=== PATIENT | male | born 1975 | race Caucasian/White ===

== ENCOUNTER 2018-08-21 11:15 | Outpatient (RCR) | payer OTHER, MEDICAID, SELFPAY ==
[2018-08-14 10:49] VITALS: BP 127/87; PULSE 88; RESP 16; TEMP 36.2; BMI 38.4
--- NOTE | 2018-08-14 12:39 | PCM.WC.HP ---
(1) Diabetic foot ulcer associated with type 2 diabetes mellitus Status: Chronic Current Visit: Yes Qualifiers: Laterality: right Non-pressure ulcer stage: with fat layer exposed Code(s): E11.621 - Type 2 diabetes mellitus with foot ulcer; L97.509 - Non-pressure chronic ulcer of other part of unspecified foot with unspecified severity Comment: Right lateral plantar. (2) Type 2 diabetes mellitus Status: Acute Current Visit: Yes Code(s): E11.9 - Type 2 diabetes mellitus without complications (3) Diabetic neuropathy Status: Acute Current Visit: Yes Code(s): E11.40 - Type 2 diabetes mellitus with diabetic neuropathy, unspecified History of Present Illness Chief Complaint: None healing right foot ulcer. History of Wound: Mr. 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 Initially noted in April due to problems with insurance has not sought definitive help. Has been seen in the emergency room treated with antibiotics and told to apply Silvadene. He states that he has done this daily. He however has not offloaded. He has noted some warmth and swelling around the area but denies chills, fever or otherwise feeling of unwell. He is unclear about his diabetes control. He denies tobacco abuse. Past Medical History Past Medical History: Chronic Problems Diabetic foot ulcer associated with type 2 diabetes mellitus (Chronic) Right lateral plantar. Allergies/Adverse Reactions: Allergies No Known Allergies Allergy (Verified 08/14/18 11:13) Home Medications: Ambulatory Orders Medication Instructions Recorded Aspirin E.C. [Ecotrin] 81 mg PO DAILY@0800 08/14/18 Atorvastatin Calcium [Lipitor] 40 mg PO QHS 08/14/18 Insulin Aspart [Novolog Flexpen 4 units SC TID 08/14/18 ([facility])] Lantus Solostar 24 unit SQ DAILY 08/14/18 Smoking Status: Never smoker Review of Systems Constitutional: Denies: Anorexia, Chills, Fever Eyes: Denies: Pain, Redness HEENT: Denies: Difficulty Swallowing Cardiovascular: Denies: Chest Pain, Chest Tightness Respiratory: Denies: Hemoptysis Gastrointestinal: Denies: Abdominal Pain, Hematemesis, Vomiting Skin: Denies: Jaundice - Physical Exam Vital Signs Temp Pulse Resp BP 97.1 F L 88 16 127/87 H 08/14/18 10:49 08/14/18 10:49 08/14/18 10:49 08/14/18 10:49 General: Alert, Oriented x3, Cooperative, No apparent distress HEENT: Atraumatic, Normocephalic Oral: Moist Mucosa Neck: Supple Lungs: Normal air movement Cardiovascular: Regular rate, Regular Rhythm, Normal S1, Normal S2 Abdomen: Soft, Non Tender, Obese Extremities: No cyanosis Skin: Ulcer/ Wound Wound Measurements and Assessment WC - Nurse 1 - General Ulcer Measurement Start: 08/14/18 10:49 Freq: Status: Active Protocol: Activity Type Activity Date Activity User E-Sign Co-Sign Detail Recorded Client Recorded Date Recorded By Document 08/14/18 10:49 OTONIEL [id number] 08/14/18 11:10 OTONIEL 08/14/18 10:49 Wound Center Nurse 1 [Ulcer Assessment] 1-right lateral plantar foot -Combined with other wound No -Current Size (cm) - Length 2.0 -Current Size (cm) - Width 1.0 -Current Size (cm) - Depth 0.7 -Total Square Cm 2.00 -Photo Taken Yes -Epithelialization Medium 34-66% -Tunneling No -Undermining/Tunneling No -Circular Undermining No -Classification - Quinn Grading ( Grade 2 Diabetic Ulcer) -Exudate Amt Medium -Exudate Type Serosanguineous -Wound Margin Flat & Intact -Granulation Amt Medium (34-66%) -Granulation Quality Red -Slough/Fibrin Yes -Necrosis Amt Medium (34-66%) -Necrotic Tissue Type Adherent Slough -Texture (Rosaura-wound Skin Appearance) Assessed Callus -Moisture (Rosaura-wound Skin Appearance Assessed ) Dry/Scaly -Color (Rosaura-wound Skin Appearance) Assessed -Temperature (Rosaura-wound Skin No Abnormality Appearance) (Pt Warm) -Tenderness on Palpation (Rosaura-wound No Skin Appearance) -Ulcer Cleansing Rinsed/ Irrigated with Saline -Foul Odor after Cleansing No -Anesthetic Used 4% Lidocaine Solution [Edema Assessment] -Lower Limb Edema Present No -Right Calf (cm) 41.7 -Right Ankle (cm) 25.7 -Left Calf (cm) 41.5 -Left Ankle (cm) 24.7 WC - Nurse 2 - General Ulcer CM Notes Start: 08/14/18 10:49 Freq: Status: Active Protocol: Activity Type Activity Date Activity User E-Sign Co-Sign Detail Recorded Client Recorded Date Recorded By Document 08/14/18 11:34 MW [id number] 08/14/18 11:48 MW 08/14/18 11:34 Wound Center Nurse 2 [Procedure/Treatment] 1-right lateral plantar foot -Time 11:35 -Correct Patient Yes -Correct Side, Site, Position Yes -Correct Procedure Yes -Procedure Performed Yes -Type of Procedure Debridement -Clinical Debridement Subcutaneous -Post Debridement Size (cm) - Length 2.2 -Post Debridement Size (cm) - Width 1.2 -Post Debridement Size (cm) - Depth 0.9 -Total Square Cm 2.64 -Wound/Ulcer Outcome Not Healed -Ulcer Cleansing Rinsed/ Irrigated with Saline -Foul Odor after Cleansing No -Bioengineered Tissue No -Bleeding Controlled with Pressure -Offloading No -Treatment Response Procedure Tolerated Well [See Physician Procedure note for Specifics] Pain Scale: 0-10 Numeric [Pain] -Is Patient Pain Free? Yes Musculoskeletal: No Muscle Wasting Neurological: Cranial nerves II-XII grossly intact Psych/Mental Status: Normal Affect Debridement Note Post-Debridement Measurements/Treatment WC - Nurse 2 - General Ulcer CM Notes Start: 08/14/18 10:49 Freq: Status: Active Protocol: Activity Type Activity Date Activity User E-Sign Co-Sign Detail Recorded Client Recorded Date Recorded By Document 08/14/18 11:34 MW [id number] 08/14/18 11:48 MW 08/14/18 11:34 Wound Center Nurse 2 1-right lateral plantar foot -Time 11:35 -Correct Patient Yes -Correct Side, Site, Position Yes -Correct Procedure Yes -Procedure Performed Yes -Type of Procedure Debridement -Clinical Debridement Subcutaneous -Post Debridement Size (cm) - Length 2.2 -Post Debridement Size (cm) - Width 1.2 -Post Debridement Size (cm) - Depth 0.9 -Total Square Cm 2.64 -Wound/Ulcer Outcome Not Healed -Ulcer Cleansing Rinsed/ Irrigated with Saline -Foul Odor after Cleansing No -Bioengineered Tissue No -Bleeding Controlled with Pressure -Offloading No -Treatment Response Procedure Tolerated Well Pain Scale: 0-10 Numeric Is Patient Pain Free? Yes Wound debrided: Right foot (plantar, fifth/4th metatarsal head ) Wound Grade/Stage: Grade 2 Type of Debridement: Excisional debridement Anesthesia Used: 4% Lidocaine Solution Depth: Down to and including healthy tissue, in the subcutaneous layer Percentage of wound debrided: 100 Instrument Used: 5mm curette Tissue Removed: Slough and devitalized tissue Severity: Fat Layer Exposed Amount of bleeding with debridement: Mild Bleeding Controlled with: Pressure Patient tolerated procedure well Assessment/Plan Active Problems Diabetic foot ulcer associated with type 2 diabetes mellitus (Chronic) Right lateral plantar. Type 2 diabetes mellitus (Acute) Diabetic neuropathy (Acute) Assessment: Nonhealing diabetic foot ulcer of right foot. Diabetic neuropathy. Plan: Debridement done as documented above, procedure was well-tolerated. Ulcer appears well granulated however differential warmth and tenderness of the foot appreciated. Significant depth however no bone probed. Patient reports significant amount of drainage. Cultures taken. X-ray, vascular studies, CBC, CMP, CRP and ESR were also ordered. For now Aquacel extra twice daily with gauze over top. Double layer Tubigrip for edema management. Due to depth, significant drainage and chronicity of wound, I believe he will benefit from a wound VAC. We will apply. Strongly advised to elevate his lower extremity when seated in bed. Optimal blood sugar control and increased intake of protein in his diet/supplements also recommended. Given postop shoes to help with offloading. Does not currently follow-up with podiatry, he was advised to. His questions were answered and he was advised to call with any further questions or concerns. Follow-up in 1 week. This note was generated with [employer] dictation software. It may contain incorrect words, spelling, and punctuation that were not noted in checking the note before signing.
--- NOTE | 2018-08-14 12:43 | HP.PCM_ITS ---
(1) Diabetic foot ulcer associated with type 2 diabetes mellitus Status: Chronic Current Visit: Yes Qualifiers: Laterality: right Non-pressure ulcer stage: with fat layer exposed Code(s): E11.621 - Type 2 diabetes mellitus with foot ulcer; L97.509 - Non- pressure chronic ulcer of other part of unspecified foot with unspecified severity Comment: Right lateral plantar. (2) Type 2 diabetes mellitus Status: Acute Current Visit: Yes Code(s): E11.9 - Type 2 diabetes mellitus without complications (3) Diabetic neuropathy Status: Acute Current Visit: Yes Code(s): E11.40 - Type 2 diabetes mellitus with diabetic neuropathy, unspecified History of Present Illness Chief Complaint: None healing right foot ulcer. History of Wound: Mr. 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 Initially noted in April due to problems with insurance has not sought definitive help. Has been seen in the emergency room treated with antibiotics and told to apply Silvadene. He states that he has done this daily. He however has not offloaded. He has noted some warmth and swelling around the area but denies chills, fever or otherwise feeling of unwell. He is unclear about his diabetes control. He denies tobacco abuse. Past Medical History Past Medical History: Chronic Problems Diabetic foot ulcer associated with type 2 diabetes mellitus (Chronic) Right lateral plantar. Allergies/Adverse Reactions: Allergies No Known Allergies Allergy (Verified 08/14/18 11:13) Home Medications: Ambulatory Orders Medication Instructions Recorded Aspirin E.C. [Ecotrin] 81 mg PO DAILY@0800 08/14/18 Atorvastatin Calcium [Lipitor] 40 mg PO QHS 08/14/18 Insulin Aspart [Novolog Flexpen 4 units SC TID 08/14/18 ([facility])] Lantus Solostar 24 unit SQ DAILY 08/14/18 Smoking Status: Never smoker Review of Systems Constitutional: Denies: Anorexia, Chills, Fever Eyes: Denies: Pain, Redness HEENT: Denies: Difficulty Swallowing Cardiovascular: Denies: Chest Pain, Chest Tightness Respiratory: Denies: Hemoptysis Gastrointestinal: Denies: Abdominal Pain, Hematemesis, Vomiting Skin: Denies: Jaundice - Physical Exam Vital Signs Temp Pulse Resp BP 97.1 F L 88 16 127/87 H 08/14/18 10:49 08/14/18 10:49 08/14/18 10:49 08/14/18 10:49 General: Alert, Oriented x3, Cooperative, No apparent distress HEENT: Atraumatic, Normocephalic Oral: Moist Mucosa Neck: Supple Lungs: Normal air movement Cardiovascular: Regular rate, Regular Rhythm, Normal S1, Normal S2 Abdomen: Soft, Non Tender, Obese Extremities: No cyanosis Skin: Ulcer/ Wound Wound Measurements and Assessment WC - Nurse 1 - General Ulcer Measurement Start: 08/14/18 10:49 Freq: Status: Active Protocol: Activity Type Activity Date Activity User E-Sign Co-Sign Detail Recorded Client Recorded Date Recorded By Document 08/14/18 10:49 OTONIEL [id number] 08/14/18 11:10 OTONIEL 08/14/18 10:49 Wound Center Nurse 1 [Ulcer Assessment] 1-right lateral plantar foot -Combined with other wound No -Current Size (cm) - Length 2.0 -Current Size (cm) - Width 1.0 -Current Size (cm) - Depth 0.7 -Total Square Cm 2.00 -Photo Taken Yes -Epithelialization Medium 34-66% -Tunneling No -Undermining/Tunneling No -Circular Undermining No -Classification - Quinn Grading ( Grade 2 Diabetic Ulcer) -Exudate Amt Medium -Exudate Type Serosanguineous -Wound Margin Flat & Intact -Granulation Amt Medium (34-66%) -Granulation Quality Red -Slough/Fibrin Yes -Necrosis Amt Medium (34-66%) -Necrotic Tissue Type Adherent Slough -Texture (Rosaura-wound Skin Appearance) Assessed Callus -Moisture (Rosaura-wound Skin Appearance Assessed ) Dry/Scaly -Color (Rosaura-wound Skin Appearance) Assessed -Temperature (Rosaura-wound Skin No Abnormality Appearance) (Pt Warm) -Tenderness on Palpation (Rosaura-wound No Skin Appearance) -Ulcer Cleansing Rinsed/ Irrigated with Saline -Foul Odor after Cleansing No -Anesthetic Used 4% Lidocaine Solution [Edema Assessment] -Lower Limb Edema Present No -Right Calf (cm) 41.7 -Right Ankle (cm) 25.7 -Left Calf (cm) 41.5 -Left Ankle (cm) 24.7 WC - Nurse 2 - General Ulcer CM Notes Start: 08/14/18 10:49 Freq: Status: Active Protocol: Activity Type Activity Date Activity User E-Sign Co-Sign Detail Recorded Client Recorded Date Recorded By Document 08/14/18 11:34 MW [id number] 08/14/18 11:48 MW 08/14/18 11:34 Wound Center Nurse 2 [Procedure/Treatment] 1-right lateral plantar foot -Time 11:35 -Correct Patient Yes -Correct Side, Site, Position Yes -Correct Procedure Yes -Procedure Performed Yes -Type of Procedure Debridement -Clinical Debridement Subcutaneous -Post Debridement Size (cm) - Length 2.2 -Post Debridement Size (cm) - Width 1.2 -Post Debridement Size (cm) - Depth 0.9 -Total Square Cm 2.64 -Wound/Ulcer Outcome Not Healed -Ulcer Cleansing Rinsed/ Irrigated with Saline -Foul Odor after Cleansing No -Bioengineered Tissue No -Bleeding Controlled with Pressure -Offloading No -Treatment Response Procedure Tolerated Well [See Physician Procedure note for Specifics] Pain Scale: 0-10 Numeric [Pain] -Is Patient Pain Free? Yes Musculoskeletal: No Muscle Wasting Neurological: Cranial nerves II-XII grossly intact Psych/Mental Status: Normal Affect Debridement Note Post-Debridement Measurements/Treatment WC - Nurse 2 - General Ulcer CM Notes Start: 08/14/18 10:49 Freq: Status: Active Protocol: Activity Type Activity Date Activity User E-Sign Co-Sign Detail Recorded Client Recorded Date Recorded By Document 08/14/18 11:34 MW [id number] 08/14/18 11:48 MW 08/14/18 11:34 Wound Center Nurse 2 1-right lateral plantar foot -Time 11:35 -Correct Patient Yes -Correct Side, Site, Position Yes -Correct Procedure Yes -Procedure Performed Yes -Type of Procedure Debridement -Clinical Debridement Subcutaneous -Post Debridement Size (cm) - Length 2.2 -Post Debridement Size (cm) - Width 1.2 -Post Debridement Size (cm) - Depth 0.9 -Total Square Cm 2.64 -Wound/Ulcer Outcome Not Healed -Ulcer Cleansing Rinsed/ Irrigated with Saline -Foul Odor after Cleansing No -Bioengineered Tissue No -Bleeding Controlled with Pressure -Offloading No -Treatment Response Procedure Tolerated Well Pain Scale: 0-10 Numeric Is Patient Pain Free? Yes Wound debrided: Right foot (plantar, fifth/4th metatarsal head ) Wound Grade/Stage: Grade 2 Type of Debridement: Excisional debridement Anesthesia Used: 4% Lidocaine Solution Depth: Down to and including healthy tissue, in the subcutaneous layer Percentage of wound debrided: 100 Instrument Used: 5mm curette Tissue Removed: Slough and devitalized tissue Severity: Fat Layer Exposed Amount of bleeding with debridement: Mild Bleeding Controlled with: Pressure Patient tolerated procedure well Assessment/Plan Active Problems Diabetic foot ulcer associated with type 2 diabetes mellitus (Chronic) Right lateral plantar. Type 2 diabetes mellitus (Acute) Diabetic neuropathy (Acute) Assessment: Nonhealing diabetic foot ulcer of right foot. Diabetic neuropathy. Plan: Debridement done as documented above, procedure was well-tolerated. Ulcer appears well granulated however differential warmth and tenderness of the foot appreciated. Significant depth however no bone probed. Patient reports significant amount of drainage. Cultures taken. X-ray, vascular studies, CBC, CMP, CRP and ESR were also ordered. For now Aquacel extra twice daily with gauze over top. Double layer Tubigrip for edema management. Due to depth, significant drainage and chronicity of wound, I believe he will benefit from a wound VAC. We will apply. Strongly advised to elevate his lower extremity when seated in bed. Optimal blood sugar control and increased intake of protein in his diet/supplements also recommended. Given postop shoes to help with offloading. Does not currently follow-up with podiatry, he was advised to. His questions were answered and he was advised to call with any further questions or concerns. Follow-up in 1 week. This note was generated with [employer] dictation software. It may contain incorrect words, spelling, and punctuation that were not noted in checking the note before signing.
--- NOTE | 2018-08-14 12:55 | RAD_ITS ---
STUDY: X-RAY - RIGHT FOOT CLINICAL: Male, 42 years old. Right foot ulcer TECHNIQUE: 3 view(s) of the foot. COMPARISON: None. FINDINGS: There is a healing or healed fracture involving the distal shaft of the fifth metatarsal. The rest of the bones in the fifth ray are normal. The fourth, third and second rays are normal. There is amputation of the big toe. First metatarsal bone is normal. There is cellulitis of the entire foot with no areas osteomyelitis, fractures or dislocations. RAD/Foot min 3 Views IMPRESSION: Amputation on the right big toe. Cellulitis of the foot. No osteomyelitis. No fractures Electronically Signed: Dario Boudreaux MD at 6:28 EDT Tel , Service support ,
[2018-08-14 13:51] LABS: Erythrocyte Sedimentation Rate 40 mm/hr (0-15)
[2018-08-14 13:54] LABS: Absolute Lymphocyte Count 1.63 X10^3/ul (0.83-4.51); Absolute Neutrophil Count 4.8 X10^3/uL (2.0-7.7); Basophil# 0.03 X10^3/uL; Basophil% 0.4 % (0-1); Eosinophil# 0.23 X10^3/uL; Eosinophils% 3.2 % (0-5); Hematocrit 30.9 % (40-54); Hemoglobin 10.2 g/dl (13.0-16.5); Lymphocyte # 1.63 X10^3/ul (4.0); Lymphocyte % 22.5 % (19-41); Mean Corpuscular Hgb 28.2 pg (27.0-32.0); Mean Corpuscular Volume 85.4 fL (80-94); Mean Platelet Vol. 9.6 fl (6.2-12.0); Monocyte# 0.55 X10^3/uL; Monocyte% 7.6 % (0-10); Neutrophil % 66.2 % (47-70); Platelet Count 274 K/mm3 (150-450); RBC Distribution Width CV 12.2 % (11.6-14.6); Red Blood Count 3.62 M/mm3 (4.6-6.2); White Blood Count 7.3 K/mm3 (4.4-11.0)
[2018-08-14 13:55] LABS: POSITIVE COUNT NO; POSITIVE DIFFERENTIAL NO; POSITIVE MORPHOLOGY NO
[2018-08-14 14:15] LABS: Hemoglobin A1c 7.6 % (4.2-6.3)
[2018-08-14 14:19] LABS: ALB/GLOB Ratio 0.7 RATIO (0.9-2.4); AST(SGOT) 12 U/L (15-37); Alanine Aminotransfer ALT/SGPT 27 U/L (16-61); Albumin, Serum 3.2 g/dL (3.2-5.0); Alkaline Phosphatase 88 U/L (45-117); Anion Gap 4 (5-15); BUN 42 mg/dL (7-18); BUN/Creat Ratio 17.1 RATIO (10-20); CRP < 2.90 mg/L (0.0-3.0); Calcium,Total 9.2 mg/dL (8.5-10.1); Chloride 106 mmol/L (98-107); Creatinine, Serum 2.45 mg/dL (0.70-1.30); EST Glomerular Filtration Rate 31 mL/min (>60); Est Glom Filt Rate - Afr Amer 37 mL/min (>60); Estimated Creatinine Clearance 38.48 ml/min; Globulin 4.9 g/dL (2.2-4.2); Glucose 169 mg/dL (74-106); Potassium 4.6 mmol/L (3.5-5.1); Prealbumin 24.8 mg/dL (20.0-40.0); Protein, Total 8.1 g/dL (6.4-8.2); Sodium Level 140 mmol/L (136-145)
--- NOTE | 2018-08-14 15:17 | WC ---
Called and spoke with patient [place] [employer] sales representative trainee regarding pre authorization for disposable snap wound vac. CPT code 05300 provided. No pre auth is needed for the snap wound vac and treatment may be initiated per order. Reference #[id number].
[2018-08-21 11:01] VITALS: BP 135/87; PULSE 95; RESP 18; TEMP 36.8; BMI 38.4
--- NOTE | 2018-08-21 12:05 | PCM.WC.PN ---
(1) Diabetic foot ulcer associated with type 2 diabetes mellitus Status: Chronic Current Visit: Yes Qualifiers: Laterality: right Non-pressure ulcer stage: with fat layer exposed Code(s): E11.621 - Type 2 diabetes mellitus with foot ulcer; L97.509 - Non-pressure chronic ulcer of other part of unspecified foot with unspecified severity Comment: Right lateral plantar. (2) Type 2 diabetes mellitus Status: Acute Current Visit: Yes Code(s): E11.9 - Type 2 diabetes mellitus without complications (3) Diabetic neuropathy Status: Acute Current Visit: Yes Code(s): E11.40 - Type 2 diabetes mellitus with diabetic neuropathy, unspecified Type of Wound Chief Complaint: None healing right foot ulcer. History of Wound: Mr. 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 Initially noted in April due to problems with insurance has not sought definitive help. Has been seen in the emergency room treated with antibiotics and told to apply Silvadene. He states that he has done this daily. He however has not offloaded. He has noted some warmth and swelling around the area but denies chills, fever or otherwise feeling of unwell. He is unclear about his diabetes control. He denies tobacco abuse. Progress of Wound: Stable. No new concerns at this time. Now approved for SNAP. Xray done not suggestive of Osteomyelitis. - Physical Exam Vital Signs Temp Pulse Resp BP 98.2 F 95 18 135/87 H 08/21/18 11:01 08/21/18 11:01 08/21/18 11:01 08/21/18 11:01 General: Alert, Oriented x3, Cooperative, No apparent distress HEENT: Atraumatic, Normocephalic Oral: Moist Mucosa Neck: Supple Lungs: Normal air movement Abdomen: Non Tender Extremities: No cyanosis Skin: Ulcer/ Wound Wound Measurements and Assessment WC - Nurse 1 - General Ulcer Measurement Start: 08/14/18 10:49 Freq: Status: Active Protocol: Activity Type Activity Date Activity User E-Sign Co-Sign Detail Recorded Client Recorded Date Recorded By Document 08/21/18 11:01 RB [id number] 08/21/18 11:12 RB 08/21/18 11:01 Wound Center Nurse 1 [Ulcer Assessment] 1-right lateral plantar foot -Combined with other wound No -Current Size (cm) - Length 2.1 -Current Size (cm) - Width 1 -Current Size (cm) - Depth 0.9 -Total Square Cm 2.1 -Tunneling No -Undermining/Tunneling No -Circular Undermining No -Exudate Amt Small -Exudate Type Serosanguineous -Wound Margin Thickened -Granulation Amt Medium (34-66%) -Granulation Quality [place] -Slough/Fibrin Yes -Necrosis Amt Small (1-33%) -Necrotic Tissue Type Adherent Slough -Structure Exposed N/A -Texture (Rosaura-wound Skin Appearance) Assessed Callus -Moisture (Rosaura-wound Skin Appearance Assessed ) -Color (Rosaura-wound Skin Appearance) Assessed -Temperature (Rosaura-wound Skin No Abnormality Appearance) (Pt Warm) -Tenderness on Palpation (Rosaura-wound No Skin Appearance) -Ulcer Cleansing Rinsed/ Irrigated with Saline -Foul Odor after Cleansing No -Anesthetic Used 5% Lidocaine Gel WC - Nurse 2 - General Ulcer CM Notes Start: 08/14/18 10:49 Freq: Status: Active Protocol: Activity Type Activity Date Activity User E-Sign Co-Sign Detail Recorded Client Recorded Date Recorded By Document 08/21/18 11:48 MW [id number] 08/21/18 11:54 MW 08/21/18 11:48 Wound Center Nurse 2 [Procedure/Treatment] -Time 11:49 -Correct Patient Yes -Correct Side, Site, Position Yes -Correct Procedure Yes -Procedure Performed Yes -Type of Procedure Debridement -Clinical Debridement Subcutaneous -Post Debridement Size (cm) - Length 2.3 -Post Debridement Size (cm) - Width 1.1 -Post Debridement Size (cm) - Depth 0.9 -Total Square Cm 2.53 -Wound/Ulcer Outcome Not Healed -Ulcer Cleansing Rinsed/ Irrigated with Saline -Foul Odor after Cleansing No -Bioengineered Tissue No -Bleeding Controlled with Pressure -Offloading No -Treatment Response Procedure Tolerated Well [See Physician Procedure note for Specifics] Pain Scale: 0-10 Numeric [Pain] -Is Patient Pain Free? Yes Musculoskeletal: No Muscle Wasting Neurological: Cranial nerves II-XII grossly intact Psych/Mental Status: Normal Affect Debridement Note Post-Debridement Measurements/Treatment WC - Nurse 2 - General Ulcer CM Notes Start: 08/14/18 10:49 Freq: Status: Active Protocol: Activity Type Activity Date Activity User E-Sign Co-Sign Detail Recorded Client Recorded Date Recorded By Document 08/14/18 11:34 MW [id number] 08/14/18 11:48 MW Document 08/21/18 11:48 MW [id number] 08/21/18 11:54 MW 08/14/18 08/21/18 11:34 11:48 Wound Center Nurse 2 1-right lateral plantar foot -Time 11:35 11:49 -Correct Patient Yes Yes -Correct Side, Site, Position Yes Yes -Correct Procedure Yes Yes -Procedure Performed Yes Yes -Type of Procedure Debridement Debridement -Clinical Debridement Subcutaneous Subcutaneous -Post Debridement Size (cm) - Length 2.2 2.3 -Post Debridement Size (cm) - Width 1.2 1.1 -Post Debridement Size (cm) - Depth 0.9 0.9 -Total Square Cm 2.64 2.53 -Wound/Ulcer Outcome Not Healed Not Healed -Ulcer Cleansing Rinsed/ Rinsed/ Irrigated with Irrigated with Saline Saline -Foul Odor after Cleansing No No -Bioengineered Tissue No No -Bleeding Controlled with Pressure Pressure -Offloading No No -Treatment Response Procedure Procedure Tolerated Well Tolerated Well Pain Scale: 0-10 Numeric Is Patient Pain Free? Yes Yes Wound debrided: Right Foot Plantar Wound Grade/Stage: Grade II Type of Debridement: Excisional debridement Anesthesia Used: 4% Lidocaine Solution Depth: Down to and including healthy tissue, in the subcutaneous layer Percentage of wound debrided: 100 Instrument Used: 5mm curette Tissue Removed: SLough and devitalized tissue Severity: Fat Layer Exposed Amount of bleeding with debridement: Mild Bleeding Controlled with: Pressure Patient tolerated procedure well Assessment/Plan Clinical Impression(s) from Imaging Studies Foot X-Ray 08/14/18 12:55 IMPRESSION: Amputation on the right big toe. Cellulitis of the foot. No osteomyelitis. No fractures Electronically Signed: Dario Boudreaux MD at 6:28 EDT Tel , Service support , Active Problems Diabetic foot ulcer associated with type 2 diabetes mellitus (Chronic) Right lateral plantar. Type 2 diabetes mellitus (Acute) Diabetic neuropathy (Acute) Assessment: Nonhealing diabetic foot ulcer of right foot. Diabetic neuropathy. Plan: Debridement done as documented above, procedure was well-tolerated. Now approved for SNAP. Started on antibiotocs per culture and sentitivity. Labs and Xray also reviewed. SNAP applied today. Double layer Tubigrip for edema management. Follow up on Saturday for nurse visit/VAC change. Strongly advised to elevate his lower extremity when seated in bed. Optimal blood sugar control and increased intake of protein in his diet/supplements also recommended. Given postop shoes to help with offloading. Does not currently follow-up with podiatry, he was advised to. His questions were answered and he was advised to call with any further questions or concerns. Follow-up in 1 week. This note was generated with [employer] dictation software. It may contain incorrect words, spelling, and punctuation that were not noted in checking the note before signing.
--- NOTE | 2018-08-21 12:11 | PN.PCM_ITS ---
(1) Diabetic foot ulcer associated with type 2 diabetes mellitus Status: Chronic Current Visit: Yes Qualifiers: Laterality: right Non-pressure ulcer stage: with fat layer exposed Code(s): E11.621 - Type 2 diabetes mellitus with foot ulcer; L97.509 - Non- pressure chronic ulcer of other part of unspecified foot with unspecified severity Comment: Right lateral plantar. (2) Type 2 diabetes mellitus Status: Acute Current Visit: Yes Code(s): E11.9 - Type 2 diabetes mellitus without complications (3) Diabetic neuropathy Status: Acute Current Visit: Yes Code(s): E11.40 - Type 2 diabetes mellitus with diabetic neuropathy, unspecified Type of Wound Chief Complaint: None healing right foot ulcer. History of Wound: Mr. 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 Initially noted in April due to problems with insurance has not sought definitive help. Has been seen in the emergency room treated with antibiotics and told to apply Silvadene. He states that he has done this daily. He however has not offloaded. He has noted some warmth and swelling around the area but denies chills, fever or otherwise feeling of unwell. He is unclear about his diabetes control. He denies tobacco abuse. Progress of Wound: Stable. No new concerns at this time. Now approved for SNAP. Xray done not suggestive of Osteomyelitis. - Physical Exam Vital Signs Temp Pulse Resp BP 98.2 F 95 18 135/87 H 08/21/18 11:01 08/21/18 11:01 08/21/18 11:01 08/21/18 11:01 General: Alert, Oriented x3, Cooperative, No apparent distress HEENT: Atraumatic, Normocephalic Oral: Moist Mucosa Neck: Supple Lungs: Normal air movement Abdomen: Non Tender Extremities: No cyanosis Skin: Ulcer/ Wound Wound Measurements and Assessment WC - Nurse 1 - General Ulcer Measurement Start: 08/14/18 10:49 Freq: Status: Active Protocol: Activity Type Activity Date Activity User E-Sign Co-Sign Detail Recorded Client Recorded Date Recorded By Document 08/21/18 11:01 RB [id number] 08/21/18 11:12 RB 08/21/18 11:01 Wound Center Nurse 1 [Ulcer Assessment] 1-right lateral plantar foot -Combined with other wound No -Current Size (cm) - Length 2.1 -Current Size (cm) - Width 1 -Current Size (cm) - Depth 0.9 -Total Square Cm 2.1 -Tunneling No -Undermining/Tunneling No -Circular Undermining No -Exudate Amt Small -Exudate Type Serosanguineous -Wound Margin Thickened -Granulation Amt Medium (34-66%) -Granulation Quality [place] -Slough/Fibrin Yes -Necrosis Amt Small (1-33%) -Necrotic Tissue Type Adherent Slough -Structure Exposed N/A -Texture (Rosaura-wound Skin Appearance) Assessed Callus -Moisture (Rosaura-wound Skin Appearance Assessed ) -Color (Rosaura-wound Skin Appearance) Assessed -Temperature (Rosaura-wound Skin No Abnormality Appearance) (Pt Warm) -Tenderness on Palpation (Rosaura-wound No Skin Appearance) -Ulcer Cleansing Rinsed/ Irrigated with Saline -Foul Odor after Cleansing No -Anesthetic Used 5% Lidocaine Gel WC - Nurse 2 - General Ulcer CM Notes Start: 08/14/18 10:49 Freq: Status: Active Protocol: Activity Type Activity Date Activity User E-Sign Co-Sign Detail Recorded Client Recorded Date Recorded By Document 08/21/18 11:48 MW [id number] 08/21/18 11:54 MW 08/21/18 11:48 Wound Center Nurse 2 [Procedure/Treatment] -Time 11:49 -Correct Patient Yes -Correct Side, Site, Position Yes -Correct Procedure Yes -Procedure Performed Yes -Type of Procedure Debridement -Clinical Debridement Subcutaneous -Post Debridement Size (cm) - Length 2.3 -Post Debridement Size (cm) - Width 1.1 -Post Debridement Size (cm) - Depth 0.9 -Total Square Cm 2.53 -Wound/Ulcer Outcome Not Healed -Ulcer Cleansing Rinsed/ Irrigated with Saline -Foul Odor after Cleansing No -Bioengineered Tissue No -Bleeding Controlled with Pressure -Offloading No -Treatment Response Procedure Tolerated Well [See Physician Procedure note for Specifics] Pain Scale: 0-10 Numeric [Pain] -Is Patient Pain Free? Yes Musculoskeletal: No Muscle Wasting Neurological: Cranial nerves II-XII grossly intact Psych/Mental Status: Normal Affect Debridement Note Post-Debridement Measurements/Treatment WC - Nurse 2 - General Ulcer CM Notes Start: 08/14/18 10:49 Freq: Status: Active Protocol: Activity Type Activity Date Activity User E-Sign Co-Sign Detail Recorded Client Recorded Date Recorded By Document 08/14/18 11:34 MW [id number] 08/14/18 11:48 MW Document 08/21/18 11:48 MW [id number] 08/21/18 11:54 MW 08/14/18 08/21/18 11:34 11:48 Wound Center Nurse 2 1-right lateral plantar foot -Time 11:35 11:49 -Correct Patient Yes Yes -Correct Side, Site, Position Yes Yes -Correct Procedure Yes Yes -Procedure Performed Yes Yes -Type of Procedure Debridement Debridement -Clinical Debridement Subcutaneous Subcutaneous -Post Debridement Size (cm) - Length 2.2 2.3 -Post Debridement Size (cm) - Width 1.2 1.1 -Post Debridement Size (cm) - Depth 0.9 0.9 -Total Square Cm 2.64 2.53 -Wound/Ulcer Outcome Not Healed Not Healed -Ulcer Cleansing Rinsed/ Rinsed/ Irrigated with Irrigated with Saline Saline -Foul Odor after Cleansing No No -Bioengineered Tissue No No -Bleeding Controlled with Pressure Pressure -Offloading No No -Treatment Response Procedure Procedure Tolerated Well Tolerated Well Pain Scale: 0-10 Numeric Is Patient Pain Free? Yes Yes Wound debrided: Right Foot Plantar Wound Grade/Stage: Grade II Type of Debridement: Excisional debridement Anesthesia Used: 4% Lidocaine Solution Depth: Down to and including healthy tissue, in the subcutaneous layer Percentage of wound debrided: 100 Instrument Used: 5mm curette Tissue Removed: SLough and devitalized tissue Severity: Fat Layer Exposed Amount of bleeding with debridement: Mild Bleeding Controlled with: Pressure Patient tolerated procedure well Assessment/Plan Clinical Impression(s) from Imaging Studies Foot X-Ray 08/14/18 12:55 IMPRESSION: Amputation on the right big toe. Cellulitis of the foot. No osteomyelitis. No fractures Electronically Signed: Dario Boudreaux MD at 6:28 EDT Tel , Service support , Active Problems Diabetic foot ulcer associated with type 2 diabetes mellitus (Chronic) Right lateral plantar. Type 2 diabetes mellitus (Acute) Diabetic neuropathy (Acute) Assessment: Nonhealing diabetic foot ulcer of right foot. Diabetic neuropathy. Plan: Debridement done as documented above, procedure was well-tolerated. Now approved for SNAP. Started on antibiotocs per culture and sentitivity. Labs and Xray also reviewed. SNAP applied today. Double layer Tubigrip for edema management. Follow up on Saturday for nurse visit/VAC change. Strongly advised to elevate his lower extremity when seated in bed. Optimal blood sugar control and increased intake of protein in his diet/supplements also recommended. Given postop shoes to help with offloading. Does not currently follow-up with podiatry, he was advised to. His questions were answered and he was advised to call with any further questions or concerns. Follow-up in 1 week. This note was generated with [employer] dictation software. It may contain incorrect words, spelling, and punctuation that were not noted in checking the note before signing.
== END 2018-08-22 23:59 ==
LOC: WC 11:15
PROVIDERS: Referring Provider Internal Medicine; Visit Provider Internal Medicine
DX: E11.621 Type 2 diabetes mellitus with foot ulcer (principal); L97.512 Non-pressure chronic ulcer of other part of right foot with fat layer exposed; E11.40 Type 2 diabetes mellitus with diabetic neuropathy, unspecified
CPT/HCPCS: 11042; 36415; 73630; 80053; 83036; 84134; 85025; 85652; 86140; 87070; 87075; 87077; 87186; 87205; 97607; 99203; G0463

== ENCOUNTER 2018-09-17 10:00 | Outpatient (RCR) | payer OTHER, MEDICAID, SELFPAY ==
[2018-08-23 01:26] VITALS: BP 135/87; PULSE 95; RESP 18; TEMP 36.8
[2018-08-25 13:13] VITALS: BP 152/92; PULSE 81; RESP 18; TEMP 36.8; BMI 38.4
[2018-08-27 11:22] VITALS: BP 157/89; PULSE 92; RESP 18; TEMP 36.7; BMI 38.4
--- NOTE | 2018-08-27 12:05 | PCM.WC.PN ---
(1) Diabetic foot ulcer associated with type 2 diabetes mellitus Status: Chronic Current Visit: Yes Code(s): E11.621 - Type 2 diabetes mellitus with foot ulcer; L97.509 - Non-pressure chronic ulcer of other part of unspecified foot with unspecified severity Comment: Right lateral plantar. (2) Diabetic neuropathy Status: Acute Current Visit: Yes Code(s): E11.40 - Type 2 diabetes mellitus with diabetic neuropathy, unspecified Type of Wound Chief Complaint: None healing right foot ulcer. History of Wound: Mr. 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 Initially noted in April due to problems with insurance has not sought definitive help. Has been seen in the emergency room treated with antibiotics and told to apply Silvadene. He states that he has done this daily. He however has not offloaded. He has noted some warmth and swelling around the area but denies chills, fever or otherwise feeling of unwell. He is unclear about his diabetes control. He denies tobacco abuse. Progress of Wound: No new concerns at this time. Tolerating Snap well. - Physical Exam Vital Signs Temp Pulse Resp BP 98.0 F 92 18 157/89 H 08/27/18 11:22 08/27/18 11:22 08/27/18 11:22 08/27/18 11:22 General: Alert, Oriented x3, Cooperative, No apparent distress HEENT: Atraumatic, Normocephalic Oral: Moist Mucosa Neck: Supple Lungs: Normal air movement Extremities: No cyanosis Wound Measurements and Assessment WC - Nurse 1 - General Ulcer Measurement Start: 08/25/18 11:34 Freq: Status: Active Protocol: Activity Type Activity Date Activity User E-Sign Co-Sign Detail Recorded Client Recorded Date Recorded By Document 08/25/18 13:13 DL [id number] 08/25/18 13:50 DL Document 08/27/18 11:22 DV [id number] 08/27/18 11:30 DV 08/25/18 08/27/18 13:13 11:22 Wound Center Nurse 1 [Ulcer Assessment] 1-right lateral plantar foot -Combined with other wound No -Current Size (cm) - Length 2.0 -Current Size (cm) - Width 1.2 -Current Size (cm) - Depth 1.0 -Total Square Cm 2.40 -Photo Taken No -Epithelialization None Present -Exudate Amt Small Medium -Exudate Type Serosanguineous Serosanguineous -Wound Margin Thickened Fibrotic Scar, Thickened Scar -Granulation Amt Large (67-100%) Small (1-33%) -Granulation Quality [place] -Slough/Fibrin Yes -Necrosis Amt Small (1-33%) Large (67-100%) -Necrotic Tissue Type Adherent Slough Adherent Slough -Structure Exposed N/A None/Limited to Skin Breakdown -Texture (Rosaura-wound Skin Appearance) Callus Assessed Scarring -Moisture (Rosaura-wound Skin Appearance No Abnormality Assessed ) Weeping -Color (Rosaura-wound Skin Appearance) No Abnormality Assessed -Temperature (Rosaura-wound Skin No Abnormality No Abnormality Appearance) (Pt Warm) (Pt Warm) -Tenderness on Palpation (Rosaura-wound No No Skin Appearance) -Ulcer Cleansing Wound Cleanser Rinsed/ Irrigated with Saline -Foul Odor after Cleansing No No -Anesthetic Used 4% Lidocaine Solution WC - Nurse 2 - General Ulcer CM Notes Start: 08/25/18 11:34 Freq: Status: Active Protocol: Activity Type Activity Date Activity User E-Sign Co-Sign Detail Recorded Client Recorded Date Recorded By Document 08/27/18 11:40 DV [id number] 08/27/18 11:48 DV 08/27/18 11:40 Wound Center Nurse 2 [Procedure/Treatment] -Time 11:43 -Correct Patient Yes -Correct Side, Site, Position Yes -Correct Procedure Yes -Procedure Performed Yes -Type of Procedure Debridement -Clinical Debridement Subcutaneous -Post Debridement Size (cm) - Length 2.0 -Post Debridement Size (cm) - Width 1.0 -Post Debridement Size (cm) - Depth 0.7 -Total Square Cm 2.00 -Wound/Ulcer Outcome Not Healed -Ulcer Cleansing Rinsed/ Irrigated with Saline -Foul Odor after Cleansing No -Bioengineered Tissue No -Bleeding Controlled with Pressure -Offloading No -Treatment Response Procedure Tolerated Well [See Physician Procedure note for Specifics] Pain Scale: 0-10 Numeric [Pain] -Is Patient Pain Free? Yes Neurological: Cranial nerves II-XII grossly intact Psych/Mental Status: Normal Affect Debridement Note Post-Debridement Measurements/Treatment WC - Nurse 2 - General Ulcer CM Notes Start: 08/25/18 11:34 Freq: Status: Active Protocol: Activity Type Activity Date Activity User E-Sign Co-Sign Detail Recorded Client Recorded Date Recorded By Document 08/27/18 11:40 DV [id number] 08/27/18 11:48 DV 08/27/18 11:40 Wound Center Nurse 2 1-right lateral plantar foot -Time 11:43 -Correct Patient Yes -Correct Side, Site, Position Yes -Correct Procedure Yes -Procedure Performed Yes -Type of Procedure Debridement -Clinical Debridement Subcutaneous -Post Debridement Size (cm) - Length 2.0 -Post Debridement Size (cm) - Width 1.0 -Post Debridement Size (cm) - Depth 0.7 -Total Square Cm 2.00 -Wound/Ulcer Outcome Not Healed -Ulcer Cleansing Rinsed/ Irrigated with Saline -Foul Odor after Cleansing No -Bioengineered Tissue No -Bleeding Controlled with Pressure -Offloading No -Treatment Response Procedure Tolerated Well Pain Scale: 0-10 Numeric Is Patient Pain Free? Yes Wound debrided: Right foot plantar Wound Grade/Stage: Grade 2 Type of Debridement: Excisional debridement Anesthesia Used: 4% Lidocaine Solution Depth: Down to and including healthy tissue, in the subcutaneous layer Percentage of wound debrided: 100 Instrument Used: 7mm curette Tissue Removed: Slough and devitalized tissue Severity: Fat Layer Exposed Amount of bleeding with debridement: Mild Bleeding Controlled with: Pressure Patient tolerated procedure well Assessment/Plan Active Problems Diabetic foot ulcer associated with type 2 diabetes mellitus (Chronic) Right lateral plantar. Diabetic neuropathy (Acute) Assessment: Nonhealing diabetic foot ulcer of right foot. Diabetic neuropathy. Plan: No new concerns at this time. Tolerating snap well for the most part. Modest improvement noted. Debridement done as documented above, procedure was well-tolerated. Continue snapback. Change in Saturday. Follow-up on Saturday with Dr. Streeter. Double layer Tubigrip for edema management. Strongly advised to elevate his lower extremity when seated in bed. Optimal blood sugar control and increased intake of protein in his diet/supplements also recommended. Given postop shoes to help with offloading. Does not currently follow-up with podiatry, he was advised to. His questions were answered and he was advised to call with any further questions or concerns. Follow-up next week for courtesy visit. This note was generated with [employer] software. It may contain incorrect words, spelling, and punctuation that were not noted in checking the note before signing.
[2018-09-03 13:14] VITALS: BP 142/87; PULSE 86; RESP 18; TEMP 36.4; BMI 38.4
[2018-09-12 13:15] VITALS: BP 149/93; PULSE 85; RESP 18; TEMP 36.6; BMI 38.4
--- NOTE | 2018-09-12 13:19 | WC ---
pt states snap fell off on saturday09/05/18 . dressing started to roll on botom of foot then just lost seal .pt hen removed.
--- NOTE | 2018-09-12 14:42 | HP.PCM_ITS ---
(1) Diabetic neuropathy Status: Chronic Current Visit: Yes Qualifiers: Diabetes mellitus type: type 2 Diabetes mellitus complication detail: diabetic polyneuropathy Qualified Code(s): E11.42 - Type 2 diabetes mellitus with diabetic polyneuropathy Code(s): E11.40 - Type 2 diabetes mellitus with diabetic neuropathy, unspecified (2) Diabetic foot ulcer associated with type 2 diabetes mellitus Status: Chronic Current Visit: Yes Qualifiers: Diabetic foot ulcer location: midfoot Laterality: right Non-pressure ulcer stage: with fat layer exposed Qualified Code(s): E11.621 - Type 2 diabetes mellitus with foot ulcer; L97.412 - Non-pressure chronic ulcer of right heel and midfoot with fat layer exposed Code(s): E11.621 - Type 2 diabetes mellitus with foot ulcer; L97.509 - Non- pressure chronic ulcer of other part of unspecified foot with unspecified severity Comment: Right lateral plantar. (3) Type 2 diabetes mellitus Status: Chronic Current Visit: Yes Qualifiers: Diabetes mellitus care home insulin use: unspecified care home insulin use status Diabetes mellitus complication status: with skin complications Diabetes mellitus complication detail: with other skin complication Qualified Code(s): E11.628 - Type 2 diabetes mellitus with other skin complications Code(s): E11.9 - Type 2 diabetes mellitus without complications History of Present Illness Date of Service: 09/19/18 Chief Complaint: None healing right foot ulcer. History of Wound: Mr. 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 Initially noted in April due to problems with insurance has not sought definitive help. Has been seen in the emergency room treated with antibiotics and told to apply Silvadene. He states that he has done this daily. He however has not offloaded. He has noted some warmth and swelling around the area but denies chills, fever or otherwise feeli ng of unwell. He is unclear about his diabetes control. He denies tobacco abuse. He is seen today as a courtesy visit. Past Medical History Past Medical History: Chronic Problems Diabetic foot ulcer associated with type 2 diabetes mellitus (Chronic) Right lateral plantar. Type 2 diabetes mellitus (Chronic) Diabetic neuropathy (Chronic) Allergies/Adverse Reactions: Allergies No Known Allergies Allergy (Verified 08/14/18 11:13) Home Medications: Ambulatory Orders Medication Instructions Recorded Aspirin E.C. [Ecotrin] 81 mg PO DAILY@0800 08/14/18 Atorvastatin Calcium [Lipitor] 40 mg PO QHS 08/14/18 Insulin Aspart [Novolog Flexpen 4 units SC TID 08/14/18 ([facility])] Lantus Solostar 24 unit SQ DAILY 08/14/18 Smoking Status: Never smoker Tobacco Use: Non-smoker Alcohol: None Drugs: None Review of Systems Constitutional: Denies: Chills, Fever, Weight Change Eyes: Denies: Pain, Vision Change HEENT: Denies: Difficulty Hearing, Difficulty Swallowing, Sinus Congestion Cardiovascular: Denies: Chest Pain, Palpitations Respiratory: Denies: Cough, Shortness of Breath Gastrointestinal: Denies: Diarrhea, Nausea, Vomiting Genitourinary: Denies: Dysuria, Hematuria Musculoskeletal: Reports: Leg Pain Skin: Reports: Wounds Neurological: Reports: Numbness Hematologic/ Lymphatic: Denies: Easy Bruising, Easy Bleeding - Physical Exam Vital Signs Temp Pulse Resp BP 97.8 F 85 18 149/93 H 09/12/18 13:15 09/12/18 13:15 09/12/18 13:15 09/12/18 13:15 General: Alert, Oriented x3, Cooperative, No apparent distress HEENT: Atraumatic, Normocephalic Oral: Moist Mucosa Neck: Supple Lungs: Clear to auscultation Cardiovascular: Regular rate, Regular Rhythm Abdomen: Soft, Non Tender Extremities: Edema Skin: Ulcer/ Wound Wound Measurements and Assessment WC - Nurse 1 - General Ulcer Measurement Start: 08/25/18 11:34 Freq: Status: Active Protocol: Activity Type Activity Date Activity User E-Sign Co-Sign Detail Recorded Client Recorded Date Recorded By Document 09/12/18 13:15 RB [id number] 09/12/18 13:17 RB 09/12/18 13:15 Wound Center Nurse 1 [Ulcer Assessment] 1-right lateral plantar foot -Combined with other wound No -Current Size (cm) - Length 2 -Current Size (cm) - Width 1 -Current Size (cm) - Depth 0.9 -Total Square Cm 2 -Tunneling No -Undermining/Tunneling No -Circular Undermining No -Classification - Thickness Full Thickness without Exposed Support Structure -Exudate Amt Medium -Exudate Type Serosanguineous -Wound Margin Thickened -Granulation Amt Large (67-100%) -Granulation Quality [place] -Slough/Fibrin Yes -Necrosis Amt Small (1-33%) -Necrotic Tissue Type Adherent Slough -Structure Exposed N/A -Texture (Rosaura-wound Skin Appearance) Callus -Moisture (Rosaura-wound Skin Appearance Assessed ) -Color (Rosaura-wound Skin Appearance) Assessed -Temperature (Rosaura-wound Skin No Abnormality Appearance) (Pt Warm) -Tenderness on Palpation (Rosaura-wound No Skin Appearance) -Ulcer Cleansing Wound Cleanser -Foul Odor after Cleansing No -Anesthetic Used 5% Lidocaine Gel WC - Nurse 2 - General Ulcer CM Notes Start: 08/25/18 11:34 Freq: Status: Active Protocol: Activity Type Activity Date Activity User E-Sign Co-Sign Detail Recorded Client Recorded Date Recorded By Document 09/12/18 14:09 AN [id number] 09/12/18 14:15 AN 09/12/18 14:09 Wound Center Nurse 2 [Procedure/Treatment] -Time 14:14 -Correct Patient Yes -Correct Side, Site, Position Yes -Correct Procedure Yes -Procedure Performed Yes -Type of Procedure Debridement -Clinical Debridement Subcutaneous -Post Debridement Size (cm) - Length 1.5 -Post Debridement Size (cm) - Width 1.4 -Post Debridement Size (cm) - Depth 0.7 -Total Square Cm 2.10 -Wound/Ulcer Outcome Not Healed -Ulcer Cleansing Rinsed/ Irrigated with Saline -Foul Odor after Cleansing No -Bioengineered Tissue No -Bleeding Controlled with Pressure -Offloading Yes -Type of Offloading Surgical Shoe -Treatment Response Procedure Tolerated Well [See Physician Procedure note for Specifics] Pain Scale: 0-10 Numeric [Pain] -Is Patient Pain Free? Yes Psych/Mental Status: Normal Affect, Appropriate Debridement Note Post-Debridement Measurements/Treatment WC - Nurse 2 - General Ulcer CM Notes Start: 08/25/18 11:34 Freq: Status: Active Protocol: Activity Type Activity Date Activity User E-Sign Co-Sign Detail Recorded Client Recorded Date Recorded By Document 08/27/18 11:40 DV [id number] 08/27/18 11:48 DV Document 09/12/18 14:09 AN [id number] 09/12/18 14:15 AN 08/27/18 09/12/18 11:40 14:09 Wound Center Nurse 2 1-right lateral plantar foot -Time 11:43 14:14 -Correct Patient Yes Yes -Correct Side, Site, Position Yes Yes -Correct Procedure Yes Yes -Procedure Performed Yes Yes -Type of Procedure Debridement Debridement -Clinical Debridement Subcutaneous Subcutaneous -Post Debridement Size (cm) - Length 2.0 1.5 -Post Debridement Size (cm) - Width 1.0 1.4 -Post Debridement Size (cm) - Depth 0.7 0.7 -Total Square Cm 2.00 2.10 -Wound/Ulcer Outcome Not Healed Not Healed -Ulcer Cleansing Rinsed/ Rinsed/ Irrigated with Irrigated with Saline Saline -Foul Odor after Cleansing No No -Bioengineered Tissue No No -Bleeding Controlled with Pressure Pressure -Offloading No Yes -Type of Offloading Surgical Shoe -Treatment Response Procedure Procedure Tolerated Well Tolerated Well Pain Scale: 0-10 Numeric Is Patient Pain Free? Yes Yes Wound debrided: right lateral plantar foot Laterality: Right Wound Grade/Stage: Quinn grade 3 Type of Debridement: Excisional debridement Anesthesia Used: 4% Lidocaine Solution Depth: Down to and including healthy tissue, in the subcutaneous layer Percentage of wound debrided: 100 Instrument Used: 5mm curette Tissue Removed: yellow slough, devitalized tissue Severity: Fat Layer Exposed Amount of bleeding with debridement: Mild Bleeding Controlled with: Compression and gauze Patient tolerated procedure well Assessment/Plan Active Problems Diabetic foot ulcer associated with type 2 diabetes mellitus (Chronic) Right lateral plantar. Type 2 diabetes mellitus (Chronic) Diabetic neuropathy (Chronic) Assessment: Nonhealing diabetic foot ulcer of right foot. Diabetic neuropathy. Plan: No new concerns at this time. Tolerating snap well for the most part, does note that it didn't seem to be pulling away drainage well. Tried different positioning of hose for snapvac. Modest improvement noted. Debridement done as documented above, procedure was well-tolerated. Continue snapvac. Double layer Tubigrip for edema management. Strongly advised to elevate his lower extremity when seated in bed. Optimal blood sugar control and increased intake of protein in his diet/supplements also recommended. Given postop shoes to help with offloading. Does not currently follow-up with podiatry, he was advised to. His questions were answered and he was advised to call with any further questions or concerns. Follow-up 1 week. This note was generated with [employer] software. It may contain incorrect words, spelling, and punctuation that were not noted in checking the note before signing.
--- NOTE | 2018-09-17 08:48 | VDLE_ITS ---
Reason For Study: Ulcer RIGHT LEFT CFV is compressible, spontaneous, phasic, CFV is compressible, spontaneous, phasic, competent and demonstrates normal competent, and demonstrates normal augmentation. augmentation. FV is compressible, spontaneous, phasic, FV is compressible, spontaneous, phasic, competent and demonstrates normal competent and demonstrates normal augmentation. augmentation. POP V is compressible, spontaneous, phasic, POP V is compressible, spontaneous, phasic, competent and demonstrates normal competent and demonstrates normal augmentation. augmentation. T/P Trunk is compressible. T/P Trunk is compressible. PTV is compressible. PTV is compressible. RT PerV is compressible. LT PerV is compressible. Rt SFJ is Competent Lt SFJ is Competent Rt GSV is Incompetent with reflux greater Lt GSV is Incompetent with reflux greater than 0.5 sec and a diameter of 0.71cm x 0.82 than 0.5 sec and a diameter of 0.90 cm x 0.90 cm in the thigh and 0.58 cm x 0.63 cm in the cm in the thigh and 0.43 cm x 0.46 cm in the calf calf Rt SSV is Competent. Lt SSV is Competent. Procedure Exam performed in department. A preliminary report was called and/or faxed to [facility]. Interpretation Summary Deep veins of the lower extremities are bilaterally patent and compressible segmentally. There is no evidence of deep vein thrombosis on either side. Valvular competence appears intact within the proximal deep venous systems bilaterally. The greater saphenous veins appear bilaterally patent and compressible segmentally. Sapheno-femoral junctions are bilaterally competent . Segmental valvular incompetence is noted within the greater saphenous veins bilaterally. Small saphenous veins are patent and competent bilaterally. Ordering Physician: Jalen Hill Referring Physician: Jalen Hill Performed By: Cammy Torrez, QAMAR, RVT
--- NOTE | 2018-09-17 08:49 | ART_ITS ---
Reason For Study: PAD Procedure A bilateral lower extremity continuous wave Doppler with analog waveform analysis,segmental pressures,and ankle brachial indexes without exercise. Left Segmental Pressures Left brachial= 134mmHg. Left posterior tibial artery = 181mmHg. Left dorsalis pedis artery = 184mmHg. Left digit = 128 mmHg. Right Segmental Pressures Right brachial= 136mmHg. Right posterior tibial artery = 183mmHg. Right dorsalis pedis artery = 143mmHg. Indices The right ankle brachial index by the posterior tibial artery is 1.35. The right ankle brachial index by the dorsalis pedis is 1.05. The left ankle brachial index by the posterior tibial artery is 1.33. The left ankle brachial index by the dorsalis pedis is 1.35. Interpretation Summary Triphasic Doppler waveforms are noted at ankle level bilaterally. Pulse-volume recording waveform amplitudes are satisfactory at all levels bilaterally. Resting ankle-brachial indices are normal bilaterally. The right digital-brachial index was not determined due to prior right great toe amputation. The left digital-brachial index is normal. There is no evidence of significant arterial occlusive disease in the lower extremities bilaterally. Ordering Physician: Jalen Hill Referring Physician: Jalen Hill Performed By: Cammy Torrez RDCS/RVT
== END 2018-09-21 23:59 ==
LOC: CVS 10:00
PROVIDERS: Referring Provider Internal Medicine; Visit Provider Internal Medicine
DX: E11.621 Type 2 diabetes mellitus with foot ulcer (principal); E11.40 Type 2 diabetes mellitus with diabetic neuropathy, unspecified; L97.512 Non-pressure chronic ulcer of other part of right foot with fat layer exposed
CPT/HCPCS: 11042; 93923; 93970; 97605; 97607; 99212; G0463

== ENCOUNTER 2018-11-19 14:34 | Outpatient (RCR) | payer MEDICAID, SELFPAY ==
[2018-09-12 13:15] VITALS: BMI 38.4
[2018-11-19 14:44] VITALS: BP 135/89; PULSE 91; RESP 18; TEMP 37.1; BMI 38.4
--- NOTE | 2018-11-19 16:42 | PN.PCM_ITS ---
(1) Ulcer of right foot with fat layer exposed Status: Chronic Current Visit: Yes Code(s): L97.512 - Non-pressure chronic ulcer of other part of right foot with fat layer exposed (2) Delayed wound healing Status: Chronic Current Visit: Yes Code(s): T14.8XXD - Other injury of unspecified body region, subsequent encounter (3) Malnutrition Status: Chronic Current Visit: Yes Code(s): E46 - Unspecified protein- calorie malnutrition (4) Hammer toe of right foot Status: Chronic Current Visit: Yes Code(s): M20.41 - Other hammer toe(s) (acquired), right foot (5) Venous insufficiency Status: Chronic Current Visit: Yes Code(s): I87.2 - Venous insufficiency (chronic) (peripheral) (6) Localized edema Status: Chronic Current Visit: Yes Code(s): R60.0 - Localized edema Type of Wound Date of Service: 11/19/18 Chief Complaint: None healing right foot ulcer. History of Wound: Mr. 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 He is under one previous comprehensive wound healing plan at the wound healing center and I most recently saw him at the foot and ankle center. I recommended referral back to the wound care center to consider advanced wound healing product and total contact cast. He denies fever, chill, nausea, vomiting, redness or odor to the foot. He has had trouble offloading in the past and recently was fitted for a Cam walker boot for the right lower extremity with dual density offloading Plastizote liners. He had venous and arterial studies and lab work completed recently. He had previous x-rays done as well to the right foot. Progress of Wound: Stable - Physical Exam Vital Signs Temp Pulse Resp BP 98.7 F 91 18 135/89 H 11/19/18 14:44 11/19/18 14:44 11/19/18 14:44 11/19/18 14:44 General: Alert, Oriented x3, Cooperative, No apparent distress HEENT: Atraumatic Extremities: No cyanosis, Capillary Refill Less than 3 Seconds, No Calf Tenderness - Negative Gato and Narvaez sign right. Compartments are soft to palpate, Diminished Peripheral Pulses, - - Dorsal contraction lesser digits with prominent metatarsal head right lower extremity Skin: Ulcer/ Wound - No purulence, erythema, streaking, odor, necrosis, maceration, deep tissue exposure. The depth of the wound is pretty unremarkable at 0.7 cm. The peripheral skin is hairless and atrophic. There is no exposed bone noted today Wound Measurements and Assessment WC - Nurse 1 - General Ulcer Measurement Start: 11/19/18 14:44 Freq: Status: Active Protocol: Activity Type Activity Date Activity User E-Sign Co-Sign Detail Recorded Client Recorded Date Recorded By Document 11/19/18 14:44 [id number] [id number] 11/19/18 14:51 BM 11/19/18 14:44 Wound Center Nurse 1 [Ulcer Assessment] #2- R LAT PLANTAR FOOT -Combined with other wound No -Current Size (cm) - Length 2.1 -Current Size (cm) - Width 1.8 -Current Size (cm) - Depth 0.7 -Total Square Cm 3.78 -Date of Last Picture (Recall this 11/19/18 field) -Photo Taken Yes -Epithelialization None Present -Tunneling No -Undermining/Tunneling No -Circular Undermining No -Exudate Amt Small -Exudate Type Serosanguineous -Wound Margin Distinct, Outline Attached -Granulation Amt Large (67-100%) -Granulation Quality [place] -Slough/Fibrin Yes -Necrosis Amt Small (1-33%) -Necrotic Tissue Type Adherent Slough -Texture (Rosaura-wound Skin Appearance) Assessed,Callus ,Scarring -Moisture (Rosaura-wound Skin Appearance Assessed,Dry/ ) Scaly -Color (Rosaura-wound Skin Appearance) Assessed -Temperature (Rosaura-wound Skin No Abnormality Appearance) (Pt Warm) -Tenderness on Palpation (Rosaura-wound No Skin Appearance) -Ulcer Cleansing SOAP AND WATER -Foul Odor after Cleansing No -Anesthetic Used 5% Lidocaine Gel [Edema Assessment] -Lower Limb Edema Present Yes -Right Calf (cm) 41 -Right Ankle (cm) 24.5 -Left Calf (cm) 41.5 -Left Ankle (cm) 24.2 WC - Nurse 2 - General Ulcer CM Notes Start: 11/19/18 14:44 Freq: Status: Active Protocol: Activity Type Activity Date Activity User E-Sign Co-Sign Detail Recorded Client Recorded Date Recorded By Document 11/19/18 15:16 AN [id number] 11/19/18 15:17 AN 11/19/18 15:16 Wound Center Nurse 2 [Procedure/Treatment] #2- R LAT PLANTAR FOOT -Time 15:16 -Correct Patient Yes -Correct Side, Site, Position Yes -Correct Procedure Yes -Procedure Performed Yes -Type of Procedure Debridement -Clinical Debridement Subcutaneous -Post Debridement Size (cm) - Length 2.2 -Post Debridement Size (cm) - Width 1.9 -Post Debridement Size (cm) - Depth 0.7 -Total Square Cm 4.18 -Wound/Ulcer Outcome Not Healed -Ulcer Cleansing Rinsed/ Irrigated with Saline -Foul Odor after Cleansing No -Bioengineered Tissue No -Bleeding Controlled with Pressure -Offloading Yes -Type of Offloading Camwalker -Treatment Response Procedure Tolerated Well [See Physician Procedure note for Specifics] Musculoskeletal: No Tenderness to Palpation of Joints or Extremities, Muscle Wasting, - - No bogginess or fluctuance on palpation Neurological: - - Lack of epicritic sensation light touch consistent with neuropathy right lower extremity Psych/Mental Status: Normal Affect, Appropriate Debridement Note Post-Debridement Measurements/Treatment WC - Nurse 2 - General Ulcer CM Notes Start: 11/19/18 14:44 Freq: Status: Active Protocol: Activity Type Activity Date Activity User E-Sign Co-Sign Detail Recorded Client Recorded Date Recorded By Document 11/19/18 15:16 AN [id number] 11/19/18 15:17 AN 11/19/18 15:16 Wound Center Nurse 2 #2- R LAT PLANTAR FOOT -Time 15:16 -Correct Patient Yes -Correct Side, Site, Position Yes -Correct Procedure Yes -Procedure Performed Yes -Type of Procedure Debridement -Clinical Debridement Subcutaneous -Post Debridement Size (cm) - Length 2.2 -Post Debridement Size (cm) - Width 1.9 -Post Debridement Size (cm) - Depth 0.7 -Total Square Cm 4.18 -Wound/Ulcer Outcome Not Healed -Ulcer Cleansing Rinsed/ Irrigated with Saline -Foul Odor after Cleansing No -Bioengineered Tissue No -Bleeding Controlled with Pressure -Offloading Yes -Type of Offloading Camwalker -Treatment Response Procedure Tolerated Well Wound debrided: plantar lateral forefoot Laterality: Right Wound Grade/Stage: grade 1 Type of Debridement: Excisional debridement Anesthesia Used: 5% Lidocaine Gel Depth: in the subcutaneous layer Percentage of wound debrided: 100 Instrument Used: #15 blade Tissue Removed: fibrous, devitalized subcutaneous, biofilm, slough, peripheral callous Severity: Fat Layer Exposed Amount of bleeding with debridement: Mild Bleeding Controlled with: Pressure Patient tolerated procedure well Assessment/Plan Active Problems Ulcer of right foot with fat layer exposed (Chronic) Delayed wound healing (Chronic) Malnutrition (Chronic) Hammer toe of right foot (Chronic) Venous insufficiency (Chronic) Localized edema (Chronic) Assessment: Nonhealing diabetic foot ulcer of right foot. Diabetic neuropathy. malNutrition suspected. delayed healing. Venous insufficiency and leg edema. Hammertoe with prominent metatarsal heads. Difficulty with offloading. Recent cardiac disease progression noted in other comorbidities Plan: I reviewed and discussed his case today. I reviewed his previous diagnostic data. Excisional subcutaneous debridement was performed as noted in the nursing clinical panel. He tolerated this well. To change dressing daily with Aquacel Ag. Proper application was demonstrated. To continue strict offloading with cam walker with dual density offloading liners. I recommended total contact cast and he will arrange for driving assistance next week when he returns to clinic. I also recommend advanced wound healing product, epi fix and epi cord. Prior authorization will be initiated. This also has been open for several months and is demonstrating significant delays in healing. This is medically necessary for limb salvage. He appears to have adequate arterial perfusion for healing as noted with his noninvasive vascular studies performed this past year. It is noted he has failed other comprehensive standard wound healing treatments. His venous reflux exam demonstrated incompetent veins. I recommend edema management with periodic elevation, avoiding idle standing or sitting, and with Tubigrip compression dressing. His labs were reviewed from 07/2018 which are stable without gross abnormalities. His last hemoglobin A1c was noted at 7.6%. To continue proper glycemic control nutritional supplementation to optimize healing. If lack of healing of the additional work- up with culture and potential advanced imaging will be reviewed to see if there is any underlying bone infection due to the chronicity of this wound. However at this time this is consistent with lack of offloading and diabetic sequela. I answered his questions. Was advised to return to the wound healing center in 1 week or call sooner if he has any questions or concerns.
== END 2018-11-22 23:59 ==
LOC: WC 14:34
PROVIDERS: Visit Provider Podiatrist
DX: E11.621 Type 2 diabetes mellitus with foot ulcer (principal); I87.2 Venous insufficiency (chronic) (peripheral); L97.512 Non-pressure chronic ulcer of other part of right foot with fat layer exposed; R60.0 Localized edema; M20.41 Other hammer toe(s) (acquired), right foot; E11.21 Type 2 diabetes mellitus with diabetic nephropathy; E11.40 Type 2 diabetes mellitus with diabetic neuropathy, unspecified
CPT/HCPCS: 11042; 99212; G0463

== ENCOUNTER 2018-12-03 14:15 | Outpatient (RCR) | payer MEDICAID, SELFPAY ==
[2018-11-23 01:17] VITALS: BP 135/89; PULSE 91; RESP 18; TEMP 37.1
[2018-11-26 14:59] VITALS: BP 99/78; PULSE 92; RESP 16; TEMP 37; BMI 38.4
--- NOTE | 2018-11-26 16:42 | PN.PCM_ITS ---
(1) Ulcer of right foot with fat layer exposed Status: Chronic Current Visit: Yes Code(s): L97.512 - Non-pressure chronic ulcer of other part of right foot with fat layer exposed (2) Diabetic neuropathy Status: Chronic Current Visit: Yes Qualifiers: Diabetes mellitus type: type 2 Code(s): E11.40 - Type 2 diabetes mellitus with diabetic neuropathy, unspecified (3) Delayed wound healing Status: Chronic Current Visit: Yes Code(s): T14.8XXD - Other injury of unspecified body region, subsequent encounter (4) Malnutrition Status: Chronic Current Visit: Yes Code(s): E46 - Unspecified protein- calorie malnutrition (5) Hammer toe of right foot Status: Chronic Current Visit: Yes Code(s): M20.41 - Other hammer toe(s) (acquired), right foot (6) Venous insufficiency Status: Chronic Current Visit: Yes Code(s): I87.2 - Venous insufficiency (chronic) (peripheral) Type of Wound Date of Service: 11/26/18 Chief Complaint: Non healing right foot ulcer. History of Wound: Mr. 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 He denies fever, chill, nausea, vomiting. He is here today for application of advanced wound healing product and total contact cast. He denies odor or redness. Progress of Wound: Stable - Physical Exam Vital Signs Temp Pulse Resp BP 98.6 F 92 16 99/78 11/26/18 14:59 11/26/18 14:59 11/26/18 14:59 11/26/18 14:59 General: Alert, Oriented x3, Cooperative, No apparent distress HEENT: Atraumatic Extremities: No cyanosis, Capillary Refill Less than 3 Seconds, No Calf Tenderness, Diminished Peripheral Pulses, Edema, - - Dorsal contraction of lesser toes with prominent metatarsal heads. No exposed deep tissue noted Skin: Ulcer/ Wound - No purulence, erythema, streaking, odor, infection. The peripheral skin is hairless and atrophic. There is no exposed joint or bone Wound Measurements and Assessment WC - Nurse 1 - General Ulcer Measurement Start: 11/26/18 14:57 Freq: Status: Active Protocol: Activity Type Activity Date Activity User E-Sign Co-Sign Detail Recorded Client Recorded Date Recorded By Document 11/26/18 14:59 [facility] [id number] 11/26/18 15:07 [facility] 11/26/18 14:59 Wound Center Nurse 1 [Ulcer Assessment] #2- R LAT PLANTAR FOOT -Combined with other wound No -Current Size (cm) - Length 1.9 -Current Size (cm) - Width 1.8 -Current Size (cm) - Depth 0.5 -Total Square Cm 3.42 -Photo Taken No -Epithelialization None Present -Tunneling No -Undermining/Tunneling No -Circular Undermining No -Exudate Amt Medium -Exudate Type Serosanguineous -Wound Margin Distinct, Outline Attached -Granulation Amt Large (67-100%) -Granulation Quality [place] -Slough/Fibrin Yes -Necrosis Amt Small (1-33%) -Necrotic Tissue Type Adherent Slough -Texture (Rosaura-wound Skin Appearance) Callus,Scarring -Moisture (Rosaura-wound Skin Appearance Assessed,Dry/ ) Scaly -Color (Rosaura-wound Skin Appearance) Assessed -Temperature (Rosaura-wound Skin No Abnormality Appearance) (Pt Warm) -Tenderness on Palpation (Rosaura-wound No Skin Appearance) -Ulcer Cleansing Rinsed/ Irrigated with Saline -Foul Odor after Cleansing No -Anesthetic Used 5% Lidocaine Gel [Edema Assessment] -Lower Limb Edema Present Yes -Right Calf (cm) 41.1 -Right Ankle (cm) 25.2 WC - Nurse 2 - General Ulcer CM Notes Start: 11/26/18 14:57 Freq: Status: Active Protocol: Activity Type Activity Date Activity User E-Sign Co-Sign Detail Recorded Client Recorded Date Recorded By Document 11/26/18 15:56 AN [id number] 11/26/18 15:59 AN 11/26/18 15:56 Wound Center Nurse 2 [Procedure/Treatment] #2- R LAT PLANTAR FOOT -Time 15:57 -Correct Patient Yes -Correct Side, Site, Position Yes -Correct Procedure Yes -Procedure Performed Yes -Type of Procedure Debridement -Clinical Debridement Subcutaneous -Post Debridement Size (cm) - Length 2.0 -Post Debridement Size (cm) - Width 1.8 -Post Debridement Size (cm) - Depth 0.5 -Total Square Cm 3.60 -Wound/Ulcer Outcome Not Healed -Ulcer Cleansing Rinsed/ Irrigated with Saline -Foul Odor after Cleansing No -Bioengineered Tissue No -Type of bioengineered Tissue EPIFIX -Expiration Date 02/22/23 -Product Lot Number [id number] -Percent Used 100 -Saline Lot Number [id number] -Bleeding Controlled with Pressure -Offloading Yes -Type of Offloading Total Contact Cast (TCC) -Treatment Response Procedure Tolerated Well [See Physician Procedure note for Specifics] Pain Scale: 0-10 Numeric [Pain] -Is Patient Pain Free? Yes Musculoskeletal: No Tenderness to Palpation of Joints or Extremities, Muscle Wasting Neurological: - - Lack of normal epicritic sensation consistent with neuropathy Psych/Mental Status: Normal Affect, Appropriate Debridement Note Post-Debridement Measurements/Treatment WC - Nurse 2 - General Ulcer CM Notes Start: 11/26/18 14:57 Freq: Status: Active Protocol: Activity Type Activity Date Activity User E-Sign Co-Sign Detail Recorded Client Recorded Date Recorded By Document 11/26/18 15:56 AN [id number] 11/26/18 15:59 AN 11/26/18 15:56 Wound Center Nurse 2 #2- R LAT PLANTAR FOOT -Time 15:57 -Correct Patient Yes -Correct Side, Site, Position Yes -Correct Procedure Yes -Procedure Performed Yes -Type of Procedure Debridement -Clinical Debridement Subcutaneous -Post Debridement Size (cm) - Length 2.0 -Post Debridement Size (cm) - Width 1.8 -Post Debridement Size (cm) - Depth 0.5 -Total Square Cm 3.60 -Wound/Ulcer Outcome Not Healed -Ulcer Cleansing Rinsed/ Irrigated with Saline -Foul Odor after Cleansing No -Bioengineered Tissue No -Type of bioengineered Tissue EPIFIX -Expiration Date 02/22/23 -Product Lot Number [id number] -Percent Used 100 -Saline Lot Number [id number] -Bleeding Controlled with Pressure -Offloading Yes -Type of Offloading Total Contact Cast (TCC) -Treatment Response Procedure Tolerated Well Pain Scale: 0-10 Numeric Is Patient Pain Free? Yes Wound debrided: plantar lateral forefoot Laterality: Right Wound Grade/Stage: grade 1 Type of Debridement: Excisional debridement Anesthesia Used: 5% Lidocaine Gel Depth: in the subcutaneous layer Percentage of wound debrided: 100 Instrument Used: #15 blade Tissue Removed: fibrous, devitalized subcutaneous, biofilm, slough Severity: Fat Layer Exposed Amount of bleeding with debridement: Mild Bleeding Controlled with: Pressure Patient tolerated procedure well Assessment/Plan Active Problems Diabetic neuropathy (Chronic) Ulcer of right foot with fat layer exposed (Chronic) Delayed wound healing (Chronic) Malnutrition (Chronic) Hammer toe of right foot (Chronic) Venous insufficiency (Chronic) Assessment: Nonhealing diabetic foot ulcer of right foot. Diabetic neuropathy. malNutrition suspected. delayed healing. Venous insufficiency and leg edema. Hammertoe with prominent metatarsal heads. Difficulty with offloading. Recent cardiac disease progression noted in other comorbidities Plan: I reviewed and discussed his case today. I reviewed his previous diagnostic data. Excisional subcutaneous debridement was performed as noted in the nursing clinical panel. He tolerated this well. Advancement wound healing product, epi-fix, was approved and this was applied according standard protocol today. Verbal consent was initially obtained. The advanced skin substitute was moistened with saline and was further secured with a wound veil and Steri- Strips. He tolerated this very well. He was advised to keep this clean, dry, and intact until follow-up visit next week. I recommended total contact cast and this was also applied today according standard protocol with the right lower extremity in a rectus position and in a well-padded manner. He also tolerated this very well. The total contact cast application as well as advanced wound healing product application is medically necessary for limb salvage. He appears to have adequate arterial perfusion for healing as noted with his noninvasive vascular studies performed this past year. It is noted he has failed other comprehensive standard wound healing treatments. His venous reflux exam demonstrated incompetent veins. I recommend edema management with periodic elevation, avoiding idle standing or sitting, and with Tubigrip compression dressing. His labs were reviewed from 07/2018 which are stable without gross abnormalities. His last hemoglobin A1c was noted at 7.6%. To continue proper glycemic control nutritional supplementation to optimize healing. If lack of healing of the additional work-up with culture and potential advanced imaging will be reviewed to see if there is any underlying bone infection due to the chronicity of this wound. However at this time this is consistent with lack of offloading and diabetic sequela. I answered his questions. Was advised to return to the wound healing center in 1 week or call sooner if he has any questions or concerns.
[2018-12-03 14:00] VITALS: BP 148/91; PULSE 85; RESP 20; TEMP 36.6; BMI 38.4
--- NOTE | 2018-12-03 15:12 | PN.PCM_ITS ---
(1) Ulcer of right foot with fat layer exposed Status: Chronic Current Visit: Yes Code(s): L97.512 - Non-pressure chronic ulcer of other part of right foot with fat layer exposed (2) Diabetic neuropathy Status: Chronic Current Visit: Yes Qualifiers: Diabetes mellitus type: type 2 Code(s): E11.40 - Type 2 diabetes mellitus with diabetic neuropathy, unspecified (3) Delayed wound healing Status: Chronic Current Visit: Yes Code(s): T14.8XXD - Other injury of unspecified body region, subsequent encounter (4) Malnutrition Status: Chronic Current Visit: Yes Code(s): E46 - Unspecified protein- calorie malnutrition (5) Hammer toe of right foot Status: Chronic Current Visit: Yes Code(s): M20.41 - Other hammer toe(s) (acquired), right foot (6) Venous insufficiency Status: Chronic Current Visit: Yes Code(s): I87.2 - Venous insufficiency (chronic) (peripheral) Type of Wound Date of Service: 12/03/18 Chief Complaint: Non healing right foot ulcer. History of Wound: Mr. 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 He denies fever, chill, nausea, vomiting. He is here today for application of advanced wound healing product. He had a total contact cast applied last week and had to present to the emergency room to have it removed because he actually got it wet in the shower. He is not able to have a total contact cast in place this upcoming week because he has some fair responsibilities. He is amenable to try this again the following week. Progress of Wound: Stable - Physical Exam Vital Signs Temp Pulse Resp BP 97.8 F 85 20 H 148/91 H 12/03/18 14:00 12/03/18 14:00 12/03/18 14:00 12/03/18 14:00 General: Alert, Oriented x3, Cooperative, No apparent distress Extremities: No cyanosis, Capillary Refill Less than 3 Seconds, No Calf Tenderness, Diminished Peripheral Pulses, Edema Skin: Ulcer/ Wound - No purulence, erythema, streaking, odor, infection. Adjacent skin has scant hair formation and atrophic Wound Measurements and Assessment WC - Nurse 1 - General Ulcer Measurement Start: 11/26/18 14:57 Freq: Status: Active Protocol: Activity Type Activity Date Activity User E-Sign Co-Sign Detail Recorded Client Recorded Date Recorded By Document 12/03/18 14:00 DL [id number] 12/03/18 14:06 DL 12/03/18 14:00 Wound Center Nurse 1 [Ulcer Assessment] #2- R LAT PLANTAR FOOT -Current Size (cm) - Length 2 -Current Size (cm) - Width 1.8 -Current Size (cm) - Depth 0.7 -Total Square Cm 3.6 -Photo Taken No -Exudate Amt Small -Exudate Type Serosanguineous -Wound Margin Thickened -Granulation Amt Medium (34-66%) -Granulation Quality [place] -Necrosis Amt Medium (34-66%) -Necrotic Tissue Type Adherent Slough -Structure Exposed N/A -Texture (Rosaura-wound Skin Appearance) Callus -Moisture (Rosaura-wound Skin Appearance Dry/Scaly ) -Color (Rosaura-wound Skin Appearance) No Abnormality -Temperature (Rosaura-wound Skin No Abnormality Appearance) (Pt Warm) -Tenderness on Palpation (Rosaura-wound No Skin Appearance) -Ulcer Cleansing Wound Cleanser -Foul Odor after Cleansing No -Anesthetic Used 5% Lidocaine Gel WC - Nurse 2 - General Ulcer CM Notes Start: 11/26/18 14:57 Freq: Status: Active Protocol: Activity Type Activity Date Activity User E-Sign Co-Sign Detail Recorded Client Recorded Date Recorded By Document 12/03/18 15:01 AN [id number] 12/03/18 15:04 AN 12/03/18 15:01 Wound Center Nurse 2 [Procedure/Treatment] -Time 15:01 -Correct Patient Yes -Correct Side, Site, Position Yes -Correct Procedure Yes -Procedure Performed Yes -Type of Procedure Debridement -Clinical Debridement Subcutaneous -Post Debridement Size (cm) - Length 2.1 -Post Debridement Size (cm) - Width 0.8 -Post Debridement Size (cm) - Depth 3.6 -Total Square Cm 1.68 -Wound/Ulcer Outcome Not Healed -Ulcer Cleansing Rinsed/ Irrigated with Saline -Foul Odor after Cleansing No -Bioengineered Tissue No -Type of bioengineered Tissue EPIFIX -Expiration Date 06/24/23 -Product Lot Number [id number] -Percent Used 100 -Bleeding Controlled with Pressure -Offloading Yes -Type of Offloading Camwalker -Treatment Response Procedure Tolerated Well [See Physician Procedure note for Specifics] Pain Scale: 0-10 Numeric [Pain] -Is Patient Pain Free? Yes Musculoskeletal: No Tenderness to Palpation of Joints or Extremities, Muscle Wasting, - - Dorsal contraction of lesser toes with prominent metatarsal head. CAM Walker is noted with offloading pockets Neurological: - - Lack of normal epicritic sensation is consistent with neuropathy Psych/Mental Status: Normal Affect, Appropriate Debridement Note Post-Debridement Measurements/Treatment WC - Nurse 2 - General Ulcer CM Notes Start: 11/26/18 14:57 Freq: Status: Active Protocol: Activity Type Activity Date Activity User E-Sign Co-Sign Detail Recorded Client Recorded Date Recorded By Document 11/26/18 15:56 AN [id number] 11/26/18 15:59 AN Document 12/03/18 15:01 AN [id number] 12/03/18 15:04 AN 11/26/18 12/03/18 15:56 15:01 Wound Center Nurse 2 #2- R LAT PLANTAR FOOT -Time 15:57 15:01 -Correct Patient Yes Yes -Correct Side, Site, Position Yes Yes -Correct Procedure Yes Yes -Procedure Performed Yes Yes -Type of Procedure Debridement Debridement -Clinical Debridement Subcutaneous Subcutaneous -Post Debridement Size (cm) - Length 2.0 2.1 -Post Debridement Size (cm) - Width 1.8 0.8 -Post Debridement Size (cm) - Depth 0.5 3.6 -Total Square Cm 3.60 1.68 -Wound/Ulcer Outcome Not Healed Not Healed -Ulcer Cleansing Rinsed/ Rinsed/ Irrigated with Irrigated with Saline Saline -Foul Odor after Cleansing No No -Bioengineered Tissue No No -Type of bioengineered Tissue EPIFIX EPIFIX -Expiration Date 02/22/23 06/24/23 -Product Lot Number [id number] -Percent Used 100 100 -Saline Lot Number [id number] -Bleeding Controlled with Pressure Pressure -Offloading Yes Yes -Type of Offloading Total Contact Camwalker Cast (TCC) -Treatment Response Procedure Procedure Tolerated Well Tolerated Well Pain Scale: 0-10 Numeric Is Patient Pain Free? Yes Yes Wound debrided: plantar metatarsal heads Laterality: Right Wound Grade/Stage: grade 1 Type of Debridement: Excisional debridement Anesthesia Used: 5% Lidocaine Gel Depth: in the subcutaneous layer Percentage of wound debrided: 100 Instrument Used: #15 blade Tissue Removed: fibrous, devitalized subcutaneous, biofilm, slough, callous Severity: Fat Layer Exposed Amount of bleeding with debridement: Mild Bleeding Controlled with: Pressure Patient tolerated procedure well Assessment/Plan Active Problems Diabetic neuropathy (Chronic) Ulcer of right foot with fat layer exposed (Chronic) Delayed wound healing (Chronic) Malnutrition (Chronic) Hammer toe of right foot (Chronic) Venous insufficiency (Chronic) Assessment: Nonhealing diabetic foot ulcer of right foot fat layer exposed, no infection. Diabetic neuropathy. malnutrition suspected. delayed healing. Venous insufficiency and leg edema. Hammertoe with prominent metatarsal heads. Difficulty with offloading. Recent cardiac disease progression noted in other comorbidities Plan: I reviewed and discussed his case today. I reviewed his previous diagnostic data. Excisional subcutaneous debridement was performed as noted in the nursing clinical panel. He tolerated this well. Advancement wound healing product, epi-fix, was approved and this was applied according standard protocol today. Verbal consent was initially obtained. The advanced skin substitute was moistened with saline and was further secured with a wound veil and Steri- Strips. He tolerated this very well. He was advised to keep this clean, dry, and intact until follow-up visit next week. I recommended total contact cast and he will consider this next week. He also tolerated this very well. He appears to have adequate arterial perfusion for healing as noted with his noninvasive vascular studies performed this past year. It is noted he has failed other comprehensive standard wound healing treatments. His venous reflux exam demonstrated incompetent veins. I recommend edema management with periodic elevation, avoiding idle standing or sitting, and with Tubigrip compression dressing. His labs were reviewed from 07/2018 which are stable without gross abnormalities. His last hemoglobin A1c was noted at 7.6%. To continue proper glycemic control nutritional supplementation to optimize healing. If lack of healing of the additional work-up with culture and potential advanced imaging will be reviewed to see if there is any underlying bone infection due to the chronicity of this wound. However at this time this is consistent with lack of offloading and diabetic sequela. I answered his questions. Was advised to return to the wound healing center in 1 week or call sooner if he has any questions or concerns.
== END 2018-12-22 23:59 ==
LOC: WC 14:15
PROVIDERS: Visit Provider Podiatrist
DX: E11.621 Type 2 diabetes mellitus with foot ulcer (principal); L97.512 Non-pressure chronic ulcer of other part of right foot with fat layer exposed; E11.40 Type 2 diabetes mellitus with diabetic neuropathy, unspecified; M20.41 Other hammer toe(s) (acquired), right foot; I87.2 Venous insufficiency (chronic) (peripheral); E11.21 Type 2 diabetes mellitus with diabetic nephropathy; E11.319 Type 2 diabetes mellitus with unspecified diabetic retinopathy without macular edema
CPT/HCPCS: 15275; 29445; Q4186

== ENCOUNTER → 2019-01-19 10:09 | Outpatient (CLI) | payer MEDICAID, SELFPAY ==
[2019-01-14 13:42] VITALS: BMI 38.4
[2019-01-19 10:51] LABS: Erythrocyte Sedimentation Rate 48 mm/hr (0-15)
[2019-01-19 10:54] LABS: Absolute Lymphocyte Count 1.46 X10^3/uL (0.83-4.51); Basophil# 0.05 X10^3/uL; Basophil% 0.7 % (0-1); Eosinophil# 0.25 X10^3/uL; Eosinophils% 3.4 % (0-5); Hemoglobin 10.9 g/dL (13.0-16.5); Lymphocyte # 1.46 X10^3/ul (4.0); Lymphocyte % 19.9 % (19-41); Mean Corpuscular Hgb 28.9 pg (27.0-32.0); Mean Corpuscular Volume 87.5 fL (80-94); Mean Platelet Vol. 10.2 fl (6.2-12.0); Monocyte# 0.54 X10^3/uL; Monocyte% 7.4 % (0-10); NRBC Flagged by Analyzer 0 % (0-5); Neutrophil # 4.99 X10^3/uL (2.7-7.7); Neutrophil % 68.2 % (47-70); Platelet Count 213 K/mm3 (150-450); RBC Distribution Width CV 12.2 % (11.6-14.6); RBC Distribution Width SD 39.5 fl (35.1-43.9); Red Blood Count 3.77 M/mm3 (4.6-6.2); White Blood Count 7.3 K/mm3 (4.4-11.0)
[2019-01-19 11:18] LABS: ALB/GLOB Ratio 0.7 RATIO (0.9-2.4); AST(SGOT) 13 U/L (15-37); Alanine Aminotransfer ALT/SGPT 19 U/L (16-61); Albumin, Serum 3.5 g/dL (3.2-5.0); Alkaline Phosphatase 111 U/L (45-117); Anion Gap 4 (5-15); BUN 42 mg/dL (7-18); BUN/Creat Ratio 16.3 RATIO (10-20); CRP < 2.90 mg/L (0.0-3.0); Calcium,Total 8.8 mg/dL (8.5-10.1); Chloride 106 mmol/L (98-107); Creatinine, Serum 2.57 mg/dL (0.70-1.30); EST Glomerular Filtration Rate 29 mL/min (>60); Est Glom Filt Rate - Afr Amer 35 mL/min (>60); Globulin 4.7 g/dL (2.2-4.2); Glucose 176 mg/dL (74-106); Potassium 4.9 mmol/L (3.5-5.1); Protein, Total 8.2 g/dL (6.4-8.2); Sodium Level 138 mmol/L (136-145)
== END ==
PROVIDERS: Referring Provider Podiatrist; Visit Provider Podiatrist
DX: L98.499 Non-pressure chronic ulcer of skin of other sites with unspecified severity (principal); M86.9 Osteomyelitis, unspecified
CPT/HCPCS: 36415; 80053; 85025; 85652; 86140

== ENCOUNTER 2019-01-21 14:45 | Outpatient (RCR) | payer MEDICAID, SELFPAY ==
[2018-12-23 01:07] VITALS: BP 148/91; PULSE 85; RESP 20; TEMP 36.6
[2018-12-24 16:03] VITALS: BP 137/84; PULSE 86; RESP 18; TEMP 36.6; BMI 38.4
--- NOTE | 2018-12-24 17:30 | RAD_ITS ---
STUDY: X-RAY - RIGHT FOOT CLINICAL: Male, 43 years old. Pain TECHNIQUE: 3 view(s) of the foot. COMPARISON: None. FINDINGS: Normal talus, calcaneus, and tarsal bones. Normal visualized subtalar, talonavicular, calcaneocuboid, tarsal and tarsometatarsal articulations. Possible old fracture involving the fifth metatarsus. Status post surgical amputation of the great toe. Mild soft tissue edema. There is an ulceration at the plantar surface of the foot at the amputation site. Normal second through fifth metatarsophalangeal joints. Normal interphalangeal joints and phalanges of the lesser toes. RAD/Foot min 3 Views IMPRESSION: Status post surgical amputation of the great toe. There is an ulceration at the plantar surface of the foot at the amputation site. Electronically Signed: Balwinder Munoz DO at 18:12 EDT Tel [phone], Service support ,
--- NOTE | 2018-12-24 21:35 | PN.PCM_ITS ---
(1) Ulcer of right foot with fat layer exposed Status: Chronic Current Visit: Yes Code(s): L97.512 - Non-pressure chronic ulcer of other part of right foot with fat layer exposed (2) Type 2 diabetes mellitus with diabetic polyneuropathy Status: Chronic Current Visit: Yes Code(s): E11.42 - Type 2 diabetes mellitus with diabetic polyneuropathy (3) Diabetic foot ulcer associated with type 2 diabetes mellitus Status: Chronic Current Visit: Yes Qualifiers: Code(s): E11.621 - Type 2 diabetes mellitus with foot ulcer; L97.509 - Non- pressure chronic ulcer of other part of unspecified foot with unspecified severity Comment: Right lateral plantar. (4) Delayed wound healing Status: Chronic Current Visit: Yes Code(s): T14.8XXD - Other injury of unspecified body region, subsequent encounter (5) Malnutrition Status: Chronic Current Visit: Yes Code(s): E46 - Unspecified protein-ethan antonio malnutrition (6) Hammer toe of right foot Status: Chronic Current Visit: Yes Code(s): M20.41 - Other hammer toe(s) (acquired), right foot (7) Localized edema Status: Chronic Current Visit: Yes Code(s): R60.0 - Localized edema (8) Osteomyelitis, unspecified Status: Chronic Current Visit: Yes Code(s): M86.9 - Osteomyelitis, unspecified Type of Wound Date of Service: 12/24/18 Chief Complaint: Non healing right foot ulcer. History of Wound: Mr. 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 He denies fever, chill, nausea, vomiting. He is here today for application of advanced wound healing product. He defers total contact cast this next week. He admits he had to walk on his foot more than usual the past couple of weeks and missed 1 of his prior appointments. Progress of Wound: Stable - Physical Exam Vital Signs Temp Pulse Resp BP 98 F 86 18 137/84 H 12/24/18 16:03 12/24/18 16:03 12/24/18 16:03 12/24/18 16:03 General: Alert, Oriented x3, Cooperative, No apparent distress HEENT: Atraumatic Extremities: No cyanosis, Capillary Refill Less than 3 Seconds, No Calf Tenderness - Negative Gato and Narvaez signs bilateral, Diminished Peripheral Pulses, Edema, - - Start dorsal contraction of lesser toes and prominent metatarsal head Skin: Ulcer/ Wound - No purulence, erythema, streaking, odor, infection. The ulcer bed is granular and it is deep but there is no exposed capsule tendon or bone. No necrosis bogginess or fluctuance. The adjacent skin is hairless and atrophic. Wound Measurements and Assessment WC - Nurse 1 - General Ulcer Measurement Start: 12/24/18 16:03 Freq: Status: Active Protocol: Activity Type Activity Date Activity User E-Sign Co-Sign Detail Recorded Client Recorded Date Recorded By Document 12/24/18 16:03 RB [id number] 12/24/18 16:07 RB 12/24/18 16:03 Wound Center Nurse 1 [Ulcer Assessment] #2- R LAT PLANTAR FOOT -Combined with other wound No -Current Size (cm) - Length 1.5 -Current Size (cm) - Width 1.4 -Current Size (cm) - Depth 0.7 -Total Square Cm 2.10 -Tunneling No -Undermining/Tunneling No -Circular Undermining No -Exudate Amt Small -Exudate Type Serosanguineous -Wound Margin Fibrotic Scar, Thickened Scar -Granulation Amt Medium (34-66%) -Granulation Quality [place] -Slough/Fibrin Yes -Necrosis Amt Small (1-33%) -Necrotic Tissue Type Adherent Slough -Structure Exposed N/A -Texture (Rosaura-wound Skin Appearance) Callus -Moisture (Rosaura-wound Skin Appearance Assessed ) -Color (Rosaura-wound Skin Appearance) Assessed -Temperature (Rosaura-wound Skin No Abnormality Appearance) (Pt Warm) -Tenderness on Palpation (Rosaura-wound No Skin Appearance) -Ulcer Cleansing Wound Cleanser -Foul Odor after Cleansing No -Anesthetic Used 5% Lidocaine Gel [Edema Assessment] -Lower Limb Edema Present Yes -Right Calf (cm) 46 -Right Ankle (cm) 26 WC - Nurse 2 - General Ulcer CM Notes Start: 12/24/18 16:03 Freq: Status: Active Protocol: Activity Type Activity Date Activity User E-Sign Co-Sign Detail Recorded Client Recorded Date Recorded By Document 12/24/18 16:51 AN [id number] 12/24/18 16:53 AN 12/24/18 16:51 Wound Center Nurse 2 [Procedure/Treatment] #2- R LAT PLANTAR FOOT -Time 16:51 -Correct Patient Yes -Correct Side, Site, Position Yes -Correct Procedure Yes -Procedure Performed Yes -Type of Procedure Debridement -Clinical Debridement Subcutaneous -Post Debridement Size (cm) - Length 1.6 -Post Debridement Size (cm) - Width 1.5 -Post Debridement Size (cm) - Depth 0.7 -Total Square Cm 2.40 -Wound/Ulcer Outcome Not Healed -Ulcer Cleansing Rinsed/ Irrigated with Saline -Foul Odor after Cleansing No -Bioengineered Tissue Yes -Type of bioengineered Tissue EPIFIX -Bleeding Controlled with Pressure -Offloading Yes -Type of Offloading Camwalker -Treatment Response Procedure Tolerated Well [See Physician Procedure note for Specifics] Pain Scale: 0-10 Numeric [Pain] -Is Patient Pain Free? Yes Musculoskeletal: No Tenderness to Palpation of Joints or Extremities, Muscle Wasting Neurological: - - Lack of epicritic sensation light touch is consistent with neuropathy status Psych/Mental Status: Normal Affect, Appropriate Debridement Note Post-Debridement Measurements/Treatment WC - Nurse 2 - General Ulcer CM Notes Start: 12/24/18 16:03 Freq: Status: Active Protocol: Activity Type Activity Date Activity User E-Sign Co-Sign Detail Recorded Client Recorded Date Recorded By Document 12/24/18 16:51 AN [id number] 12/24/18 16:53 AN 12/24/18 16:51 Wound Center Nurse 2 #2- R LAT PLANTAR FOOT -Time 16:51 -Correct Patient Yes -Correct Side, Site, Position Yes -Correct Procedure Yes -Procedure Performed Yes -Type of Procedure Debridement -Clinical Debridement Subcutaneous -Post Debridement Size (cm) - Length 1.6 -Post Debridement Size (cm) - Width 1.5 -Post Debridement Size (cm) - Depth 0.7 -Total Square Cm 2.40 -Wound/Ulcer Outcome Not Healed -Ulcer Cleansing Rinsed/ Irrigated with Saline -Foul Odor after Cleansing No -Bioengineered Tissue Yes -Type of bioengineered Tissue EPIFIX -Bleeding Controlled with Pressure -Offloading Yes -Type of Offloading Camwalker -Treatment Response Procedure Tolerated Well Pain Scale: 0-10 Numeric Is Patient Pain Free? Yes Wound debrided: plantar lateral metatarsal head Laterality: Right Wound Grade/Stage: grade 1 Type of Debridement: Excisional debridement Anesthesia Used: 5% Lidocaine Gel Depth: in the subcutaneous layer Percentage of wound debrided: 100 Instrument Used: #15 blade Tissue Removed: fibrous, devitalized subcutaneous, biofilm, slough Severity: Fat Layer Exposed Amount of bleeding with debridement: Mild Bleeding Controlled with: Pressure Patient tolerated procedure well Assessment/Plan Clinical Impression(s) from Imaging Studies Foot X-Ray 12/24/18 17:30 IMPRESSION: Status post surgical amputation of the great toe. There is an ulceration at the plantar surface of the foot at the amputation site. Electronically Signed: Balwinder Munoz DO at 18:12 EDT Tel [phone], Service support , Active Problems Diabetic foot ulcer associated with type 2 diabetes mellitus (Chronic) Right lateral plantar. Ulcer of right foot with fat layer exposed (Chronic) Delayed wound healing (Chronic) Malnutrition (Chronic) Hammer toe of right foot (Chronic) Localized edema (Chronic) Type 2 diabetes mellitus with diabetic polyneuropathy (Chronic) Osteomyelitis, unspecified (Chronic) Assessment: Nonhealing diabetic foot ulcer of right foot fat layer exposed, no infection. Osteomyelitis screening work-up started. Diabetic neuropathy. malnutrition suspected. delayed healing. Venous insufficiency and leg edema. Hammertoe with prominent metatarsal heads. Difficulty with offloading. Recent cardiac disease progression noted in other comorbidities Plan: I reviewed and discussed his case today. I reviewed his previous diagnostic data. Excisional subcutaneous debridement was performed as noted in the nursing clinical panel. He tolerated this well. Advancement wound healing product, epi-fix, was approved and this was applied according standard protocol today. Verbal consent was initially obtained. The advanced skin substitute was moistened with saline and was further secured with a wound veil and Steri- Strips. He tolerated this very well. He was advised to keep this clean, dry, and intact until follow-up visit next week. I recommended total contact cast and he will consider this next week. He also tolerated this very well. He appears to have adequate arterial perfusion for healing as noted with his noninvasive vascular studies performed this past year. It is noted he has failed other comprehensive standard wound healing treatments. His venous reflux exam demonstrated incompetent veins. I recommend edema management with periodic elevation, avoiding idle standing or sitting, and with Tubigrip compression dressing. His labs were reviewed from 07/2018 which are stable without gross abnormalities. His last hemoglobin A1c was noted at 7.6%. To continue proper glycemic control nutritional supplementation to optimize healing. I recommend updating his foot x-rays to monitor for any osseous progression suggesting osteomyelitis. I also recommend an MRI to see if there is underlying nidus of bone infection. Pending the MRI results antibiotics or surgical intervention may be recommended. Prior authorization will be initiated. This is medically necessary for limb salvage. his ulcer onset was April 2018 and he had foot xrays obtained in mid october 2018. The repeat xrays from 12/24/18 were also reviewed after clinic without progressive osseous destruction at the 4th metatarsal head, no soft tissue emphysema or other perio steal reaction. I answered his questions. Was advised to return to the wound healing center in 1 week or call sooner if he has any questions or concerns. Compliance was discussed with offloading.
[2018-12-31 11:41] VITALS: BP 152/85; PULSE 80; RESP 16; TEMP 36.9; BMI 38.4
--- NOTE | 2018-12-31 13:08 | PN.PCM_ITS ---
(1) Ulcer of right foot with fat layer exposed Status: Chronic Current Visit: Yes Code(s): L97.512 - Non-pressure chronic ulcer of other part of right foot with fat layer exposed (2) Type 2 diabetes mellitus with diabetic polyneuropathy Status: Chronic Current Visit: Yes Code(s): E11.42 - Type 2 diabetes mellitus with diabetic polyneuropathy (3) Diabetic foot ulcer associated with type 2 diabetes mellitus Status: Chronic Current Visit: Yes Qualifiers: Code(s): E11.621 - Type 2 diabetes mellitus with foot ulcer; L97.509 - Non- pressure chronic ulcer of other part of unspecified foot with unspecified severity Comment: Right lateral plantar. (4) Delayed wound healing Status: Chronic Current Visit: Yes Code(s): T14.8XXD - Other injury of unspecified body region, subsequent encounter (5) Malnutrition Status: Chronic Current Visit: Yes Code(s): E46 - Unspecified protein-ethan antonio malnutrition (6) Hammer toe of right foot Status: Chronic Current Visit: Yes Code(s): M20.41 - Other hammer toe(s) (acquired), right foot (7) Localized edema Status: Chronic Current Visit: Yes Code(s): R60.0 - Localized edema (8) Osteomyelitis, unspecified Status: Suspected Current Visit: Yes Qualifiers: Osteomyelitis type: subacute Osteomyelitis location: foot Code(s): M86.9 - Osteomyelitis, unspecified Type of Wound Date of Service: 12/31/18 Chief Complaint: Non healing right foot ulcer. History of Wound: Mr. 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 He denies fever, chill, nausea, vomiting. He is here today for application of advanced wound healing product. He did not obtain the MRI of the foot yet for work-up of bone infection. Progress of Wound: Stable - Physical Exam Vital Signs Temp Pulse Resp BP 98.4 F 80 16 152/85 H 12/31/18 11:41 12/31/18 11:41 12/31/18 11:41 12/31/18 11:41 General: Alert, Oriented x3, Cooperative, No apparent distress Extremities: No cyanosis, Capillary Refill Less than 3 Seconds, No Calf Tenderness - Negative Gato and Narvaez sign, Diminished Peripheral Pulses, Edema, - - Dorsal contraction lesser toes with prominent metatarsal heads Skin: Ulcer/ Wound - No purulence, erythema, streaking, odor, infection. Peripheral calluses noted. Decreased ulcer size and depth is noted and improved granulation tissue is also noted. No visualized bone Wound Measurements and Assessment WC - Nurse 1 - General Ulcer Measurement Start: 12/24/18 16:03 Freq: Status: Active Protocol: Activity Type Activity Date Activity User E-Sign Co-Sign Detail Recorded Client Recorded Date Recorded By Document 12/31/18 11:41 JF [id number] 12/31/18 11:42 JF 12/31/18 11:41 Wound Center Nurse 1 [Ulcer Assessment] #2- R LAT PLANTAR FOOT -Combined with other wound No -Current Size (cm) - Length 1.4 -Current Size (cm) - Width 1.3 -Current Size (cm) - Depth 0.7 -Total Square Cm 1.82 -Photo Taken No -Epithelialization None Present -Tunneling No -Undermining/Tunneling No -Circular Undermining No -Exudate Amt Large -Exudate Type Serosanguineous -Wound Margin Indistinct, Non -Visible -Granulation Amt Large (67-100%) -Granulation Quality Red -Slough/Fibrin Yes -Necrosis Amt Small (1-33%) -Necrotic Tissue Type Adherent Slough -Structure Exposed N/A -Texture (Rosaura-wound Skin Appearance) Assessed,Callus -Moisture (Rosaura-wound Skin Appearance Assessed, ) Maceration -Color (Rosaura-wound Skin Appearance) Assessed -Temperature (Rosaura-wound Skin No Abnormality Appearance) (Pt Warm) -Tenderness on Palpation (Rosaura-wound No Skin Appearance) -Ulcer Cleansing Rinsed/ Irrigated with Saline -Foul Odor after Cleansing No -Anesthetic Used 4% Lidocaine Solution [Edema Assessment] -Lower Limb Edema Present Yes -Right Calf (cm) 41.4 -Right Ankle (cm) 25.8 WC - Nurse 2 - General Ulcer CM Notes Start: 12/24/18 16:03 Freq: Status: Active Protocol: Activity Type Activity Date Activity User E-Sign Co-Sign Detail Recorded Client Recorded Date Recorded By Document 12/31/18 11:56 AN [id number] 12/31/18 11:57 AN 10/09/19 11:56 Wound Center Nurse 2 [Procedure/Treatment] #2- R LAT PLANTAR FOOT -Time 11:56 -Correct Patient Yes -Correct Side, Site, Position Yes -Correct Procedure Yes -Procedure Performed Yes -Type of Procedure Debridement -Clinical Debridement Subcutaneous -Post Debridement Size (cm) - Length 1.5 -Post Debridement Size (cm) - Width 1.4 -Post Debridement Size (cm) - Depth 0.7 -Total Square Cm 2.10 -Wound/Ulcer Outcome Not Healed -Ulcer Cleansing Rinsed/ Irrigated with Saline -Foul Odor after Cleansing No -Bioengineered Tissue Yes -Type of bioengineered Tissue EPIFIX -Bleeding Controlled with Pressure -Offloading Yes -Type of Offloading Camwalker -Treatment Response Procedure Tolerated Well [See Physician Procedure note for Specifics] Pain Scale: 0-10 Numeric [Pain] -Is Patient Pain Free? Yes Musculoskeletal: No Tenderness to Palpation of Joints or Extremities, Muscle Wasting Neurological: - - Normal epicritic sensation light touch is consistent with neuropathy status Psych/Mental Status: Normal Affect, Appropriate Debridement Note Post-Debridement Measurements/Treatment WC - Nurse 2 - General Ulcer CM Notes Start: 12/24/18 16:03 Freq: Status: Active Protocol: Activity Type Activity Date Activity User E-Sign Co-Sign Detail Recorded Client Recorded Date Recorded By Document 12/24/18 16:51 AN [id number] 12/24/18 16:53 AN Document 12/31/18 11:56 AN [id number] 12/31/18 11:57 AN 12/24/18 12/31/18 16:51 11:56 Wound Center Nurse 2 #2- R LAT PLANTAR FOOT -Time 16:51 11:56 -Correct Patient Yes Yes -Correct Side, Site, Position Yes Yes -Correct Procedure Yes Yes -Procedure Performed Yes Yes -Type of Procedure Debridement Debridement -Clinical Debridement Subcutaneous Subcutaneous -Post Debridement Size (cm) - Length 1.6 1.5 -Post Debridement Size (cm) - Width 1.5 1.4 -Post Debridement Size (cm) - Depth 0.7 0.7 -Total Square Cm 2.40 2.10 -Wound/Ulcer Outcome Not Healed Not Healed -Ulcer Cleansing Rinsed/ Rinsed/ Irrigated with Irrigated with Saline Saline -Foul Odor after Cleansing No No -Bioengineered Tissue Yes Yes -Type of bioengineered Tissue EPIFIX EPIFIX -Bleeding Controlled with Pressure Pressure -Offloading Yes Yes -Type of Offloading Camwalker Camwalker -Treatment Response Procedure Procedure Tolerated Well Tolerated Well Pain Scale: 0-10 Numeric Is Patient Pain Free? Yes Yes Wound debrided: sub 4th metatarsal head Laterality: Right Wound Grade/Stage: grade 1 Type of Debridement: Excisional debridement Anesthesia Used: 5% Lidocaine Gel Depth: in the subcutaneous layer Percentage of wound debrided: 100 Instrument Used: #15 blade Tissue Removed: fibrous, devitalized subcutaneous, biofiom, slough Severity: Fat Layer Exposed Amount of bleeding with debridement: Mild Bleeding Controlled with: Pressure Patient tolerated procedure well Assessment/Plan Clinical Impression(s) from Imaging Studies Foot X-Ray 12/24/18 17:30 IMPRESSION: Status post surgical amputation of the great toe. There is an ulceration at the plantar surface of the foot at the amputation site. Electronically Signed: Balwinder Munoz DO at 18:12 EDT Tel [phone], Service support , Active Problems Diabetic foot ulcer associated with type 2 diabetes mellitus (Chronic) Right lateral plantar. Ulcer of right foot with fat layer exposed (Chronic) Delayed wound healing (Chronic) Malnutrition (Chronic) Hammer toe of right foot (Chronic) Localized edema (Chronic) Type 2 diabetes mellitus with diabetic polyneuropathy (Chronic) Assessment: Nonhealing diabetic foot ulcer of right foot fat layer exposed, no infection. Osteomyelitis screening work-up started. Diabetic neuropathy. malnutrition suspected. delayed healing. Venous insufficiency and leg edema. Hammertoe with prominent metatarsal heads. Difficulty with offloading. Recent cardiac disease progression noted in other comorbidities Plan: I reviewed and discussed his case today. I reviewed his previous diagnostic data. Excisional subcutaneous debridement was performed as noted in the nursing clinical panel. He tolerated this well. Advancement wound healing product, epi-fix, was approved and this was applied according standard protocol today. Verbal consent was initially obtained. The advanced skin substitute was moistened with saline and was further secured with a wound veil and Steri-Strip s. He tolerated this very well. He was advised to keep this clean, dry, and intact until follow-up visit next week. I recommended total contact cast and he will consider this next week. He also tolerated this very well. He will continue with a cam walker with offloading pocket. He appears to have adequate arterial perfusion for healing as noted with his noninvasive vascular studies performed this past year. It is noted he has failed other comprehensive standard wound healing treatments. His venous reflux exam demonstrated incompetent veins. I recommend edema management with periodic elevation, avoiding idle standing or sitting, and with Tubigrip compression dressing. His labs were reviewed from 07/2018 which are stable without gross abnormalities. His last hemoglobin A1c was noted at 7.6%. To continue proper glycemic control nutritional supplementation to optimize healing. I recommend updating his foot x-rays to monitor for any osseous progression suggesting osteomyelitis. I also recommend an MRI to see if there is underlying nidus of bone infection. Pending the MRI results antibiotics or surgical intervention may be recommended. Prior authorization was completed and this is scheduled for January 05. This is medically necessary for limb salvage. his ulcer onset was April 2018 and he had foot xrays obtained in mid october 2018. The repeat xrays from 12/24/18 were also reviewed after clinic without progressive osseous destruction at the 4th metatarsal head, no soft tissue emphysema or other periosteal reaction. I answered his questions. Was advised to return to the wound healing center in 1 week or call sooner if he has any questions or concerns.
--- NOTE | 2019-01-05 13:11 | MRI_ITS ---
STUDY: MRI RIGHT MIDFOOT REASON FOR EXAM: Male, 43 years old. TECHNIQUE: Standardized fat and water weighted pulse sequences were obtained in all 3 orthogonal planes. COMPARISON: None. FINDINGS: Normal talonavicular articulation. Normal calcaneocuboid articulation. Normal navicular-cuneiform articulations. Normal intercuneiform articulations. Normal first tarsometatarsal articulation. Normal Lisfranc ligament. Normal second and third tarsometatarsal articulations. Normal cuboid fourth and cuboid fifth tarsometatarsal articulation. Ulcer of the plantar aspect of the foot plantar to the head of the fourth metatarsal bone. No loculated fluid collection to suggest abscess. Mild marrow edema of the fourth metatarsal head consistent with cortical osteitis. No bone destruction to suggest osteomyelitis. Normal tibialis anterior tendon. Normal extensor hallucis longus tendon. Normal extensor digitorum longus tendons. Normal peroneus longus tendon and distal insertion. Normal peroneus brevis tendon and distal insertion. Normal intrinsic muscles of the mid and forefoot region. Normal extensor digitorum brevis muscle. Normal subcutis adipose space. 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 Electronically Signed: Brigido Mccarthy MD at 16:08 EDT Tel , Service support ,
--- NOTE | 2019-01-05 14:26 | RAD_ITS ---
STUDY: X-RAY - ORBITS REASON FOR EXAM: Male, 43 years old. History of metal. TECHNIQUE: 2 view(s) of the orbits were obtained. COMPARISON: None. FINDINGS: Normal bilateral orbits without a metallic orbital foreign body. Normal visualized facial bones. Normal paranasal sinuses. The soft tissue structures are unremarkable. RAD/Orbits for Foreign Body IMPRESSION: No demonstrated metallic orbital foreign body. The patient is cleared for an MRI examination. Electronically Signed: Rocael Colunga, at 15:02 EDT , Service support ,
[2019-01-07 13:54] VITALS: BP 152/88; PULSE 86; RESP 16; TEMP 37.1; BMI 38.4
--- NOTE | 2019-01-07 14:41 | PN.PCM_ITS ---
(1) Ulcer of right foot with fat layer exposed Status: Chronic Current Visit: Yes Code(s): L97.512 - Non-pressure chronic ulcer of other part of right foot with fat layer exposed (2) Type 2 diabetes mellitus with diabetic polyneuropathy Status: Chronic Current Visit: Yes Code(s): E11.42 - Type 2 diabetes mellitus with diabetic polyneuropathy (3) Diabetic foot ulcer associated with type 2 diabetes mellitus Status: Chronic Current Visit: Yes Qualifiers: Code(s): E11.621 - Type 2 diabetes mellitus with foot ulcer; L97.509 - Non- pressure chronic ulcer of other part of unspecified foot with unspecified severity Comment: Right lateral plantar. (4) Delayed wound healing Status: Chronic Current Visit: Yes Code(s): T14.8XXD - Other injury of unspecified body region, subsequent encounter (5) Malnutrition Status: Chronic Current Visit: Yes Code(s): E46 - Unspecified protein-ethan antonio malnutrition (6) Hammer toe of right foot Status: Chronic Current Visit: Yes Code(s): M20.41 - Other hammer toe(s) (acquired), right foot (7) Localized edema Status: Chronic Current Visit: Yes Code(s): R60.0 - Localized edema (8) Osteomyelitis, unspecified Status: Suspected Current Visit: Yes Qualifiers: Osteomyelitis type: subacute Osteomyelitis location: foot Code(s): M86.9 - Osteomyelitis, unspecified (9) Osteitis Status: Chronic Current Visit: Yes Code(s): M86.9 - Osteomyelitis, unspecified Type of Wound Date of Service: 01/07/19 Chief Complaint: Non healing right foot ulcer. History of Wound: Mr. 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 He denies fever, chill, nausea, vomiting. He is here today for application of advanced wound healing product. He did obtain the MRI of the foot and would like to discuss the results today. Progress of Wound: Stable - Physical Exam Vital Signs Temp Pulse Resp BP 98.7 F 86 16 152/88 H 01/07/19 13:54 01/07/19 13:54 01/07/19 13:54 01/07/19 13:54 General: Alert, Oriented x3, Cooperative, No apparent distress Extremities: No cyanosis, Capillary Refill Less than 3 Seconds, No Calf Tenderness - Negative Gato and Narvaez sign bilateral, Diminished Peripheral Pulses, Edema - Mild, - - Dorsal contraction of lesser digits with prominent me tatarsal heads right foot. Previous healed hallux amputation noted Skin: Ulcer/ Wound - No purulence, erythema, streaking, odor, necrosis. The ulcer is deep however there is no exposed capsule or bone. The ulcer is lined up adjacent to the fourth metatarsal head. The peripheral skin is atrophic Wound Measurements and Assessment WC - Nurse 1 - General Ulcer Measurement Start: 12/24/18 16:03 Freq: Status: Active Protocol: Activity Type Activity Date Activity User E-Sign Co-Sign Detail Recorded Client Recorded Date Recorded By Document 01/07/19 13:54 [facility] [id number] 01/07/19 14:02 [facility] 01/07/19 13:54 Wound Center Nurse 1 [Ulcer Assessment] #2- R LAT PLANTAR FOOT -Combined with other wound No -Current Size (cm) - Length 1.4 -Current Size (cm) - Width 1.6 -Current Size (cm) - Depth 0.5 -Total Square Cm 2.24 -Photo Taken No -Epithelialization Small 1-33% -Tunneling No -Undermining/Tunneling Yes -Undermining/Tunneling Starts (O' 11 clock) -Undermining/Tunneling Ends (O'clock) 2 -Maximum Distance (cm) 0.5 -Circular Undermining No -Exudate Amt Small -Exudate Type Serosanguineous -Wound Margin Thickened -Granulation Amt Medium (34-66%) -Granulation Quality Red -Slough/Fibrin Yes -Necrosis Amt Small (1-33%) -Necrotic Tissue Type Adherent Slough -Texture (Rosaura-wound Skin Appearance) Assessed,Callus ,Scarring -Moisture (Rosaura-wound Skin Appearance Assessed, ) Maceration,Dry/ Scaly -Color (Rosaura-wound Skin Appearance) Assessed,Palor -Temperature (Rosaura-wound Skin No Abnormality Appearance) (Pt Warm) -Tenderness on Palpation (Rosaura-wound No Skin Appearance) -Ulcer Cleansing soap and water -Foul Odor after Cleansing No -Anesthetic Used 5% Lidocaine Gel WC - Nurse 2 - General Ulcer CM Notes Start: 10/02/19 16:03 Freq: Status: Active Protocol: Activity Type Activity Date Activity User E-Sign Co-Sign Detail Recorded Client Recorded Date Recorded By Document 01/07/19 14:23 JF [id number] 01/07/19 14:30 JF 01/07/19 14:23 Wound Center Nurse 2 [Procedure/Treatment] -Time 14:23 -Correct Patient Yes -Correct Side, Site, Position Yes -Correct Procedure Yes -Procedure Performed Yes -Type of Procedure Debridement -Clinical Debridement Subcutaneous -Post Debridement Size (cm) - Length 1.5 -Post Debridement Size (cm) - Width 1.6 -Post Debridement Size (cm) - Depth 0.5 -Total Square Cm 2.40 -Wound/Ulcer Outcome Not Healed -Ulcer Cleansing Rinsed/ Irrigated with Saline -Foul Odor after Cleansing No -Bioengineered Tissue Yes -Type of bioengineered Tissue EPIFIX -Expiration Date 06/24/23 -Product Lot Number [id number] -Percent Used 100 -Saline Lot Number [id number] -Bleeding Controlled with Pressure -Offloading Yes -Type of Offloading Camwalker -Treatment Response Procedure Tolerated Well [See Physician Procedure note for Specifics] Pain Scale: 0-10 Numeric [Pain] -Is Patient Pain Free? Yes Musculoskeletal: No Tenderness to Palpation of Joints or Extremities, Muscle Wasting Neurological: - - Lack of normal epicritic sensation to light touch is consistent with neuropathy Psych/Mental Status: Normal Affect, Appropriate Debridement Note Post-Debridement Measurements/Treatment WC - Nurse 2 - General Ulcer CM Notes Start: 12/24/18 16:03 Freq: Status: Active Protocol: Activity Type Activity Date Activity User E-Sign Co-Sign Detail Recorded Client Recorded Date Recorded By Document 12/24/18 16:51 AN [id number] 12/24/18 16:53 AN Document 12/31/18 11:56 AN [id number] 12/31/18 11:57 AN Document 01/07/19 14:23 [id number] 01/07/19 14:30 12/24/18 12/31/18 01/07/19 16:51 11:56 14:23 Wound Center Nurse 2 #2- R LAT PLANTAR FOOT -Time 16:51 11:56 14:23 -Correct Patient Yes Yes Yes -Correct Side, Site, Position Yes Yes Yes -Correct Procedure Yes Yes Yes -Procedure Performed Yes Yes Yes -Type of Procedure Debridement Debridement Debridement -Clinical Debridement Subcutaneous Subcutaneous Subcutaneous -Post Debridement Size (cm) - Length 1.6 1.5 1.5 -Post Debridement Size (cm) - Width 1.5 1.4 1.6 -Post Debridement Size (cm) - Depth 0.7 0.7 0.5 -Total Square Cm 2.40 2.10 2.40 -Wound/Ulcer Outcome Not Healed Not Healed Not Healed -Ulcer Cleansing Rinsed/ Rinsed/ Rinsed/ Irrigated with Irrigated with Irrigated with Saline Saline Saline -Foul Odor after Cleansing No No No -Bioengineered Tissue Yes Yes Yes -Type of bioengineered Tissue EPIFIX EPIFIX EPIFIX -Expiration Date 06/24/23 -Product Lot Number [id number] -Percent Used 100 -Saline Lot Number [id number] -Bleeding Controlled with Pressure Pressure Pressure -Offloading Yes Yes Yes -Type of Offloading Camwalker Camwalker Camwalker -Treatment Response Procedure Procedure Procedure Tolerated Well Tolerated Well Tolerated Well Pain Scale: 0-10 Numeric Is Patient Pain Free? Yes Yes Yes Wound debrided: plantar foot Laterality: Right Wound Grade/Stage: grade 2 Type of Debridement: Excisional debridement Anesthesia Used: 5% Lidocaine Gel Depth: in the subcutaneous layer Percentage of wound debrided: 100 Instrument Used: #15 blade Tissue Removed: fibrous, devitalized subcutaneous, biofilm, slough Severity: Fat Layer Exposed Amount of bleeding with debridement: Mild Bleeding Controlled with: Pressure Patient tolerated procedure well Assessment/Plan Clinical Impression(s) from Imaging Studies Foot X-Ray 12/24/18 17:30 IMPRESSION: Status post surgical amputation of the great toe. There is an ulceration at the plantar surface of the foot at the amputation site. Electronically Signed: Balwinder Munoz DO at 18:12 EDT Tel [phone], Service support , Lower Extremity MRI 01/05/19 13:11 IMPRESSION: Ulcer of the plantar aspect of the foot plantar to the head of the fourth metatarsal bone with cortical osteitis of the head of the fourth metatarsal bone. Electronically Signed: Brigido Mccarthy MD at 16:08 EDT Tel , Service support , Orbit X-Ray 01/05/19 14:26 IMPRESSION: No demonstrated metallic orbital foreign body. The patient is cleared for an MRI examination. Electronically Signed: Rocael Colunga, at 15:02 EDT , Service support , Active Problems Diabetic foot ulcer associated with type 2 diabetes mellitus (Chronic) Right lateral plantar. Ulcer of right foot with fat layer exposed (Chronic) Delayed wound healing (Chronic) Malnutrition (Chronic) Hammer toe of right foot (Chronic) Localized edema (Chronic) Type 2 diabetes mellitus with diabetic polyneuropathy (Chronic) Osteitis (Chronic) Assessment: Nonhealing diabetic foot ulcer of right foot fat layer exposed, no infection. Osteitis fourth metatarsal head (differential diagnosis is osteomyelitis). Diabetic neuropathy. malnutrition suspected. delayed healing. Venous insufficiency and leg edema. Hammertoe with prominent metatarsal heads. cardiac disease Plan: I reviewed and discussed his case today. I reviewed his previous diagnostic data. Excisional subcutaneous debridement was performed as noted in the nursing clinical panel. He tolerated this well. Advancement wound healing product, epi-fix, was approved and this was applied according standard protocol today. Verbal consent was initially obtained. The advanced skin substitute was moistened with saline and was further secured with a wound veil and Steri-Str ips. He tolerated this very well. He was advised to keep this clean, dry, and intact until follow-up visit next week. I recommended total contact cast and he will consider this next week. He also tolerated this very well. He will continue with a cam walker with offloading pocket. He appears to have adequate arterial perfusion for healing as noted with his noninvasive vascular studies performed this past year. It is noted he has failed other comprehensive standard wound healing treatments. His venous reflux exam demonstrated incompetent veins. I recommend edema management with periodic elevation, avoiding idle standing or sitting, and with Tubigrip compression dressing. His labs were reviewed from 07/2018 which are stable without gross abnormalities. His last hemoglobin A1c was noted at 7.6%. To continue proper glycemic control nutritional supplementation to optimize healing. I recommend updating his foot x-rays to monitor for any osseous progression suggesting osteomyelitis. This was negative for fracture, acute injuries, or destruction of the fourth metatarsal adjacent to the ulcer site. There is no foreign body or soft tissue emphysema identified. I also recommended an MRI to see if there is underlying nidus of bone infection. This is reviewed today and there appears to be some osteitis of the fourth metatarsal head which is adjacent to the ulcer site. There is concerned this is early osteomyelitis however this cannot be confirmed at this time. There are lack of local signs of infection as well this is noted. I offered and recommended a fourth metatarsal head resection to alleviate this potential infection nidus and also to address his deformity. The indication, planned procedure, possible benefits, risk, complications, and anticipated healing time and management were discussed in detail with the patient. He understands and is amendable to proceed forward with the plan. He understands risks and complications may include but are not limited to the following: Pain, swelling, scarring, need for further surgery, over under correction, allergic reaction, blood clot, transfer lesion or ulcers, delayed or nonhealing, loss of limb, function, life. No guarantees were made. He understands surgical clearance by his primary care physician with history and physical exam will be required prior to proceeding. This is a curative procedure and the anticipated anesthesia is MAC and local. He may be considered for same-day surgery procedure if this remained stable. The goal of the surgery is to take the metatarsal head and sent for biopsy and also to alleviate the deformity that is contributing to delayed healing. I answered his questions. Was advised to return to the wound healing center in 1 week or call sooner if he has any questions or concerns.
[2019-01-14 13:42] VITALS: BP 161/86; PULSE 95; RESP 16; TEMP 36.7; BMI 38.4
--- NOTE | 2019-01-14 14:37 | PCM.WC.PN ---
(1) Ulcer of right foot with fat layer exposed Status: Chronic Current Visit: Yes Code(s): L97.512 - Non-pressure chronic ulcer of other part of right foot with fat layer exposed (2) Type 2 diabetes mellitus with diabetic polyneuropathy Status: Chronic Current Visit: Yes Code(s): E11.42 - Type 2 diabetes mellitus with diabetic polyneuropathy (3) Diabetic foot ulcer associated with type 2 diabetes mellitus Status: Chronic Current Visit: Yes Qualifiers: Code(s): E11.621 - Type 2 diabetes mellitus with foot ulcer; L97.509 - Non-pressure chronic ulcer of other part of unspecified foot with unspecified severity Comment: Right lateral plantar. (4) Delayed wound healing Status: Chronic Current Visit: Yes Code(s): T14.8XXD - Other injury of unspecified body region, subsequent encounter (5) Malnutrition Status: Chronic Current Visit: Yes Code(s): E46 - Unspecified protein-calorie malnutrition (6) Hammer toe of right foot Status: Chronic Current Visit: Yes Code(s): M20.41 - Other hammer toe(s) (acquired), right foot (7) Localized edema Status: Chronic Current Visit: Yes Code(s): R60.0 - Localized edema (8) Osteomyelitis, unspecified Status: Suspected Current Visit: Yes Qualifiers: Osteomyelitis type: subacute Osteomyelitis location: foot Code(s): M86.9 - Osteomyelitis, unspecified (9) Osteitis Status: Chronic Current Visit: Yes Code(s): M86.9 - Osteomyelitis, unspecified (10) Colonization status Status: Suspected Current Visit: Yes Code(s): Z22.9 - Carrier of infectious disease, unspecified Type of Wound Date of Service: 01/14/19 Chief Complaint: Non healing right foot ulcer. History of Wound: Mr. 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 He denies fever, chill, nausea, vomiting. He did obtain the MRI of the foot and is planning to have a metatarsal head resection. He is having trouble keeping his dry at home during the showering process. He relates increased drainage and thinks there is a mild odor that started within the past 3 days. Progress of Wound: Worse status - Physical Exam Vital Signs Temp Pulse Resp BP 98.0 F 95 16 161/86 H 01/14/19 13:42 01/14/19 13:42 01/14/19 13:42 01/14/19 13:42 General: Alert, Oriented x3, Cooperative, No apparent distress Extremities: No cyanosis, Capillary Refill Less than 3 Seconds, No Calf Tenderness - Negative Gato and Narvaez sign, Diminished Peripheral Pulses, Edema, - - Prominent metatarsal heads and dorsal contraction of lesser toes Skin: Ulcer/ Wound - There is no purulence erythema or streaking noted. There is deteriorating section of the ulcer bed with granular, fibrous, and devitalized base. There is deeper probing noted without exposed bone however capsular tissue exposure is questionable. There is no bogginess or fluctuance. There is a peripheral hyperkeratotic callus noted Wound Measurements and Assessment WC - Nurse 1 - General Ulcer Measurement Start: 12/24/18 16:03 Freq: Status: Active Protocol: Activity Type Activity Date Activity User E-Sign Co-Sign Detail Recorded Client Recorded Date Recorded By Document 01/14/19 13:42 [id number] 01/14/19 13:45 01/14/19 13:42 Wound Center Nurse 1 [Ulcer Assessment] #2- R LAT PLANTAR FOOT -Combined with other wound No -Current Size (cm) - Length 1.6 -Current Size (cm) - Width 1.7 -Current Size (cm) - Depth 0.4 -Total Square Cm 2.72 -Photo Taken No -Epithelialization None Present -Tunneling No -Undermining/Tunneling Yes -Undermining/Tunneling Starts (O' 10 clock) -Undermining/Tunneling Ends (O'clock) 2 -Maximum Distance (cm) 0.3 -Circular Undermining No -Exudate Amt Medium -Exudate Type Yellow/Green -Wound Margin Distinct, Outline Attached -Granulation Amt Small (1-33%) -Granulation Quality Red -Slough/Fibrin Yes -Necrosis Amt Medium (34-66%) -Necrotic Tissue Type Adherent Slough -Structure Exposed None/Limited to Skin Breakdown -Texture (Rosaura-wound Skin Appearance) Callus -Moisture (Rosaura-wound Skin Appearance No Abnormality, ) Assessed -Color (Rosaura-wound Skin Appearance) Erythema -Temperature (Rosaura-wound Skin No Abnormality Appearance) (Pt Warm) -Tenderness on Palpation (Rosaura-wound No Skin Appearance) -Ulcer Cleansing Rinsed/ Irrigated with Saline -Foul Odor after Cleansing No -Anesthetic Used 5% Lidocaine Gel [Edema Assessment] -Lower Limb Edema Present NA WC - Nurse 2 - General Ulcer CM Notes Start: 12/24/18 16:03 Freq: Status: Active Protocol: Activity Type Activity Date Activity User E-Sign Co-Sign Detail Recorded Client Recorded Date Recorded By Document 01/14/19 14:25 AN [id number] 01/14/19 14:26 AN 01/14/19 14:25 Wound Center Nurse 2 [Procedure/Treatment] #2- R LAT PLANTAR FOOT -Time 14:25 -Correct Patient Yes -Correct Side, Site, Position Yes -Correct Procedure Yes -Procedure Performed Yes -Type of Procedure Debridement -Clinical Debridement Subcutaneous -Post Debridement Size (cm) - Length 1.7 -Post Debridement Size (cm) - Width 1.8 -Post Debridement Size (cm) - Depth 0.4 -Total Square Cm 3.06 -Wound/Ulcer Outcome Not Healed -Ulcer Cleansing Rinsed/ Irrigated with Saline -Foul Odor after Cleansing No -Bioengineered Tissue No -Bleeding Controlled with Pressure -Offloading No -Treatment Response Procedure Tolerated Well [See Physician Procedure note for Specifics] Pain Scale: 0-10 Numeric [Pain] -Is Patient Pain Free? Yes Musculoskeletal: No Tenderness to Palpation of Joints or Extremities, Muscle Wasting Neurological: - - Lack of normal epicritic sensation light touch consistent with neuropathy status Psych/Mental Status: Normal Affect, Appropriate Debridement Note Post-Debridement Measurements/Treatment WC - Nurse 2 - General Ulcer CM Notes Start: 12/24/18 16:03 Freq: Status: Active Protocol: Activity Type Activity Date Activity User E-Sign Co-Sign Detail Recorded Client Recorded Date Recorded By Document 12/24/18 16:51 AN [id number] 12/24/18 16:53 AN Document 12/31/18 11:56 AN [id number] 12/31/18 11:57 AN Document 01/07/19 14:23 [id number] 01/07/19 14:30 JF Document 01/14/19 14:25 AN [email or web address] 01/14/19 14:26 AN 12/24/18 12/31/18 01/07/19 16:51 11:56 14:23 Wound Center Nurse 2 #2- R LAT PLANTAR FOOT -Time 16:51 11:56 14:23 -Correct Patient Yes Yes Yes -Correct Side, Site, Position Yes Yes Yes -Correct Procedure Yes Yes Yes -Procedure Performed Yes Yes Yes -Type of Procedure Debridement Debridement Debridement -Clinical Debridement Subcutaneous Subcutaneous Subcutaneous -Post Debridement Size (cm) - Length 1.6 1.5 1.5 -Post Debridement Size (cm) - Width 1.5 1.4 1.6 -Post Debridement Size (cm) - Depth 0.7 0.7 0.5 -Total Square Cm 2.40 2.10 2.40 -Wound/Ulcer Outcome Not Healed Not Healed Not Healed -Ulcer Cleansing Rinsed/ Rinsed/ Rinsed/ Irrigated with Irrigated with Irrigated with Saline Saline Saline -Foul Odor after Cleansing No No No -Bioengineered Tissue Yes Yes Yes -Type of bioengineered Tissue EPIFIX EPIFIX EPIFIX -Expiration Date 06/24/23 -Product Lot Number [id number] -Percent Used 100 -Saline Lot Number [id number] -Bleeding Controlled with Pressure Pressure Pressure -Offloading Yes Yes Yes -Type of Offloading Camwalker Camwalker Camwalker -Treatment Response Procedure Procedure Procedure Tolerated Well Tolerated Well Tolerated Well Pain Scale: 0-10 Numeric Is Patient Pain Free? Yes Yes Yes 01/14/19 14:25 Wound Center Nurse 2 #2- R [facility] PLANTAR FOOT -Time 14:25 -Correct Patient Yes -Correct Side, Site, Position Yes -Correct Procedure Yes -Procedure Performed Yes -Type of Procedure Debridement -Clinical Debridement Subcutaneous -Post Debridement Size (cm) - Length 1.7 -Post Debridement Size (cm) - Width 1.8 -Post Debridement Size (cm) - Depth 0.4 -Total Square Cm 3.06 -Wound/Ulcer Outcome Not Healed -Ulcer Cleansing Rinsed/ Irrigated with Saline -Foul Odor after Cleansing No -Bioengineered Tissue No -Type of bioengineered Tissue -Expiration Date -Product Lot Number -Percent Used -Saline Lot Number -Bleeding Controlled with Pressure -Offloading No -Type of Offloading -Treatment Response Procedure Tolerated Well Pain Scale: 0-10 Numeric Is Patient Pain Free? Yes Wound debrided: plantar foot Laterality: Right Wound Grade/Stage: grade 2 Type of Debridement: Excisional debridement Anesthesia Used: 5% Lidocaine Gel Depth: in the subcutaneous layer Percentage of wound debrided: 100 Instrument Used: #15 blade Tissue Removed: fibrous, devitalized subcutaneous, biofilm, slough Severity: Fat Layer Exposed Amount of bleeding with debridement: Mild Bleeding Controlled with: Pressure Patient tolerated procedure well Assessment/Plan Clinical Impression(s) from Imaging Studies Foot X-Ray 12/24/18 17:30 IMPRESSION: Status post surgical amputation of the great toe. There is an ulceration at the plantar surface of the foot at the amputation site. Electronically Signed: Balwinder Munoz DO at 18:12 EDT Tel [phone], Service support , Lower Extremity MRI 01/05/19 13:11 IMPRESSION: Ulcer of the plantar aspect of the foot plantar to the head of the fourth metatarsal bone with cortical osteitis of the head of the fourth metatarsal bone. Electronically Signed: Brigido Mccarthy MD at 16:08 EDT Tel , Service support , Orbit X-Ray 01/05/19 14:26 IMPRESSION: No demonstrated metallic orbital foreign body. The patient is cleared for an MRI examination. Electronically Signed: Rocael Colunga, at 15:02 EDT , Service support , Active Problems Diabetic foot ulcer associated with type 2 diabetes mellitus (Chronic) Right lateral plantar. Ulcer of right foot with fat layer exposed (Chronic) Delayed wound healing (Chronic) Malnutrition (Chronic) Hammer toe of right foot (Chronic) Localized edema (Chronic) Type 2 diabetes mellitus with diabetic polyneuropathy (Chronic) Osteitis (Chronic) Assessment: Nonhealing diabetic foot ulcer of right foot fat layer exposed, no infection. Osteitis fourth metatarsal head (differential diagnosis is osteomyelitis). Diabetic neuropathy. malnutrition suspected. delayed healing. Venous insufficiency and leg edema. Hammertoe with prominent metatarsal heads. cardiac disease Plan: I reviewed and discussed his case today. I reviewed his previous diagnostic data. Excisional subcutaneous debridement was performed as noted in the nursing clinical panel. He tolerated this well. I do not recommend advanced wound healing product application today. After the ulcer was debrided and saline irrigation was performed a culture including aerobic and anaerobic acid-fast and fungal was obtained. Also recommend he update his lab work occluding CBC CMP ESR and C-reactive protein. He tolerated this very well. He was advised to keep this clean, dry, and intact until follow-up visit next week. To change the dressing daily with [employer] ag. He appears to have adequate arterial perfusion for healing as noted with his noninvasive vascular studies performed this past year. It is noted he has failed other comprehensive standard wound healing treatments. His venous reflux exam demonstrated incompetent veins. I recommend edema management with periodic elevation, avoiding idle standing or sitting, and with Tubigrip compression dressing. His labs were reviewed from 07/2018 which are stable without gross abnormalities. His last hemoglobin A1c was noted at 7.6%. To continue proper glycemic control nutritional supplementation to optimize healing. I recommend updating his foot x-rays to monitor for any osseous progression suggesting osteomyelitis. This was negative for fracture, acute injuries, or destruction of the fourth metatarsal adjacent to the ulcer site. There is no foreign body or soft tissue emphysema identified. I also recommended an MRI to see if there is underlying nidus of bone infection. This is reviewed today and there appears to be some osteitis of the fourth metatarsal head which is adjacent to the ulcer site. There is concerned this is early osteomyelitis however this cannot be confirmed at this time. There are lack of local signs of infection as well this is noted. I offered and recommended a fourth metatarsal head resection to alleviate this potential infection nidus and also to address his deformity. The indication, planned procedure, possible benefits, risk, complications, and anticipated healing time and management were discussed in detail with the patient. He understands and is amendable to proceed forward with the plan. He understands risks and complications may include but are not limited to the following: Pain, swelling, scarring, need for further surgery, over under correction, allergic reaction, blood clot, transfer lesion or ulcers, delayed or nonhealing, loss of limb, function, life. No guarantees were made. He understands surgical clearance by his primary care physician with history and physical exam will be required prior to proceeding. This is a curative procedure and the anticipated anesthesia is MAC and local. He may be considered for same-day surgery procedure if this remained stable. The goal of the surgery is to take the metatarsal head and sent for biopsy and also to alleviate the deformity that is contributing to delayed healing. I answered his questions. Was advised to return to the wound healing center in 1 week or call sooner if he has any questions or concerns.
[2019-01-21 14:27] VITALS: BP 165/87; PULSE 86; RESP 16; TEMP 36.9; BMI 38.4
--- NOTE | 2019-01-21 17:34 | PCM.WC.PN ---
(1) Ulcer of right foot with fat layer exposed Status: Chronic Code(s): L97.512 - Non-pressure chronic ulcer of other part of right foot with fat layer exposed (2) Type 2 diabetes mellitus with diabetic polyneuropathy Status: Chronic Code(s): E11.42 - Type 2 diabetes mellitus with diabetic polyneuropathy (3) Diabetic foot ulcer associated with type 2 diabetes mellitus Status: Chronic Qualifiers: Code(s): E11.621 - Type 2 diabetes mellitus with foot ulcer; L97.509 - Non-pressure chronic ulcer of other part of unspecified foot with unspecified severity Comment: Right lateral plantar. (4) Delayed wound healing Status: Chronic Code(s): T14.8XXD - Other injury of unspecified body region, subsequent encounter (5) Malnutrition Status: Chronic Code(s): E46 - Unspecified protein-calorie malnutrition (6) Hammer toe of right foot Status: Chronic Code(s): M20.41 - Other hammer toe(s) (acquired), right foot (7) Localized edema Status: Chronic Code(s): R60.0 - Localized edema (8) Osteomyelitis, unspecified Status: Suspected Qualifiers: Osteomyelitis type: subacute Osteomyelitis location: foot Code(s): M86.9 - Osteomyelitis, unspecified (9) Osteitis Status: Chronic Code(s): M86.9 - Osteomyelitis, unspecified Type of Wound Date of Service: 01/21/19 Chief Complaint: Non healing right foot ulcer. History of Wound: Mr. 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 He denies fever, chill, nausea, vomiting. He did obtain the MRI of the foot and is planning to have a metatarsal head resection. He is to change the dressing as advised. He denies odor. He relates he is not reachable via phone last week and he recently got a new phone number which is provided today. He is still amenable to proceed forward with surgical planning. Progress of Wound: Stable and improved compared to last week - Physical Exam Vital Signs Temp Pulse Resp BP 98.4 F 86 16 165/87 H 01/21/19 14:27 01/21/19 14:27 01/21/19 14:27 01/21/19 14:27 General: Alert, Oriented x3, Cooperative, No apparent distress HEENT: Atraumatic Extremities: Capillary Refill Less than 3 Seconds, No Calf Tenderness - Negative Gato and Narvaez sign bilateral, Diminished Peripheral Pulses, Edema, - - Right foot digital toe contraction and prominent metatarsal head and previous hallux amputation Skin: Ulcer/ Wound - There is no purulence, odor, streaking, erythema noted. There is some fourth metatarsal head ulcer is deep and there is no visualized capsular bone noted today. His adjacent skin is hairless and atrophic. Wound Measurements and Assessment WC - Nurse 1 - General Ulcer Measurement Start: 12/24/18 16:03 Freq: Status: Active Protocol: Activity Type Activity Date Activity User E-Sign Co-Sign Detail Recorded Client Recorded Date Recorded By Document 01/21/19 14:27 [facility] [id number] 01/21/19 14:34 [facility] 01/21/19 14:27 Wound Center Nurse 1 [Ulcer Assessment] #2- R LAT PLANTAR FOOT -Combined with other wound No -Current Size (cm) - Length 1.3 -Current Size (cm) - Width 1.7 -Current Size (cm) - Depth 0.4 -Total Square Cm 2.21 -Photo Taken No -Epithelialization None Present -Tunneling No -Undermining/Tunneling No -Circular Undermining No -Exudate Amt Small -Exudate Type Serosanguineous -Wound Margin Distinct, Outline Attached -Granulation Amt Medium (34-66%) -Granulation Quality [place] -Slough/Fibrin Yes -Necrosis Amt Medium (34-66%) -Necrotic Tissue Type Adherent Slough -Texture (Rosaura-wound Skin Appearance) Assessed,Callus ,Scarring -Moisture (Rosaura-wound Skin Appearance Assessed,Dry/ ) Scaly -Color (Rosaura-wound Skin Appearance) Assessed -Temperature (Rosaura-wound Skin No Abnormality Appearance) (Pt Warm) -Tenderness on Palpation (Rosaura-wound No Skin Appearance) -Ulcer Cleansing Rinsed/ Irrigated with Saline -Foul Odor after Cleansing No -Anesthetic Used 5% Lidocaine Gel WC - Nurse 2 - General Ulcer CM Notes Start: 12/24/18 16:03 Freq: Status: Active Protocol: Activity Type Activity Date Activity User E-Sign Co-Sign Detail Recorded Client Recorded Date Recorded By Document 01/21/19 16:00 AN [id number] 01/21/19 16:03 AN 01/21/19 16:00 Wound Center Nurse 2 [Procedure/Treatment] -Time 16:00 -Correct Patient Yes -Correct Side, Site, Position Yes -Correct Procedure Yes -Procedure Performed Yes -Type of Procedure Debridement -Clinical Debridement Subcutaneous -Post Debridement Size (cm) - Length 1.4 -Post Debridement Size (cm) - Width 1.8 -Post Debridement Size (cm) - Depth 0.4 -Total Square Cm 2.52 -Wound/Ulcer Outcome Not Healed -Ulcer Cleansing Rinsed/ Irrigated with Saline -Foul Odor after Cleansing No -Bioengineered Tissue No -Bleeding Controlled with Pressure -Offloading Yes -Type of Offloading Surgical Shoe -Treatment Response Procedure Tolerated Well [See Physician Procedure note for Specifics] Pain Scale: 0-10 Numeric [Pain] -Is Patient Pain Free? Yes Musculoskeletal: No Tenderness to Palpation of Joints or Extremities, Muscle Wasting, - - Compartment soft to palpate right lower extremity Neurological: - - Lack of epicritic sensation light touch is consistent with neuropathy Psych/Mental Status: Normal Affect, Appropriate Debridement Note Post-Debridement Measurements/Treatment WC - Nurse 2 - General Ulcer CM Notes Start: 12/24/18 16:03 Freq: Status: Active Protocol: Activity Type Activity Date Activity User E-Sign Co-Sign Detail Recorded Client Recorded Date Recorded By Document 12/24/18 16:51 AN [id number] 12/24/18 16:53 AN Document 12/31/18 11:56 AN [id number] 12/31/18 11:57 AN Document 01/07/19 14:23 [id number] 01/07/19 14:30 Document 01/14/19 14:25 AN [id number] 01/14/19 14:26 AN Document 01/21/19 16:00 AN [id number] 01/21/19 16:03 AN 12/24/18 12/31/18 01/07/19 16:51 11:56 14:23 Wound Center Nurse 2 #2- R LAT PLANTAR FOOT -Time 16:51 11:56 14:23 -Correct Patient Yes Yes Yes -Correct Side, Site, Position Yes Yes Yes -Correct Procedure Yes Yes Yes -Procedure Performed Yes Yes Yes -Type of Procedure Debridement Debridement Debridement -Clinical Debridement Subcutaneous Subcutaneous Subcutaneous -Post Debridement Size (cm) - Length 1.6 1.5 1.5 -Post Debridement Size (cm) - Width 1.5 1.4 1.6 -Post Debridement Size (cm) - Depth 0.7 0.7 0.5 -Total Square Cm 2.40 2.10 2.40 -Wound/Ulcer Outcome Not Healed Not Healed Not Healed -Ulcer Cleansing Rinsed/ Rinsed/ Rinsed/ Irrigated with Irrigated with Irrigated with Saline Saline Saline -Foul Odor after Cleansing No No No -Bioengineered Tissue Yes Yes Yes -Type of bioengineered Tissue EPIFIX EPIFIX EPIFIX -Expiration Date 06/24/23 -Product Lot Number [id number] -Percent Used 100 -Saline Lot Number [id number] -Bleeding Controlled with Pressure Pressure Pressure -Offloading Yes Yes Yes -Type of Offloading Camwalker Camwalker Camwalker -Treatment Response Procedure Procedure Procedure Tolerated Well Tolerated Well Tolerated Well Pain Scale: 0-10 Numeric Is Patient Pain Free? Yes Yes Yes 01/14/19 01/21/19 14:25 16:00 Wound Center Nurse 2 #2- R LAT PLANTAR FOOT -Time 14:25 16:00 -Correct Patient Yes Yes -Correct Side, Site, Position Yes Yes -Correct Procedure Yes Yes -Procedure Performed Yes Yes -Type of Procedure Debridement Debridement -Clinical Debridement Subcutaneous Subcutaneous -Post Debridement Size (cm) - Length 1.7 1.4 -Post Debridement Size (cm) - Width 1.8 1.8 -Post Debridement Size (cm) - Depth 0.4 0.4 -Total Square Cm 3.06 2.52 -Wound/Ulcer Outcome Not Healed Not Healed -Ulcer Cleansing Rinsed/ Rinsed/ Irrigated with Irrigated with Saline Saline -Foul Odor after Cleansing No No -Bioengineered Tissue No No -Type of bioengineered Tissue -Expiration Date -Product Lot Number -Percent Used -Saline Lot Number -Bleeding Controlled with Pressure Pressure -Offloading No Yes -Type of Offloading Surgical Shoe -Treatment Response Procedure Procedure Tolerated Well Tolerated Well Pain Scale: 0-10 Numeric Is Patient Pain Free? Yes Yes Wound debrided: plantar forefoot Laterality: Right Wound Grade/Stage: grade 2 Type of Debridement: Excisional debridement Anesthesia Used: 5% Lidocaine Gel Depth: in the subcutaneous layer Percentage of wound debrided: 100 Instrument Used: #15 blade Tissue Removed: fibrous, devitalized subcutaneous, biofilm, slough Severity: Fat Layer Exposed Amount of bleeding with debridement: Mild Bleeding Controlled with: Pressure Patient tolerated procedure well Assessment/Plan Clinical Impression(s) from Imaging Studies Foot X-Ray 12/24/18 17:30 IMPRESSION: Status post surgical amputation of the great toe. There is an ulceration at the plantar surface of the foot at the amputation site. Electronically Signed: Balwinder Munoz DO at 18:12 EDT Tel [phone], Service support , Lower Extremity MRI 01/05/19 13:11 IMPRESSION: Ulcer of the plantar aspect of the foot plantar to the head of the fourth metatarsal bone with cortical osteitis of the head of the fourth metatarsal bone. Electronically Signed: Brigido Mccarthy MD at 16:08 EDT Tel , Service support , Orbit X-Ray 01/05/19 14:26 IMPRESSION: No demonstrated metallic orbital foreign body. The patient is cleared for an MRI examination. Electronically Signed: Rocael Colunga, at 15:02 EDT , Service support , Assessment: Nonhealing diabetic foot ulcer of right foot fat layer exposed, no infection. Osteitis fourth metatarsal head (differential diagnosis is [id number] in process). Diabetic neuropathy. malnutrition suspected. delayed healing. Venous insufficiency and leg edema. Hammertoe with prominent metatarsal heads. cardiac disease Plan: I reviewed and discussed his case today. I reviewed his previous diagnostic data. Excisional subcutaneous debridement was performed as noted in the nursing clinical panel. He tolerated this well. I do not recommend advanced wound healing product application today. To change the dressing daily with Acustream. He had a culture of the ulcer obtained last week and these results were reviewed and the following: Strep agalactea and Staphylococcus aureus. His labs were updated as advised. There is local improvement of the tissues without deyanira infection and there is lack of systemic illness also. These bacterial findings may be contaminant as these are not part of the normal skin ronal usually. He did not have leukocytosis and his white blood cell count was 7.3, ESR 48, and C-reactive protein less than 2.9. His hemoglobin A1c was 7.6 and prealbumin 24.8 as noted on 08/14/2018. I did not advise him on antibiotics at this time for this reason. Updated imaging was reviewed. He had a foot x-ray on 12/24/2017. This was negative for fracture, acute injuries, or destruction of the fourth metatarsal adjacent to the ulcer site. There is no foreign body or soft tissue emphysema identified. An MRI was obtained on 01/05/2018. This is reviewed again and there appears to be some osteitis of the fourth metatarsal head which is adjacent to the ulcer site. There is concerned this is early osteomyelitis however this cannot be confirmed at this time. . He appears to have adequate arterial perfusion for healing as noted with his noninvasive vascular studies performed this past year. It is noted he has failed other comprehensive standard wound healing treatments. His venous reflux exam demonstrated incompetent veins. I recommend edema management with periodic elevation, avoiding idle standing or sitting, and with Tubigrip compression dressing. Vascular surgery referral was recommended. To continue proper glycemic control nutritional supplementation to optimize healing. There are lack of local signs of infection as well this is noted. I offered and recommended a fourth metatarsal head resection to alleviate this potential infection nidus and also to address his deformity. The indication, planned procedure, possible benefits, risk, complications, and anticipated healing time and management were discussed in detail with the patient. He understands and is amendable to proceed forward with the plan. He understands risks and complications may include but are not limited to the following: Pain, swelling, scarring, need for further surgery, over under correction, allergic reaction, blood clot, transfer lesion or ulcers, delayed or nonhealing, loss of limb, function, life. No guarantees were made. He understands surgical clearance by his primary care physician with history and physical exam will be required prior to proceeding. This is a curative procedure and the anticipated anesthesia is MAC and local. He may be considered for same-day surgery procedure if this remained stable. The goal of the surgery is to take the metatarsal head and sent for biopsy and also to alleviate the deformity that is contributing to delayed healing. I answered his questions. Was advised to return to the wound healing center in 1 week or call sooner if he has any questions or concerns.
== END 2019-01-22 23:59 ==
LOC: WC 14:45
PROVIDERS: Referring Provider Podiatrist; Visit Provider Podiatrist
DX: E11.621 Type 2 diabetes mellitus with foot ulcer (principal); E11.42 Type 2 diabetes mellitus with diabetic polyneuropathy; L97.512 Non-pressure chronic ulcer of other part of right foot with fat layer exposed; M20.41 Other hammer toe(s) (acquired), right foot; R60.0 Localized edema; E11.319 Type 2 diabetes mellitus with unspecified diabetic retinopathy without macular edema; M86.279 Subacute osteomyelitis, unspecified ankle and foot; E11.69 Type 2 diabetes mellitus with other specified complication; E11.21 Type 2 diabetes mellitus with diabetic nephropathy
CPT/HCPCS: 11042; 15275; 70030; 73630; 73718; 87070; 87075; 87077; 87186; 87205; Q4186

== ENCOUNTER → 2019-01-26 14:41 | Outpatient (CLI) | payer MEDICAID, SELFPAY ==
[2019-01-21 14:27] VITALS: BMI 38.4
[2019-01-26 17:29] LABS: Absolute Lymphocyte Count 1.79 X10^3/uL (0.83-4.51); Absolute Neutrophil Count 4.7 X10^3/uL (2.0-7.7); Basophil# 0.04 X10^3/uL; Basophil% 0.5 % (0-1); Eosinophil# 0.37 X10^3/uL; Hematocrit 31.8 % (40-54); Hemoglobin 10.2 g/dL (13.0-16.5); Lymphocyte # 1.79 X10^3/ul (4.0); Mean Corp Hgb Conc 32.1 g/dL (32-36); Mean Corpuscular Hgb 28.5 pg (27.0-32.0); Mean Corpuscular Volume 88.8 fL (80-94); Mean Platelet Vol. 11.1 fl (6.2-12.0); Monocyte# 0.58 X10^3/uL; Monocyte% 7.8 % (0-10); NRBC Flagged by Analyzer 0 % (0-5); Neutrophil # 4.66 X10^3/uL (2.7-7.7); Neutrophil % 62.6 % (47-70); Platelet Count 206 K/mm3 (150-450); RBC Distribution Width CV 12.5 % (11.6-14.6); RBC Distribution Width SD 40.6 fl (35.1-43.9); Red Blood Count 3.58 M/mm3 (4.6-6.2); White Blood Count 7.5 K/mm3 (4.4-11.0)
[2019-01-26 17:56] LABS: ALB/GLOB Ratio 0.8 RATIO (0.9-2.4); AST(SGOT) 12 U/L (15-37); Alanine Aminotransfer ALT/SGPT 21 U/L (16-61); Albumin, Serum 3.5 g/dL (3.2-5.0); Alkaline Phosphatase 114 U/L (45-117); Anion Gap 7 (5-15); BUN 38 mg/dL (7-18); BUN/Creat Ratio 14.3 RATIO (10-20); CRP < 2.90 mg/L (0.0-3.0); Calcium,Total 8.7 mg/dL (8.5-10.1); Chloride 105 mmol/L (98-107); Creatinine, Serum 2.66 mg/dL (0.70-1.30); EST Glomerular Filtration Rate 28 mL/min (>60); Est Glom Filt Rate - Afr Amer 34 mL/min (>60); Globulin 4.4 g/dL (2.2-4.2); Glucose 170 mg/dL (74-106); Potassium 4.6 mmol/L (3.5-5.1); Protein, Total 7.9 g/dL (6.4-8.2); Sodium Level 139 mmol/L (136-145)
[2019-01-26 18:39] LABS: Erythrocyte Sedimentation Rate 26 mm/hr (0-15)
== END ==
PROVIDERS: Visit Provider Nurse Practitioner Adult Health
DX: Z01.818 Encounter for other preprocedural examination (principal)
CPT/HCPCS: 36415; 80053; 85025; 85652; 86140

== ENCOUNTER 2019-01-28 09:34 | Outpatient (RCR) | payer MEDICAID, SELFPAY ==
[2019-01-23 01:04] VITALS: BP 165/87; PULSE 86; RESP 16; TEMP 36.9
[2019-01-28 15:04] VITALS: BP 133/90; PULSE 90; RESP 20; TEMP 36.2; BMI 38.4
--- NOTE | 2019-01-28 16:59 | PCM.WC.PN ---
(1) Ulcer of right foot with fat layer exposed Status: Chronic Current Visit: Yes Code(s): L97.512 - Non-pressure chronic ulcer of other part of right foot with fat layer exposed (2) Delayed wound healing Status: Chronic Current Visit: Yes Code(s): T14.8XXD - Other injury of unspecified body region, subsequent encounter (3) Malnutrition Status: Chronic Current Visit: Yes Code(s): E46 - Unspecified protein-calorie malnutrition (4) Hammer toe of right foot Status: Chronic Current Visit: Yes Code(s): M20.41 - Other hammer toe(s) (acquired), right foot (5) Type 2 diabetes mellitus with diabetic polyneuropathy Status: Chronic Current Visit: Yes Code(s): E11.42 - Type 2 diabetes mellitus with diabetic polyneuropathy (6) Osteitis Status: Chronic Current Visit: Yes Code(s): M86.9 - Osteomyelitis, unspecified Type of Wound Date of Service: 01/28/19 Chief Complaint: Non healing right foot ulcer. History of Wound: Mr. 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 He denies fever, chill, nausea, vomiting. He did obtain the MRI of the foot and is planning to have a metatarsal head resection. He has started his medical clearance process in preparation for this procedure. He relates his drainage has decreased and he denies odor or redness. Progress of Wound: Stabilized - Physical Exam Vital Signs Temp Pulse Resp BP 97.2 F L 90 20 H 133/90 H 01/28/19 15:04 01/28/19 15:04 01/28/19 15:04 01/28/19 15:04 General: Alert, Oriented x3, Cooperative, No apparent distress Extremities: No cyanosis, Capillary Refill Less than 3 Seconds, No Calf Tenderness, Diminished Peripheral Pulses, Edema, - - Dorsal contraction of lesser toes with prominent fourth metatarsal head Skin: Ulcer/ Wound - No purulence, erythema, streaking, odor, infection. Peripheral skin is hairless and atrophic., - - The ulcer is very deep and exposed capsule layer is suspected without exposed or positive probe to bone Wound Measurements and Assessment WC - Nurse 1 - General Ulcer Measurement Start: 01/28/19 15:04 Freq: Status: Active Protocol: Activity Type Activity Date Activity User E-Sign Co-Sign Detail Recorded Client Recorded Date Recorded By Document 01/28/19 15:04 LILIAN [id number] 01/28/19 15:15 DL 01/28/19 15:04 Wound Center Nurse 1 [Ulcer Assessment] #2- R LAT PLANTAR FOOT -Current Size (cm) - Length 1.2 -Current Size (cm) - Width 1.7 -Current Size (cm) - Depth 0.7 -Total Square Cm 2.04 -Photo Taken No -Undermining/Tunneling Starts (O' 10 clock) -Undermining/Tunneling Ends (O'clock) 2 -Maximum Distance (cm) 0.5 -Maximum Distance #2 (cm) 0 -Exudate Amt Small -Exudate Type Serosanguineous -Wound Margin Thickened & Rolled Under -Granulation Amt Medium (34-66%) -Granulation Quality [place] -Necrosis Amt Medium (34-66%) -Necrotic Tissue Type Adherent Slough -Structure Exposed N/A -Texture (Rosaura-wound Skin Appearance) Callus -Moisture (Rosaura-wound Skin Appearance Maceration ) -Color (Rosaura-wound Skin Appearance) No Abnormality -Temperature (Rosaura-wound Skin No Abnormality Appearance) (Pt Warm) -Tenderness on Palpation (Rosaura-wound No Skin Appearance) -Ulcer Cleansing Wound Cleanser -Foul Odor after Cleansing Yes -Anesthetic Used 5% Lidocaine Gel WC - Nurse 2 - General Ulcer CM Notes Start: 01/28/19 15:04 Freq: Status: Active Protocol: Activity Type Activity Date Activity User E-Sign Co-Sign Detail Recorded Client Recorded Date Recorded By Document 01/28/19 16:21 OTONIEL [id number] 01/28/19 16:22 OTONIEL 01/28/19 16:21 Wound Center Nurse 2 [Procedure/Treatment] -Time 16:21 -Correct Patient Yes -Correct Side, Site, Position Yes -Correct Procedure Yes -Procedure Performed Yes -Type of Procedure Debridement -Clinical Debridement Subcutaneous -Post Debridement Size (cm) - Length 1.2 -Post Debridement Size (cm) - Width 1.8 -Post Debridement Size (cm) - Depth 0.8 -Total Square Cm 2.16 -Wound/Ulcer Outcome Not Healed -Ulcer Cleansing Rinsed/ Irrigated with Saline -Foul Odor after Cleansing No -Bioengineered Tissue No -Bleeding Controlled with Pressure -Offloading Yes -Type of Offloading Camwalker -Treatment Response Procedure Tolerated Well [See Physician Procedure note for Specifics] Pain Scale: 0-10 Numeric [Pain] -Is Patient Pain Free? Yes Musculoskeletal: No Tenderness to Palpation of Joints or Extremities, Muscle Wasting, - - Compartment soft to palpate Neurological: - - Lack of normal epicritic sensation light touch is consistent with neuropathy status Psych/Mental Status: Normal Affect, Appropriate Debridement Note Post-Debridement Measurements/Treatment WC - Nurse 2 - General Ulcer CM Notes Start: 01/28/19 15:04 Freq: Status: Active Protocol: Activity Type Activity Date Activity User E-Sign Co-Sign Detail Recorded Client Recorded Date Recorded By Document 01/28/19 16:21 OTONIEL [id number] 01/28/19 16:22 OTONIEL 01/28/19 16:21 Wound Center Nurse 2 #2- R LAT PLANTAR FOOT -Time 16:21 -Correct Patient Yes -Correct Side, Site, Position Yes -Correct Procedure Yes -Procedure Performed Yes -Type of Procedure Debridement -Clinical Debridement Subcutaneous -Post Debridement Size (cm) - Length 1.2 -Post Debridement Size (cm) - Width 1.8 -Post Debridement Size (cm) - Depth 0.8 -Total Square Cm 2.16 -Wound/Ulcer Outcome Not Healed -Ulcer Cleansing Rinsed/ Irrigated with Saline -Foul Odor after Cleansing No -Bioengineered Tissue No -Bleeding Controlled with Pressure -Offloading Yes -Type of Offloading Camwalker -Treatment Response Procedure Tolerated Well Pain Scale: 0-10 Numeric Is Patient Pain Free? Yes Wound debrided: plantar foot Laterality: Right Wound Grade/Stage: grade 2 Type of Debridement: Excisional debridement Anesthesia Used: 5% Lidocaine Gel Depth: in the subcutaneous layer Percentage of wound debrided: 100 Instrument Used: #15 blade Tissue Removed: fibrous, devitalized subcutaneous, biofilm, slough Severity: Fat Layer Exposed Amount of bleeding with debridement: Mild Bleeding Controlled with: Pressure Patient tolerated procedure well Assessment/Plan Active Problems Ulcer of right foot with fat layer exposed (Chronic) Delayed wound healing (Chronic) Malnutrition (Chronic) Hammer toe of right foot (Chronic) Type 2 diabetes mellitus with diabetic polyneuropathy (Chronic) Osteitis (Chronic) Assessment: Nonhealing diabetic foot ulcer of right foot fat layer exposed, no infection. Osteitis fourth metatarsal head (differential diagnosis is osteomyelitis). Diabetic neuropathy. malnutrition suspected. delayed healing. Venous insufficiency and leg edema. Hammertoe with prominent metatarsal heads. cardiac disease Plan: I reviewed and discussed his case today. I reviewed his previous diagnostic data. Excisional subcutaneous debridement was performed as noted in the nursing clinical panel. He tolerated this well. I do not recommend advanced wound healing product application today. After the ulcer was debrided and saline irrigation was performed a culture including aerobic and anaerobic acid-fast and fungal was obtained. Also recommend he update his lab work occluding CBC CMP ESR and C-reactive protein. His white blood cell count 7.5, sedimentation rate 26, C-reactive protein level was not elevated, and hemoglobin A1c 7.6, albumin 3.5. He tolerated this very well. He was advised to keep this clean, dry, and intact until follow-up visit next week. To change the dressing daily with Puzzlium ag. He appears to have adequate arterial perfusion for healing as noted with his noninvasive vascular studies performed this past year. It is noted he has failed other comprehensive standard wound healing treatments. His venous reflux exam demonstrated incompetent veins. I recommend edema management with periodic elevation, avoiding idle standing or sitting, and with Tubigrip compression dressing. I also recommend follow-up with vascular specialist, Dr. Chapman for his venous insufficiency to aid in his current ulcer healing and to prevent further wounds in the future. His labs were reviewed from 07/2018 which are stable without gross abnormalities. His last hemoglobin A1c was noted at 7.6%. To continue proper glycemic control nutritional supplementation to optimize healing. I recommend updating his foot x-rays to monitor for any osseous progression suggesting osteomyelitis. This was negative for fracture, acute injuries, or destruction of the fourth metatarsal adjacent to the ulcer site. There is no foreign body or soft tissue emphysema identified. I also recommended an MRI to see if there is underlying nidus of bone infection. This is reviewed today and there appears to be some osteitis of the fourth metatarsal head which is adjacent to the ulcer site. There is concerned this is early osteomyelitis however this cannot be confirmed at this time. There are lack of local signs of infection as well this is noted. I offered and recommended a fourth metatarsal head resection to alleviate this potential infection nidus and also to address his deformity. The indication, planned procedure, possible benefits, risk, complications, and anticipated healing time and management were discussed in detail with the patient. He understands and is amendable to proceed forward with the plan. He understands risks and complications may include but are not limited to the following: Pain, swelling, scarring, need for further surgery, over under correction, allergic reaction, blood clot, transfer lesion or ulcers, delayed or nonhealing, loss of limb, function, life. No guarantees were made. He understands surgical clearance by his primary care physician with history and physical exam will be required prior to proceeding. He did obtain cardiac and nephrology clearance. He is awaiting for medical clearance to proceed with this procedure safely and his surgical date will be confirmed once this is obtained. It is noted his last creatinine earlier this week was 2.66. This is a curative procedure and the anticipated anesthesia is MAC and local. He may be considered for same-day surgery procedure if this remained stable. The goal of the surgery is to take the metatarsal head and sent for biopsy and also to alleviate the deformity that is contributing to delayed healing. The consents are previously obtained and I answered all his questions. I answered his questions. Was advised to return to the wound healing center in 1 week or call sooner if he has any questions or concerns.
== END 2019-02-21 23:59 ==
LOC: WC 09:34
PROVIDERS: Referring Provider Podiatrist; Visit Provider Podiatrist
DX: E11.621 Type 2 diabetes mellitus with foot ulcer (principal); E11.42 Type 2 diabetes mellitus with diabetic polyneuropathy; M20.41 Other hammer toe(s) (acquired), right foot; L97.512 Non-pressure chronic ulcer of other part of right foot with fat layer exposed; E11.319 Type 2 diabetes mellitus with unspecified diabetic retinopathy without macular edema; I87.2 Venous insufficiency (chronic) (peripheral); R60.0 Localized edema
CPT/HCPCS: 11042

== ENCOUNTER 2019-02-13 08:52 | Day surgery (SDC) | payer MEDICAID, SELFPAY ==
[2019-02-13] VITALS (11 sets, daily range): BP systolic 114–146; BP diastolic 74–84; PULSE 68–82; RESP 18; TEMP 36.2–36.7; O2SAT 94–100; BMI 40.5
[2019-02-13 09:31] LABS: Bedside Glucose 181 mg/dL (70-110)
[2019-02-13] MEDS: Lactated Ringers 1,000 ML 100 ML IV (09:41)
--- NOTE | 2019-02-13 11:00 | RAD_ITS ---
STUDY: Fluoroscopy RIGHT FOOT CLINICAL: Male, 43 years old. Resection fourth metatarsal head TECHNIQUE: 3 view(s) of the foot. COMPARISON: None. FINDINGS: 3 views of the toes are provided with fluoroscopic imaging. There is been a resection of the distal aspect of the fourth metatarsal. There is been an amputation of the first digit at the metatarsophalangeal joint. RAD/Foot min 3 Views IMPRESSION: Postoperative change partial amputation fourth metatarsal. Prior amputation first digit at the metatarsophalangeal joint. Electronically Signed: Bhavani Warren MD at 13:01 EST Tel , Service support ,
--- NOTE | 2019-02-13 11:00 | BON_PTH ---
PATIENT: GILDARDO CANSECO LOC: [facility] – [place] U#:[id number] AGE/SX: 43/M ROOM: RE02/13/[address]: Dr. Marian Street DPM : 1975 BED: DIS: 02/13/2019 SPEC #: [id number] RECD: 02/13/19 16:18 STATUS: AMY LIZ #: [id number] CHASTITY: 02/13/19 11:[address]: Marian Street DEPT: SURGICAL PATHOLOGY RECD BY: Marco Mckeon ENTERED: 02/16/19 11:13 SP TYPE: Bone OTHR DR: Out of Town Doctor Tissues: Bone of foot, NOS Procedures: Decalcification bone/plaque Surgery Specimen Level IV HEADER OPERATION: Fourth metatarsal head resection, ulcer excision, foot PRE-OP DIAGNOSIS: Diabetic foot ulcer, right foot TISSUE SUBMITTED: Fourth metatarsal bone MICROSCOPIC DIAGNOSIS Fourth metatarsal bone, right foot, biopsy: Mild reactive and reparative change. AM:dia 02/18/19 MICROSCOPIC DESCRIPTION Slides are reviewed. GROSS DESCRIPTION Received in fixative is one container labeled with the patient's name and designated fourth metatarsal bone. The specimen consists of a piece of bone measuring 1.5 x 1 x 0.5 cm. The entire specimen is submitted in one cassette after decalcification. / ZAHRA:dia 02/16/19 TC:5 CPT: 52171, 13570
[2019-02-13] MEDS: Metoprolol(XL)Succ 50 MG Tablet PO (11:04)
[2019-02-13] MEDS: Bupivacaine Mpf 0.5% 30 ML VIAL (11:44)
--- NOTE | 2019-02-13 12:33 | RAD_ITS ---
STUDY: X-RAY - RIGHT FOOT CLINICAL: Male, 43 years old. Post op TECHNIQUE: 4 view(s) of the foot. COMPARISON: None. FINDINGS: Normal talus, calcaneus, and tarsal bones. Normal visualized subtalar, talonavicular, calcaneocuboid, tarsal and tarsometatarsal articulations. Is been a resection of the fourth metatarsal. There is a low attenuating appearance of the distal aspect of the fifth metatarsal and phalanges allowing for the technique. There is been a prior amputation of the first digit at the metatarsophalangeal joint. Normal metatarsophalangeal joint of the great toe. Normal tibial and fibular sesamoid bones. Normal interphalangeal joint of the great toe. Normal phalanges of the great toe. Normal second through fifth metatarsophalangeal joints. Allowing for technique there may be a degenerative versus fractured appearance of the proximal phalanx of the fourth digit. RAD/Foot min 3 Views IMPRESSION: Postoperative change fourth metatarsal. Nonacute appearing amputation of the first digit at the metatarsophalangeal joint. Allowing for technique there may be a degenerative versus fractured appearance of the proximal phalanx of the fourth digit. There is splint material overlying the foot. Artifact versus low attenuating appearance of the fifth metatarsal and phalanges. Electronically Signed: Bhavani Warren MD at 13:12 EST Tel , Service support ,
--- NOTE | 2019-02-13 12:37 | DCINST_ITS ---
Discharge Diet: Carb Control Diet Discharge Activity: May Not Drive, Use Walker, Use Crutches Weight Bearing Status: No weight bearing Keep extremity elevated above heart level: Right Leg Call your doctor if your incision/area has: Continuous Slow Oozing, Sudden Increased Bleeding, Increased Pain/ Swelling, Increased Redness, Foul Smelling Discharge, Swelling at the incision site Call your doctor if you observe: Fever of 101 or Higher, Shortness of breath, Chest pain, Calf discomfort, Uncontrolled pain Cleanse incision/area with: Keep Dressing Clean & Dry Allergies/Adverse Reactions: Allergies No Known Allergies Allergy (Verified 02/13/19 09:30) Medications to take at Discharge Aspirin E.C. [Ecotrin] 81 mg PO DAILY@0800 08/14/18 Atorvastatin Calcium [Lipitor] 40 mg PO QHS 08/14/18 Insulin Aspart [Novolog Flexpen (BKC)] 4 units SC TID 08/14/18 Insulin Glargine,Hum.rec.anlog [Basaglar Kwikpen U-100] 24 unit SQ QHS 02/11/19 Metoprolol Succinate 50 mg PO DAILY 02/11/19 Primary Care Physician: BERENICE HOOD [Other] Test Results: Test results from this visit will be discussed in further detail at your follow- up appointment, if applicable. Please Follow Up With: Clinic,Wound When: Dr. Street next Sat. Call sooner if concerns at [phone]. Please Follow Up With: Proposed Discharge Date: 02/13/19
--- NOTE | 2019-02-13 12:38 | PCM.OPRPT ---
Problem List (1) Ulcer of right foot with fat layer exposed Status: Chronic (2) Delayed wound healing Status: Chronic (3) Hammer toe of right foot Status: Chronic (4) Osteomyelitis, unspecified Status: Suspected Report of Operation Date of Procedure: 02/13/19 Pre-Operative Diagnosis: chronic ulcer right foot. osteomyelitis suspected fourth metatarsal head. hammer toe right fourth toe Post-Operative Diagnosis: chronic ulcer right foot. osteomyelitis suspected fourth metatarsal head. hammer toe right fourth toe Surgery/Procedure Performed:: right fourth metatarsal head resection. right foot ulcer excision. right foot application of advanced wound healing product Description of Surgical Findings:: Hemostasis: Well-padded pneumatic right ankle tourniquet, 250 mmHg, 28 minutes Materials: 3-0 and 2-0 nylon. 250 mg of advanced wound healing product Complications: None Specimens were sent to microbiology and pathology The patient tolerated the procedure and anesthesia well. The PACU with vital signs stable and vascular is intact in the right lower extremity. He will be discharged home upon continued stability. Intraoperative x-rays were obtained to confirm fourth metatarsal head adequate resection and no acute injuries were noted. His postoperative orders will be entered electronically. 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 Special Systems Technician: Anne Marie Wooten PGY1 Type of Anesthesia:: Local MAC - Preoperative: 13 cc of one-to-one mixture of 1% lidocaine plain and 0.5% Marcaine plain administered typical right foot fourth ray block fashion and local infiltration to the plantar ulcer site of the foot Specimen's removed: 1. Fourth metatarsal head bone sent to pathology. 2. Fourth metatarsal head bone sent to microbiology for aerobic, anaerobic, acid-fast, fungal Estimated Blood Loss (mL): < 100 mL Description of Procedure: Indications: 43-year-old male with significant past medical history of diabetes with neuropathy, cardiac disease, and renal disease was treated in outpatient setting for nonhealing sub-fourth metatarsal head ulcer with deep capsular exposure associated with his foot deformity of a hammertoe and prominent metatarsal heads. X-rays were reviewed without any evidence of distinct osteomyelitis and there was hammertoe deformities noted. MRI revealed osteitis of the fourth metatarsal head and there was concern of osteomyelitis given his recurrent and delayed ulcer site healing and recurrent cellulitis and wound infections. He was treated in the outpatient setting with antibiotics and this has resolved. Clinically he has a full-thickness skin discontinuity there is a sub-fourth metatarsal head location with devitalized fibrous and non-granular tissue. There is a mild odor. There is no deyanira purulence on expression or adjacent bogginess or fluctuance. He tries offload however struggles with this at times. He is currently seen and is managed under comprehensive wound healing plan at the wound healing center including serial debridement, nutrition advice, medical management, offloading, and application of advanced wound healing products. The preoperative indication, planned procedure, possible benefits, risk, complication, and anticipated healing time and management were discussed in detail with the patient today. He understands and elects to proceed with surgery at this time. Informed surgical consent and limb were signed. He understands this is a curative procedure in attempt to salvage his limb and this is medically necessary. He had prior noninvasive arterial studies performed which demonstrated suspected adequate perfusion for healing. His preoperative clearances by renal specialist and [facility] psychiatrist and also his primary care physician were reviewed. His preoperative diagnostic data was also reviewed. Procedure in detail: Patient was transported to the operating room via cart and placed on the operating table in supine position. Final verification of the patient, surgery, limb designation was performed via the timeout procedure. Well-padded pneumatic right ankle tourniquet was placed on the right lower extremity. MAC anesthesia was initiated by the anesthesia team. Preoperative antibiotics were administered prior to starting. The right lower extremity local injection was provided by the podiatry team. The right lower extremity was next prepped and draped in the usual aseptic manner. Surgery began the following manner: Attention was first directed to the dorsal aspect of the right foot in which a 3 cm linear incision was made over the fourth metatarsal phalangeal joint. This was made through the skin and blunt dissection was performed down to the capsular layer taking care to identify, protect, and retract all neurovascular structures at this point and throughout the remainder of surgery. Next, a capsular incision was made in between the extensor digitorum brevis and extensor digitorum longus tendon slips. The fourth metatarsal phalangeal joint was entered with a 15 blade and collateral lateral ligaments were released for good exposure and McGlamry elevator was used to further free up this metatarsal head. Next a sagittal saw was used to resect the fourth metatarsal head to decompress and take pressure off of the fourth metatarsal plantar ulcer location. This was sent to both microbiology and pathology and the results are pending. At this time no purulence or deyanira necrosis was identified. The fourth toe also did not appear in to maintain a floppy position due to precautions taken to preserve the viable capsule. I did not place a K wire given his recent wound odor at this time and the remaining complex appears to be clinically stable also. The metatarsal head resection was achieved successfully and proper resection was confirmed with intraoperative fluoroscopy. No acute injuries were noted. No foreign bodies are noted. This was copiously irrigated with normal saline. A purse string capsular closure was performed with 3-0 nylon to prevent future toe migration and instability. Amnio fill was also incorporated into the closure site. The tourniquet was deflated at this time and brisk capillary refill time was noted to all digits of the right foot. No pulsatile bleeding was noted. The dorsal skin was next reapproximated with 2-0 and 3-0 nylon utilizing simple suture technique. Minimal electrocauterization and direct pressure was next applied to the plantar ulcer excision site which was performed next. The pre-debridement measurement was 1.8 x 2.1 cm x 0.7 centimeters in depth. The post debridement measurement was 2.2 x 2.5 x 1.0 cm in depth. A 15 blade was used to excisionally excise devitalized subcutaneous and capsular tissue, biofilm, slough, and fibrous tissue. The remainder of the amnio fill advanced wound healing product was packed into the open void and was secured in place and the overlying Adaptic and 3-0 nylon. A bolster gauze dressing was applied to this location and was further used to apply the rest of the dressing with additional abdominal pad, Kerlix, and Roberth wrap. Next a well-padded right lower extremity posterior mold was applied with the right lower extremity in a rectus position. After procedure: The patient tolerated the procedure and anesthesia well. He was transported to the PACU with vital signs stable and vascular status intact to the right lower extremity. He will be discharged home today upon continued stability. He was advised to ice and elevate for pain inflammation management. Is noted he has pretty remarkable neuropathy and a did not provide any narcotic pain medication. He was advised to keep his dressing and splint clean, dry, and intact until he follows up next week at the wound healing center. Strict nonweightbearing status was recommended with use of an assistive device. Bone biopsy results are pending and will be monitored in outpatient setting. Marian Street DPM, [facility] [place] Grafts/Implants Used: mimedx amniofill - Complications none - Admit VTE Documentation VTE Present on Admission: No VTE Mechan Device Prophylaxis: SCD's VTE Pharm Prophylaxis ordered?: Yes Reason prophylaxis not ordered:: Treatment Not Indicated
== END 2019-02-13 15:15 | disposition home or self-care (01) ==
LOC: SDC 08:53 → AC 08:54
PROVIDERS: Referring Provider Podiatrist; Visit Provider Podiatrist
DX: E11.621 Type 2 diabetes mellitus with foot ulcer (principal); L97.512 Non-pressure chronic ulcer of other part of right foot with fat layer exposed; M20.41 Other hammer toe(s) (acquired), right foot; M86.9 Osteomyelitis, unspecified; E11.40 Type 2 diabetes mellitus with diabetic neuropathy, unspecified; G25.81 Restless legs syndrome; K58.9 Irritable bowel syndrome, unspecified; E78.00 Pure hypercholesterolemia, unspecified; E11.22 Type 2 diabetes mellitus with diabetic chronic kidney disease; I13.0 Hypertensive heart and chronic kidney disease with heart failure and stage 1 through stage 4 chronic kidney disease, or unspecified chronic kidney disease; N18.9 Chronic kidney disease, unspecified; I50.9 Heart failure, unspecified; Z79.4 Long term (current) use of insulin; Z79.82 Long term (current) use of aspirin; Z79.899 Other long term (current) drug therapy
CPT/HCPCS: 28104; 73630; 76000; 82962; 87015; 87070; 87075; 87102; 87116; 87176; 87205; 87206; 88305; 88311; J7120; J2405

== ENCOUNTER 2019-03-11 13:30 | Outpatient (RCR) | payer MEDICAID, SELFPAY ==
[2019-02-13 09:25] VITALS: BMI 40.5
[2019-02-22 00:48] VITALS: BP 133/90; PULSE 90; RESP 20; TEMP 36.2
[2019-02-25 10:56] VITALS: BP 129/77; PULSE 82; RESP 20; TEMP 36.2; BMI 40.5
--- NOTE | 2019-02-25 11:52 | PN.PCM_ITS ---
(1) Ulcer of right foot with fat layer exposed Status: Chronic Code(s): L97.512 - Non-pressure chronic ulcer of other part of right foot with fat layer exposed (2) Delayed wound healing Status: Chronic Code(s): T14.8XXD - Other injury of unspecified body region, subsequent encounter (3) Malnutrition Status: Chronic Code(s): E46 - Unspecified protein-calorie malnutrition (4) Type 2 diabetes mellitus with diabetic polyneuropathy Status: Chronic Code(s): E11.42 - Type 2 diabetes mellitus with diabetic polyneuropathy (5) Osteomyelitis, unspecified Status: Ruled-out Qualifiers: Laterality: right Code(s): M86.9 - Osteomyelitis, unspecified Type of Wound Date of Service: 02/25/19 Chief Complaint: Non healing right foot ulcer. History of Wound: Mr. 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 He denies fever, chill, nausea, vomiting. He did undergo right foot fourth metatarsal head resection with plantar ulcer excision and application of advanced wound healing product of amnio fill on February 13, 2019 at [facility]. He denies pain, odor, or redness. He would like to review his bone biopsy results. Progress of Wound: Stable - Physical Exam Vital Signs Temp Pulse Resp BP 97.2 F L 82 20 H 129/77 H 02/25/19 10:56 02/25/19 10:56 02/25/19 10:56 02/25/19 10:56 General: Alert, Oriented x3, Cooperative, No apparent distress Extremities: No cyanosis, Capillary Refill Less than 3 Seconds, No Calf Tenderness, Diminished Peripheral Pulses, Edema Skin: Ulcer/ Wound - No purulence, erythema, streaking, odor, infection. The dorsal incision site is well aligned and coapted without any gapping, necrosis, or infection. The plantar ulcer site had the overlying Adaptic and sutures carefully removed. The advanced wound healing product appears to be incorporating well and is healthy looking. This was covered again with Adaptic and Steri-Strips for protection. No other ulcers are noted. His adjacent skin is hairless and atrophic. Wound Measurements and Assessment WC - Nurse 1 - General Ulcer Measurement Start: 02/25/19 10:56 Freq: Status: Active Protocol: Activity Type Activity Date Activity User E-Sign Co-Sign Detail Recorded Client Recorded Date Recorded By Document 02/25/19 10:56 LILIAN [id number] 02/25/19 11:05 DL 02/25/19 10:56 Wound Center Nurse 1 [Ulcer Assessment] #2- R LAT PLANTAR FOOT -Current Size (cm) - Length 1.7 -Current Size (cm) - Width 2 -Current Size (cm) - Depth 0.6 -Total Square Cm 3.4 -Photo Taken Yes -Exudate Amt Small -Exudate Type Serosanguineous -Wound Margin Distinct, Outline Attached -Structure Exposed N/A -Texture (Rosaura-wound Skin Appearance) Scarring -Moisture (Rosaura-wound Skin Appearance Dry/Scaly ) -Color (Rosaura-wound Skin Appearance) No Abnormality -Temperature (Rosaura-wound Skin No Abnormality Appearance) (Pt Warm) -Tenderness on Palpation (Rosaura-wound No Skin Appearance) -Ulcer Cleansing Foot Only/Graft intact/Sutures to dorsal intact -Foul Odor after Cleansing No WC - Nurse 2 - General Ulcer CM Notes Start: 02/25/19 10:56 Freq: Status: Active Protocol: Activity Type Activity Date Activity User E-Sign Co-Sign Detail Recorded Client Recorded Date Recorded By Document 02/25/19 11:40 OTONIEL [id number] 02/25/19 11:41 OOTNIEL 02/25/19 11:40 Wound Center Nurse 2 [Procedure/Treatment] -Correct Patient No -Correct Side, Site, Position No -Correct Procedure No -Procedure Performed No -Wound/Ulcer Outcome Not Healed [See Physician Procedure note for Specifics] Pain Scale: 0-10 Numeric [Pain] -Is Patient Pain Free? Yes Musculoskeletal: No Tenderness to Palpation of Joints or Extremities, Muscle Wasting, - - Dorsal contracture lesser toes noted and the fourth toe remains in the same position that is consistent with his preoperative status Neurological: - - Lack of epicritic sensation light touch consistent with neuropathy status Psych/Mental Status: Normal Affect, Appropriate Debridement Note Post-Debridement Measurements/Treatment WC - Nurse 2 - General Ulcer CM Notes Start: 02/25/19 10:56 Freq: Status: Active Protocol: Activity Type Activity Date Activity User E-Sign Co-Sign Detail Recorded Client Recorded Date Recorded By Document 02/25/19 11:40 OTONIEL [id number] 02/25/19 11:41 JF 02/25/19 11:40 Wound Center Nurse 2 #2- R LAT PLANTAR FOOT -Correct Patient No -Correct Side, Site, Position No -Correct Procedure No -Procedure Performed No -Wound/Ulcer Outcome Not Healed Pain Scale: 0-10 Numeric Is Patient Pain Free? Yes Wound debrided: plantar foot Laterality: Right No debridement was completed today Assessment/Plan Assessment: Status post right fourth metatarsal head resection with ulcer excision application of amnio fill advanced wound healing product performed on 02/13/2019 for treatment of nonhealing diabetic foot ulcer of right foot fat layer exposed. Osteitis fourth metatarsal head (differential diagnosis was preoperative osteomyelitis). Diabetic neuropathy. malnutrition suspected. delayed healing. Venous insufficiency and leg edema. Hammertoe with prominent metatarsal heads. cardiac disease Plan: I reviewed and discussed his case today. I reviewed his previous diagnostic data. His postoperative status is noted and appears to be intact. His local signs of inflammation and infection are not present today. His bone biopsies were reviewed without evidence of micro biological bacterial growth or acute osteomyelitis noted with the pathological evaluation. I do not recommend additional antibiotics at this time and his clinical status will be monitored. No debridement was performed today. This will be considered next week at follow-up. Also recommend prior update his lab work occluding CBC CMP ESR and C-reactive protein. His white blood cell count 7.5, sedimentation rate 26, C- reactive protein level was not elevated, and hemoglobin A1c 7.6, albumin 3.5. He tolerated this very well. He was advised to keep this clean, dry, and intact until follow-up visit next week. He appears to have adequate arterial perfusion for healing as noted with his noninvasive vascular studies performed this past year. It is noted he has failed other comprehensive standard wound healing treatments. His venous reflux exam demonstrated incompetent veins. I recommend edema management with periodic elevation, avoiding idle standing or sitting, and with Tubigrip compression dressing. I also recommend follow-up with vascular specialist, Dr. Chapman for his venous insufficiency to aid in his current ulcer healing and to prevent further wounds in the future. His last hemoglobin A1c was noted at 7.6%. To continue proper glycemic control nutritional supplementation to optimize healing. He is doing well. To continue with strict offloading by remaining nonweightbearing to the right lower extremity with the use of assistive device is imperative for healing. To return to the wound healing center in 1 week or call sooner if he has any questions or concerns. Additional application of advanced wound healing products in the clinical setting will likely be performed. This is medically necessary to optimize his healing.
[2019-03-04 10:52] VITALS: BP 158/84; PULSE 89; RESP 18; TEMP 36.1; BMI 40.5
--- NOTE | 2019-03-04 13:05 | PN.PCM_ITS ---
(1) Ulcer of right foot with fat layer exposed Status: Chronic Current Visit: Yes Code(s): L97.512 - Non-pressure chronic ulcer of other part of right foot with fat layer exposed (2) Delayed wound healing Status: Chronic Current Visit: Yes Code(s): T14.8XXD - Other injury of unspecified body region, subsequent encounter (3) Malnutrition Status: Chronic Current Visit: Yes Code(s): E46 - Unspecified protein- calorie malnutrition (4) Type 2 diabetes mellitus with diabetic polyneuropathy Status: Chronic Current Visit: No Code(s): E11.42 - Type 2 diabetes mellitus with diabetic polyneuropathy (5) Osteomyelitis, unspecified Status: Ruled-out Current Visit: No Qualifiers: Laterality: right Code(s): M86.9 - Osteomyelitis, unspecified Type of Wound Date of Service: 03/04/19 Chief Complaint: Non healing right foot ulcer. History of Wound: Mr. 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 He denies fever, chill, nausea, vomiting. He did undergo right foot fourth metatarsal head resection with plantar ulcer excision and application of advanced wound healing product of amnio fill on February 13, 2019 at [facility]. He denies pain, odor, or redness. He has a prior commitment next Saturday and is not able to return on this day. Progress of Wound: improving - Physical Exam Vital Signs Temp Pulse Resp BP 96.9 F L 89 18 158/84 H 03/04/19 10:52 03/04/19 10:52 03/04/19 10:52 03/04/19 10:52 General: Alert, Oriented x3, Cooperative, No apparent distress HEENT: Atraumatic Extremities: No cyanosis, Capillary Refill Less than 3 Seconds, No Calf Tenderness, Diminished Peripheral Pulses, Edema Skin: Ulcer/ Wound - No purulence, erythema, string, odor, infection to right foot. The plantar foot ulcer has improvement in granulation base and there is no gi-inflammation or odor noted. The sutures are intact to the dorsal foot and these remain intact and are starting to coapt. There is no gapping or necrosis or eschar noted. These were left intact Wound Measurements and Assessment - Nurse 1 - General Ulcer Measurement Start: 02/25/19 10:56 Freq: Status: Active Protocol: Activity Type Activity Date Activity User E-Sign Co-Sign Detail Recorded Client Recorded Date Recorded By Document 03/04/19 10:52 [facility] [id number] 03/04/19 11:01 [facility] 03/04/19 10:52 Wound Center Nurse 1 [Ulcer Assessment] #2- R LAT PLANTAR FOOT -Combined with other wound No -Current Size (cm) - Length 0.8 -Current Size (cm) - Width 1.4 -Current Size (cm) - Depth 0.3 -Total Square Cm 1.12 -Date of Last Picture (Recall this 03/04/19 field) -Photo Taken Yes -Epithelialization None Present -Tunneling No -Undermining/Tunneling No -Circular Undermining No -Exudate Amt Small -Exudate Type Serosanguineous -Wound Margin Thickened -Granulation Amt Medium (34-66%) -Granulation Quality Pale,Red -Slough/Fibrin Yes -Necrosis Amt Medium (34-66%) -Necrotic Tissue Type Adherent Slough -Texture (Gi-wound Skin Appearance) Assessed,Callus ,Scarring -Moisture (Gi-wound Skin Appearance Assessed,Dry/ ) Scaly -Color (Gi-wound Skin Appearance) Assessed -Temperature (Gi-wound Skin No Abnormality Appearance) (Pt Warm) -Tenderness on Palpation (Gi-wound No Skin Appearance) -Ulcer Cleansing Rinsed/ Irrigated with Saline -Foul Odor after Cleansing No -Anesthetic Used 5% Lidocaine Gel WC - Nurse 2 - General Ulcer CM Notes Start: 02/25/19 10:56 Freq: Status: Active Protocol: Activity Type Activity Date Activity User E-Sign Co-Sign Detail Recorded Client Recorded Date Recorded By Document 03/04/19 11:23 [id number] 03/04/19 11:27 03/04/19 11:23 Wound Center Nurse 2 [Procedure/Treatment] -Time 11:24 -Correct Patient Yes -Correct Side, Site, Position Yes -Correct Procedure Yes -Procedure Performed Yes -Type of Procedure Debridement -Clinical Debridement Subcutaneous -Post Debridement Size (cm) - Length 0.8 -Post Debridement Size (cm) - Width 1.5 -Post Debridement Size (cm) - Depth 0.3 -Total Square Cm 1.20 -Wound/Ulcer Outcome Not Healed -Ulcer Cleansing Rinsed/ Irrigated with Saline -Foul Odor after Cleansing No -Bioengineered Tissue Yes -Type of bioengineered Tissue EPIFIX -Bleeding Controlled with Pressure -Offloading Yes -Type of Offloading Surgical Shoe -Treatment Response Procedure Tolerated Well [See Physician Procedure note for Specifics] Pain Scale: 0-10 Numeric [Pain] -Is Patient Pain Free? Yes Musculoskeletal: No Tenderness to Palpation of Joints or Extremities, Muscle Wasting, - - Dorsal contraction lesser toes noted and the fourth toe remains in a same position as compared to prior to his fourth metatarsal head resection surgery. Compartments are soft Neurological: - - Lack of epicritic sensation light touch consistent with neuropathy status Psych/Mental Status: Normal Affect, Appropriate Debridement Note Post-Debridement Measurements/Treatment WC - Nurse 2 - General Ulcer CM Notes Start: 02/25/19 10:56 Freq: Status: Active Protocol: Activity Type Activity Date Activity User E-Sign Co-Sign Detail Recorded Client Recorded Date Recorded By Document 02/25/19 11:40 [id number] 02/25/19 11:41 Document 03/04/19 11:23 [id number] 03/04/19 11:27 02/25/19 03/04/19 11:40 11:23 Wound Center Nurse 2 #2- R LAT PLANTAR FOOT -Time 11:24 -Correct Patient No Yes -Correct Side, Site, Position No Yes -Correct Procedure No Yes -Procedure Performed No Yes -Type of Procedure Debridement -Clinical Debridement Subcutaneous -Post Debridement Size (cm) - Length 0.8 -Post Debridement Size (cm) - Width 1.5 -Post Debridement Size (cm) - Depth 0.3 -Total Square Cm 1.20 -Wound/Ulcer Outcome Not Healed Not Healed -Ulcer Cleansing Rinsed/ Irrigated with Saline -Foul Odor after Cleansing No -Bioengineered Tissue Yes -Type of bioengineered Tissue EPIFIX -Bleeding Controlled with Pressure -Offloading Yes -Type of Offloading Surgical Shoe -Treatment Response Procedure Tolerated Well Pain Scale: 0-10 Numeric Is Patient Pain Free? Yes Yes Wound debrided: plantar foot Laterality: Right Wound Grade/Stage: grade 3 (surgically addressed) Type of Debridement: Excisional debridement Anesthesia Used: 5% Lidocaine Gel Depth: in the subcutaneous layer Percentage of wound debrided: 100 Instrument Used: #15 blade Tissue Removed: fibrous, devitalized subcutaneous, biofilm, slough Severity: Fat Layer Exposed Amount of bleeding with debridement: Mild Bleeding Controlled with: Pressure Patient tolerated procedure well Assessment/Plan Active Problems Ulcer of right foot with fat layer exposed (Chronic) Delayed wound healing (Chronic) Malnutrition (Chronic) Assessment: Status post right fourth metatarsal head resection with ulcer excision application of amnio fill advanced wound healing product performed on 02/13/2019 for treatment of nonhealing diabetic foot ulcer of right foot fat layer exposed. Osteitis fourth metatarsal head (differential diagnosis was preoperative osteomyelitis). Diabetic neuropathy. malnutrition suspected. delayed healing. Venous insufficiency and leg edema. Hammertoe with prominent metatarsal heads. cardiac disease Plan: I reviewed and discussed his case today. I reviewed his previous diagnostic data. His postoperative status is noted and appears to be intact. His local signs of inflammation and infection are not present today. His bone biopsies were reviewed without evidence of micro biological bacterial growth or acute osteomyelitis noted with the pathological evaluation. I do not recommend additional antibiotics at this time and his clinical status will be monitored. Subcutaneous excisional debridement was performed as noted in the clinical count to the plantar foot ulcer site. The sutures to the dorsal foot were left intact and will be removed within the next 2 weeks most likely. His last white blood cell count 7.5, sedimentation rate 26, C-reactive protein level was not elevated, and hemoglobin A1c 7.6, albumin 3.5. After verbal consent was obtained and debridement was performed, advanced wound healing product epi-fix was applied according to standard protocol. The indications and anticipated healing time and management were discussed. This was secured in place with a wound veil and Steri-Strips and a bolstered gauze was applied to fill this defect. He tolerated this very well. He was advised to keep this clean, dry, and intact until follow-up visit next week. He appears to have adequate arterial perfusion for healing as noted with his noninvasive vascular studies performed this past year. It is noted he has failed other comprehensive standard wound healing treatments. His venous reflux exam demonstrated incompetent veins. I recommend edema management with periodic elevation, avoiding idle standing or sitting, and with Tubigrip compression dressing. I also recommend follow-up with vascular specialist, Dr. Chapman for his venous insufficiency to aid in his current ulcer healing and to prevent further wounds in the future. His last hemoglobin A1c was noted at 7.6%. To continue proper glycemic control nutritional supplementation to optimize healing. He is doing well. To continue with strict offloading by remaining nonweightbearing to the right lower extremity with the use of assistive device is imperative for healing. To return to the wound healing center in 1 week or call sooner if he has any questions or concerns. It is noted he is unable to return on Saturday and will see different provider next week. It is also noticed the clinic is closed due to the holiday the following week. Therefore he will follow-up with the foot and ankle center in 2 weeks for a postoperative check. He was advised to call sooner if he has any concerns.
== END 2019-03-24 23:59 ==
LOC: WC 13:30
PROVIDERS: Referring Provider Podiatrist; Visit Provider Podiatrist
DX: E11.621 Type 2 diabetes mellitus with foot ulcer (principal); L97.512 Non-pressure chronic ulcer of other part of right foot with fat layer exposed; E11.42 Type 2 diabetes mellitus with diabetic polyneuropathy; Z89.411 Acquired absence of right great toe; E11.21 Type 2 diabetes mellitus with diabetic nephropathy; I87.2 Venous insufficiency (chronic) (peripheral); R60.0 Localized edema
CPT/HCPCS: 15275; 99213; Q4186; G0463

== ENCOUNTER 2019-04-15 13:15 | Outpatient (RCR) | payer MEDICAID, SELFPAY ==
[2019-03-04 10:52] VITALS: BMI 40.5
[2019-03-25 00:37] VITALS: BP 158/84; PULSE 89; RESP 18; TEMP 36.1
[2019-03-27 15:56] VITALS: BP 157/80; PULSE 88; RESP 16; TEMP 36.7; BMI 40.5
--- NOTE | 2019-03-27 16:58 | PCM.WC.PN ---
(1) Diabetic foot ulcer associated with type 2 diabetes mellitus Status: Chronic Current Visit: Yes Qualifiers: Code(s): E11.621 - Type 2 diabetes mellitus with foot ulcer; L97.509 - Non-pressure chronic ulcer of other part of unspecified foot with unspecified severity Comment: Right lateral plantar. (2) Ulcer of right foot with fat layer exposed Status: Chronic Current Visit: Yes Code(s): L97.512 - Non-pressure chronic ulcer of other part of right foot with fat layer exposed (3) Delayed wound healing Status: Chronic Current Visit: Yes Code(s): T14.8XXD - Other injury of unspecified body region, subsequent encounter (4) Malnutrition Status: Chronic Current Visit: Yes Code(s): E46 - Unspecified protein-calorie malnutrition (5) Hammer toe of right foot Status: Chronic Current Visit: Yes Code(s): M20.41 - Other hammer toe(s) (acquired), right foot Type of Wound Date of Service: 03/27/19 Chief Complaint: Non healing right foot ulcer. History of Wound: Mr. 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 He denies fever, chill, nausea, vomiting. He did undergo right foot fourth metatarsal head resection with plantar ulcer excision and application of advanced wound healing product of amnio fill on February 13, 2019 at [facility]. He denies pain, odor, or redness. He has a new ulcer to his heel today which he reports started approximately the past week when he was picking some dry skin. Now it is draining and he denies redness or odor. Progress of Wound: improving plantar forefoot. New ulcer heel - Physical Exam Vital Signs Temp Pulse Resp BP 98.0 F 88 16 157/80 H 03/27/19 15:56 03/27/19 15:56 03/27/19 15:56 03/27/19 15:56 General: Alert, Oriented x3, Cooperative, No apparent distress Extremities: No cyanosis, Capillary Refill Less than 3 Seconds, No Calf Tenderness, Diminished Peripheral Pulses, Edema Skin: Ulcer/ Wound - No purulence, erythema, streaking, odor, infection. Significant peripheral epithelialization and reduction of the ulcer depth noted at the prior supportive metatarsal head resection site. The dorsal incision site is also fully healed and epithelialized. There is a new skin discontinuity to the plantar heel with granular base and no infection. His skin in general is hairless, dry and atrophic Wound Measurements and Assessment WC - Nurse 1 - General Ulcer Measurement Start: 03/27/19 15:56 Freq: Status: Active Protocol: Activity Type Activity Date Activity User E-Sign Co-Sign Detail Recorded Client Recorded Date Recorded By Document 03/27/19 15:56 MW [id number] 03/27/19 16:11 MW 03/27/19 15:56 Wound Center Nurse 1 [Ulcer Assessment] #3 right heel -Combined with other wound No -Current Size (cm) - Length 0.5 -Current Size (cm) - Width 1.0 -Current Size (cm) - Depth 0.2 -Total Square Cm 0.50 -Date of Last Picture (Recall this 03/27/19 field) -Photo Taken Yes -Epithelialization None Present -Tunneling No -Undermining/Tunneling No -Circular Undermining No -Exudate Amt Small -Exudate Type Serosanguineous -Wound Margin Flat & Intact -Granulation Amt Medium (34-66%) -Granulation Quality Pale -Slough/Fibrin Yes -Necrosis Amt Small (1-33%) -Necrotic Tissue Type Adherent Slough -Structure Exposed N/A -Texture (Rosaura-wound Skin Appearance) Assessed -Moisture (Rosaura-wound Skin Appearance Assessed, ) Maceration -Color (Rosaura-wound Skin Appearance) No Abnormality, Assessed -Temperature (Rosaura-wound Skin No Abnormality Appearance) (Pt Warm) -Tenderness on Palpation (Rosaura-wound No Skin Appearance) -Ulcer Cleansing soap and water -Foul Odor after Cleansing No -Anesthetic Used 4% Lidocaine Solution #2- R LAT PLANTAR FOOT -Combined with other wound No -Current Size (cm) - Length 0.1 -Current Size (cm) - Width 0.1 -Current Size (cm) - Depth 0.1 -Total Square Cm 0.01 -Date of Last Picture (Recall this 03/27/19 field) -Photo Taken Yes -Epithelialization None Present -Tunneling No -Undermining/Tunneling No -Circular Undermining No -Exudate Amt None Present -Wound Margin Flat & Intact -Granulation Amt None Present (0 %) -Granulation Quality N/A -Slough/Fibrin Yes -Necrosis Amt Large (67-100%) -Necrotic Tissue Type Adherent Slough -Structure Exposed N/A -Texture (Rosaura-wound Skin Appearance) Assessed,Callus -Moisture (Rosaura-wound Skin Appearance Assessed,Dry/ ) Scaly -Color (Rosaura-wound Skin Appearance) No Abnormality, Assessed -Temperature (Rosaura-wound Skin No Abnormality Appearance) (Pt Warm) -Tenderness on Palpation (Rosaura-wound No Skin Appearance) -Ulcer Cleansing soap and water -Foul Odor after Cleansing No -Anesthetic Used 4% Lidocaine Solution [Edema Assessment] -Lower Limb Edema Present No WC - Nurse 2 - General Ulcer CM Notes Start: 03/27/19 15:56 Freq: Status: Active Protocol: Activity Type Activity Date Activity User E-Sign Co-Sign Detail Recorded Client Recorded Date Recorded By Document 03/27/19 16:38 [email or web address] [id number] 03/27/19 16:43 OTONIEL 03/27/19 16:38 Wound Center Nurse 2 [Procedure/Treatment] #3 right heel -Time 16:43 -Correct Patient Yes -Correct Side, Site, Position Yes -Correct Procedure Yes -Procedure Performed Yes -Type of Procedure Debridement -Clinical Debridement Subcutaneous -Post Debridement Size (cm) - Length 0.6 -Post Debridement Size (cm) - Width 1 -Post Debridement Size (cm) - Depth 0.2 -Total Square Cm 0.6 -Wound/Ulcer Outcome Not Healed -Ulcer Cleansing Rinsed/ Irrigated with Saline -Foul Odor after Cleansing No -Bioengineered Tissue No -Bleeding Controlled with Pressure -Offloading Yes -Type of Offloading Camwalker -Treatment Response Procedure Tolerated Well #2- R LAT PLANTAR FOOT -Time 16:39 -Correct Patient Yes -Correct Side, Site, Position Yes -Correct Procedure Yes -Procedure Performed Yes -Type of Procedure Debridement -Clinical Debridement Subcutaneous -Post Debridement Size (cm) - Length 0.8 -Post Debridement Size (cm) - Width 0.7 -Post Debridement Size (cm) - Depth 0.5 -Total Square Cm 0.56 -Wound/Ulcer Outcome Not Healed -Ulcer Cleansing Rinsed/ Irrigated with Saline -Foul Odor after Cleansing No -Bioengineered Tissue Yes -Type of bioengineered Tissue EPIFIX -Expiration Date 11/24/23 -Product Lot Number [id number] -Percent Used 100 -Saline Lot Number [id number] -Bleeding Controlled with Pressure -Offloading Yes -Type of Offloading Camwalker -Treatment Response Procedure Tolerated Well [See Physician Procedure note for Specifics] Pain Scale: 0-10 Numeric [Pain] -Is Patient Pain Free? Yes Musculoskeletal: No Tenderness to Palpation of Joints or Extremities, Muscle Wasting, - - Compartment soft to palpate Neurological: - - Lack of normal epicritic sensation consistent with neuropathy status Psych/Mental Status: Normal Affect - Dorsal contracture lesser digits and prominent metatarsal head. No longer any prominence noted at the recent fourth metatarsal head resection site, Appropriate Debridement Note Post-Debridement Measurements/Treatment WC - Nurse 2 - General Ulcer CM Notes Start: 03/27/19 15:56 Freq: Status: Active Protocol: Activity Type Activity Date Activity User E-Sign Co-Sign Detail Recorded Client Recorded Date Recorded By Document 03/27/19 16:38 [email or web address] [id number] 03/27/19 16:43 OTONIEL 03/27/19 16:38 Wound Center Nurse 2 #3 right heel -Time 16:43 -Correct Patient Yes -Correct Side, Site, Position Yes -Correct Procedure Yes -Procedure Performed Yes -Type of Procedure Debridement -Clinical Debridement Subcutaneous -Post Debridement Size (cm) - Length 0.6 -Post Debridement Size (cm) - Width 1 -Post Debridement Size (cm) - Depth 0.2 -Total Square Cm 0.6 -Wound/Ulcer Outcome Not Healed -Ulcer Cleansing Rinsed/ Irrigated with Saline -Foul Odor after Cleansing No -Bioengineered Tissue No -Bleeding Controlled with Pressure -Offloading Yes -Type of Offloading Camwalker -Treatment Response Procedure Tolerated Well #2- R LAT PLANTAR FOOT -Time 16:39 -Correct Patient Yes -Correct Side, Site, Position Yes -Correct Procedure Yes -Procedure Performed Yes -Type of Procedure Debridement -Clinical Debridement Subcutaneous -Post Debridement Size (cm) - Length 0.8 -Post Debridement Size (cm) - Width 0.7 -Post Debridement Size (cm) - Depth 0.5 -Total Square Cm 0.56 -Wound/Ulcer Outcome Not Healed -Ulcer Cleansing Rinsed/ Irrigated with Saline -Foul Odor after Cleansing No -Bioengineered Tissue Yes -Type of bioengineered Tissue EPIFIX -Expiration Date 11/24/23 -Product Lot Number [id number] -Percent Used 100 -Saline Lot Number [id number] -Bleeding Controlled with Pressure -Offloading Yes -Type of Offloading Camwalker -Treatment Response Procedure Tolerated Well Pain Scale: 0-10 Numeric Is Patient Pain Free? Yes Wound debrided: sub 4 metatarsal head Laterality: Right Wound Grade/Stage: grade 3 Type of Debridement: Excisional debridement Anesthesia Used: 5% Lidocaine Gel Depth: in the subcutaneous layer Percentage of wound debrided: 100 Instrument Used: #15 blade Tissue Removed: fibrous, devitalized subcutaneous, biofilm, slough Severity: Fat Layer Exposed Amount of bleeding with debridement: Mild Bleeding Controlled with: Pressure Patient tolerated procedure well - Additional Wound Wound debrided: heel Laterality: Right Wound Grade/Stage: grade 1 Type of Debridement: Excisional debridement Anesthesia Used: 5% Lidocaine Gel Depth: in the subcutaneous layer Percentage of wound debrided: 100 Instrument Used: #15 blade Tissue Removed: fibrous, devitalized subcutaneous, biofilm, slough Severity: Fat Layer Exposed Amount of bleeding with debridement: Mild Bleeding Controlled with: Pressure Patient tolerated procedure: Patient tolerated procedure well Assessment/Plan Active Problems Diabetic foot ulcer associated with type 2 diabetes mellitus (Chronic) Right lateral plantar. Ulcer of right foot with fat layer exposed (Chronic) Delayed wound healing (Chronic) Malnutrition (Chronic) Hammer toe of right foot (Chronic) Assessment: Status post right fourth metatarsal head resection with ulcer excision application of amnio fill advanced wound healing product performed on 02/13/2019 for treatment of nonhealing diabetic foot ulcer of right foot fat layer exposed. Osteitis fourth metatarsal head (differential diagnosis was preoperative osteomyelitis). new heel ulcer, right (christopher grade 1). Diabetic neuropathy. malnutrition suspected. delayed healing. Venous insufficiency and leg edema. Hammertoe with prominent metatarsal heads. cardiac disease Plan: I reviewed and discussed his case today. I reviewed his previous diagnostic data. His postoperative status is noted and appears to be intact. His local signs of inflammation and infection are not present today. His bone biopsies were reviewed without evidence of micro biological bacterial growth or acute osteomyelitis noted with the pathological evaluation. I do not recommend additional antibiotics at this time and his clinical status will be monitored. Subcutaneous excisional debridement was performed as noted in the clinical count to the plantar foot ulcer site and also to his new heel ulcer site. His last white blood cell count 7.5, sedimentation rate 26, C-reactive protein level was not elevated, and hemoglobin A1c 7.6, albumin 3.5. After verbal consent was obtained and debridement was performed, advanced wound healing product epi-fix was applied according to standard protocol. The indications and anticipated healing time and management were discussed. This was secured in place with a wound veil and Steri-Strips and a bolstered gauze was applied to fill this defect. He tolerated this very well. He was advised to keep this clean, dry, and intact until follow-up visit next week. He appears to have adequate arterial perfusion for healing as noted with his noninvasive vascular studies performed this past year. It is noted he has failed other comprehensive standard wound healing treatments. His venous reflux exam demonstrated incompetent veins. I recommend edema management with periodic elevation, avoiding idle standing or sitting, and with Tubigrip compression dressing. I also recommend follow-up with vascular specialist, Dr. Chapman for his venous insufficiency to aid in his current ulcer healing and to prevent further wounds in the future. His last hemoglobin A1c was noted at 7.6%. To continue proper glycemic control nutritional supplementation to optimize healing. He is doing well. To continue with strict offloading by remaining nonweightbearing to the right lower extremity with the use of assistive device is imperative for healing. To return to the wound healing center in 1 week or call sooner if he has any questions or concerns.
[2019-04-01 13:57] VITALS: BP 131/84; PULSE 88; RESP 18; TEMP 37.1; BMI 40.5
--- NOTE | 2019-04-01 15:57 | PN.PCM_ITS ---
(1) Ulcer of right foot with fat layer exposed Status: Chronic Current Visit: Yes Code(s): L97.512 - Non-pressure chronic ulcer of other part of right foot with fat layer exposed (2) Diabetic foot ulcer associated with type 2 diabetes mellitus Status: Chronic Current Visit: Yes Qualifiers: Laterality: right Non-pressure ulcer stage: with fat layer exposed Code(s): E11.621 - Type 2 diabetes mellitus with foot ulcer; L97.509 - Non- pressure chronic ulcer of other part of unspecified foot with unspecified severity Comment: Right lateral plantar. (3) Delayed wound healing Status: Chronic Current Visit: Yes Code(s): T14.8XXD - Other injury of unspecified body region, subsequent encounter (4) Malnutrition Status: Chronic Current Visit: Yes Code(s): E46 - Unspecified protein- calorie malnutrition (5) Hammer toe of right foot Status: Chronic Current Visit: Yes Code(s): M20.41 - Other hammer toe(s) (acquired), right foot Type of Wound Date of Service: 04/01/19 Chief Complaint: Non healing right foot ulcer. History of Wound: Mr. 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 He denies fever, chill, nausea, vomiting. He did undergo right foot fourth metatarsal head resection with plantar ulcer excision and application of advanced wound healing product of amnio fill on February 13, 2019 at [facility]. He denies pain, odor, or redness. He denies drainage from his recent heel ulcer site and has kept his dressing intact as advised. Progress of Wound: improving plantar forefoot. Healed ulcer heel - Physical Exam Vital Signs Temp Pulse Resp BP 98.8 F 88 18 131/84 H 04/01/19 13:57 04/01/19 13:57 04/01/19 13:57 04/01/19 13:57 General: Alert, Oriented x3, Cooperative, No apparent distress HEENT: Atraumatic Extremities: No cyanosis, Capillary Refill Less than 3 Seconds, No Calf Tenderness, Diminished Peripheral Pulses, Edema, - - Status post fourth metatarsal head resection noted with rectus lesser toes Skin: Ulcer/ Wound - No purulence, erythema, streaking, odor, infection. Peripheral skin is hairless and atrophic. There is full epithelialization noted to the heel ulcer site. His skin is dry and atrophic to bilateral feet with some skin peeling in which she will evaluation warm. There is no maceration or necrosis or deep tissue noted. There is decreased callus noted to the right foot Wound Measurements and Assessment WC - Nurse 1 - General Ulcer Measurement Start: 03/27/19 15:56 Freq: Status: Active Protocol: Activity Type Activity Date Activity User E-Sign Co-Sign Detail Recorded Client Recorded Date Recorded By Document 04/01/19 13:57 DL [id number] 04/01/19 14:04 DL 04/01/19 13:57 Wound Center Nurse 1 [Ulcer Assessment] #3 right heel -Current Size (cm) - Length 0.1 -Current Size (cm) - Width 0.1 -Current Size (cm) - Depth 0.1 -Total Square Cm 0.01 -Photo Taken No -Exudate Amt None Present -Wound Margin Flat & Intact -Granulation Amt Small (1-33%) -Granulation Quality [place] -Necrosis Amt None Present (0 %) -Necrotic Tissue Type Adherent Slough -Structure Exposed N/A -Texture (Rosaura-wound Skin Appearance) Scarring -Moisture (Rosaura-wound Skin Appearance Dry/Scaly ) -Color (Rosaura-wound Skin Appearance) No Abnormality -Temperature (Rosaura-wound Skin No Abnormality Appearance) (Pt Warm) -Tenderness on Palpation (Rosaura-wound No Skin Appearance) -Ulcer Cleansing Wound Cleanser -Foul Odor after Cleansing No -Anesthetic Used 5% Lidocaine Gel #2- R LAT PLANTAR FOOT -Current Size (cm) - Length 0.5 -Current Size (cm) - Width 1 -Current Size (cm) - Depth 1.1 -Total Square Cm 0.5 -Photo Taken No -Exudate Amt Small -Exudate Type Serosanguineous -Wound Margin Thickened -Granulation Amt Small (1-33%) -Granulation Quality Red -Necrosis Amt Small (1-33%) -Necrotic Tissue Type Adherent Slough -Texture (Rosaura-wound Skin Appearance) Scarring -Moisture (Rosaura-wound Skin Appearance Dry/Scaly ) -Color (Rosaura-wound Skin Appearance) No Abnormality -Temperature (Rosaura-wound Skin No Abnormality Appearance) (Pt Warm) -Tenderness on Palpation (Rosaura-wound No Skin Appearance) -Ulcer Cleansing Wound Cleanser -Foul Odor after Cleansing No -Anesthetic Used 5% Lidocaine Gel WC - Nurse 2 - General Ulcer CM Notes Start: 03/27/19 15:56 Freq: Status: Active Protocol: Activity Type Activity Date Activity User E-Sign Co-Sign Detail Recorded Client Recorded Date Recorded By Document 04/01/19 14:19 [email or web address] [id number] 04/01/19 14:22 04/01/19 14:19 Wound Center Nurse 2 [Procedure/Treatment] #3 right heel -Correct Patient No -Correct Side, Site, Position No -Correct Procedure No -Procedure Performed No -Post Debridement Size (cm) - Length 0 -Post Debridement Size (cm) - Width 0 -Post Debridement Size (cm) - Depth 0 -Total Square Cm 0 -Wound/Ulcer Outcome Healed- Epithelialized #2- R LAT PLANTAR FOOT -Time 14:21 -Correct Patient Yes -Correct Side, Site, Position Yes -Correct Procedure Yes -Procedure Performed Yes -Type of Procedure Debridement -Clinical Debridement Subcutaneous -Post Debridement Size (cm) - Length 1.0 -Post Debridement Size (cm) - Width 1.1 -Post Debridement Size (cm) - Depth 0.4 -Total Square Cm 1.10 -Wound/Ulcer Outcome Not Healed -Ulcer Cleansing Rinsed/ Irrigated with Saline -Foul Odor after Cleansing No -Bioengineered Tissue Yes -Type of bioengineered Tissue EPIFIX -Expiration Date 06/24/23 -Product Lot Number [id number] -Percent Used 100 -Saline Lot Number [id number] -Bleeding Controlled with Pressure -Offloading Yes -Type of Offloading Surgical Shoe -Treatment Response Procedure Tolerated Well [See Physician Procedure note for Specifics] Pain Scale: 0-10 Numeric [Pain] -Is Patient Pain Free? Yes Musculoskeletal: No Tenderness to Palpation of Joints or Extremities, Muscle Wasting Neurological: - - Lack of epicritic sensation light touch is consistent with neuropathy status Psych/Mental Status: Normal Affect, Appropriate Debridement Note Post-Debridement Measurements/Treatment KAYLA - Nurse 2 - General Ulcer CM Notes Start: 03/27/19 15:56 Freq: Status: Active Protocol: Activity Type Activity Date Activity User E-Sign Co-Sign Detail Recorded Client Recorded Date Recorded By Document 03/27/19 16:38 [id number] 03/27/19 16:43 Document 04/01/19 14:19 [id number] 04/01/19 14:22 03/27/19 04/01/19 16:38 14:19 Wound Center Nurse 2 #3 right heel -Time 16:43 -Correct Patient Yes No -Correct Side, Site, Position Yes No -Correct Procedure Yes No -Procedure Performed Yes No -Type of Procedure Debridement -Clinical Debridement Subcutaneous -Post Debridement Size (cm) - Length 0.6 0 -Post Debridement Size (cm) - Width 1 0 -Post Debridement Size (cm) - Depth 0.2 0 -Total Square Cm 0.6 0 -Wound/Ulcer Outcome Not Healed Healed- Epithelialized -Ulcer Cleansing Rinsed/ Irrigated with Saline -Foul Odor after Cleansing No -Bioengineered Tissue No -Bleeding Controlled with Pressure -Offloading Yes -Type of Offloading Camwalker -Treatment Response Procedure Tolerated Well #2- R LAT PLANTAR FOOT -Time 16:39 14:21 -Correct Patient Yes Yes -Correct Side, Site, Position Yes Yes -Correct Procedure Yes Yes -Procedure Performed Yes Yes -Type of Procedure Debridement Debridement -Clinical Debridement Subcutaneous Subcutaneous -Post Debridement Size (cm) - Length 0.8 1.0 -Post Debridement Size (cm) - Width 0.7 1.1 -Post Debridement Size (cm) - Depth 0.5 0.4 -Total Square Cm 0.56 1.10 -Wound/Ulcer Outcome Not Healed Not Healed -Ulcer Cleansing Rinsed/ Rinsed/ Irrigated with Irrigated with Saline Saline -Foul Odor after Cleansing No No -Bioengineered Tissue Yes Yes -Type of bioengineered Tissue EPIFIX EPIFIX -Expiration Date 11/24/23 06/24/23 -Product Lot Number [id number] -Percent Used 100 100 -Saline Lot Number [id number] -Bleeding Controlled with Pressure Pressure -Offloading Yes Yes -Type of Offloading Camwalker Surgical Shoe -Treatment Response Procedure Procedure Tolerated Well Tolerated Well Pain Scale: 0-10 Numeric Is Patient Pain Free? Yes Yes Wound debrided: sub removed 4th metatarsal head Laterality: Right Wound Grade/Stage: grade 3 Type of Debridement: Excisional debridement Anesthesia Used: 5% Lidocaine Gel Depth: in the subcutaneous layer Percentage of wound debrided: 100 Instrument Used: #15 blade Tissue Removed: fibrous, devitalized subcutaneous, biofilm, slough Severity: Fat Layer Exposed Amount of bleeding with debridement: Mild Bleeding Controlled with: Pressure Patient tolerated procedure well Assessment/Plan Active Problems Diabetic foot ulcer associated with type 2 diabetes mellitus (Chronic) Right lateral plantar. Ulcer of right foot with fat layer exposed (Chronic) Delayed wound healing (Chronic) Malnutrition (Chronic) Hammer toe of right foot (Chronic) Assessment: Status post right fourth metatarsal head resection with ulcer excision application of amnio fill advanced wound healing product performed on 02/13/2019 for treatment of nonhealing diabetic foot ulcer of right foot fat layer exposed. Osteitis fourth metatarsal head (differential diagnosis was preoperative osteomyelitis). Healed heel ulcer, right (christopher grade 1). Diabetic neuropathy. malnutrition suspected. delayed healing. Venous insufficiency and leg edema. Hammertoe with prominent metatarsal heads. cardiac disease Plan: I reviewed and discussed his case today. I reviewed his previous diagnostic data. His postoperative status is noted and appears to be intact. His local signs of inflammation and infection are not present today. His bone biopsies were reviewed without evidence of micro biological bacterial growth or acute osteomyelitis noted with the pathological evaluation. I do not recommend additional antibiotics at this time and his clinical status will be monitored. Subcutaneous excisional debridement was performed as noted in the clinical count to the plantar foot ulcer site and also to his new heel ulcer site. His last white blood cell count 7.5, sedimentation rate 26, C-reactive protein level was not elevated, and hemoglobin A1c 7.6, albumin 3.5. After verbal consent was obtained and debridement was performed, advanced wound healing product epi-fix was applied according to standard protocol. The indications and anticipated healing time and management were discussed. This was secured in place with a wound veil and Steri-Strips and a bolstered gauze was applied to fill this defect. He tolerated this very well. He was advised to keep this clean, dry, and intact until follow-up visit next week. He appears to have adequate arterial perfusion for healing as noted with his noninvasive vascular studies performed this past year. It is noted he has failed other comprehensive standard wound healing treatments. His venous reflux exam demonstrated incompetent veins. I recommend edema management with periodic elevation, avoiding idle standing or sitting, and with Tubigrip compression dressing. I also recommend follow-up with vascular specialist, Dr. Chapman for his venous insufficiency to aid in his current ulcer healing and to prevent further wounds in the future. His last hemoglobin A1c was noted at 7.6%. To continue proper glycemic control nutritional supplementation to optimize healing. He is doing well. To continue with strict offloading by remaining nonweightbearing to the right lower extremity with the use of assistive device is imperative for healing. To return to the wound healing center in 1 week or call sooner if he has any questions or concerns.
[2019-04-08 13:44] VITALS: BP 171/90; PULSE 85; RESP 16; TEMP 36.6; BMI 40.5
--- NOTE | 2019-04-08 14:40 | PN.PCM_ITS ---
(1) Ulcer of right foot with fat layer exposed Status: Chronic Code(s): L97.512 - Non-pressure chronic ulcer of other part of right foot with fat layer exposed (2) Diabetic foot ulcer associated with type 2 diabetes mellitus Status: Chronic Qualifiers: Laterality: right Non-pressure ulcer stage: with fat layer exposed Code(s): E11.621 - Type 2 diabetes mellitus with foot ulcer; L97.509 - Non- pressure chronic ulcer of other part of unspecified foot with unspecified severity Comment: Right lateral plantar. (3) Delayed wound healing Status: Chronic Code(s): T14.8XXD - Other injury of unspecified body region, subsequent encounter (4) Malnutrition Status: Chronic Code(s): E46 - Unspecified protein-calorie malnutrition (5) Hammer toe of right foot Status: Chronic Code(s): M20.41 - Other hammer toe(s) (acquired), right foot Type of Wound Date of Service: 04/08/19 Chief Complaint: Non healing right foot ulcer. History of Wound: Mr. 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 He denies fever, chill, nausea, vomiting. He did undergo right foot fourth metatarsal head resection with plantar ulcer excision and application of advanced wound healing product of amnio fill on February 13, 2019 at [facility]. He denies pain, odor, or redness. He denies drainage from his recent heel ulcer site and has kept his dressing intact as advised. Progress of Wound: improving plantar forefoot - Physical Exam Vital Signs Temp Pulse Resp BP 98 F 85 16 171/90 H 04/08/19 13:44 04/08/19 13:44 04/08/19 13:44 04/08/19 13:44 General: Alert, Oriented x3, Cooperative, No apparent distress Extremities: No cyanosis, Capillary Refill Less than 3 Seconds, No Calf Tenderness, Diminished Peripheral Pulses, Edema Skin: Ulcer/ Wound - No purulence, erythema, streaking, odor, infection peripheral epithelialization continues and ulcer depth continues to reduce. Wound Measurements and Assessment WC - Nurse 1 - General Ulcer Measurement Start: 03/27/19 15:56 Freq: Status: Active Protocol: Activity Type Activity Date Activity User E-Sign Co-Sign Detail Recorded Client Recorded Date Recorded By Document 04/08/19 13:44 [facility] [id number] 04/08/19 13:52 [facility] 04/08/19 13:44 Wound Center Nurse 1 [Ulcer Assessment] #2- R LAT PLANTAR FOOT -Combined with other wound No -Current Size (cm) - Length 0.1 -Current Size (cm) - Width 0.3 -Current Size (cm) - Depth 0.4 -Total Square Cm 0.03 -Photo Taken No -Epithelialization None Present -Tunneling No -Undermining/Tunneling Yes -Undermining/Tunneling Starts (O' 12 clock) -Undermining/Tunneling Ends (O'clock) 12 -Maximum Distance (cm) 0.4 -Circular Undermining Yes -Exudate Amt Small -Exudate Type Serosanguineous -Wound Margin Distinct, Outline Attached -Granulation Amt Large (67-100%) -Granulation Quality [place] -Slough/Fibrin Yes -Necrosis Amt Small (1-33%) -Necrotic Tissue Type Adherent Slough -Texture (Rosaura-wound Skin Appearance) Callus,Scarring -Moisture (Rosaura-wound Skin Appearance Assessed,Dry/ ) Scaly -Color (Rosaura-wound Skin Appearance) Assessed -Temperature (Rosaura-wound Skin No Abnormality Appearance) (Pt Warm) -Tenderness on Palpation (Rosaura-wound No Skin Appearance) -Ulcer Cleansing soapy water -Foul Odor after Cleansing No -Anesthetic Used 5% Lidocaine Gel WC - Nurse 2 - General Ulcer CM Notes Start: 03/27/19 15:56 Freq: Status: Active Protocol: Activity Type Activity Date Activity User E-Sign Co-Sign Detail Recorded Client Recorded Date Recorded By Document 04/08/19 14:00 [id number] 04/08/19 14:02 04/08/19 14:00 Wound Center Nurse 2 [Procedure/Treatment] -Time 14:01 -Correct Patient Yes -Correct Side, Site, Position Yes -Correct Procedure Yes -Procedure Performed Yes -Type of Procedure Debridement -Clinical Debridement Subcutaneous -Post Debridement Size (cm) - Length 0.4 -Post Debridement Size (cm) - Width 0.4 -Post Debridement Size (cm) - Depth 0.3 -Total Square Cm 0.16 -Wound/Ulcer Outcome Not Healed -Ulcer Cleansing Rinsed/ Irrigated with Saline -Foul Odor after Cleansing No -Bioengineered Tissue Yes -Type of bioengineered Tissue EPIFIX -Expiration Date 12/24/23 -Product Lot Number [id number] -Percent Used 100 -Saline Lot Number [id number] -Bleeding Controlled with Pressure -Offloading Yes -Type of Offloading Surgical Shoe -Treatment Response Procedure Tolerated Well [See Physician Procedure note for Specifics] Pain Scale: 0-10 Numeric [Pain] -Is Patient Pain Free? Yes Musculoskeletal: No Tenderness to Palpation of Joints or Extremities, Muscle Wasting Neurological: - - Lack of normal epicritic sensation light touch is consistent with neuropathy status Psych/Mental Status: Normal Affect, Appropriate Debridement Note Post-Debridement Measurements/Treatment WC - Nurse 2 - General Ulcer CM Notes Start: 03/27/19 15:56 Freq: Status: Active Protocol: Activity Type Activity Date Activity User E-Sign Co-Sign Detail Recorded Client Recorded Date Recorded By Document 03/27/19 16:38 [id number] 03/27/19 16:43 Document 04/01/19 14:19 [id number] 04/01/19 14:22 Document 04/08/19 14:00 [id number] 04/08/19 14:02 03/27/19 04/01/19 04/08/19 16:38 14:19 14:00 Wound Center Nurse 2 #3 right heel -Time 16:43 -Correct Patient Yes No -Correct Side, Site, Position Yes No -Correct Procedure Yes No -Procedure Performed Yes No -Type of Procedure Debridement -Clinical Debridement Subcutaneous -Post Debridement Size (cm) - Length 0.6 0 -Post Debridement Size (cm) - Width 1 0 -Post Debridement Size (cm) - Depth 0.2 0 -Total Square Cm 0.6 0 -Wound/Ulcer Outcome Not Healed Healed- Epithelialized -Ulcer Cleansing Rinsed/ Irrigated with Saline -Foul Odor after Cleansing No -Bioengineered Tissue No -Bleeding Controlled with Pressure -Offloading Yes -Type of Offloading Camwalker -Treatment Response Procedure Tolerated Well #2- R LAT PLANTAR FOOT -Time 16:39 14:21 14:01 -Correct Patient Yes Yes Yes -Correct Side, Site, Position Yes Yes Yes -Correct Procedure Yes Yes Yes -Procedure Performed Yes Yes Yes -Type of Procedure Debridement Debridement Debridement -Clinical Debridement Subcutaneous Subcutaneous Subcutaneous -Post Debridement Size (cm) - Length 0.8 1.0 0.4 -Post Debridement Size (cm) - Width 0.7 1.1 0.4 -Post Debridement Size (cm) - Depth 0.5 0.4 0.3 -Total Square Cm 0.56 1.10 0.16 -Wound/Ulcer Outcome Not Healed Not Healed Not Healed -Ulcer Cleansing Rinsed/ Rinsed/ Rinsed/ Irrigated with Irrigated with Irrigated with Saline Saline Saline -Foul Odor after Cleansing No No No -Bioengineered Tissue Yes Yes Yes -Type of bioengineered Tissue EPIFIX EPIFIX EPIFIX -Expiration Date 11/24/23 06/24/23 12/24/23 -Product Lot Number [id number] -Percent Used 100 100 100 -Saline Lot Number [id number] -Bleeding Controlled with Pressure Pressure Pressure -Offloading Yes Yes Yes -Type of Offloading Camwalker Surgical Shoe Surgical Shoe -Treatment Response Procedure Procedure Procedure Tolerated Well Tolerated Well Tolerated Well Pain Scale: 0-10 Numeric Is Patient Pain Free? Yes Yes Yes Wound debrided: sub 4th metatarsal head Laterality: Right Wound Grade/Stage: grade 3 Type of Debridement: Excisional debridement Anesthesia Used: 5% Lidocaine Gel Depth: in the subcutaneous layer Percentage of wound debrided: 100 Instrument Used: #15 blade Tissue Removed: fibrous, devitalized subcutaneous, biofilm, slough Severity: Fat Layer Exposed Amount of bleeding with debridement: Mild Bleeding Controlled with: Pressure Patient tolerated procedure well Assessment/Plan Assessment: Status post right fourth metatarsal head resection with ulcer excision application of amnio fill advanced wound healing product performed on 02/13/2019 for treatment of nonhealing diabetic foot ulcer of right foot fat layer exposed. Osteitis fourth metatarsal head (differential diagnosis was preoperative osteomyelitis). Healed heel ulcer, right (christopher grade 1). Diabetic neuropathy. malnutrition suspected. delayed healing. Venous insufficiency and leg edema. Hammertoe with prominent metatarsal heads. cardiac disease Plan: I reviewed and discussed his case today. I reviewed his previous diagnostic data. His postoperative status is noted and appears to be intact. His local signs of inflammation and infection are not present today. His bone biopsies were reviewed without evidence of micro biological bacterial growth or acute osteomyelitis noted with the pathological evaluation. I do not recommend additional antibiotics at this time and his clinical status will be monitored. Subcutaneous excisional debridement was performed as noted in the clinical count to the plantar foot ulcer site and also to his new heel ulcer site. His last white blood cell count 7.5, sedimentation rate 26, C-reactive protein level was not elevated, and hemoglobin A1c 7.6, albumin 3.5. After verbal consent was obtained and debridement was performed, advanced wound healing product epi-fix was applied according to standard protocol. The indications and anticipated healing time and management were discussed. This was secured in place with a wound veil and Steri-Strips and a bolstered gauze was applied to fill this defect. He tolerated this very well. He was advised to keep this clean, dry, and intact until follow-up visit next week. He appears to have adequate arterial perfusion for healing as noted with his noninvasive vascular studies performed this past year. It is noted he has failed other comprehensive standard wound healing treatments. His venous reflux exam demonstrated incompetent veins. I recommend edema management with periodic elevation, avoiding idle standing or sitting, and with Tubigrip compression dressing. I also recommend follow-up with vascular specialist, Dr. Chapman for his venous insufficiency to aid in his current ulcer healing and to prevent further wounds in the future. His last hemoglobin A1c was noted at 7.6%. To continue proper glycemic control nutritional supplementation to optimize healing. He is doing well. To continue with strict offloading by remaining nonweightbearing to the right lower extremity with the use of assistive device is imperative for healing. To return to the wound healing center in 1 week or call sooner if he has any questions or concerns.
[2019-04-15 13:20] VITALS: BP 115/66; PULSE 87; RESP 18; TEMP 36.8; BMI 40.5
--- NOTE | 2019-04-15 15:14 | PN.PCM_ITS ---
(1) Ulcer of right foot with fat layer exposed Status: Chronic Code(s): L97.512 - Non-pressure chronic ulcer of other part of right foot with fat layer exposed (2) Diabetic foot ulcer associated with type 2 diabetes mellitus Status: Chronic Qualifiers: Laterality: right Non-pressure ulcer stage: with fat layer exposed Code(s): E11.621 - Type 2 diabetes mellitus with foot ulcer; L97.509 - Non- pressure chronic ulcer of other part of unspecified foot with unspecified severity Comment: Right lateral plantar. (3) Delayed wound healing Status: Chronic Code(s): T14.8XXD - Other injury of unspecified body region, subsequent encounter (4) Malnutrition Status: Chronic Code(s): E46 - Unspecified protein-calorie malnutrition (5) Hammer toe of right foot Status: Chronic Code(s): M20.41 - Other hammer toe(s) (acquired), right foot Type of Wound Date of Service: 04/15/19 Chief Complaint: Non healing right foot ulcer. History of Wound: Mr. 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 He denies fever, chill, nausea, vomiting. He did undergo right foot fourth metatarsal head resection with plantar ulcer excision and application of advanced wound healing product of amnio fill on February 13, 2019 at [facility]. He denies pain, odor, or redness. He denies drainage from his recent heel ulcer site and has kept his dressing intact as advised. Progress of Wound: improving plantar forefoot - Physical Exam Vital Signs Temp Pulse Resp BP 98.2 F 87 18 115/66 04/15/19 13:20 04/15/19 13:20 04/15/19 13:20 04/15/19 13:20 General: Alert, Oriented x3, Cooperative, No apparent distress Extremities: No cyanosis, Capillary Refill Less than 3 Seconds, No Calf Tenderness, Diminished Peripheral Pulses, Edema Skin: Ulcer/ Wound - There is no purulence, erythema, streaking, odor, or infection. There is peripheral epithelialization and reduced ulcer depth noted Wound Measurements and Assessment WC - Nurse 1 - General Ulcer Measurement Start: 03/27/19 15:56 Freq: Status: Active Protocol: Activity Type Activity Date Activity User E-Sign Co-Sign Detail Recorded Client Recorded Date Recorded By Document 04/15/19 13:20 RB [id number] 04/15/19 13:22 RB 04/15/19 13:20 Wound Center Nurse 1 [Ulcer Assessment] #2- R LAT PLANTAR FOOT -Combined with other wound No -Current Size (cm) - Length 0.4 -Current Size (cm) - Width 0.2 -Current Size (cm) - Depth 0.4 -Total Square Cm 0.08 -Tunneling No -Undermining/Tunneling No -Circular Undermining No -Exudate Amt Small -Exudate Type Serosanguineous -Wound Margin Flat & Intact -Granulation Amt Medium (34-66%) -Granulation Quality [place] -Slough/Fibrin Yes -Necrosis Amt Small (1-33%) -Necrotic Tissue Type Adherent Slough -Structure Exposed N/A -Texture (Rosaura-wound Skin Appearance) Callus -Moisture (Rosaura-wound Skin Appearance Assessed ) -Color (Rosaura-wound Skin Appearance) Assessed -Temperature (Rosaura-wound Skin No Abnormality Appearance) (Pt Warm) -Tenderness on Palpation (Rosaura-wound No Skin Appearance) -Ulcer Cleansing Wound Cleanser -Foul Odor after Cleansing No -Anesthetic Used 5% Lidocaine Gel WC - Nurse 2 - General Ulcer CM Notes Start: 03/27/19 15:56 Freq: Status: Active Protocol: Activity Type Activity Date Activity User E-Sign Co-Sign Detail Recorded Client Recorded Date Recorded By Document 04/15/19 13:42 OTONIEL [id number] 04/15/19 13:43 OTONIEL 04/15/19 13:42 Wound Center Nurse 2 [Procedure/Treatment] -Time 13:42 -Correct Patient Yes -Correct Side, Site, Position Yes -Correct Procedure Yes -Procedure Performed Yes -Type of Procedure Debridement -Clinical Debridement Subcutaneous -Post Debridement Size (cm) - Length 0.4 -Post Debridement Size (cm) - Width 0.5 -Post Debridement Size (cm) - Depth 0.3 -Total Square Cm 0.20 -Wound/Ulcer Outcome Not Healed -Ulcer Cleansing Rinsed/ Irrigated with Saline -Foul Odor after Cleansing No -Bioengineered Tissue No -Bleeding Controlled with Pressure -Offloading Yes -Type of Offloading Camwalker -Treatment Response Procedure Tolerated Well [See Physician Procedure note for Specifics] Pain Scale: 0-10 Numeric [Pain] -Is Patient Pain Free? Yes Musculoskeletal: No Tenderness to Palpation of Joints or Extremities, Muscle Wasting, - - Gross contraction of lesser toes and removed fourth metatarsal head noted Neurological: - - Lack of normal epicritic sensation light touch consistent with neuropathy status Psych/Mental Status: Normal Affect, Appropriate Debridement Note Post-Debridement Measurements/Treatment WC - Nurse 2 - General Ulcer CM Notes Start: 03/27/19 15:56 Freq: Status: Active Protocol: Activity Type Activity Date Activity User E-Sign Co-Sign Detail Recorded Client Recorded Date Recorded By Document 03/27/19 16:38 [id number] 03/27/19 16:43 Document 04/01/19 14:19 [id number] 04/01/19 14:22 Document 04/08/19 14:00 [id number] 04/08/19 14:02 Document 04/15/19 13:42 [id number] 04/15/19 13:43 03/27/19 04/01/19 04/08/19 16:38 14:19 14:00 Wound Center Nurse 2 #3 right heel -Time 16:43 -Correct Patient Yes No -Correct Side, Site, Position Yes No -Correct Procedure Yes No -Procedure Performed Yes No -Type of Procedure Debridement -Clinical Debridement Subcutaneous -Post Debridement Size (cm) - Length 0.6 0 -Post Debridement Size (cm) - Width 1 0 -Post Debridement Size (cm) - Depth 0.2 0 -Total Square Cm 0.6 0 -Wound/Ulcer Outcome Not Healed Healed- Epithelialized -Ulcer Cleansing Rinsed/ Irrigated with Saline -Foul Odor after Cleansing No -Bioengineered Tissue No -Bleeding Controlled with Pressure -Offloading Yes -Type of Offloading Camwalker -Treatment Response Procedure Tolerated Well #2- R LAT PLANTAR FOOT -Time 16:39 14:21 14:01 -Correct Patient Yes Yes Yes -Correct Side, Site, Position Yes Yes Yes -Correct Procedure Yes Yes Yes -Procedure Performed Yes Yes Yes -Type of Procedure Debridement Debridement Debridement -Clinical Debridement Subcutaneous Subcutaneous Subcutaneous -Post Debridement Size (cm) - Length 0.8 1.0 0.4 -Post Debridement Size (cm) - Width 0.7 1.1 0.4 -Post Debridement Size (cm) - Depth 0.5 0.4 0.3 -Total Square Cm 0.56 1.10 0.16 -Wound/Ulcer Outcome Not Healed Not Healed Not Healed -Ulcer Cleansing Rinsed/ Rinsed/ Rinsed/ Irrigated with Irrigated with Irrigated with Saline Saline Saline -Foul Odor after Cleansing No No No -Bioengineered Tissue Yes Yes Yes -Type of bioengineered Tissue EPIFIX EPIFIX EPIFIX -Expiration Date 11/24/23 06/24/23 12/24/23 -Product Lot Number [id number] -Percent Used 100 100 100 -Saline Lot Number [id number] -Bleeding Controlled with Pressure Pressure Pressure -Offloading Yes Yes Yes -Type of Offloading Camwalker Surgical Shoe Surgical Shoe -Treatment Response Procedure Procedure Procedure Tolerated Well Tolerated Well Tolerated Well Pain Scale: 0-10 Numeric Is Patient Pain Free? Yes Yes Yes 04/15/19 13:42 Wound Center Nurse 2 #3 right heel -Time -Correct Patient -Correct Side, Site, Position -Correct Procedure -Procedure Performed -Type of Procedure -Clinical Debridement -Post Debridement Size (cm) - Length -Post Debridement Size (cm) - Width -Post Debridement Size (cm) - Depth -Total Square Cm -Wound/Ulcer Outcome -Ulcer Cleansing -Foul Odor after Cleansing -Bioengineered Tissue -Bleeding Controlled with -Offloading -Type of Offloading -Treatment Response #2- R LAT PLANTAR FOOT -Time 13:42 -Correct Patient Yes -Correct Side, Site, Position Yes -Correct Procedure Yes -Procedure Performed Yes -Type of Procedure Debridement -Clinical Debridement Subcutaneous -Post Debridement Size (cm) - Length 0.4 -Post Debridement Size (cm) - Width 0.5 -Post Debridement Size (cm) - Depth 0.3 -Total Square Cm 0.20 -Wound/Ulcer Outcome Not Healed -Ulcer Cleansing Rinsed/ Irrigated with Saline -Foul Odor after Cleansing No -Bioengineered Tissue No -Type of bioengineered Tissue -Expiration Date -Product Lot Number -Percent Used -Saline Lot Number -Bleeding Controlled with Pressure -Offloading Yes -Type of Offloading Camwalker -Treatment Response Procedure Tolerated Well Pain Scale: 0-10 Numeric Is Patient Pain Free? Yes Wound debrided: Plantar foot Laterality: Left Wound Grade/Stage: Grade 1 Type of Debridement: Excisional debridement Anesthesia Used: 5% Lidocaine Gel Depth: in the subcutaneous layer Percentage of wound debrided: 100 Instrument Used: #15 blade Tissue Removed: Fibrous, devitalized subcutaneous, biofilm, slough Severity: Fat Layer Exposed Amount of bleeding with debridement: Mild Bleeding Controlled with: Pressure Patient tolerated procedure well Assessment/Plan Assessment: Status post right fourth metatarsal head resection with ulcer excision application of amnio fill advanced wound healing product performed on 02/13/2019 for treatment of nonhealing diabetic foot ulcer of right foot fat layer exposed. Osteitis fourth metatarsal head (differential diagnosis was preoperative osteomyelitis). Healed heel ulcer, right (christopher grade 1). Diabetic neuropathy. malnutrition suspected. delayed healing. Venous insufficiency and leg edema. Hammertoe with prominent metatarsal heads. cardiac disease Plan: I reviewed and discussed his case today. I reviewed his previous diagnostic data. His postoperative status is noted and appears to be intact. His local signs of inflammation and infection are not present today. His bone biopsies were reviewed without evidence of micro biological bacterial growth or acute osteomyelitis noted with the pathological evaluation. I do not recommend additional antibiotics at this time and his clinical status will be monitored. Subcutaneous excisional debridement was performed as noted in the clinical count to the plantar foot ulcer site and also to his new heel ulcer site. His last white blood cell count 7.5, sedimentation rate 26, C-reactive protein level was not elevated, and hemoglobin A1c 7.6, albumin 3.5. He appears to have adequate arterial perfusion for healing as noted with his noninvasive vascular studies performed this past year. It is noted he has failed other comprehensive standard wound healing treatments. His venous reflux exam demonstrated incompetent veins. I recommend edema management with periodic elevation, avoiding idle standing or sitting, and with Tubigrip compression dressing. I also recommend follow-up with vascular specialist, Dr. Chapman for his venous insufficiency to aid in his current ulcer healing and to prevent further wounds in the future. His last hemoglobin A1c was noted at 7.6%. To continue proper glycemic control nutritional supplementation to optimize healing. He is advised change dressing daily with hydrogel. Improvement is noted we will consider advanced wound healing product ask again if his improvement stagnates. He is doing well. To continue with strict offloading by remaining nonweightbearing to the right lower extremity with the use of assistive device is imperative for healing. To return to the wound healing center in 1 week or call sooner if he has any questions or concerns.
== END 2019-04-24 23:59 ==
LOC: WC 13:15
PROVIDERS: Referring Provider Podiatrist; Visit Provider Podiatrist
DX: E11.621 Type 2 diabetes mellitus with foot ulcer (principal); L97.512 Non-pressure chronic ulcer of other part of right foot with fat layer exposed; E11.319 Type 2 diabetes mellitus with unspecified diabetic retinopathy without macular edema; E11.40 Type 2 diabetes mellitus with diabetic neuropathy, unspecified; E11.21 Type 2 diabetes mellitus with diabetic nephropathy; I51.9 Heart disease, unspecified; L97.412 Non-pressure chronic ulcer of right heel and midfoot with fat layer exposed; I87.2 Venous insufficiency (chronic) (peripheral); R60.0 Localized edema; Z89.411 Acquired absence of right great toe
CPT/HCPCS: 11042; 15275; Q4186

== ENCOUNTER 2019-05-20 14:00 | Outpatient (RCR) | payer MEDICAID, SELFPAY ==
[2019-04-25 00:39] VITALS: BP 115/66; PULSE 87; RESP 18; TEMP 36.8
[2019-04-29 10:39] VITALS: BP 153/80; PULSE 83; RESP 16; TEMP 36.4; BMI 40.5
--- NOTE | 2019-04-29 12:40 | PN.PCM_ITS ---
(1) Ulcer of right foot with fat layer exposed Status: Chronic Current Visit: Yes Code(s): L97.512 - Non-pressure chronic ulcer of other part of right foot with fat layer exposed (2) Delayed wound healing Status: Chronic Current Visit: Yes Code(s): T14.8XXD - Other injury of unspecified body region, subsequent encounter (3) Malnutrition Status: Chronic Current Visit: Yes Code(s): E46 - Unspecified protein- calorie malnutrition (4) Type 2 diabetes mellitus with diabetic polyneuropathy Status: Chronic Current Visit: Yes Code(s): E11.42 - Type 2 diabetes mellitus with diabetic polyneuropathy Type of Wound Date of Service: 04/29/19 Chief Complaint: Non healing right foot ulcer. History of Wound: Mr. 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 He denies fever, chill, nausea, vomiting. He did undergo right foot fourth metatarsal head resection with plantar ulcer excision and application of advanced wound healing product of amnio fill on February 13, 2019 at [facility]. He denies pain, odor, or redness. He denies he drainage. He has continued dry skin to his heel and top of his foot and the rest of his foot. He needs a refill for urea cream today and has been applying it as advised. He had missed prior appointments due to a family issue in which he has been having to walk more frequently. Progress of Wound: improving plantar forefoot - Physical Exam Vital Signs Temp Pulse Resp BP 97.6 F L 83 16 153/80 H 04/29/19 10:39 04/29/19 10:39 04/29/19 10:39 04/29/19 10:39 General: Alert, Oriented x3, Cooperative, No apparent distress Extremities: No cyanosis, Capillary Refill Less than 3 Seconds, No Calf Tenderness, Diminished Peripheral Pulses, Edema Skin: Ulcer/ Wound - No purulence, erythema, string, odor, infection. The ulcer continues to epithelialize from a peripheral standpoint and there is no longer any probing to deep tissue. The adjacent skin is very dry peeling and is callused with fissures also. There are no other new wounds today. His skin is atrophic and hairless. Wound Measurements and Assessment - Nurse 1 - General Ulcer Measurement Start: 04/29/19 10:39 Freq: Status: Active Protocol: Activity Type Activity Date Activity User E-Sign Co-Sign Detail Recorded Client Recorded Date Recorded By Document 04/29/19 10:39 [id number] 04/29/19 10:44 04/29/19 10:39 Wound Center Nurse 1 [Ulcer Assessment] #2- R LAT PLANTAR FOOT -Combined with other wound No -Current Size (cm) - Length 0.1 -Current Size (cm) - Width 0.1 -Current Size (cm) - Depth 0.1 -Total Square Cm 0.01 -Photo Taken No -Epithelialization Small 1-33% -Tunneling No -Undermining/Tunneling No -Circular Undermining No -Exudate Amt Small -Exudate Type Serosanguineous -Wound Margin Flat & Intact -Granulation Amt Large (67-100%) -Granulation Quality Red -Slough/Fibrin Yes -Necrosis Amt Small (1-33%) -Necrotic Tissue Type Adherent Slough -Structure Exposed N/A -Texture (Rosaura-wound Skin Appearance) Assessed,Callus -Moisture (Rosaura-wound Skin Appearance Assessed,Dry/ ) Scaly -Color (Rosaura-wound Skin Appearance) Assessed -Temperature (Rosaura-wound Skin No Abnormality Appearance) (Pt Warm) -Tenderness on Palpation (Rosaura-wound No Skin Appearance) -Ulcer Cleansing Rinsed/ Irrigated with Saline -Foul Odor after Cleansing No -Anesthetic Used 4% Lidocaine Solution [Edema Assessment] -Lower Limb Edema Present Yes - Nurse 2 - General Ulcer CM Notes Start: 04/29/19 10:39 Freq: Status: Active Protocol: Activity Type Activity Date Activity User E-Sign Co-Sign Detail Recorded Client Recorded Date Recorded By Document 04/29/19 11:11 [id number] 04/29/19 11:15 04/29/19 11:11 Wound Center Nurse 2 [Procedure/Treatment] #2- R LAT PLANTAR FOOT -Time 11:12 -Correct Patient Yes -Correct Side, Site, Position Yes -Correct Procedure Yes -Procedure Performed Yes -Type of Procedure Debridement -Clinical Debridement Subcutaneous -Post Debridement Size (cm) - Length 0.5 -Post Debridement Size (cm) - Width 0.5 -Post Debridement Size (cm) - Depth 0.3 -Total Square Cm 0.25 -Wound/Ulcer Outcome Not Healed -Ulcer Cleansing Rinsed/ Irrigated with Saline -Foul Odor after Cleansing No -Bioengineered Tissue No -Bleeding Controlled with Pressure -Offloading Yes -Type of Offloading Camwalker -Treatment Response Procedure Tolerated Well [See Physician Procedure note for Specifics] Pain Scale: 0-10 Numeric [Pain] -Is Patient Pain Free? Yes Musculoskeletal: No Tenderness to Palpation of Joints or Extremities, Muscle Wasting, - - Prominent metatarsal head area Neurological: - - Lack of epicritic sensation light touch consistent with neuropathy status Psych/Mental Status: Normal Affect, Appropriate Debridement Note Post-Debridement Measurements/Treatment WC - Nurse 2 - General Ulcer CM Notes Start: 04/29/19 10:39 Freq: Status: Active Protocol: Activity Type Activity Date Activity User E-Sign Co-Sign Detail Recorded Client Recorded Date Recorded By Document 04/29/19 11:11 [email or web address] [id number] 04/29/19 11:15 OTONIEL 04/29/19 11:11 Wound Center Nurse 2 #2- R LAT PLANTAR FOOT -Time 11:12 -Correct Patient Yes -Correct Side, Site, Position Yes -Correct Procedure Yes -Procedure Performed Yes -Type of Procedure Debridement -Clinical Debridement Subcutaneous -Post Debridement Size (cm) - Length 0.5 -Post Debridement Size (cm) - Width 0.5 -Post Debridement Size (cm) - Depth 0.3 -Total Square Cm 0.25 -Wound/Ulcer Outcome Not Healed -Ulcer Cleansing Rinsed/ Irrigated with Saline -Foul Odor after Cleansing No -Bioengineered Tissue No -Bleeding Controlled with Pressure -Offloading Yes -Type of Offloading Camwalker -Treatment Response Procedure Tolerated Well Pain Scale: 0-10 Numeric Is Patient Pain Free? Yes Wound debrided: subpoena server 4th metatarsal head resection Laterality: Right Wound Grade/Stage: grade 3 (surgically addressed) Type of Debridement: Excisional debridement Anesthesia Used: 5% Lidocaine Gel Depth: in the subcutaneous layer Percentage of wound debrided: 100 Instrument Used: #15 blade Tissue Removed: fibrous, devitalized subcutaneous, biofilm, slough Severity: Fat Layer Exposed Amount of bleeding with debridement: Mild Bleeding Controlled with: Pressure Patient tolerated procedure well Assessment/Plan Active Problems Ulcer of right foot with fat layer exposed (Chronic) Delayed wound healing (Chronic) Malnutrition (Chronic) Type 2 diabetes mellitus with diabetic polyneuropathy (Chronic) Assessment: Status post right fourth metatarsal head resection with ulcer excision application of amnio fill advanced wound healing product performed on 02/13/2019 for treatment of nonhealing diabetic foot ulcer of right foot fat layer exposed. Osteitis fourth metatarsal head (differential diagnosis was preoperative osteomyelitis). Healed heel ulcer, right (christopher grade 1). Diabetic neuropathy. malnutrition suspected. delayed healing. Venous insufficiency and leg edema. Hammertoe with prominent metatarsal heads. cardiac disease Plan: I reviewed and discussed his case today. I reviewed his previous diagnostic data. His postoperative status is noted and appears to be intact. His local signs of inflammation and infection are not present today. His bone biopsies were reviewed without evidence of micro biological bacterial growth or acute osteomyelitis noted with the pathological evaluation. I do not recommend additional antibiotics at this time and his clinical status will be monitored. Subcutaneous excisional debridement was performed as noted in the clinical count to the plantar foot ulcer site and his heel ulcer site is healed today. To change his forefoot ulcer site with hydrogel and Adaptic; this was dispensed today. His last white blood cell count 7.5, sedimentation rate 26, C-reactive protein level was not elevated, and hemoglobin A1c 7.6, albumin 3.5. He appears to have adequate arterial perfusion for healing as noted with his noninvasive vascular studies performed this past year. It is noted he has failed other comprehensive standard wound healing treatments. His venous reflux exam demonstrated incompetent veins. I recommend edema management with periodic elevation, avoiding idle standing or sitting, and with Tubigrip compression dressing. I also recommend follow-up with vascular specialist, Dr. Chapman for his venous insufficiency to aid in his current ulcer healing and to prevent further wounds in the future. His last hemoglobin A1c was noted at 7.6%. To continue proper glycemic control nutritional supplementation to optimize healing. To continue with strict offloading by remaining nonweightbearing to the right lower extremity with the use of assistive device is imperative for healing. To keep his adjacent foot skin integrity intact with application of urea 40% gel; a new prescription was provided today. To return to the wound healing center in 1 week or call sooner if he has any questions or concerns.
[2019-05-06 13:51] VITALS: BP 159/89; PULSE 90; RESP 16; TEMP 36.3; BMI 40.5
--- NOTE | 2019-05-06 14:30 | PN.PCM_ITS ---
(1) Ulcer of right foot with fat layer exposed Status: Chronic Current Visit: Yes Code(s): L97.512 - Non-pressure chronic ulcer of other part of right foot with fat layer exposed (2) Delayed wound healing Status: Chronic Current Visit: Yes Code(s): T14.8XXD - Other injury of unspecified body region, subsequent encounter (3) Malnutrition Status: Chronic Current Visit: Yes Code(s): E46 - Unspecified protein- calorie malnutrition (4) Type 2 diabetes mellitus with diabetic polyneuropathy Status: Chronic Current Visit: Yes Code(s): E11.42 - Type 2 diabetes mellitus with diabetic polyneuropathy Type of Wound Date of Service: 05/06/19 Chief Complaint: Non healing right foot ulcer. History of Wound: Mr. 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 He denies fever, chill, nausea, vomiting. He did undergo right foot fourth metatarsal head resection with plantar ulcer excision and application of advanced wound healing product of amnio fill on February 13, 2019 at [facility]. He denies pain, odor, or redness. He denies he drainage. He obtained his urea cream refill and relates application is going well. Progress of Wound: improving plantar forefoot - Physical Exam Vital Signs Temp Pulse Resp BP 97.4 F L 90 16 159/89 H 05/06/19 13:51 05/06/19 13:51 05/06/19 13:51 05/06/19 13:51 General: Alert, Oriented x3, Cooperative, No apparent distress Extremities: No cyanosis, Capillary Refill Less than 3 Seconds, No Calf Tenderness, Diminished Peripheral Pulses, Edema Skin: Ulcer/ Wound - No purulence, erythema, string, odor, infection. Adjacent skin is hairless and atrophic. There is some callus noted at the ulcer site Wound Measurements and Assessment WC - Nurse 1 - General Ulcer Measurement Start: 04/29/19 10:39 Freq: Status: Active Protocol: Activity Type Activity Date Activity User E-Sign Co-Sign Detail Recorded Client Recorded Date Recorded By Document 05/06/19 13:51 [facility] [id number] 05/06/19 13:56 [email or web address] 05/06/19 13:51 Wound Center Nurse 1 [Ulcer Assessment] #2- R LAT PLANTAR FOOT -Combined with other wound No -Current Size (cm) - Length 0.1 -Current Size (cm) - Width 0.1 -Current Size (cm) - Depth 0.1 -Total Square Cm 0.01 -Date of Last Picture (Recall this 05/06/19 field) -Photo Taken Yes -Epithelialization None Present -Tunneling No -Undermining/Tunneling No -Circular Undermining No -Exudate Amt Small -Exudate Type Sanguineous -Wound Margin Distinct, Outline Attached -Granulation Amt None Present (0 %) -Slough/Fibrin Yes -Necrosis Amt Large (67-100%) -Necrotic Tissue Type Adherent Slough -Texture (Rosaura-wound Skin Appearance) Assessed, Scarring -Moisture (Rosaura-wound Skin Appearance Assessed,Dry/ ) Scaly -Color (Rosaura-wound Skin Appearance) Assessed -Temperature (Rosaura-wound Skin No Abnormality Appearance) (Pt Warm) -Tenderness on Palpation (Rosaura-wound No Skin Appearance) -Ulcer Cleansing Rinsed/ Irrigated with Saline -Foul Odor after Cleansing No -Anesthetic Used 5% Lidocaine Gel WC - Nurse 2 - General Ulcer CM Notes Start: 04/29/19 10:39 Freq: Status: Active Protocol: Activity Type Activity Date Activity User E-Sign Co-Sign Detail Recorded Client Recorded Date Recorded By Document 05/06/19 14:08 [id number] 05/06/19 14:10 [email or web address] 05/06/19 14:08 Wound Center Nurse 2 [Procedure/Treatment] -Time 14:08 -Correct Patient Yes -Correct Side, Site, Position Yes -Correct Procedure Yes -Procedure Performed Yes -Type of Procedure Debridement -Clinical Debridement Subcutaneous -Post Debridement Size (cm) - Length 0.2 -Post Debridement Size (cm) - Width 0.4 -Post Debridement Size (cm) - Depth 0.2 -Total Square Cm 0.08 -Wound/Ulcer Outcome Not Healed -Ulcer Cleansing Rinsed/ Irrigated with Saline -Foul Odor after Cleansing No -Bioengineered Tissue No -Bleeding Controlled with Pressure -Offloading Yes -Type of Offloading Camwalker -Treatment Response Procedure Tolerated Well [See Physician Procedure note for Specifics] Pain Scale: 0-10 Numeric [Pain] -Is Patient Pain Free? Yes Musculoskeletal: No Tenderness to Palpation of Joints or Extremities, Muscle Wasting Neurological: - - Lack of epicritic sensation light touch consistent with neuropathy status Psych/Mental Status: Normal Affect, Appropriate Debridement Note Post-Debridement Measurements/Treatment WC - Nurse 2 - General Ulcer CM Notes Start: 04/29/19 10:39 Freq: Status: Active Protocol: Activity Type Activity Date Activity User E-Sign Co-Sign Detail Recorded Client Recorded Date Recorded By Document 04/29/19 11:11 [id number] 04/29/19 11:15 Document 05/06/19 14:08 [id number] 05/06/19 14:10 04/29/19 05/06/19 11:11 14:08 Wound Center Nurse 2 #2- R LAT PLANTAR FOOT -Time 11:12 14:08 -Correct Patient Yes Yes -Correct Side, Site, Position Yes Yes -Correct Procedure Yes Yes -Procedure Performed Yes Yes -Type of Procedure Debridement Debridement -Clinical Debridement Subcutaneous Subcutaneous -Post Debridement Size (cm) - Length 0.5 0.2 -Post Debridement Size (cm) - Width 0.5 0.4 -Post Debridement Size (cm) - Depth 0.3 0.2 -Total Square Cm 0.25 0.08 -Wound/Ulcer Outcome Not Healed Not Healed -Ulcer Cleansing Rinsed/ Rinsed/ Irrigated with Irrigated with Saline Saline -Foul Odor after Cleansing No No -Bioengineered Tissue No No -Bleeding Controlled with Pressure Pressure -Offloading Yes Yes -Type of Offloading Camwalker Camwalker -Treatment Response Procedure Procedure Tolerated Well Tolerated Well Pain Scale: 0-10 Numeric Is Patient Pain Free? Yes Yes Wound debrided: plantar lateral foot Laterality: Left Wound Grade/Stage: grade 3 Type of Debridement: Excisional debridement Anesthesia Used: 5% Lidocaine Gel Depth: in the subcutaneous layer Percentage of wound debrided: 100 Instrument Used: #15 blade Tissue Removed: Fibrous, devitalized subcutaneous, biofilm, slough Severity: Fat Layer Exposed Amount of bleeding with debridement: Mild Bleeding Controlled with: Pressure Patient tolerated procedure well Assessment/Plan Active Problems Ulcer of right foot with fat layer exposed (Chronic) Delayed wound healing (Chronic) Malnutrition (Chronic) Type 2 diabetes mellitus with diabetic polyneuropathy (Chronic) Assessment: Status post right fourth metatarsal head resection with ulcer excision application of amnio fill advanced wound healing product performed on 02/13/2019 for treatment of nonhealing diabetic foot ulcer of right foot fat layer exposed. Osteitis fourth metatarsal head (differential diagnosis was preoperative osteomyelitis). Healed heel ulcer, right (christopher grade 1). Diabetic neuropathy. malnutrition suspected. delayed healing. Venous insufficiency and leg edema. Hammertoe with prominent metatarsal heads. cardiac disease Plan: I reviewed and discussed his case today. I reviewed his previous diagnostic data. His postoperative status is noted and appears to be intact. His local signs of inflammation and infection are not present today. His bone biopsies were reviewed without evidence of micro biological bacterial growth or acute osteomyelitis noted with the pathological evaluation. I do not recommend additional antibiotics at this time and his clinical status will be monitored. Subcutaneous excisional debridement was performed as noted in the clinical count to the plantar foot ulcer site and his heel ulcer site is healed today. To change his forefoot ulcer site with hydrogel and Adaptic; this was dispensed today. His last white blood cell count 7.5, sedimentation rate 26, C-reactive protein level was not elevated, and hemoglobin A1c 7.6, albumin 3.5. He appears to have adequate arterial perfusion for healing as noted with his noninvasive vascular studies performed this past year. It is noted he has failed other comprehensive standard wound healing treatments. His venous reflux exam demonstrated incompetent veins. I recommend edema management with periodic elev ation, avoiding idle standing or sitting, and with Tubigrip compression dressing. I also recommend follow-up with vascular specialist, Dr. Chapman for his venous insufficiency to aid in his current ulcer healing and to prevent further wounds in the future. His last hemoglobin A1c was noted at 7.6%. To continue proper glycemic control nutritional supplementation to optimize healing. To continue with strict offloading by remaining nonweightbearing to the right lower extremity with the use of assistive device is imperative for healing. To keep his adjacent foot skin integrity intact with application of urea 40% . To return to the wound healing center in 1 week or call sooner if he has any questions or concerns.
[2019-05-13 14:33] VITALS: BP 166/93; PULSE 88; RESP 18; TEMP 36.6; BMI 40.5
--- NOTE | 2019-05-13 21:44 | PCM.WC.PN ---
(1) Ulcer of right foot with fat layer exposed Status: Chronic Current Visit: Yes Code(s): L97.512 - Non-pressure chronic ulcer of other part of right foot with fat layer exposed (2) Delayed wound healing Status: Chronic Current Visit: Yes Code(s): T14.8XXD - Other injury of unspecified body region, subsequent encounter (3) Malnutrition Status: Chronic Current Visit: Yes Code(s): E46 - Unspecified protein-calorie malnutrition (4) Type 2 diabetes mellitus with diabetic polyneuropathy Status: Chronic Current Visit: Yes Code(s): E11.42 - Type 2 diabetes mellitus with diabetic polyneuropathy Type of Wound Date of Service: 05/13/19 Chief Complaint: Non healing right foot ulcer. History of Wound: Mr. 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 He denies fever, chill, nausea, vomiting. He did undergo right foot fourth metatarsal head resection with plantar ulcer excision and application of advanced wound healing product of amnio fill on February 13, 2019 at [facility]. He denies pain, odor, or redness. He denies he drainage. He relates there is less drainage. Progress of Wound: improving plantar forefoot - Physical Exam Vital Signs Temp Pulse Resp BP 97.8 F 88 18 166/93 H 05/13/19 14:33 05/13/19 14:33 05/13/19 14:33 05/13/19 14:33 General: Alert, Oriented x3, Cooperative, No apparent distress Extremities: No cyanosis, Capillary Refill Less than 3 Seconds, No Calf Tenderness, Diminished Peripheral Pulses, Edema Skin: Ulcer/ Wound - No purulence, erythema, streaking, odor, infection. Peripheral epithelialization is continued. There is also continued callus formation to a lesser extent to the site. The adjacent skin is atrophic and hairless. This ulcer is now considered a cluster because they are too slender areas that are still open wound with granulation tissue and this encompasses approximately 20% of the measured cluster site, - - Dorsal fourth metatarsal head excision with surgery cicatrix Wound Measurements and Assessment WC - Nurse 1 - General Ulcer Measurement Start: 04/29/19 10:39 Freq: Status: Active Protocol: Activity Type Activity Date Activity User E-Sign Co-Sign Detail Recorded Client Recorded Date Recorded By Document 05/13/19 14:33 RB [id number] 05/13/19 14:36 RB 05/13/19 14:33 Wound Center Nurse 1 [Ulcer Assessment] #2- R LAT PLANTAR FOOT -Combined with other wound No -Current Size (cm) - Length 0.1 -Current Size (cm) - Width 0.1 -Current Size (cm) - Depth 0.1 -Total Square Cm 0.01 -Tunneling No -Undermining/Tunneling No -Circular Undermining No -Exudate Amt Small -Exudate Type Serosanguineous -Wound Margin Thickened -Granulation Amt None Present (0 %) -Slough/Fibrin Yes -Necrosis Amt Large (67-100%) -Necrotic Tissue Type Adherent Slough -Structure Exposed N/A -Texture (Rosaura-wound Skin Appearance) Callus -Moisture (Rosaura-wound Skin Appearance Assessed ) -Color (Rosaura-wound Skin Appearance) Assessed -Temperature (Rosaura-wound Skin No Abnormality Appearance) (Pt Warm) -Tenderness on Palpation (Rosaura-wound No Skin Appearance) -Ulcer Cleansing Wound Cleanser -Foul Odor after Cleansing No -Anesthetic Used 5% Lidocaine Gel WC - Nurse 2 - General Ulcer CM Notes Start: 04/29/19 10:39 Freq: Status: Active Protocol: Activity Type Activity Date Activity User E-Sign Co-Sign Detail Recorded Client Recorded Date Recorded By Document 05/13/19 15:03 [id number] 05/13/19 15:05 05/13/19 15:03 Wound Center Nurse 2 [Procedure/Treatment] -Time 15:03 -Correct Patient Yes -Correct Side, Site, Position Yes -Correct Procedure Yes -Procedure Performed Yes -Type of Procedure Debridement -Clinical Debridement Subcutaneous -Post Debridement Size (cm) - Length 0.6 -Post Debridement Size (cm) - Width 1.6 -Post Debridement Size (cm) - Depth 0.2 -Total Square Cm 0.96 -Wound/Ulcer Outcome Not Healed -Ulcer Cleansing Rinsed/ Irrigated with Saline -Foul Odor after Cleansing No -Bioengineered Tissue No -Bleeding Controlled with Pressure -Offloading Yes -Type of Offloading Camwalker -Treatment Response Procedure Tolerated Well [See Physician Procedure note for Specifics] Pain Scale: 0-10 Numeric [Pain] -Is Patient Pain Free? Yes Musculoskeletal: No Tenderness to Palpation of Joints or Extremities, Muscle Wasting Neurological: - - Lack of normal epicritic sensation light touch is consistent with his neuropathy status Psych/Mental Status: Normal Affect, Appropriate Debridement Note Post-Debridement Measurements/Treatment WC - Nurse 2 - General Ulcer CM Notes Start: 04/29/19 10:39 Freq: Status: Active Protocol: Activity Type Activity Date Activity User E-Sign Co-Sign Detail Recorded Client Recorded Date Recorded By Document 04/29/19 11:11 [id number] 04/29/19 11:15 Document 05/06/19 14:08 [id number] 05/06/19 14:10 Document 05/13/19 15:03 [id number] 05/13/19 15:05 04/29/19 05/06/19 05/13/19 11:11 14:08 15:03 Wound Center Nurse 2 #2- R LAT PLANTAR FOOT -Time 11:12 14:08 15:03 -Correct Patient Yes Yes Yes -Correct Side, Site, Position Yes Yes Yes -Correct Procedure Yes Yes Yes -Procedure Performed Yes Yes Yes -Type of Procedure Debridement Debridement Debridement -Clinical Debridement Subcutaneous Subcutaneous Subcutaneous -Post Debridement Size (cm) - Length 0.5 0.2 0.6 -Post Debridement Size (cm) - Width 0.5 0.4 1.6 -Post Debridement Size (cm) - Depth 0.3 0.2 0.2 -Total Square Cm 0.25 0.08 0.96 -Wound/Ulcer Outcome Not Healed Not Healed Not Healed -Ulcer Cleansing Rinsed/ Rinsed/ Rinsed/ Irrigated with Irrigated with Irrigated with Saline Saline Saline -Foul Odor after Cleansing No No No -Bioengineered Tissue No No No -Bleeding Controlled with Pressure Pressure Pressure -Offloading Yes Yes Yes -Type of Offloading Camwalker Camwalker Camwalker -Treatment Response Procedure Procedure Procedure Tolerated Well Tolerated Well Tolerated Well Pain Scale: 0-10 Numeric Is Patient Pain Free? Yes Yes Yes Wound debrided: plantar lateral foot Laterality: Right Wound Grade/Stage: grade 3 Type of Debridement: Excisional debridement Anesthesia Used: 5% Lidocaine Gel Depth: in the subcutaneous layer Percentage of wound debrided: 20 Instrument Used: #15 blade Tissue Removed: fibrous, devitalized subcutaneous, biofilm, slough Severity: Fat Layer Exposed Amount of bleeding with debridement: Mild Bleeding Controlled with: Pressure Patient tolerated procedure well Assessment/Plan Active Problems Ulcer of right foot with fat layer exposed (Chronic) Delayed wound healing (Chronic) Malnutrition (Chronic) Type 2 diabetes mellitus with diabetic polyneuropathy (Chronic) Assessment: Status post right fourth metatarsal head resection with ulcer excision application of amnio fill advanced wound healing product performed on 02/13/2019 for treatment of nonhealing diabetic foot ulcer of right foot fat layer exposed. Osteitis fourth metatarsal head (differential diagnosis was preoperative osteomyelitis). Healed heel ulcer, right (christopher grade 1). Diabetic neuropathy. malnutrition suspected. delayed healing. Venous insufficiency and leg edema. Hammertoe with prominent metatarsal heads. cardiac disease Plan: I reviewed and discussed his case today. I reviewed his previous diagnostic data. His postoperative status is noted and appears to be intact. His local signs of inflammation and infection are not present today. His bone biopsies were reviewed without evidence of micro biological bacterial growth or acute osteomyelitis noted with the pathological evaluation. I do not recommend additional antibiotics at this time and his clinical status will be monitored. Subcutaneous excisional debridement was performed as noted in the clinical count to the plantar foot ulcer site and his heel ulcer site is healed today. To change his forefoot ulcer site with hydrogel and Adaptic; this was dispensed today. His last white blood cell count 7.5, sedimentation rate 26, C-reactive protein level was not elevated, and hemoglobin A1c 7.6, albumin 3.5. He appears to have adequate arterial perfusion for healing as noted with his noninvasive vascular studies performed this past year. It is noted he has failed other comprehensive standard wound healing treatments. His venous reflux exam demonstrated incompetent veins. I recommend edema management with periodic elevation, avoiding idle standing or sitting, and with Tubigrip compression dressing. I also recommend follow-up with vascular specialist, Dr. Chapman for his venous insufficiency to aid in his current ulcer healing and to prevent further wounds in the future. His last hemoglobin A1c was noted at 7.6%. To continue proper glycemic control nutritional supplementation to optimize healing. To continue with strict offloading by remaining nonweightbearing to the right lower extremity with the use of assistive device is imperative for healing. To keep his adjacent foot skin integrity intact with application of urea 40% . To return to the wound healing center in 1 week or call sooner if he has any questions or concerns.
[2019-05-20 14:15] VITALS: BP 157/88; PULSE 82; RESP 16; TEMP 37; BMI 40.5
--- NOTE | 2019-05-20 23:45 | PCM.WC.PN ---
(1) Ulcer of right foot with fat layer exposed Status: Chronic Current Visit: Yes Code(s): L97.512 - Non-pressure chronic ulcer of other part of right foot with fat layer exposed (2) Delayed wound healing Status: Chronic Current Visit: Yes Code(s): T14.8XXD - Other injury of unspecified body region, subsequent encounter (3) Malnutrition Status: Chronic Current Visit: Yes Code(s): E46 - Unspecified protein-calorie malnutrition (4) Type 2 diabetes mellitus with diabetic polyneuropathy Status: Chronic Current Visit: Yes Code(s): E11.42 - Type 2 diabetes mellitus with diabetic polyneuropathy Type of Wound Date of Service: 05/20/19 Chief Complaint: Non healing right foot ulcer. History of Wound: Mr. 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 He denies fever, chill, nausea, vomiting. He did undergo right foot fourth metatarsal head resection with plantar ulcer excision and application of advanced wound healing product of amnio fill on February 13, [address] [facility]. He denies pain, odor, or redness. He denies he drainage. He relates there is less drainage. Progress of Wound: improving plantar forefoot - Physical Exam Vital Signs Temp Pulse Resp BP 98.6 F 82 16 157/88 H 05/20/19 14:15 05/20/19 14:15 05/20/19 14:15 05/20/19 14:15 General: Alert, Oriented x3, Cooperative, No apparent distress Extremities: Capillary Refill Less than 3 Seconds, No Calf Tenderness, Diminished Peripheral Pulses, Edema Skin: Ulcer/ Wound - No purulence, erythema, string, odor, infection. Peripheral epithelialization is noted Wound Measurements and Assessment WC - Nurse 1 - General Ulcer Measurement Start: 04/29/19 10:39 Freq: Status: Active Protocol: Activity Type Activity Date Activity User E-Sign Co-Sign Detail Recorded Client Recorded Date Recorded By Document 05/20/19 14:15 [facility] [id number] 05/20/19 14:20 [facility] 05/20/19 14:15 Wound Center Nurse 1 [Ulcer Assessment] #2- R LAT PLANTAR FOOT -Combined with other wound No -Current Size (cm) - Length 0.1 -Current Size (cm) - Width 0.1 -Current Size (cm) - Depth 0.1 -Total Square Cm 0.01 -Photo Taken No -Tunneling No -Undermining/Tunneling No -Circular Undermining No -Wound Margin Distinct, Outline Attached -Granulation Amt Small (1-33%) -Granulation Quality Lindstrom -Texture (Rosaura-wound Skin Appearance) Assessed,Callus ,Scarring -Moisture (Rosaura-wound Skin Appearance Assessed,Dry/ ) Scaly -Color (Rosaura-wound Skin Appearance) Assessed -Temperature (Rosaura-wound Skin No Abnormality Appearance) (Pt Warm) -Tenderness on Palpation (Rosaura-wound No Skin Appearance) -Ulcer Cleansing Rinsed/ Irrigated with Saline -Foul Odor after Cleansing No -Anesthetic Used 5% Lidocaine Gel WC - Nurse 2 - General Ulcer CM Notes Start: 04/29/19 10:39 Freq: Status: Active Protocol: Activity Type Activity Date Activity User E-Sign Co-Sign Detail Recorded Client Recorded Date Recorded By Document 05/20/19 14:47 OTONIEL [id number] 05/20/19 14:47 05/20/19 14:47 Wound Center Nurse 2 [Procedure/Treatment] -Time 14:47 -Correct Patient Yes -Correct Side, Site, Position Yes -Correct Procedure Yes -Procedure Performed Yes -Type of Procedure Debridement -Clinical Debridement Subcutaneous -Post Debridement Size (cm) - Length 0.7 -Post Debridement Size (cm) - Width 0.2 -Post Debridement Size (cm) - Depth 0.1 -Total Square Cm 0.14 -Wound/Ulcer Outcome Not Healed -Ulcer Cleansing Rinsed/ Irrigated with Saline -Foul Odor after Cleansing No -Bioengineered Tissue No -Bleeding Controlled with Pressure -Offloading Yes -Type of Offloading Camwalker -Treatment Response Procedure Tolerated Well [See Physician Procedure note for Specifics] Pain Scale: 0-10 Numeric [Pain] -Is Patient Pain Free? Yes Musculoskeletal: No Tenderness to Palpation of Joints or Extremities, Muscle Wasting Neurological: - - Lack normal epicritic sensation light touch is consistent with neuropathy status Psych/Mental Status: Normal Affect, Appropriate Debridement Note Post-Debridement Measurements/Treatment WC - Nurse 2 - General Ulcer CM Notes Start: 04/29/19 10:39 Freq: Status: Active Protocol: Activity Type Activity Date Activity User E-Sign Co-Sign Detail Recorded Client Recorded Date Recorded By Document 04/29/19 11:11 [id number] 04/29/19 11:15 Document 05/06/19 14:08 [id number] 05/06/19 14:10 Document 05/13/19 15:03 [id number] 05/13/19 15:05 Document 05/20/19 14:47 [id number] 05/20/19 14:47 04/29/19 05/06/19 05/13/19 11:11 14:08 15:03 Wound Center Nurse 2 #2- R LAT PLANTAR FOOT -Time 11:12 14:08 15:03 -Correct Patient Yes Yes Yes -Correct Side, Site, Position Yes Yes Yes -Correct Procedure Yes Yes Yes -Procedure Performed Yes Yes Yes -Type of Procedure Debridement Debridement Debridement -Clinical Debridement Subcutaneous Subcutaneous Subcutaneous -Post Debridement Size (cm) - Length 0.5 0.2 0.6 -Post Debridement Size (cm) - Width 0.5 0.4 1.6 -Post Debridement Size (cm) - Depth 0.3 0.2 0.2 -Total Square Cm 0.25 0.08 0.96 -Wound/Ulcer Outcome Not Healed Not Healed Not Healed -Ulcer Cleansing Rinsed/ Rinsed/ Rinsed/ Irrigated with Irrigated with Irrigated with Saline Saline Saline -Foul Odor after Cleansing No No No -Bioengineered Tissue No No No -Bleeding Controlled with Pressure Pressure Pressure -Offloading Yes Yes Yes -Type of Offloading Camwalker Camwalker Camwalker -Treatment Response Procedure Procedure Procedure Tolerated Well Tolerated Well Tolerated Well Pain Scale: 0-10 Numeric Is Patient Pain Free? Yes Yes Yes 05/20/19 14:47 Wound Center Nurse 2 #2- R LAT PLANTAR FOOT -Time 14:47 -Correct Patient Yes -Correct Side, Site, Position Yes -Correct Procedure Yes -Procedure Performed Yes -Type of Procedure Debridement -Clinical Debridement Subcutaneous -Post Debridement Size (cm) - Length 0.7 -Post Debridement Size (cm) - Width 0.2 -Post Debridement Size (cm) - Depth 0.1 -Total Square Cm 0.14 -Wound/Ulcer Outcome Not Healed -Ulcer Cleansing Rinsed/ Irrigated with Saline -Foul Odor after Cleansing No -Bioengineered Tissue No -Bleeding Controlled with Pressure -Offloading Yes -Type of Offloading Camwalker -Treatment Response Procedure Tolerated Well Pain Scale: 0-10 Numeric Is Patient Pain Free? Yes Wound debrided: sub 4th metatarsal head Laterality: Right Wound Grade/Stage: grade 3 Type of Debridement: Excisional debridement Anesthesia Used: 4% Lidocaine Solution Depth: in the subcutaneous layer Percentage of wound debrided: 100 Instrument Used: #15 blade Tissue Removed: fibrous, devitalized subcutaneous, biofilm, slough Severity: Fat Layer Exposed Amount of bleeding with debridement: Mild Bleeding Controlled with: Pressure Patient tolerated procedure well Assessment/Plan Active Problems Ulcer of right foot with fat layer exposed (Chronic) Delayed wound healing (Chronic) Malnutrition (Chronic) Type 2 diabetes mellitus with diabetic polyneuropathy (Chronic) Assessment: Status post right fourth metatarsal head resection with ulcer excision application of amnio fill advanced wound healing product performed on 02/13/2019 for treatment of nonhealing diabetic foot ulcer of right foot fat layer exposed. Osteitis fourth metatarsal head (differential diagnosis was preoperative osteomyelitis). Healed heel ulcer, right (christopher grade 1). Diabetic neuropathy. malnutrition suspected. delayed healing. Venous insufficiency and leg edema. Hammertoe with prominent metatarsal heads. cardiac disease Plan: I reviewed and discussed his case today. I reviewed his previous diagnostic data. His postoperative status is noted and appears to be intact. His local signs of inflammation and infection are not present today. His bone biopsies were reviewed without evidence of micro biological bacterial growth or acute osteomyelitis noted with the pathological evaluation. I do not recommend additional antibiotics at this time and his clinical status will be monitored. Subcutaneous excisional debridement was performed as noted in the clinical count to the plantar foot ulcer site and his heel ulcer site is healed today. To change his forefoot ulcer site with hydrogel and Adaptic; this was dispensed today. His last white blood cell count 7.5, sedimentation rate 26, C-reactive protein level was not elevated, and hemoglobin A1c 7.6, albumin 3.5. He appears to have adequate arterial perfusion for healing as noted with his noninvasive vascular studies performed this past year. It is noted he has failed other comprehensive standard wound healing treatments. His venous reflux exam demonstrated incompetent veins. I recommend edema management with periodic elevation, avoiding idle standing or sitting, and with Tubigrip compression dressing. I also recommend follow-up with vascular specialist, Dr. Chapman for his venous insufficiency to aid in his current ulcer healing and to prevent further wounds in the future. His last hemoglobin A1c was noted at 7.6%. To continue proper glycemic control nutritional supplementation to optimize healing. To continue with strict offloading by remaining nonweightbearing to the right lower extremity with the use of assistive device is imperative for healing. To keep his adjacent foot skin integrity intact with application of urea 40% . To return to the wound healing center in 1 week or call sooner if he has any questions or concerns.
== END 2019-05-23 23:59 ==
LOC: WC 14:00
PROVIDERS: Referring Provider Podiatrist; Visit Provider Podiatrist
DX: E11.621 Type 2 diabetes mellitus with foot ulcer (principal); E11.42 Type 2 diabetes mellitus with diabetic polyneuropathy; L97.512 Non-pressure chronic ulcer of other part of right foot with fat layer exposed; E11.319 Type 2 diabetes mellitus with unspecified diabetic retinopathy without macular edema; Z89.411 Acquired absence of right great toe; I87.2 Venous insufficiency (chronic) (peripheral); E11.21 Type 2 diabetes mellitus with diabetic nephropathy; I51.9 Heart disease, unspecified
CPT/HCPCS: 11042

== ENCOUNTER 2019-05-27 13:52 | Outpatient (RCR) | payer MEDICAID, SELFPAY ==
[2019-05-24 00:31] VITALS: BP 157/88; PULSE 82; RESP 16; TEMP 37
== END 2019-06-23 23:59 ==
LOC: WC 13:52
PROVIDERS: Referring Provider Podiatrist; Visit Provider Podiatrist
DX: Z09 Encounter for follow-up examination after completed treatment for conditions other than malignant neoplasm (principal)

== ENCOUNTER 2019-08-12 11:30 | Outpatient (RCR) | payer MEDICAID, SELFPAY ==
[2019-06-24 00:27] VITALS: BP 157/88; PULSE 82; RESP 16; TEMP 37
[2019-07-29 09:12] VITALS: BP 154/93; PULSE 81; RESP 18; TEMP 36.7; BMI 41.9
--- NOTE | 2019-07-29 09:52 | PCM.WC.PN ---
(1) Ulcer of right foot with fat layer exposed Status: Chronic Current Visit: Yes Code(s): L97.512 - Non-pressure chronic ulcer of other part of right foot with fat layer exposed (2) Diabetic neuropathy Status: Chronic Current Visit: Yes Qualifiers: Diabetes mellitus type: type 2 Code(s): E11.40 - Type 2 diabetes mellitus with diabetic neuropathy, unspecified (3) Malnutrition Status: Chronic Current Visit: Yes Code(s): E46 - Unspecified protein-calorie malnutrition (4) Hammer toe of right foot Status: Chronic Current Visit: Yes Code(s): M20.41 - Other hammer toe(s) (acquired), right foot Type of Wound Date of Service: 07/29/19 Chief Complaint: Non healing right foot ulcer. History of Wound: Mr. 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 He denies fever, chill, nausea, vomiting. He did undergo right foot fourth metatarsal head resection with plantar ulcer excision and application of advanced wound healing product of amnio fill on February 13, 2019 at [facility]. He denies pain, odor, or redness. His ulcer site no longer open at this site has appeared to move over. He relates increased callus moisture in a minor odor the past 3 days because he has been trying to work. 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 Progress of Wound: Healed sub-fourth metatarsal head ulcer right foot. New sub-third metatarsal head ulcer right foot - Physical Exam Vital Signs Temp Pulse Resp BP 98.0 F 81 18 154/93 H 07/29/19 09:12 07/29/19 09:12 07/29/19 09:12 07/29/19 09:12 General: Alert, Oriented x3, Cooperative, No apparent distress Extremities: No cyanosis, Capillary Refill Less than 3 Seconds, No Calf Tenderness, Diminished Peripheral Pulses, Edema Skin: Ulcer/ Wound - No purulence, erythema, streaking, odor, infection. Full epithelialization is noted sub-fourth metatarsal head. There is a new skin discontinuity sub-third metatarsal head superficial granular. No deep probing or deep tissue exposure is today Wound Measurements and Assessment WC - Nurse 1 - General Ulcer Measurement Start: 07/29/19 09:08 Freq: Status: Active Protocol: Activity Type Activity Date Activity User E-Sign Co-Sign Detail Recorded Client Recorded Date Recorded By Document 07/29/19 09:12 DV [id number] 07/29/19 09:25 DV 07/29/19 09:12 Wound Center Nurse 1 [Ulcer Assessment] #4 right 3rd methead foot -Combined with other wound No -Current Size (cm) - Length 0.9 -Current Size (cm) - Width 0.9 -Current Size (cm) - Depth 0.4 -Total Square Cm 0.81 -Date of Last Picture (Recall this 07/29/19 field) -Photo Taken Yes -Epithelialization None Present -Tunneling No -Undermining/Tunneling No -Circular Undermining No -Classification - Thickness Full Thickness without Exposed Support Structure -Classification - Quinn Grading ( Grade 2 Diabetic Ulcer) -Change in Wound Grade/Stage No Query Text:If change please identify the Stage/Grade in the comment (ie. S2 G3) -Exudate Amt Medium -Exudate Type Serous -Wound Margin Fibrotic Scar, Thickened Scar -Granulation Amt None Present (0 %) -Granulation Quality N/A -Slough/Fibrin Yes -Necrosis Amt Large (67-100%) -Necrotic Tissue Type Adherent Slough -Structure Exposed None/Limited to Skin Breakdown -Texture (Rosaura-wound Skin Appearance) Assessed, Localized Edema -Moisture (Rosaura-wound Skin Appearance Assessed, ) Weeping -Color (Rosaura-wound Skin Appearance) Assessed -Temperature (Rosaura-wound Skin No Abnormality Appearance) (Pt Warm) -Tenderness on Palpation (Rosaura-wound No Skin Appearance) -Ulcer Cleansing Rinsed/ Irrigated with Saline -Foul Odor after Cleansing Yes, Due to Product Use -Anesthetic Used 4% Lidocaine Solution [Edema Assessment] -Lower Limb Edema Present No WC - Nurse 2 - General Ulcer CM Notes Start: 07/29/19 09:08 Freq: Status: Active Protocol: Activity Type Activity Date Activity User E-Sign Co-Sign Detail Recorded Client Recorded Date Recorded By Document 07/29/19 09:46 OTONIEL [id number] 07/29/19 09:47 OTONIEL 07/29/19 09:46 Wound Center Nurse 2 [Procedure/Treatment] #4 right 3rd methead foot -Time 09:46 -Correct Patient Yes -Correct Side, Site, Position Yes -Correct Procedure Yes -Procedure Performed Yes -Type of Procedure Debridement -Clinical Debridement Subcutaneous -Post Debridement Size (cm) - Length 1.3 -Post Debridement Size (cm) - Width 1.1 -Post Debridement Size (cm) - Depth 0.2 -Total Square Cm 1.43 -Wound/Ulcer Outcome Not Healed -Ulcer Cleansing Rinsed/ Irrigated with Saline -Foul Odor after Cleansing No -Bioengineered Tissue No -Bleeding Controlled with Pressure -Offloading Yes -Type of Offloading Camwalker -Treatment Response Procedure Tolerated Well [See Physician Procedure note for Specifics] Pain Scale: 0-10 Numeric [Pain] -Is Patient Pain Free? Yes Musculoskeletal: No Tenderness to Palpation of Joints or Extremities, Muscle Wasting, - - No bogginess or fluctuance on palpation Contracture lesser toes with prominent metatarsal head Neurological: - - Lack of normal epicritic sensation light touch is consistent with neuropathy status Psych/Mental Status: Normal Affect, Appropriate Debridement Note Post-Debridement Measurements/Treatment WC - Nurse 2 - General Ulcer CM Notes Start: 07/29/19 09:08 Freq: Status: Active Protocol: Activity Type Activity Date Activity User E-Sign Co-Sign Detail Recorded Client Recorded Date Recorded By Document 07/29/19 09:46 [email or web address] [id number] 07/29/19 09:47 OTONIEL 07/29/19 09:46 Wound Center Nurse 2 #[address] [place] [address] foot -Time 09:46 -Correct Patient Yes -Correct Side, Site, Position Yes -Correct Procedure Yes -Procedure Performed Yes -Type of Procedure Debridement -Clinical Debridement Subcutaneous -Post Debridement Size (cm) - Length 1.3 -Post Debridement Size (cm) - Width 1.1 -Post Debridement Size (cm) - Depth 0.2 -Total Square Cm 1.43 -Wound/Ulcer Outcome Not Healed -Ulcer Cleansing Rinsed/ Irrigated with Saline -Foul Odor after Cleansing No -Bioengineered Tissue No -Bleeding Controlled with Pressure -Offloading Yes -Type of Offloading Camwalker -Treatment Response Procedure Tolerated Well Pain Scale: 0-10 Numeric Is Patient Pain Free? Yes Wound debrided: sub 3 metatarsal head Laterality: Right Wound Grade/Stage: grade 1 Type of Debridement: Excisional debridement Anesthesia Used: 5% Lidocaine Gel Depth: in the subcutaneous layer Percentage of wound debrided: 100 Instrument Used: #15 blade Tissue Removed: fibrous, devitalized subcutaneous, biofilm, slough Severity: Fat Layer Exposed Amount of bleeding with debridement: Mild Bleeding Controlled with: Pressure Patient tolerated procedure well Assessment/Plan Active Problems Diabetic neuropathy (Chronic) Ulcer of right foot with fat layer exposed (Chronic) Malnutrition (Chronic) Hammer toe of right foot (Chronic) Assessment: New sub-third metatarsal head ulcer, Quinn grade 1, no infection. Healed status post right fourth metatarsal head resection with ulcer excision application of amnio fill advanced wound healing product performed on 02/13/2019 for treatment of nonhealing diabetic foot ulcer of right foot fat layer exposed. Osteitis fourth metatarsal head (differential diagnosis was preoperative osteomyelitis). Healed heel ulcer, right (quinn grade 1). Diabetic neuropathy. malnutrition suspected. delayed healing. Venous insufficiency and leg edema. Hammertoe with prominent metatarsal heads. cardiac disease Plan: I reviewed and discussed his case today. I reviewed his previous diagnostic data. His postoperative status is noted and appears to be healed. His local signs of inflammation and infection are not present today. He does have a new skin discontinuity there is superficial and not infected. This is located sub-third metatarsal head and likely transfer lesions due to new pressure distribution. Subcutaneous excisional debridement was performed as noted in the clinical count to the plantar foot ulcer site and his heel ulcer site is healed today. To change his forefoot ulcer site with [employer]; this was dispensed today. To offload with Cam walker boot with offloading pockets which appear to be appropriately aligned after check today. To avoid driving or standing. A work note was provided. He is trying to apply for disability. 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 To return to the wound healing center in 1 week or call sooner if he has any questions or concerns.
[2019-08-12 11:50] VITALS: BP 153/89; PULSE 83; RESP 20; TEMP 36.6; BMI 41.9
== END 2019-08-23 23:59 ==
LOC: WC 11:30
PROVIDERS: Referring Provider Podiatrist; Visit Provider Podiatrist
DX: E11.621 Type 2 diabetes mellitus with foot ulcer (principal); E11.40 Type 2 diabetes mellitus with diabetic neuropathy, unspecified; M20.41 Other hammer toe(s) (acquired), right foot; L97.512 Non-pressure chronic ulcer of other part of right foot with fat layer exposed; E11.319 Type 2 diabetes mellitus with unspecified diabetic retinopathy without macular edema; E11.21 Type 2 diabetes mellitus with diabetic nephropathy; I87.2 Venous insufficiency (chronic) (peripheral)
CPT/HCPCS: 11042; 99213; G0463

== ENCOUNTER → 2019-08-12 12:36 | Outpatient (CLI) | payer MEDICAID, SELFPAY ==
[2019-08-12 11:50] VITALS: BMI 41.9
--- NOTE | 2019-08-12 12:51 | RAD_ITS ---
STUDY: X-RAY - RIGHT FOOT CLINICAL: Male, 43 years old. PLANTAR ULCER MEDIAL SIDE, DISTAL METATARSAL AREA. HX DIABETES TECHNIQUE: 3 view(s) of the foot. COMPARISON: 02/13/2019 FINDINGS: Normal talus, calcaneus, and tarsal bones. Normal visualized subtalar, talonavicular, calcaneocuboid, tarsal and tarsometatarsal articulations. Status post amputation of the head of the fourth metatarsal bone. Status post amputation of the first digit.. Normal second through fifth metatarsophalangeal joints. Normal interphalangeal joints and phalanges of the lesser toes. The soft tissue structures are unremarkable. RAD/Foot min 3 Views IMPRESSION: No radiographic evidence of osteomyelitis. Electronically Signed: Brigido Mccarthy MD at 13:30 EDT Tel , Service support ,
--- NOTE | 2019-08-12 12:55 | PN.PCM_ITS ---
(1) Ulcer of right foot with fat layer exposed Status: Chronic Code(s): L97.512 - Non-pressure chronic ulcer of other part of right foot with fat layer exposed (2) Delayed wound healing Status: Chronic Code(s): T14.8XXD - Other injury of unspecified body region, subsequent encounter (3) Malnutrition Status: Chronic Code(s): E46 - Unspecified protein-calorie malnutrition (4) Hammer toe of right foot Status: Chronic Code(s): M20.41 - Other hammer toe(s) (acquired), right foot (5) Type 2 diabetes mellitus with diabetic polyneuropathy Status: Chronic Code(s): E11.42 - Type 2 diabetes mellitus with diabetic polyneuropathy Type of Wound Date of Service: 08/12/19 Chief Complaint: Non healing right foot ulcer. History of Wound: Mr. 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 He denies fever, chill, nausea, vomiting. He did undergo right foot fourth metatarsal head resection with plantar ulcer excision and application of advanced wound healing product of amnio fill on February 13, 2019 at [facility]. He denies pain, odor, or redness. His ulcer site no longer open at this site has appeared now be a transfer lesion to the sub-third metatarsal head location. He denies fever, chill, nausea, vomiting. Progress of Wound: Stable - Physical Exam General: Alert, Oriented x3, Cooperative, No apparent distress HEENT: Atraumatic Extremities: No cyanosis, Capillary Refill Less than 3 Seconds, No Calf Tenderness, Diminished Peripheral Pulses, Edema Skin: Ulcer/ Wound - No purulence, erythema, streaking, odor, infection. No deep probing to bone or capsule. The adjacent skin is hairless and atrophic Musculoskeletal: No Tenderness to Palpation of Joints or Extremities, Muscle Wasting, - - Dorsal contracture lesser digits and prominent metatarsal head 3 Neurological: - - Lack of normal epicritic sensation consistent with neuropathy with light touch Psych/Mental Status: Normal Affect, Appropriate Debridement Note Wound debrided: sub third metatarsal head Laterality: Right Wound Grade/Stage: grade 1 Type of Debridement: Excisional debridement Anesthesia Used: 5% Lidocaine Gel Depth: in the subcutaneous layer Percentage of wound debrided: 100 Instrument Used: #15 blade Tissue Removed: fibrous, devitalized subcutaneous, biofilm, slough Severity: Fat Layer Exposed Amount of bleeding with debridement: Mild Bleeding Controlled with: Pressure Patient tolerated procedure well Assessment/Plan Assessment: sub-third metatarsal head ulcer, Quinn grade 1, no infection. Healed status post right fourth metatarsal head resection with ulcer excision application of amnio fill advanced wound healing product performed on 02/13/2019 for treatment of nonhealing diabetic foot ulcer of right foot fat layer exposed. Osteitis fourth metatarsal head (differential diagnosis was preoperative osteomyelitis). Healed heel ulcer, right (quinn grade 1). Diabetic neuropathy. malnutrition suspected. delayed healing. Venous insufficiency and leg edema. Hammertoe with prominent metatarsal heads. cardiac disease Plan: I reviewed and discussed his case today. I reviewed his previous diagnostic data. His postoperative status is noted and appears to be healed. His local signs of inflammation and infection are not present today. He does have a new skin discontinuity (transfer lesion) that is superficial and not infected. Subcutaneous excisional debridement was performed as noted in the clinical count to the plantar foot ulcer site and his heel ulcer site is healed today. To change his forefoot ulcer site with [employer]. To offload with Cam walker boot with offloading pockets which appear to be appropriately aligned after check today. To avoid driving or standing. A work note was provided. He is trying to apply for disability. 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 At length today we discussed the following treatment options: Continued comprehensive wound healing plan, surgical intervention including third metatarsal head resection, transmetatarsal amputation. He would like to consider removing the third metatarsal head in the outpatient setting if he does not demonstrate significant improvement within the next 3 to 4 weeks. This is very reasonable and recommended from my standpoint at this time. I ordered an updated x-ray to evaluate for any osseous changes or radiographic signs of infection. To return to the wound healing center in 1 week or call sooner if he has any questions or concerns.
[2019-08-12 13:38] LABS: Absolute Lymphocyte Count 1.56 X10^3/uL (0.83-4.51); Absolute Neutrophil Count 6.1 X10^3/uL (2.0-7.7); Basophil# 0.04 X10^3/uL; Basophil% 0.5 % (0-1); Eosinophil# 0.24 X10^3/uL; Eosinophils% 2.8 % (0-5); Hematocrit 33.7 % (40-54); Hemoglobin 10.6 g/dL (13.0-16.5); Lymphocyte # 1.56 X10^3/ul (4.0); Lymphocyte % 18.3 % (19-41); Mean Corp Hgb Conc 31.5 g/dL (32-36); Mean Corpuscular Hgb 28.3 pg (27.0-32.0); Mean Corpuscular Volume 89.9 fL (80-94); Mean Platelet Vol. 10.4 fl (6.2-12.0); Monocyte# 0.62 X10^3/uL; Monocyte% 7.3 % (0-10); NRBC Flagged by Analyzer 0 % (0-5); Neutrophil # 6.05 X10^3/uL (2.7-7.7); Platelet Count 227 K/mm3 (150-450); RBC Distribution Width CV 12.4 % (11.6-14.6); RBC Distribution Width SD 40.1 fl (35.1-43.9); Red Blood Count 3.75 M/mm3 (4.6-6.2); White Blood Count 8.5 K/mm3 (4.4-11.0)
[2019-08-12 13:49] LABS: Erythrocyte Sedimentation Rate 27 mm/hr (0-15)
[2019-08-12 14:12] LABS: ALB/GLOB Ratio 0.8 RATIO (0.9-2.4); AST(SGOT) 13 U/L (15-37); Alanine Aminotransfer ALT/SGPT 21 U/L (16-61); Albumin, Serum 3.5 g/dL (3.2-5.0); Alkaline Phosphatase 120 U/L (45-117); Anion Gap 5 (5-15); BUN 42 mg/dL (7-18); BUN/Creat Ratio 15.8 RATIO (10-20); CRP < 2.90 mg/L (0.0-3.0); Calcium,Total 8.7 mg/dL (8.5-10.1); Chloride 108 mmol/L (98-107); Creatinine, Serum 2.65 mg/dL (0.70-1.30); EST Glomerular Filtration Rate 28 mL/min (>60); Est Glom Filt Rate - Afr Amer 34 mL/min (>60); Globulin 4.3 g/dL (2.2-4.2); Glucose 178 mg/dL (74-106); Potassium 5.3 mmol/L (3.5-5.1); Protein, Total 7.8 g/dL (6.4-8.2); Sodium Level 139 mmol/L (136-145)
[2019-08-12 14:36] LABS: Hemoglobin A1c 6.5 % (3.8-5.6)
== END ==
PROVIDERS: Referring Provider Podiatrist; Visit Provider Podiatrist
DX: E11.621 Type 2 diabetes mellitus with foot ulcer (principal); L97.512 Non-pressure chronic ulcer of other part of right foot with fat layer exposed
CPT/HCPCS: 36415; 73630; 80053; 83036; 85025; 85652; 86140

== ENCOUNTER → 2019-09-14 16:18 | Outpatient (CLI) | payer MEDICAID, SELFPAY ==
[2019-09-09 11:31] VITALS: BMI 41.9
[2019-09-14 18:11] LABS: Absolute Lymphocyte Count 1.54 X10^3/uL (0.83-4.51); Basophil# 0.04 X10^3/uL; Basophil% 0.5 % (0-1); Eosinophil# 0.25 X10^3/uL; Eosinophils% 3.4 % (0-5); Lymphocyte # 1.54 X10^3/ul (4.0); Lymphocyte % 20.7 % (19-41); Mean Corp Hgb Conc 31.3 g/dL (32-36); Mean Corpuscular Hgb 28.8 pg (27.0-32.0); Mean Corpuscular Volume 92.2 fL (80-94); Mean Platelet Vol. 10.9 fl (6.2-12.0); Monocyte# 0.62 X10^3/uL; Monocyte% 8.3 % (0-10); NRBC Flagged by Analyzer 0 % (0-5); Neutrophil # 4.97 X10^3/uL (2.7-7.7); Neutrophil % 66.8 % (47-70); Platelet Count 204 K/mm3 (150-450); RBC Distribution Width CV 12.7 % (11.6-14.6); RBC Distribution Width SD 41.8 fl (35.1-43.9); Red Blood Count 3.47 M/mm3 (4.6-6.2); White Blood Count 7.4 K/mm3 (4.4-11.0)
[2019-09-14 18:45] LABS: Albumin, Serum 3.5 g/dL (3.2-5.0); BUN 46 mg/dL (7-18); BUN/Creat Ratio 15.7 RATIO (10-20); Creatinine, Serum 2.93 mg/dL (0.70-1.30); EST Glomerular Filtration Rate 25 mL/min (>60); Est Glom Filt Rate - Afr Amer 30 mL/min (>60); Glucose 116 mg/dL (74-106); Protein, Total 7.9 g/dL (6.4-8.2)
[2019-09-14 18:46] LABS: ALB/GLOB Ratio 0.8 RATIO (0.9-2.4); AST(SGOT) 15 U/L (15-37); Alanine Aminotransfer ALT/SGPT 27 U/L (16-61); Alkaline Phosphatase 116 U/L (45-117); Anion Gap 7 (5-15); Calcium,Total 8.6 mg/dL (8.5-10.1); Chloride 107 mmol/L (98-107); Globulin 4.4 g/dL (2.2-4.2); Potassium 4.9 mmol/L (3.5-5.1); Sodium Level 139 mmol/L (136-145)
== END ==
PROVIDERS: Referring Provider Family Medicine; Visit Provider Family Medicine
DX: Z01.818 Encounter for other preprocedural examination (principal)
CPT/HCPCS: 36415; 80053; 85025

== ENCOUNTER 2019-09-16 11:30 | Outpatient (RCR) | payer MEDICAID, SELFPAY ==
[2019-08-24 00:15] VITALS: BP 153/89; PULSE 83; RESP 20; TEMP 36.6
[2019-08-26 11:53] VITALS: BP 142/83; PULSE 86; RESP 18; TEMP 36.8; BMI 41.9
--- NOTE | 2019-08-26 13:08 | PN.PCM_ITS ---
(1) Ulcer of right foot with fat layer exposed Status: Chronic Current Visit: Yes Code(s): L97.512 - Non-pressure chronic ulcer of other part of right foot with fat layer exposed (2) Delayed wound healing Status: Chronic Current Visit: Yes Code(s): T14.8XXD - Other injury of unspecified body region, subsequent encounter (3) Malnutrition Status: Chronic Current Visit: Yes Code(s): E46 - Unspecified protein- calorie malnutrition (4) Hammer toe of right foot Status: Chronic Current Visit: Yes Code(s): M20.41 - Other hammer toe(s) (acquired), right foot (5) Type 2 diabetes mellitus with diabetic polyneuropathy Status: Chronic Current Visit: Yes Code(s): E11.42 - Type 2 diabetes mellitus with diabetic polyneuropathy Type of Wound Date of Service: 08/26/19 Chief Complaint: Non healing right foot ulcer. History of Wound: Mr. 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 He denies fever, chill, nausea, vomiting. He had a prior right fourth metatarsal head resection that has healed. None he is a transfer lesion to the sub-third metatarsal head site. He denies pain, odor, or redness. He denies fever, chill, nausea, vomiting. He relates he was sick last week but did not think this was from his foot. Progress of Wound: sub-third metatarsal head ulcer right foot - Physical Exam Vital Signs Temp Pulse Resp BP 98.3 F 86 18 142/83 H 08/26/19 11:53 08/26/19 11:53 08/26/19 11:53 08/26/19 11:53 General: Alert, Oriented x3, Cooperative, No apparent distress HEENT: Atraumatic Extremities: No cyanosis, Capillary Refill Less than 3 Seconds, No Calf Tenderness, Diminished Peripheral Pulses, Edema Skin: Ulcer/ Wound - No purulence, erythema, string, odor, infection. Increased depth is noted and significant peripheral callus. The adjacent skin is hairless and atrophic Wound Measurements and Assessment WC - Nurse 1 - General Ulcer Measurement Start: 08/26/19 11:53 Freq: Status: Active Protocol: Activity Type Activity Date Activity User E-Sign Co-Sign Detail Recorded Client Recorded Date Recorded By Document 08/26/19 11:53 RB [id number] 08/26/19 11:55 RB 08/26/19 11:53 Wound Center Nurse 1 [Ulcer Assessment] #4 right 3rd methead foot -Combined with other wound No -Current Size (cm) - Length 1 -Current Size (cm) - Width 0.9 -Current Size (cm) - Depth 0.5 -Total Square Cm 0.9 -Tunneling No -Undermining/Tunneling Yes -Undermining/Tunneling Starts (O' 1 clock) -Undermining/Tunneling Ends (O'clock) 3 -Maximum Distance (cm) 0.5 -Exudate Amt Small -Exudate Type Serosanguineous -Wound Margin Fibrotic Scar, Thickened Scar -Granulation Amt Medium (34-66%) -Granulation Quality [place] -Slough/Fibrin Yes -Necrosis Amt Small (1-33%) -Necrotic Tissue Type Adherent Slough -Structure Exposed N/A -Texture (Rosaura-wound Skin Appearance) Callus -Moisture (Rosaura-wound Skin Appearance Assessed ) -Color (Rosaura-wound Skin Appearance) Assessed -Temperature (Rosaura-wound Skin No Abnormality Appearance) (Pt Warm) -Tenderness on Palpation (Rosaura-wound No Skin Appearance) -Ulcer Cleansing Wound Cleanser -Foul Odor after Cleansing No -Anesthetic Used 4% Lidocaine Solution WC - Nurse 2 - General Ulcer CM Notes Start: 08/26/19 11:53 Freq: Status: Active Protocol: Activity Type Activity Date Activity User E-Sign Co-Sign Detail Recorded Client Recorded Date Recorded By Document 08/26/19 13:06 PL [id number] 08/26/19 13:07 PL 08/26/19 13:06 Wound Center Nurse 2 [Procedure/Treatment] -Time 12:04 -Correct Patient Yes -Correct Side, Site, Position Yes -Correct Procedure Yes -Procedure Performed Yes -Type of Procedure Debridement -Clinical Debridement Subcutaneous -Post Debridement Size (cm) - Length 1.3 -Post Debridement Size (cm) - Width 1.4 -Post Debridement Size (cm) - Depth 0.4 -Total Square Cm 1.82 -Wound/Ulcer Outcome Not Healed -Ulcer Cleansing Rinsed/ Irrigated with Saline -Foul Odor after Cleansing No -Bleeding Controlled with Pressure -Treatment Response Procedure Tolerated Well [See Physician Procedure note for Specifics] Pain Scale: 0-10 Numeric [Pain] -Is Patient Pain Free? Yes Musculoskeletal: No Tenderness to Palpation of Joints or Extremities, Muscle Wasting, - - Dorsal contraction of lesser digits and prominent metatarsal heads. Excised fourth metatarsal head and prior hallux amputation noted Neurological: - - Lack of epicritic sensation light touch is consistent with neuropathy status Psych/Mental Status: Normal Affect, Appropriate Debridement Note Post-Debridement Measurements/Treatment WC - Nurse 2 - General Ulcer CM Notes Start: 08/26/19 11:53 Freq: Status: Active Protocol: Activity Type Activity Date Activity User E-Sign Co-Sign Detail Recorded Client Recorded Date Recorded By Document 08/26/19 13:06 [email or web address] [id number] 08/26/19 13:07 PL 08/26/19 13:06 Wound Center Nurse 2 #4 right 3rd methead foot -Time 12:04 -Correct Patient Yes -Correct Side, Site, Position Yes -Correct Procedure Yes -Procedure Performed Yes -Type of Procedure Debridement -Clinical Debridement Subcutaneous -Post Debridement Size (cm) - Length 1.3 -Post Debridement Size (cm) - Width 1.4 -Post Debridement Size (cm) - Depth 0.4 -Total Square Cm 1.82 -Wound/Ulcer Outcome Not Healed -Ulcer Cleansing Rinsed/ Irrigated with Saline -Foul Odor after Cleansing No -Bleeding Controlled with Pressure -Treatment Response Procedure Tolerated Well Pain Scale: 0-10 Numeric Is Patient Pain Free? Yes Wound debrided: plantar 4th metatarsal head Laterality: Right Wound Grade/Stage: grade 1 Type of Debridement: Excisional debridement Anesthesia Used: 5% Lidocaine Gel Depth: in the subcutaneous layer Percentage of wound debrided: 100 Instrument Used: #15 blade Tissue Removed: fibrous, devitalized subcutaneous, biofilm, slough Severity: Fat Layer Exposed Amount of bleeding with debridement: Mild Bleeding Controlled with: Pressure Patient tolerated procedure well Assessment/Plan Active Problems Ulcer of right foot with fat layer exposed (Chronic) Delayed wound healing (Chronic) Malnutrition (Chronic) Hammer toe of right foot (Chronic) Type 2 diabetes mellitus with diabetic polyneuropathy (Chronic) Assessment: sub-third metatarsal head ulcer, Quinn grade 1, no infection. Healed status post right fourth metatarsal head resection with ulcer excision application of amnio fill advanced wound healing product performed on 02/13/2019 for treatment of nonhealing diabetic foot ulcer of right foot fat layer exposed. Osteitis fourth metatarsal head (differential diagnosis was preoperative osteomyelitis). Healed heel ulcer, right (quinn grade 1). Diabetic neuropathy. malnutrition suspected. delayed healing. Venous insufficiency and leg edema. Hammertoe with prominent metatarsal heads. cardiac disease Plan: I reviewed and discussed his case today. I reviewed his previous diagnostic data. His postoperative status is noted and appears to be healed. His local signs of inflammation and infection are not present today. He does have a new skin discontinuity (transfer lesion) that is now getting deeper and not infected. Subcutaneous excisional debridement was performed as noted in the clinical count to the plantar foot ulcer site and his heel ulcer site is healed today. To change his forefoot ulcer site with Aqu[employer]. To offload with Cam walker boot with offloading pockets which appear to be appropriately aligned after check today. To avoid driving or standing. A work note was provided. He is trying to apply for disability. 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 At length today we discussed the following treatment options: Continued comprehensive wound healing plan, surgical intervention including third metatarsal head resection, transmetatarsal amputation. I ordered an updated x-ray to evaluate for any osseous changes or radiographic signs of infection. It is also noted he had normal perfusion when he had noninvasive vascular studies performed less than a year ago. He thought about the surgical options and would like to proceed forward with a transmetatarsal amputation at this time given his previous multiple forefoot resections and amputations. He understands there is no guarantee that the transmetatarsal amputation would breakdown or cause transfer lesions however there is a lower probability of this due to the larger vasculature at this level as compared to the toe and metatarsal head area and also this would be a more balanced forefoot parabola. He would like to proceed forward with the clearance process and I advised him the foot and ankle center surgical coordinating nurse, Doug, will contact him to help him get these scheduled. To return to the wound healing center in 1 week or call sooner if he has any questions or concerns.
[2019-09-02 11:19] VITALS: BP 135/72; PULSE 72; RESP 18; TEMP 36.1; BMI 41.9
--- NOTE | 2019-09-02 14:54 | PCM.WC.PN ---
(1) Ulcer of right foot with necrosis of muscle Status: Chronic Code(s): L97.513 - Non-pressure chronic ulcer of other part of right foot with necrosis of muscle (2) Delayed wound healing Status: Chronic Code(s): T14.8XXD - Other injury of unspecified body region, subsequent encounter (3) Malnutrition Status: Chronic Code(s): E46 - Unspecified protein-calorie malnutrition (4) Hammer toe of right foot Status: Chronic Code(s): M20.41 - Other hammer toe(s) (acquired), right foot (5) Type 2 diabetes mellitus with diabetic polyneuropathy Status: Chronic Code(s): E11.42 - Type 2 diabetes mellitus with diabetic polyneuropathy Type of Wound Date of Service: 09/02/19 Chief Complaint: Non healing right foot ulcer. History of Wound: Mr. 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 He denies fever, chill, nausea, vomiting. He had a prior right fourth metatarsal head resection that has healed. None he is a transfer lesion to the sub-third metatarsal head site with delayed healing. He denies pain, odor, or redness. He denies fever, chill, nausea, vomiting. He would like to proceed forward with a transmetatarsal amputation. Progress of Wound: sub-third metatarsal head ulcer right foot stable - Physical Exam Vital Signs Temp Pulse Resp BP 97 F L 72 18 135/72 H 09/02/19 11:19 09/02/19 11:19 09/02/19 11:19 09/02/19 11:19 General: Alert, Oriented x3, Cooperative, No apparent distress HEENT: Atraumatic Extremities: No cyanosis, Capillary Refill Less than 3 Seconds, No Calf Tenderness, Diminished Peripheral Pulses, Edema Skin: Ulcer/ Wound - No purulence, erythema, streaking, odor, infection. Adjacent skin is hairless and atrophic. The ulcer continues have delayed healing and has a granular and fibrous base. There is some progression now with deeper capsular type tissue exposed without infection signs. No probe to bone Wound Measurements and Assessment WC - Nurse 1 - General Ulcer Measurement Start: 08/26/19 11:53 Freq: Status: Active Protocol: Activity Type Activity Date Activity User E-Sign Co-Sign Detail Recorded Client Recorded Date Recorded By Document 09/02/19 11:19 ME [id number] 09/02/19 11:24 ME 09/02/19 11:19 Wound Center Nurse 1 [Ulcer Assessment] #4 right 3rd methead foot -Current Size (cm) - Length 1.2 -Current Size (cm) - Width 1.3 -Current Size (cm) - Depth 0.5 -Total Square Cm 1.56 -Exudate Amt Small -Exudate Type Serosanguineous -Wound Margin Thickened & Rolled Under -Granulation Amt Large (67-100%) -Granulation Quality [place] -Slough/Fibrin Yes -Necrosis Amt Small (1-33%) -Texture (Rosaura-wound Skin Appearance) Assessed -Moisture (Rosaura-wound Skin Appearance Assessed ) -Color (Rosaura-wound Skin Appearance) Assessed -Temperature (Rosaura-wound Skin No Abnormality Appearance) (Pt Warm) -Tenderness on Palpation (Rosaura-wound No Skin Appearance) -Ulcer Cleansing Rinsed/ Irrigated with Saline -Foul Odor after Cleansing No -Anesthetic Used 4% Lidocaine Solution [Edema Assessment] -Lower Limb Edema Present No WC - Nurse 2 - General Ulcer CM Notes Start: 08/26/19 11:53 Freq: Status: Active Protocol: Activity Type Activity Date Activity User E-Sign Co-Sign Detail Recorded Client Recorded Date Recorded By Document 09/02/19 11:45 [id number] 09/02/19 13:37 09/02/19 11:45 Wound Center Nurse 2 [Procedure/Treatment] #4 right 3rd methead foot -Time 13:36 -Correct Patient Yes -Correct Side, Site, Position Yes -Correct Procedure Yes -Procedure Performed Yes -Type of Procedure Debridement -Clinical Debridement Subcutaneous -Post Debridement Size (cm) - Length 1.4 -Post Debridement Size (cm) - Width 1.5 -Post Debridement Size (cm) - Depth 0.5 -Total Square Cm 2.10 -Wound/Ulcer Outcome Not Healed -Ulcer Cleansing Rinsed/ Irrigated with Saline -Foul Odor after Cleansing No -Bioengineered Tissue No -Bleeding Controlled with Pressure -Offloading Yes -Type of Offloading Camwalker -Treatment Response Procedure Tolerated Well [See Physician Procedure note for Specifics] Pain Scale: 0-10 Numeric [Pain] -Is Patient Pain Free? Yes Musculoskeletal: No Tenderness to Palpation of Joints or Extremities, Muscle Wasting, - - Prominent third metatarsal head and dorsal contraction of adjacent digits. Prior fourth metatarsal head resection is noted Neurological: - - Lack of epicritic sensation light touch is consistent with neuropathy status Psych/Mental Status: Normal Affect, Appropriate Debridement Note Post-Debridement Measurements/Treatment WC - Nurse 2 - General Ulcer CM Notes Start: 08/26/19 11:53 Freq: Status: Active Protocol: Activity Type Activity Date Activity User E-Sign Co-Sign Detail Recorded Client Recorded Date Recorded By Document 08/26/19 13:06 PL [id number] 08/26/19 13:07 PL Document 09/02/19 11:45 [id number] 09/02/19 13:37 08/26/19 09/02/19 13:06 11:45 Wound Center Nurse 2 #4 right 3rd methead foot -Time 12:04 13:36 -Correct Patient Yes Yes -Correct Side, Site, Position Yes Yes -Correct Procedure Yes Yes -Procedure Performed Yes Yes -Type of Procedure Debridement Debridement -Clinical Debridement Subcutaneous Subcutaneous -Post Debridement Size (cm) - Length 1.3 1.4 -Post Debridement Size (cm) - Width 1.4 1.5 -Post Debridement Size (cm) - Depth 0.4 0.5 -Total Square Cm 1.82 2.10 -Wound/Ulcer Outcome Not Healed Not Healed -Ulcer Cleansing Rinsed/ Rinsed/ Irrigated with Irrigated with Saline Saline -Foul Odor after Cleansing No No -Bioengineered Tissue No -Bleeding Controlled with Pressure Pressure -Offloading Yes -Type of Offloading Camwalker -Treatment Response Procedure Procedure Tolerated Well Tolerated Well Pain Scale: 0-10 Numeric Is Patient Pain Free? Yes Yes Wound debrided: plantar foot Laterality: Right Wound Grade/Stage: grade 2 Type of Debridement: Excisional debridement Anesthesia Used: 5% Lidocaine Gel Depth: in the subcutaneous layer Percentage of wound debrided: 100 Instrument Used: #15 blade Tissue Removed: fibrous, devitalized subcutaneous, biofilm, slough Severity: Fat Layer Exposed Amount of bleeding with debridement: Mild Bleeding Controlled with: Pressure Patient tolerated procedure well Assessment/Plan Assessment: sub-third metatarsal head ulcer, Quinn grade 2, no infection. Diabetic neuropathy. malnutrition suspected. delayed healing. Venous insufficiency and leg edema. Hammertoe with prominent metatarsal heads. cardiac disease Plan: I reviewed and discussed his case today. I reviewed his previous diagnostic data. His postoperative status is noted and appears to be healed. His local signs of inflammation and infection are not present today. He does have a new skin discontinuity (transfer lesion) that is now getting deeper and not infected. Subcutaneous excisional debridement was performed as noted in the clinical count to the plantar foot ulcer site and his heel ulcer site is healed today. To change his forefoot ulcer site with Aquacell [employer]. To offload with Cam walker boot with offloading pockets which appear to be appropriately aligned after check today. To avoid driving or standing. he is at risk for limb loss, continued infections and amputations. At length today we discussed the following treatment options: Continued comprehensive wound healing plan, surgical intervention including third metatarsal head resection, versus transmetatarsal amputation. He would like to proceed forward with a transmetatarsal amputation. I ordered an updated x-ray to evaluate for any osseous changes or radiographic signs of infection. It is also noted he had normal perfusion when he had noninvasive vascular studies performed less than a year ago. He thought about the surgical options and would like to proceed forward with a transmetatarsal amputation at this time given his previous multiple forefoot resections and amputations. He understands there is no guarantee that the transmetatarsal amputation would breakdown or cause transfer lesions however there is a lower probability of this due to the larger vasculature at this level as compared to the toe and metatarsal head area and also this would be a more balanced forefoot parabola. He would like to proceed forward with the clearance process and I advised him the foot and ankle center surgical coordinating nurse, Doug, will contact him to help him get these scheduled. To return to the wound healing center in 1 week or call sooner if he has any questions or concerns.
[2019-09-09 11:31] VITALS: BP 129/72; PULSE 76; RESP 20; TEMP 36.1; BMI 41.9
--- NOTE | 2019-09-09 12:05 | PN.PCM_ITS ---
(1) Ulcer of right foot with necrosis of muscle Status: Chronic Current Visit: Yes Code(s): L97.513 - Non-pressure chronic ulcer of other part of right foot with necrosis of muscle (2) Delayed wound healing Status: Chronic Current Visit: Yes Code(s): T14.8XXD - Other injury of unspecified body region, subsequent encounter (3) Malnutrition Status: Chronic Current Visit: Yes Code(s): E46 - Unspecified protein- calorie malnutrition (4) Hammer toe of right foot Status: Chronic Current Visit: Yes Code(s): M20.41 - Other hammer toe(s) (acquired), right foot (5) Type 2 diabetes mellitus with diabetic polyneuropathy Status: Chronic Current Visit: Yes Code(s): E11.42 - Type 2 diabetes mellitus with diabetic polyneuropathy Type of Wound Date of Service: 09/09/19 Chief Complaint: Non healing right foot ulcer. History of Wound: Mr. 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 He denies fever, chill, nausea, vomiting. He had a prior right fourth metatarsal head resection that has healed. None he is a transfer lesion to the sub-third metatarsal head site with delayed healing. He denies pain, odor, or redness. He denies fever, chill, nausea, vomiting. He would like to proceed forward with a transmetatarsal amputation. Progress of Wound: sub-third metatarsal head ulcer right foot stable - Physical Exam Vital Signs Temp Pulse Resp BP 97 F L 76 20 H 129/72 H 09/09/19 11:31 09/09/19 11:31 09/09/19 11:31 09/09/19 11:31 General: Alert, Oriented x3, Cooperative, No apparent distress HEENT: Atraumatic Extremities: No cyanosis, Capillary Refill Less than 3 Seconds, No Calf Tenderness, Diminished Peripheral Pulses, Edema Skin: Ulcer/ Wound - No purulence, erythema, streaking, odor, infection. Deeper tendon tissue exposed today in the ulcer bed. There is no eschar or maceration. The adjacent skin is hairless and atrophic Wound Measurements and Assessment WC - Nurse 1 - General Ulcer Measurement Start: 08/26/19 11:53 Freq: Status: Active Protocol: Activity Type Activity Date Activity User E-Sign Co-Sign Detail Recorded Client Recorded Date Recorded By Document 09/09/19 11:31 LILIAN [id number] 09/09/19 11:38 DL 09/09/19 11:31 Wound Center Nurse 1 [Ulcer Assessment] #4 right 3rd methead foot -Current Size (cm) - Length 1.2 -Current Size (cm) - Width 1.1 -Current Size (cm) - Depth 0.5 -Total Square Cm 1.32 -Photo Taken No -Exudate Amt Small -Exudate Type Serosanguineous -Wound Margin Distinct, Outline Attached -Granulation Amt Medium (34-66%) -Granulation Quality Red -Necrosis Amt Medium (34-66%) -Necrotic Tissue Type Adherent Slough -Structure Exposed N/A -Texture (Rosaura-wound Skin Appearance) Callus,Scarring -Moisture (Rosaura-wound Skin Appearance Dry/Scaly ) -Color (Rosaura-wound Skin Appearance) No Abnormality -Temperature (Rosaura-wound Skin No Abnormality Appearance) (Pt Warm) -Tenderness on Palpation (Rosaura-wound No Skin Appearance) -Ulcer Cleansing Rinsed/ Irrigated with Saline -Foul Odor after Cleansing No -Anesthetic Used 4% Lidocaine Solution - Nurse 2 - General Ulcer CM Notes Start: 08/26/19 11:53 Freq: Status: Active Protocol: Activity Type Activity Date Activity User E-Sign Co-Sign Detail Recorded Client Recorded Date Recorded By Document 09/09/19 11:59 OTONIEL [id number] 09/09/19 12:00 OTONIEL 09/09/19 11:59 Wound Center Nurse 2 [Procedure/Treatment] -Time 12:00 -Correct Patient Yes -Correct Side, Site, Position Yes -Correct Procedure Yes -Procedure Performed Yes -Type of Procedure Debridement -Clinical Debridement Subcutaneous -Post Debridement Size (cm) - Length 1.2 -Post Debridement Size (cm) - Width 1.2 -Post Debridement Size (cm) - Depth 0.6 -Total Square Cm 1.44 -Wound/Ulcer Outcome Not Healed -Ulcer Cleansing Rinsed/ Irrigated with Saline -Foul Odor after Cleansing No -Bioengineered Tissue No -Bleeding Controlled with Pressure -Offloading Yes -Type of Offloading Camwalker -Treatment Response Procedure Tolerated Well [See Physician Procedure note for Specifics] Pain Scale: 0-10 Numeric [Pain] -Is Patient Pain Free? Yes Musculoskeletal: No Tenderness to Palpation of Joints or Extremities, Muscle Wasting, - - Dorsal contraction of lesser digits and prominent metatarsal head Neurological: - - Lack of epicritic sensation light touch is consistent with neuropathy status Psych/Mental Status: Normal Affect, Appropriate Debridement Note Post-Debridement Measurements/Treatment WC - Nurse 2 - General Ulcer CM Notes Start: 08/26/19 11:53 Freq: Status: Active Protocol: Activity Type Activity Date Activity User E-Sign Co-Sign Detail Recorded Client Recorded Date Recorded By Document 08/26/19 13:06 PL [id number] 08/26/19 13:07 PL Document 09/02/19 11:45 [id number] 09/02/19 13:37 Document 09/09/19 11:59 [id number] 09/09/19 12:00 08/26/19 09/02/19 09/09/19 13:06 11:45 11:59 Wound Center Nurse 2 #4 right 3rd methead foot -Time 12:04 13:36 12:00 -Correct Patient Yes Yes Yes -Correct Side, Site, Position Yes Yes Yes -Correct Procedure Yes Yes Yes -Procedure Performed Yes Yes Yes -Type of Procedure Debridement Debridement Debridement -Clinical Debridement Subcutaneous Subcutaneous Subcutaneous -Post Debridement Size (cm) - Length 1.3 1.4 1.2 -Post Debridement Size (cm) - Width 1.4 1.5 1.2 -Post Debridement Size (cm) - Depth 0.4 0.5 0.6 -Total Square Cm 1.82 2.10 1.44 -Wound/Ulcer Outcome Not Healed Not Healed Not Healed -Ulcer Cleansing Rinsed/ Rinsed/ Rinsed/ Irrigated with Irrigated with Irrigated with Saline Saline Saline -Foul Odor after Cleansing No No No -Bioengineered Tissue No No -Bleeding Controlled with Pressure Pressure Pressure -Offloading Yes Yes -Type of Offloading Camwalker Camwalker -Treatment Response Procedure Procedure Procedure Tolerated Well Tolerated Well Tolerated Well Pain Scale: 0-10 Numeric Is Patient Pain Free? Yes Yes Yes Wound debrided: sub 3rd metatarsal head Laterality: Right Wound Grade/Stage: grade 2 Type of Debridement: Excisional debridement Anesthesia Used: 5% Lidocaine Gel Depth: in the subcutaneous layer Percentage of wound debrided: 100 Instrument Used: #15 blade Tissue Removed: fibrous, devitalized subcutaneous, biofilm, slough Severity: Fat Layer Exposed Amount of bleeding with debridement: Mild Bleeding Controlled with: Pressure Patient tolerated procedure well Assessment/Plan Active Problems Delayed wound healing (Chronic) Malnutrition (Chronic) Hammer toe of right foot (Chronic) Type 2 diabetes mellitus with diabetic polyneuropathy (Chronic) Ulcer of right foot with necrosis of muscle (Chronic) Assessment: sub-third metatarsal head ulcer, Quinn grade 2, no infection. Diabetic neuropathy. malnutrition suspected. delayed healing. Venous insufficiency and leg edema. Hammertoe with prominent metatarsal heads. cardiac disease Plan: I reviewed and discussed his case today. I reviewed his previous diagnostic data. His postoperative status is noted and appears to be healed. His local signs of inflammation and infection are not present today. Subcutaneous excisional debridement was performed as noted in the clinical count to the plantar foot ulcer site and his heel ulcer site is healed today. To change his forefoot ulcer site with [employer]. To offload with Cam walker boot with offloading pockets which appear to be appropriately aligned after check today. To avoid driving or standing. he is at risk for limb loss, continued infections and amputations. At length today we discussed the following treatment options: Continued comprehensive wound healing plan, surgical intervention including third metatarsal head resection, versus transmetatarsal amputation. He would like to proceed forward with a transmetatarsal amputation. I ordered an updated x-ray to evaluate for any osseous changes or radiographic signs of infection. It is also noted he had normal perfusion when he had noninvasive vascular studies performed less than a year ago. He thought about the surgical options and would like to proceed forward with a transmetatarsal amputation at this time given his previous multiple forefoot resections and amputations. He understands there is no guarantee that the transmetatarsal amputation would breakdown or cause transfer lesions however there is a lower probability of this due to the larger vasculature at this level as compared to the toe and metatarsal head area and also this would be a more balanced forefoot parabola. He would like to proceed forward with the clearance process and I advised him the foot and ankle center surgical coordinating nurse, Doug, will contact him to help him get these scheduled. He was advised that it is been very difficult to get a hold of him and he either needs to provide a working phone number or call in to the foot and ankle center at least weekly to get this set up. He understands risks and complications include but may not be limited to the following: Pain, swelling, scarring, delayed healing, nonhealing, infection, blood clot, allergic reaction, additional transfer lesions and ulcers, chronic pain, loss of limb, function, life. He also understands he will be screened for COVID-19 and there is an inherent risk of this being present in the community at this time. To return to the wound healing center in 1 week or call sooner if he has any questions or concerns.
[2019-09-16 11:43] VITALS: BP 140/61; PULSE 79; RESP 20; TEMP 36.1; BMI 41.9
--- NOTE | 2019-09-16 12:29 | PCM.WC.PN ---
(1) Ulcer of right foot with necrosis of muscle Status: Chronic Current Visit: Yes Code(s): L97.513 - Non-pressure chronic ulcer of other part of right foot with necrosis of muscle (2) Delayed wound healing Status: Chronic Current Visit: Yes Code(s): T14.8XXD - Other injury of unspecified body region, subsequent encounter (3) Malnutrition Status: Chronic Current Visit: Yes Code(s): E46 - Unspecified protein-calorie malnutrition (4) Hammer toe of right foot Status: Chronic Current Visit: Yes Code(s): M20.41 - Other hammer toe(s) (acquired), right foot (5) Type 2 diabetes mellitus with diabetic polyneuropathy Status: Chronic Current Visit: Yes Code(s): E11.42 - Type 2 diabetes mellitus with diabetic polyneuropathy Type of Wound Date of Service: 09/16/19 Chief Complaint: Non healing right foot ulcer. History of Wound: Mr. 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 He denies fever, chill, nausea, vomiting. He had a prior right fourth metatarsal head resection that has healed. he is a transfer lesion to the sub-third metatarsal head site with delayed healing. He denies pain, odor, or redness. He denies fever, chill, nausea, vomiting. He would like to proceed forward with a transmetatarsal amputation. This is scheduled for this upcoming Saturday at [facility]. He plans to be admitted after the procedure for medical management and also to confirm he is able to maintain an appropriate nonweightbearing status. Progress of Wound: Stable. His progressive deterioration to the capsular levels noted. - Physical Exam Vital Signs Temp Pulse Resp BP 97 F L 79 20 H 140/61 H 09/16/19 11:43 09/16/19 11:43 09/16/19 11:43 09/16/19 11:43 General: Alert, Oriented x3, Cooperative, No apparent distress HEENT: Atraumatic Extremities: No cyanosis, Capillary Refill Less than 3 Seconds, No Calf Tenderness - Negative Gato and Narvaez sign. Compartments remain soft. No bogginess or fluctuance to the right foot., Diminished Peripheral Pulses - Palpable pulses are noted and his noninvasive vascular studies her approximately 1 year ago are also noted demonstrating adequate perfusion for surgical healing, Edema Skin: Ulcer/ Wound - No purulence, erythema, streaking, odor, infection. There is a granular and fibrous base ulcer sub-third metatarsal head of the right foot now with central capsular tissue identified. No positive probe to bone Wound Measurements and Assessment WC - Nurse 1 - General Ulcer Measurement Start: 08/26/19 11:53 Freq: Status: Active Protocol: Activity Type Activity Date Activity User E-Sign Co-Sign Detail Recorded Client Recorded Date Recorded By Document 09/16/19 11:43 LILIAN [id number] 09/16/19 11:48 DL 09/16/19 11:43 Wound Center Nurse 1 [Ulcer Assessment] #4 right 3rd methead foot -Current Size (cm) - Length 1.6 -Current Size (cm) - Width 1.2 -Current Size (cm) - Depth 0.6 -Total Square Cm 1.92 -Photo Taken No -Exudate Amt Small -Exudate Type Serosanguineous -Wound Margin Thickened -Granulation Amt Large (67-100%) -Granulation Quality [place] -Necrosis Amt Small (1-33%) -Necrotic Tissue Type Adherent Slough -Structure Exposed N/A -Texture (Rosaura-wound Skin Appearance) Callus -Moisture (Rosaura-wound Skin Appearance Dry/Scaly ) -Color (Rosaura-wound Skin Appearance) No Abnormality -Temperature (Rosaura-wound Skin No Abnormality Appearance) (Pt Warm) -Tenderness on Palpation (Rosaura-wound No Skin Appearance) -Ulcer Cleansing Wound Cleanser -Foul Odor after Cleansing No -Anesthetic Used 4% Lidocaine Solution WC - Nurse 2 - General Ulcer CM Notes Start: 08/26/19 11:53 Freq: Status: Active Protocol: Activity Type Activity Date Activity User E-Sign Co-Sign Detail Recorded Client Recorded Date Recorded By Document 09/16/19 12:12 OTONIEL [id number] 09/16/19 12:13 OTONIEL 09/16/19 12:12 Wound Center Nurse 2 [Procedure/Treatment] -Correct Patient No -Correct Side, Site, Position No -Correct Procedure No -Procedure Performed No -Wound/Ulcer Outcome Not Healed [See Physician Procedure note for Specifics] Pain Scale: 0-10 Numeric [Pain] -Is Patient Pain Free? Yes Musculoskeletal: No Tenderness to Palpation of Joints or Extremities, Muscle Wasting, - - Dorsal contraction of lesser toes with prominent metatarsal head Neurological: - - Lack of epicritic sensation light touch is consistent with neuropathy status Psych/Mental Status: Normal Affect, Appropriate Debridement Note Post-Debridement Measurements/Treatment WC - Nurse 2 - General Ulcer CM Notes Start: 08/26/19 11:53 Freq: Status: Active Protocol: Activity Type Activity Date Activity User E-Sign Co-Sign Detail Recorded Client Recorded Date Recorded By Document 08/26/19 13:06 PL [id number] 08/26/19 13:07 PL Document 09/02/19 11:45 JF [id number] 09/02/19 13:37 JF Document 09/09/19 11:59 [id number] 09/09/19 12:00 Document 09/16/19 12:12 [id number] 09/16/19 12:13 08/26/19 09/02/19 09/09/19 13:06 11:45 11:59 Wound Center Nurse 2 #4 right 3rd methead foot -Time 12:04 13:36 12:00 -Correct Patient Yes Yes Yes -Correct Side, Site, Position Yes Yes Yes -Correct Procedure Yes Yes Yes -Procedure Performed Yes Yes Yes -Type of Procedure Debridement Debridement Debridement -Clinical Debridement Subcutaneous Subcutaneous Subcutaneous -Post Debridement Size (cm) - Length 1.3 1.4 1.2 -Post Debridement Size (cm) - Width 1.4 1.5 1.2 -Post Debridement Size (cm) - Depth 0.4 0.5 0.6 -Total Square Cm 1.82 2.10 1.44 -Wound/Ulcer Outcome Not Healed Not Healed Not Healed -Ulcer Cleansing Rinsed/ Rinsed/ Rinsed/ Irrigated with Irrigated with Irrigated with Saline Saline Saline -Foul Odor after Cleansing No No No -Bioengineered Tissue No No -Bleeding Controlled with Pressure Pressure Pressure -Offloading Yes Yes -Type of Offloading Camwalker Camwalker -Treatment Response Procedure Procedure Procedure Tolerated Well Tolerated Well Tolerated Well Pain Scale: 0-10 Numeric Is Patient Pain Free? Yes Yes Yes 09/16/19 12:12 Wound Center Nurse 2 #4 right 3rd methead foot -Time -Correct Patient No -Correct Side, Site, Position No -Correct Procedure No -Procedure Performed No -Type of Procedure -Clinical Debridement -Post Debridement Size (cm) - Length -Post Debridement Size (cm) - Width -Post Debridement Size (cm) - Depth -Total Square Cm -Wound/Ulcer Outcome Not Healed -Ulcer Cleansing -Foul Odor after Cleansing -Bioengineered Tissue -Bleeding Controlled with -Offloading -Type of Offloading -Treatment Response Pain Scale: 0-10 Numeric Is Patient Pain Free? Yes No debridement was completed today - Surgical amputation is scheduled for this upcoming Saturday Assessment/Plan Active Problems (Last Updated 09/18/19 @ 09:[address], [facility]) Delayed wound healing (Chronic) Malnutrition (Chronic) Hammer toe of right foot (Chronic) Type 2 diabetes mellitus with diabetic polyneuropathy (Chronic) Ulcer of right foot with necrosis of muscle (Chronic) Assessment: sub-third metatarsal head ulcer, Quinn grade 2, no infection. Diabetic neuropathy. malnutrition suspected. delayed healing. Venous insufficiency and leg edema. Hammertoe with prominent metatarsal heads. cardiac disease Plan: I reviewed and discussed his case today. I reviewed his previous diagnostic data. His local signs of inflammation and infection are not present today. To change his forefoot ulcer site with [employer]. To offload with Cam walker boot with offloading pockets which appear to be appropriately aligned after check today. To avoid driving or standing. he is at risk for limb loss, continued infections and amputations. At length today we discussed the following treatment options: Continued comprehensive wound healing plan, surgical intervention including third metatarsal head resection, versus transmetatarsal amputation. He would like to proceed forward with a transmetatarsal amputation. I ordered an updated x-ray to evaluate for any osseous changes or radiographic signs of infection. It is also noted he had normal perfusion when he had noninvasive vascular studies performed less than a year ago. He thought about the surgical options and would like to proceed forward with a transmetatarsal amputation at this time given his previous multiple forefoot resections and amputations. He understands there is no guarantee that the transmetatarsal amputation would breakdown or cause transfer lesions however there is a lower probability of this due to the larger vasculature at this level as compared to the toe and metatarsal head area and also this would be a more balanced forefoot parabola. He would like to proceed forward with the clearance process and this was obtained with primary care physician, bottle house pumper, and dope maintenance worker. He is scheduled for surgical intervention at [facility] on Saturday09-18-2019. He will be admitted postoperative for medical observation and gait training. He understands risks and complications include but may not be limited to the following: Pain, swelling, scarring, delayed healing, nonhealing, infection, blood clot, allergic reaction, additional transfer lesions and ulcers, chronic pain, loss of limb, function, life. He also understands he will be screened for COVID-19 and there is an inherent risk of this being present in the community at this time. After surgery he will follow-up with the foot and ankle center within 1 week. I will also continue to follow him while in house after the surgery. Over 25 minutes was spent with this encounter including a [id number] evaluation, treatment, management, education, and care coordination. I answered all of his questions. His surgical consents were also signed today for his surgery this upcoming Saturday.
== END 2019-09-22 23:59 ==
LOC: WC 11:30
PROVIDERS: Referring Provider Podiatrist; Visit Provider Podiatrist
DX: E11.621 Type 2 diabetes mellitus with foot ulcer (principal); M20.41 Other hammer toe(s) (acquired), right foot; L97.512 Non-pressure chronic ulcer of other part of right foot with fat layer exposed; E11.42 Type 2 diabetes mellitus with diabetic polyneuropathy; E11.21 Type 2 diabetes mellitus with diabetic nephropathy; E11.319 Type 2 diabetes mellitus with unspecified diabetic retinopathy without macular edema; I87.2 Venous insufficiency (chronic) (peripheral); R60.0 Localized edema
CPT/HCPCS: 11042; 99212; G0463

== ENCOUNTER 2019-09-18 07:29 | Inpatient (IN) | payer MEDICAID, SELFPAY ==
[2019-09-09 11:31] VITALS: BMI 41.9
[2019-09-13 13:03] LABS: Probe Check PASS; Specimen Processing Control PASS
[2019-09-18] VITALS (11 sets, daily range): BP systolic 109–170; BP diastolic 57–95; PULSE 71–89; RESP 14–18; TEMP 36.3–36.8; O2SAT 94–100; BMI 44.5; BMI 42.8
[2019-09-18 06:15] LABS: Bedside Glucose 117 mg/dL (70-110)
[2019-09-18] MEDS: Lactated Ringers 1,000 ML 100 ML IV ×2 (06:28→08:50)
[2019-09-18] MEDS: Cefazolin 2 GM in 0.9% Normal Saline 100 ML IV (07:27)
--- NOTE | 2019-09-18 07:30 | BON_PTH ---
PATIENT: GILDARDO CANSECO LOC: MS3 U#:[id number] AGE/SX: 43/M ROOM: [facility] [place] RE09/18/[address]: Dr. Wiliam Rosas MD : 1975 BED: 1 DIS: 09/20/2019 SPEC #: [id number] RECD: 09/18/19 09:31 STATUS: AMY LIZ #: [id number] CHASTITY: 09/18/19 07:[address]: Marian Street DEPT: SURGICAL PATHOLOGY RECD BY: Vishnu Herrera ENTERED: 09/18/19 09:41 SP TYPE: Bone OTHR DR: Dr. Kieran Foy MD Tissues: Bone of foot, NOS Procedures: Decalcification bone/plaque Surgery Specimen Level IV HEADER OPERATION: Transmetatarsal amputation right foot PRE-OP DIAGNOSIS: Right foot ulcer and deformity TISSUE SUBMITTED: Right foot bone and soft tissue MICROSCOPIC DIAGNOSIS Right foot bone and soft tissue, transmetatarsal amputation: Focal ulceration, acute and chronic inflammation and granulation tissue reaction. Pseudoepitheliomatous hyperplasia and hyperkeratosis. Underlying bone, negative for acute osteomyelitis. ZAHRA:dia 09/23/19 MICROSCOPIC DESCRIPTION Slides are reviewed. GROSS DESCRIPTION Received in fixative is one container labeled with the patient's name and designated right bone, soft tissue foot. The specimen consists of an amputated foot consisting of four toes (the great toe is missing). The specimen measures 11 x 9 x 8.5 cm. The nails appear unremarkable. Also present in the container is a triangular piece of skin with underlying tissue measuring 4 x 2.5 x 2 cm. A focal area of ulceration is noted. Also present in the container is a detached triangular piece of skin with underlying tissue measuring 4 x 1.5 x 1.7 cm. [employer] Specialist sections are submitted in five cassettes as follows: 1 - ulcerated area, 2-5 - bone after decalcification. / ZAHRA:dia 09/18/19 TC:2 CPT: 83849, 33671
[2019-09-18] MEDS: Bupivacaine Mpf 0.5% 30 ML VIAL (07:56)
--- NOTE | 2019-09-18 08:57 | OP.PCM_ITS ---
Problem List (1) Ulcer of right foot with fat layer exposed Status: Chronic (2) Delayed wound healing Status: Chronic (3) Hammer toe of right foot Status: Chronic Report of Operation Date of Procedure: 09/18/19 Pre-Operative Diagnosis: Right foot chronic ulcer. Hammertoe and metatarsal deformity Post-Operative Diagnosis: Right foot chronic ulcer. Hammertoe and metatarsal deformity Surgery/Procedure Performed:: transmetatarsal amputation, right Description of Surgical Findings:: Hemostasis: Controlled with well-padded pneumatic right thigh tourniquet, 300 mmHg Materials: 2-0 Vicryl, 2-0 and 3-0 nylon Complications: None Specimens: Soft tissue and bone resection sent to pathology The patient tolerated the procedure and anesthesia well. He was transported to the PACU with vital signs stable and vascular status intact to the right lower extremity. His postoperative x-rays were reviewed prior to leaving the operating room demonstrating adequate resection at the amputation site with a well-maintained parabola. There were no acute injuries noted. He will be transferred to the medical surgical floor for continued postoperative medical observation. He will work with physical therapy tomorrow and discharge planning will continue. Postoperative orders were entered electronically. data entry technician: none - Surgeon: Marian Street DPM. Plug Paster: Gino Ivory PGY2 Type of Anesthesia:: General, Local - Preoperative: One-to-one mixture of 1% lidocaine plain and 0.5% Marcaine plain administered in typical right ankle block fashion, 19 cc Specimen's removed: Soft tissue and bone right foot sent to pathology Estimated Blood Loss (mL): < 250 mL Description of Procedure: Indications: 43-year-old male with significant past medical history of diabetes with neuropat hy (hemoglobin A1C 6.5%), cardiac disease (EF ~ 45%), and renal disease (stage III) was treated in outpatient setting for nonhealing trasfer sub third metatarsal head ulcer with deep capsular exposure associated with his foot deformity of a hammertoe and prominent metatarsal heads. X-rays were reviewed without any evidence of distinct osteomyelitis and there was hammertoe deformities noted. Clinically he has a full-thickness skin discontinuity there is a sub-third metatarsal head location with devitalized fibrous and non- granular tissue. There are no acute signs of infection noted. There is no deyanira purulence on expression or adjacent bogginess or fluctuance. He tries offload however struggles with this at times. He is currently seen and is managed under comprehensive wound healing plan at the wound healing center including serial debridement, nutrition advice, medical management, offloading, and an advanced wound healing plan. The preoperative indication, planned procedure, possible benefits, risk, complication, and anticipated healing time and management were discussed in detail with the patient today. He understands and elects to proceed with surgery at this time. He understands risks and complications may include but are not limited to the following: Pain, swelling, scarring, infection, continued delayed or nonhealing, transfer lesions including ulcers or calluses, deformity progression, arthritis, blood clot, allergic reaction, need for further surgery, chronic pain, loss of limb, function, life. Informed surgical consent and limb were signed. He understands this is a curative procedure in attempt to salvage his limb and this is medically necessary. He had prior noninvasive arterial studies performed which demonstrated suspected adequate perfusion for healing. His preoperative clearances by renal specialist, sap business objects consultant, and also his primary care physician were reviewed. His preoperative diagnostic data was also reviewed. I have discussed in detail the risk of exposure to and/or potential harm posed by the COVID-19 virus with having a surgery/procedure at this time versus the risk of delaying the surgery/procedure. It is not possible to know either the risk of delaying the surgery or procedure or chance of getting an infection with perfect accuracy, but a joint decision was made between the patient and the surgeon/proceduralist to proceed at this time with the scheduled surgery/procedure as indicated on the consent form. Procedure detail: The patient was transported to the operating room via cart and placed on the operating table in the supine position. Final verification of patient, surgery, limb designation was performed via the timeout procedure. A well-padded pneumatic right thigh tourniquet was placed. Preoperative IV cefazolin was administered by the anesthesia team. Anesthesia was initiated by the anesthesia team. I administered the local anesthetic as noted. The right lower extremity was prepped and draped in the usual aseptic manner. Passive ankle dorsiflexion was evaluated while he was sedated and was not deemed necessary to do a gastrocnemius or Achilles tendon lengthening at this time. An Esmarch bandage was used to exsanguinate the right lower extremity and the tourniquet was inflated at this time. Therefore, the transmetatarsal amputation procedure began as the following: Attention was next directed to the right forefoot. A 15 blade was used to make a fishmouth incision to the forefoot proximal to the metatarsophalangeal joints. This also included the excision of the plantar sub-third metatarsal head ulcer. A avelar elevator was used to reflect the soft tissue off of the metatarsals proximal to the anticipated resection level. A sagittal saw was used to perform the transmetatarsal amputation taking care to bevel the stump site to create a good parabola. Devitalized structures such as plantar plates, tendons, and devitalized subcutaneous tissues which was excised. All of the soft tissue and bone was sent to pathology as a routine specimen. The tourniquet was deflated at this time and brisk capillary refill time was noted to dorsal and plantar aspects of the open amputation site. Electrocauterization and direct pressure were utilized to control hemostasis. Copious saline irrigation was performed also. Deep closure was performed with 2-0 Vicryl to reapproximate the stump margins. Nylon suture was next used to reapproximate the skin edges utilizing horizontal, vertical, simple retention suture technique. No pulsatile bleeding or purulence was noted. The postoperative dressing consisted of Betadine soaked Adaptic, gauze, abdominal pads, Kerlix, and Roberth wrap. Additionally, a well- padded left posterior mold was applied with the right lower extremity in a rec tus position utilizing webril and roberth wrap. A postoperative x-ray was reviewed and this demonstrated adequate resection at the amputation level without acute injuries. After procedure: The patient tolerated the procedure and anesthesia well. He was transported to the PACU with vital signs stable and vascular status intact to the right lower extremity. He will be transferred to the medical surgical floor for postoperative observation upon continued stability. He was advised to ice and elevate for pain inflammation management. Is noted he has pretty remarkable neuropathy. Pain medication has been ordered on an as-needed basis. He was advised to keep his dressing and splint clean, dry, and intact, and to maintain a strict nonweightbearing status. Physical therapy will work with him tomorrow. Hospitalist team has been consulted for medical management. He will resume DVT prophylaxis tomorrow if hemostasis maintains its controlled status. Discharge home this weekend will be considered if he does well with physical therapy. His cardiac status and chronic kidney disease status is noted. Fluid management will be watched very closely to keep him in a euvolemia state. Postoperative orders were entered electronically. I will follow him closely while in house. Marian Street DPM, [facility] Grafts/Implants Used: none - Complications none - Admit VTE Documentation VTE Present on Admission: No VTE Mechan Device Prophylaxis: SCD's VTE Pharm Prophylaxis ordered?: Yes
--- NOTE | 2019-09-18 08:57 | HP.PCM_ITS ---
Problem List (1) Ulcer of right foot with fat layer exposed Status: Chronic (2) Delayed wound healing Status: Chronic (3) Hammer toe of right foot Status: Chronic History of Present Illness Date of Admission: 09/18/19 Chief Complaint: Right foot chronic ulcer The patient is a 43 year old M with multiple comorbidities including diabetes with neuropathy, congestive heart failure, chronic kidney disease, asthma, hypertension who is had chronic ulcers and surgical intervention on the right foot. He has had a prior hallux amputation and fourth metatarsal head resection . He continues to develop forefoot ulcers and most recently had a sub-third metatarsal head transfer ulcer with progressive worsening. He has demonstrated delayed healing without gross infection in the outpatient setting. He has elected to proceed forward with a curative transmetatarsal amputation. Past Medical History Past Medical History (Chronic Problems): Chronic Problems (Last Updated 09/18/19 @ 09:[address], CEDRIC) Diabetic foot ulcer associated with type 2 diabetes mellitus (Chronic) Right lateral plantar. Type 2 diabetes mellitus (Chronic) Diabetic neuropathy (Chronic) Ulcer of right foot with fat layer exposed (Chronic) Delayed wound healing (Chronic) Malnutrition (Chronic) Hammer toe of right foot (Chronic) Venous insufficiency (Chronic) Localized edema (Chronic) Type 2 diabetes mellitus with diabetic polyneuropathy (Chronic) Osteitis (Chronic) Ulcer of right foot with necrosis of muscle (Chronic) Medical History: Medical History (Last Updated 09/18/19 @ 09:[address], CEDRIC) Asthma J45.909 Congestive heart failure (CHF) I50.9 Left bundle branch block (LBBB) I44.7 Type 2 diabetes mellitus with diabetic polyneuropathy E11.42 Chronic kidney disease (CKD) N18.9 Hypertension I10 Allergies No Known Allergies Allergy (Verified 09/18/19 06:14) Home Medications: Ambulatory Orders Medication Instructions Recorded Aspirin E.C. [Ecotrin] 81 mg PO DAILY@0800 08/14/18 Atorvastatin Calcium [Lipitor] 40 mg PO QHS 08/14/18 Insulin Aspart [Novolog Flexpen 4 units SC TID 08/14/18 ([facility])] Insulin Glargine,Hum.rec.anlog 24 unit SQ QHS 02/11/19 [Basaglar Kwikpen U-100] Metoprolol Succinate 50 mg PO DAILY 02/11/19 Smoking Status: Never smoker Tobacco Use: Chew Review of Systems Constitutional: Denies: Chills, Fever Cardiovascular: Reports: Orthopnea. Denies: Chest Pain, Claudication Respiratory: Denies: Cough Gastrointestinal: Denies: Nausea, Vomiting Musculoskeletal: Denies: Leg Pain Skin: Reports: Wounds VTE Information - Inpt Only VTE Present on Admission: No VTE Mechan Device Prophylaxis: SCD's VTE Pharm Prophylaxis ordered?: Yes - Physical Exam Vitals/I&O's: Vital Signs Temp Pulse Resp Pulse Ox 98.1 F 79 17 100 09/18/19 06:17 09/18/19 06:17 09/18/19 06:17 09/18/19 06:17 Oxygen Delivery Method Room Air Weight: 136.7 kg Body Mass Index (BMI) 44.5 Intake and Output for Last 24 Hours 09/16/19 09/17/19 09/18/19 23:59 23:59 23:59 Intake Total 110 / 110 Balance 110 / 110 General: Alert, Oriented x3, Cooperative HEENT: Atraumatic Oral: Moist Mucosa Lungs: Clear to auscultation Cardiovascular: Regular rate, Regular Rhythm Abdomen: Non Tender, Obese Extremities: No cyanosis, - Skin: - - Status post right foot transmetatarsal amputation is intact with postoperative dressing in place; no strikethrough. No erythema or streaking or infection Musculoskeletal: Muscle Wasting, - - Right transmetatarsal amputation. Ankle joint dorsiflexion with the knee extended is to +3 degrees and increased with knee flexed Neurological: - - Lack of epicritic sensation light touch is consistent with neuropathy status Psych/Mental Status: Normal Affect, Appropriate Laboratory Results 09/18/19 06:11: POC Glucose 117 H Current Medications Dextrose (D50w Syringe) 0 gm IV X1 PRN; Protocol PRN Reason: Hypoglycemia Docusate Sodium (Colace) 100 mg PO BID PRN PRN PRN Reason: Constipation Glucagon () 1 mg IM .X1 PRN PRN Reason: Hypoglycemia Lactated Ringer's () 1,000 mls @ 100 mls/hr IV .Q10H DILCIA Last Admin: 09/18/19 06:28 Dose: 100 mls/hr Documented by: Morphine Sulfate () 2 mg IV Q3H PRN PRN PRN Reason: Pain Score 6-10/10 Ondansetron HCl (Zofran) 4 mg IV Q8H PRN PRN PRN Reason: NAUSEA/VOMITING Oxycodone HCl (Oxyir) 5 mg PO Q4H PRN PRN PRN Reason: Pain Score 4-5/10 Assessment/Plan All Active Problems (Last Updated 09/18/19 @ 09:[address] DPM) Osteomyelitis, unspecified (Ruled-out) Status post right transmetatarsal amputation secondary to chronic delayed healing ulcer with forefoot deformities Diabetes with neuropathy (hemoglobin A1c 6.5%) Congestive heart failure with mildly reduced ejection fraction (~45%, 08/2019) Chronic kidney disease Stage III History of anemia Obesity This patient is being admitted for postoperative medical management. He had a transmetatarsal amputation performed earlier today and is required to maintain a nonweightbearing status. The surgical intervention is considered curative and is neither a pure elective or emergent case. He will also see physical and occupational therapy. He was advised to ice and elevate for pain and inflammation management. Pain medication has been ordered if needed. He has a dressing and splint intact and will keep this clean and dry. Postoperative x- rays demonstrate adequate resection and well-maintained parabola at the transmetatarsal amputation site. No acute injuries, soft tissue emphysema, or foreign body are noted. He has multiple comorbidities and the hospitalist team has been asked to be on consultation for medical management. He is not having any acute medical status change at this time that are known. For communication purposes, I will place his last EKG paper format in the chart. He was cleared preoperatively by Dr. Castillo, his obstetrician and gynaecologist, Dr. Alford, and guide foreign tour, Dr Huerta. The goal is to keep him as close to euvolemia as possible during the perioperative setting as well as immediate postoperative. He is stable and additional fluids have been discontinued at this time. His I & O will be monitored closely. Hospitalist consultation is greatly appreciated; this case was discussed with Dr. oFy. DVT prophylaxis (heparin) will ordered day #1 postoperative with continued hematogenous control. Aspirin will also be resumed tomorrow morning. SCD ordered at this time to the contralateral limb. To continue incentive spirometer while awake. Please not hesitate to call if you have any questions. Marian Street DPM, [facility] [phone] Procedure Criteria Procedure Type: Elective - curative COVID Risk Discussion: The surgeon/proceduralist and patient have discussed in detail the risk of exposure to and/or potential harm posed by the COVID-19 virus with having a surgery/procedure at this time versus the risk of delaying the surgery/procedure. It is not possible to know either the risk of delaying the surgery or procedure or chance of getting an infection with perfect accuracy, but a joint decision was made between the patient and the surgeon/proceduralist to proceed at this time with the scheduled surgery/procedure as indicated on the consent form.
[2019-09-18 09:05] LABS: Bedside Glucose 132 mg/dL (70-110)
--- NOTE | 2019-09-18 09:10 | RAD_ITS ---
STUDY: X-RAY - RIGHT FOOT CLINICAL: Male, 43 years old. Post op transmetatarsal amputation, right foot TECHNIQUE: 3 view(s) of the foot. COMPARISON: 08/12/2019 FINDINGS: Patient is postop from total transverse metatarsal amputation of the right foot. The remaining metatarsals are free of suspicious osseous lesion. There is normal postoperative soft tissue swelling. Small calcaneal heel spurs are unchanged. Joint spaces well-preserved, no demonstrated fracture. RAD/Foot min 3 Views IMPRESSION: No postoperative complications after transmetatarsal amputation Electronically Signed: Efrain Zuniga MD at 9:28 EDT , Service support ,
--- NOTE | 2019-09-18 11:26 | PN_ITS ---
Subjective: 43-year-old male with a history of diabetes, CHF presents to the hospital for an elective transmetatarsal amputation of his right foot secondary to a nonhealing diabetic foot ulcer. He had a previous amputation of his right great toe in 2019. He states that his chronic medical conditions have been fairly well controlled, he sees a tobacco drying machine operator up in [place] and he cannot tell me the kind of heart failure that he has or what his ejection fraction is and there is no records of his echocardiograms here in our system. Vitals/I&O's: Vital Signs Temp Pulse Resp BP Pulse Ox 97.7 F L 73 16 139/83 H 98 09/18/19 10:05 09/18/19 10:05 09/18/19 10:05 09/18/19 10:05 09/18/19 10:05 Oxygen Delivery Method Room Air Weight: 290 lb Body Mass Index (BMI) 42.8 Finger Stick Blood Glucose 132 Intake and Output for Last 24 Hours 09/16/19 09/17/19 09/18/19 23:59 23:59 23:59 Intake Total 1110 / 1110 Balance 1110 / 1110 General: Alert, Oriented x3, Cooperative, No apparent distress HEENT: Atraumatic, PERRLA, EOMI, Normocephalic Oral: Moist Mucosa Neck: Supple, No JVD Lungs: Clear to auscultation, Normal air movement, No rhonchi, No wheeze, No r ales, Diminished Cardiovascular: Regular rate, Regular Rhythm, Normal S1, Normal S2, No murmurs Abdomen: Soft, Non Tender, Non-Distended, No Hepato-splenomegaly, Obese Extremities: No edema, Capillary Refill Less than 3 Seconds Skin: No rashes, No breakdown, - - Right lower extremity surgical site wrapped dressing intact Neurological: Neuro grossly intact, Sensory exam intact to light touch and pain Psych/Mental Status: Normal Affect, Appropriate Laboratory Results 09/18/19 06:11: POC Glucose 117 H 09/18/19 09:02: POC Glucose 132 H Current Medications Dextrose (D50w Syringe) 0 gm IV X1 PRN; Protocol PRN Reason: Hypoglycemia Docusate Sodium (Colace) 100 mg PO BID PRN PRN PRN Reason: Constipation Glucagon () 1 mg IM .X1 PRN PRN Reason: Hypoglycemia Lactated Ringer's () 1,000 mls @ 100 mls/hr IV .Q10H DILCIA Last Admin: 09/18/19 08:50 Dose: 100 mls/hr Documented by: Sodium Chloride () 250 mls @ 15 mls/hr IV .[id number] PRN PRN Reason: Saline Flush Sodium Chloride () 250 mls @ 15 mls/hr IV .[id number] PRN PRN Reason: Additional IVPB Infusion Morphine Sulfate () 2 mg IV Q3H PRN PRN PRN Reason: Pain Score 6-10/10 Ondansetron HCl (Zofran) 4 mg IV Q8H PRN PRN PRN Reason: NAUSEA/VOMITING Oxycodone HCl (Oxyir) 5 mg PO Q4H PRN PRN PRN Reason: Pain Score 4-5/10 Sodium Chloride () 10 - 40 ml IV UD PRN PRN Reason: SALINE FLUSH STROKE Vital Signs/Narrative: Vital Signs Temp Pulse Resp BP Pulse Ox 09/18/19 10:05 97.7 F L 73 16 139/83 H 98 09/18/19 09:35 98.2 F 72 16 136/84 H 98 09/18/19 09:30 72 16 127/79 H 97 09/18/19 09:15 74 16 117/57 L 96 09/18/19 09:00 97.8 F 71 14 109/63 94 Medical Necessity - Tobacco Use Smoking Status: Never smoker Tobacco Use: Chew Assessment/Plan All Active Problems (Last Updated 09/18/19 @ 09:[address], DP) Osteomyelitis, unspecified (Ruled-out) 1. Diabetic nonhealing foot ulcer with osteomyelitis status post transmetatarsal amputation 09/17/2019/DM 2 with peripheral neuropathy -PT and OT -Monitor his diabetes with Accu-Cheks AC at bedtime -Sliding scale insulin with his mealtime and long-acting insulin from his home regimen -Pain per primary 2. Unknown type CHF/HTN/HLD/morbid obesity -Discussed lifestyle modifications -Continue with his metoprolol and his aspirin when okay with podiatry -We will monitor his I's and O's intake daily weights if necessary can fluid restrict DVT: SCDs Inpatient E&M: 36696 Subs Hosp L3
[2019-09-18] MEDS: Insulin Lispro 100 UNIT/ML INSULN.PEN SC ×3 (16:39→23:04)
[2019-09-18 16:40] LABS: Bedside Glucose 248 mg/dL (70-110)
[2019-09-18] MEDS: Metoprolol(XL)Succ 50 MG Tablet PO (23:04)
[2019-09-18] MEDS: Atorvastatin Calcium 40 MG Tablet PO (23:04)
[2019-09-18 23:21] LABS: Bedside Glucose 250 mg/dL (70-110)
[2019-09-18] MEDS: oxyCODONE 5 MG Tablet PO (23:37)
[2019-09-19 02:00] VITALS: BP 136/81; PULSE 99; RESP 16; TEMP 37.1; O2SAT 100
[2019-09-19] MEDS: Insulin Lispro 100 UNIT/ML INSULN.PEN SC ×2 (06:22→08:21)
[2019-09-19 06:40] LABS: Bedside Glucose 164 mg/dL (70-110)
--- NOTE | 2019-09-19 07:47 | PCM.PROGNOTE ---
Subjective: This 43-year-old male with diabetic neuropathy and multiple other comorbidities was seen bedside this morning postoperative day #1 right foot transmetatarsal amputation. He denies fever, chill, nausea, vomiting. His pain is rated as a 0 out of 10. He relates he did very well with physical therapy this morning and was able to successfully keep weight off of his right limb. He is eager to return home. - Physical Exam Vitals/I&O's: Vital Signs Temp Pulse Resp BP Pulse Ox 98.8 F 99 16 136/81 H 100 09/19/19 02:00 09/19/19 02:00 09/19/19 02:00 09/19/19 02:00 09/19/19 02:00 Oxygen Delivery Method Room Air Weight: 132.2 kg Body Mass Index (BMI) 42.8 Finger Stick Blood Glucose 132 Intake and Output for Last 24 Hours 09/17/19 09/18/19 09/19/19 23:59 23:59 23:59 Intake Total 3185 / 3185 400 / 400 Balance 3185 / 3185 400 / 400 General: Alert, Oriented x3, Cooperative HEENT: Atraumatic Lungs: Clear to auscultation, Normal air movement Cardiovascular: Regular rate, Regular Rhythm Extremities: No cyanosis, Capillary Refill Less than 3 Seconds, No Calf Tenderness, Edema - mild Skin: Incision - intact incision site. This site is well aligned and coapted without gapping, necrosis, infection. There is no erythema, streaking, purulence, odor on expression. The adjacent skin is atrophic. Musculoskeletal: No Tenderness to Palpation of Joints or Extremities, Muscle Wasting, - - right transmetatarsal amputation Neurological: - - Lack of epicritic sensation consistent with neuropathy Psych/Mental Status: Normal Affect, Appropriate Laboratory Results 09/18/19 09:02: POC Glucose 132 H 09/18/19 16:35: POC Glucose 248 H 09/18/19 23:03: POC Glucose 250 H 09/19/19 06:19: POC Glucose 164 H 09/19/19 06:55: WBC Pending, RBC Pending, Hgb Pending, Hct Pending, MCV Pending, MCH Pending, MCHC Pending, RDW Std Deviation Pending, RDW Coeff of Ratna Pending, Plt Count Pending, Neut % (Auto) Pending, Absolute Neuts (auto) Pending 09/19/19 06:55: Sodium Pending, Potassium Pending, Chloride Pending, Carbon Dioxide Pending, Anion Gap Pending, BUN Pending, Creatinine Pending, Est GFR (MDRD) Af Amer Pending, Est GFR (MDRD) Non-Af Pending, BUN/Creatinine Ratio Pending, Glucose Pending, Calcium Pending, Total Bilirubin Pending, AST Pending, ALT Pending, Alkaline Phosphatase Pending, Total Protein Pending, Albumin Pending Current Medications Atorvastatin Calcium (Lipitor) 40 mg PO QHS [facility] Last Admin: 09/18/19 23:04 Dose: 40 mg Documented by: Dextrose (D50w Syringe) 0 gm IV X1 PRN; Protocol PRN Reason: Hypoglycemia Docusate Sodium (Colace) 100 mg PO BID PRN PRN PRN Reason: Constipation Glucagon () 1 mg IM .X1 PRN PRN Reason: Hypoglycemia Insulin Glargine (Lantus (Bkc)) 24 units SC QHS [facility] Last Admin: 09/18/19 23:14 Dose: 24 u Documented by: Insulin Human Lispro (Humalog Kwikpen (Bkc)) 4 unit SC TIDCM [facility] Last Admin: 09/18/19 16:39 Dose: 4 units Documented by: Insulin Human Lispro (Humalog Kwikpen (Bkc)) 0 unit SC ACHS [facility]; Protocol Last Admin: 09/19/19 06:22 Dose: 2 units Documented by: Metoprolol Succinate (Toprol Xl (Beta Flores)) 50 mg PO DAILY@2200 [facility] Last Admin: 09/18/19 23:04 Dose: 50 mg Documented by: Morphine Sulfate () 2 mg IV Q3H PRN PRN PRN Reason: Pain Score 6-10/10 Ondansetron HCl (Zofran) 4 mg IV Q8H PRN PRN PRN Reason: NAUSEA/VOMITING Oxycodone HCl (Oxyir) 5 mg PO Q4H PRN PRN PRN Reason: Pain Score 4-5/10 Last Admin: 09/18/19 23:37 Dose: 5 mg Documented by: Medical Necessity - Tobacco Use Smoking Status: Never smoker Tobacco Use: Chew Assessment/Plan All Active Problems (Last Updated 09/18/19 @ 09:[address] Marian [address], DPM) Osteomyelitis, unspecified (Ruled-out) Status post right transmetatarsal amputation secondary to chronic delayed healing ulcer with forefoot deformities Diabetes with neuropathy (hemoglobin A1c 6.5%) Congestive heart failure with mildly reduced ejection fraction (~45%, 08/2019) Chronic kidney disease Stage III History of anemia Obesity This patient is being admitted for postoperative medical management. His vital signs are stable and he is afebrile. He does have mild leukocytosis however this is likely secondary to his recent anesthesia and surgery. He had a transmetatarsal amputation performed yesterday. The surgical intervention is considered curative and is neither a pure elective or emergent case. He did well with physical therapy this morning and was able to remain nonweightbearing 100% of the time. His dressing was changed this morning. There are no local signs of infection or necrosis. He feels safe returning home. Discharge home today will be considered. I will touch base with the medicine team to confirm medical stability. He has neuropathic and does not require pain medication. Due to his immobilization status, I recommend Xarelto for DVT prophylaxis for the next couple of weeks. To continue incentive spirometer while awake. He was advised to ice and elevate for inflammation management. He will be provided with a prescription for a walker and also a knee roller. [facility]. Please do not hesitate to call if you have any questions. Marian Street DPM, FACFAS [facility] [phone]
[2019-09-19 07:48] LABS: Absolute Lymphocyte Count 1.94 X10^3/uL (0.83-4.51); Basophil# 0.02 X10^3/uL; Basophil% 0.2 % (0-1); Eosinophil# 0.04 X10^3/uL; Eosinophils% 0.4 % (0-5); Hematocrit 29.2 % (40-54); Hemoglobin 9.1 g/dL (13.0-16.5); Lymphocyte # 1.94 X10^3/ul (4.0); Lymphocyte % 17.3 % (19-41); Mean Corp Hgb Conc 31.2 g/dL (32-36); Mean Corpuscular Hgb 28.3 pg (27.0-32.0); Mean Platelet Vol. 10.9 fl (6.2-12.0); Monocyte# 1.13 X10^3/uL; Monocyte% 10.1 % (0-10); NRBC Flagged by Analyzer 0 % (0-5); Neutrophil # 8.03 X10^3/uL (2.7-7.7); Neutrophil % 71.6 % (47-70); Platelet Count 186 K/mm3 (150-450); RBC Distribution Width CV 12.7 % (11.6-14.6); RBC Distribution Width SD 41.5 fl (35.1-43.9); Red Blood Count 3.21 M/mm3 (4.6-6.2); White Blood Count 11.2 K/mm3 (4.4-11.0)
[2019-09-19 08:00] VITALS: BP 127/74; PULSE 77; RESP 18; TEMP 36.6; O2SAT 98
[2019-09-19 08:05] LABS: ALB/GLOB Ratio 0.8 RATIO (0.9-2.4); AST(SGOT) 11 U/L (15-37); Alanine Aminotransfer ALT/SGPT 17 U/L (16-61); Albumin, Serum 3.1 g/dL (3.2-5.0); Alkaline Phosphatase 94 U/L (45-117); Anion Gap 6 (5-15); BUN 52 mg/dL (7-18); BUN/Creat Ratio 16.8 RATIO (10-20); Calcium,Total 8.6 mg/dL (8.5-10.1); Chloride 108 mmol/L (98-107); EST Glomerular Filtration Rate 23 mL/min (>60); Est Glom Filt Rate - Afr Amer 28 mL/min (>60); Estimated Creatinine Clearance 30.09 ml/min; Globulin 4.1 g/dL (2.2-4.2); Glucose 174 mg/dL (74-106); Potassium 4.7 mmol/L (3.5-5.1); Protein, Total 7.2 g/dL (6.4-8.2); Sodium Level 138 mmol/L (136-145)
--- NOTE | 2019-09-19 10:00 | PCM.DC.POD ---
Discharge Diet: Carb Control Diet Discharge Activity: Use Walker - maintain a strict non weightbearing status of the right lower extremity, - - Use knee roller Weight Bearing Status: No weight bearing Keep extremity elevated above heart level: Right Leg Additional Activity Instructions:: elevate leg at least 20 minutes each hour above the level of the heart Call your doctor if your incision/area has: Continuous Slow Oozing, Sudden Increased Bleeding, Increased Pain/ Swelling, Increased Redness, Foul Smelling Discharge, Swelling at the incision site Call your doctor if you observe: Fever of 101 or Higher, Calf discomfort, Uncontrolled pain Cleanse incision/area with: Keep Dressing Clean & Dry Additional Instructions: Use a shower bag during bathing activities. This is available at the [facility] and also some local pharmacies. A prescription for a knee roller and walker has been provided. Allergies/Adverse Reactions: Allergies No Known Allergies Allergy (Verified 09/18/19 06:14) Medications to take at Discharge Aspirin E.C. [Ecotrin] 81 mg PO DAILY@0800 08/14/18 Atorvastatin Calcium [Lipitor] 40 mg PO QHS 08/14/18 Insulin Aspart [Novolog Flexpen (BKC)] 4 units SC TID 08/14/18 Insulin Glargine,Hum.rec.anlog [Basaglar Kwikpen U-100] 24 unit SQ QHS 02/11/19 Metoprolol Succinate 50 mg PO DAILY 02/11/19 Rivaroxaban [Xarelto] 10 mg PO DAILY 14 Days #14 tab 09/19/19 The following prescriptions were given: Rivaroxaban [Xarelto] 10 mg PO DAILY 14 Days #14 tab Transmission Status: Sent to [facility]/pharmacy #[id number] Primary Care Physician: BERENICE HOOD [Other] Test Results: Test results from this visit will be discussed in further detail at your follow-up appointment, if applicable. Please Follow Up With: Marian Street DPM When: 1 week at [facility]. Call [phone] Proposed Discharge Date: 09/19/19
--- NOTE | 2019-09-19 10:59 | PCM.PN.HOSP ---
Reason for Visit: Right chronic nonhealing ulcer. Had right transmetatarsal amputation. Objective: No fever or chills. Patient complain of burning micturition/dysuria. Also having frequent urination every 2-3 hours sometimes intermittent urination with dribbling. Patient follows keyseater operator and has baseline creatinine around 2.5-2.7. Creatinine gradually going up, 3.1. BUN 52. Vitals/I&O's: Vital Signs Temp Pulse Resp BP Pulse Ox 97.8 F 77 18 127/74 H 98 09/19/19 08:00 09/19/19 08:00 09/19/19 08:00 09/19/19 08:00 09/19/19 08:00 Oxygen Delivery Method Room Air Weight: 291 lb 7.218 oz Body Mass Index (BMI) 42.8 Finger Stick Blood Glucose 132 Intake and Output for Last 24 Hours 09/17/19 09/18/19 09/19/19 23:59 23:59 23:59 Intake Total 3185 / 3185 400 / 400 Balance 3185 / 3185 400 / 400 General: Alert, Oriented x3, Cooperative HEENT: Atraumatic, PERRLA, EOMI, Normocephalic Oral: - - Uses oral chewing tobacco Neck: Supple, No JVD, Negative Carotid Bruits Lungs: Clear to auscultation, Normal air movement, No rhonchi, No wheeze, No rales Cardiovascular: Regular rate, Regular Rhythm, Normal S1, Normal S2, No murmurs Abdomen: Bowel Sounds Present, Soft, Non Tender, Non-Distended Extremities: No edema, Capillary Refill Less than 3 Seconds Skin: No rashes, No breakdown Musculoskeletal: No Tenderness to Palpation of Joints or Extremities, Arthritic Changes Neurological: Cranial nerves II-XII grossly intact, Deep Tendon Reflexes 2+/4 and Symmetrical, Neuro grossly intact, Motor Exam 5/5 strength throughout Psych/Mental Status: Normal Affect, Appropriate Laboratory Results 09/18/19 16:35: POC Glucose 248 H 09/18/19 23:03: POC Glucose 250 H 09/19/19 06:19: POC Glucose 164 H 09/19/19 06:55: WBC 11.2 H, RBC 3.21 L, Hgb 9.1 L, Hct 29.2 L, MCV 91.0, MCH 28.3, MCHC 31.2 L, RDW Std Deviation 41.5, RDW Coeff of Ratna 12.7, Plt Count 186, MPV 10.9, Immature Gran % (Auto) 0.400, Neut % (Auto) 71.6 H, Lymph % (Auto) 17.3 L, [place] % (Auto) 10.1 H, Eos % (Auto) 0.4, Baso % (Auto) 0.2, Absolute Neuts (auto) 8.0 H, Absolute Lymphs (auto) 1.94, Nucleated RBC % 0 09/19/19 06:55: Sodium 138, Potassium 4.7, Chloride 108 H, Carbon Dioxide 24.0, Anion Gap 6, BUN 52 H, Creatinine 3.10 H, Estim Creat Clear Calc 30.09, Est GFR (MDRD) Af Amer 28 L, Est GFR (MDRD) Non-Af 23 L, BUN/Creatinine Ratio 16.8, Glucose 174 H, Calcium 8.6, Total Bilirubin 0.30, AST 11 L, ALT 17, Alkaline Phosphatase 94, Total Protein 7.2, Albumin 3.1 L, Globulin 4.1, Albumin/Globulin Ratio 0.8 L Current Medications Dextrose (D50w Syringe) 0 gm IV X1 PRN; Protocol PRN Reason: Hypoglycemia Docusate Sodium (Colace) 100 mg PO BID PRN PRN PRN Reason: Constipation Glucagon () 1 mg IM .X1 PRN PRN Reason: Hypoglycemia Insulin Glargine (Lantus (Bkc)) 24 units SC QHS [facility] Last Admin: 09/18/19 23:14 Dose: 24 u Documented by: Metoprolol Succinate (Toprol Xl (Beta Flores)) 50 mg PO DAILY@2200 [facility] Last Admin: 09/18/19 23:04 Dose: 50 mg Documented by: Morphine Sulfate () 2 mg IV Q3H PRN PRN PRN Reason: Pain Score 6-10/10 Ondansetron HCl (Zofran) 4 mg IV Q8H PRN PRN PRN Reason: NAUSEA/VOMITING Oxycodone HCl (Oxyir) 5 mg PO Q4H PRN PRN PRN Reason: Pain Score 4-5/10 Last Admin: 09/18/19 23:37 Dose: 5 mg Documented by: STROKE Vital Signs/Narrative: Vital Signs Temp Pulse Resp BP Pulse Ox 09/19/19 08:00 97.8 F 77 18 127/74 H 98 Medical Necessity - Tobacco Use Smoking Status: Never smoker Tobacco Use: Chew Assessment/Plan All Active Problems (Last Updated 09/18/19 @ 09:[address], [facility]) Osteomyelitis, unspecified (Ruled-out) There is a 43-year-old gentleman with history of diabetes mellitus type 2, chronic right-sided heart failure was admitted for elective right transmetatarsal amputation after chronic nonhealing diabetic foot ulcer. Had previous right great toe amputation in 2019. Patient stated he follows [facility] criminalist technician with echo report. 1. Diabetic nonhealing foot ulcer with osteomyelitis status post transmetatarsal amputation on 09/17/2019/complicated with diabetic peripheral neuropathy: Discussed with od grinder operator Dr. Street. On Lantus and Humalog short-acting insulin. Continue Accu-Cheks. PT and OT. 2. Dysuria most likely UTI: UA with urine culture ordered. Started on ceftriaxone. 3. Acute kidney injury on CKD stage III: BUN/creatinine was increasing. Most recent 52/3.1. Patient baseline creatinine runs around 2.5-2.7. IV fluid normal saline 75 mils per hour. Medication reconciliation done not on any nephrotoxic medication. Patient follows keyseater operator Dr. Smith. 4. CHF, exact type and etiology unclear but as per patient him he seems right-sided heart failure: He follows during clinic criminalist technician Dr. Alford. Not on diuretic at home. -Discussed lifestyle modifications -Continue with his metoprolol and his aspirin. DVT: Xarelto 10 mg daily started for DVT prophylaxis to be continued for about 2 to 3 weeks. Discontinue if platelet count drops less than 50,000 or hemoglobin less than 8 g% Inpatient E&M: 92016 Subs Hosp L2
--- NOTE | 2019-09-19 11:10 | CASEMGMT ---
Social Work Telephone call from Dr. Street stating that plan is to discharge patient today if cleared by hospitalist. Dr. Street requesting a walker to be set up for patient for discharge. Telephone call to [employer], weekend coverage. Inquiring if walker can be set up on weekend, walker can be set up. Met with patient in room. Patient confirming to need a walker at time of discharge. Patient also inquiring about a knee walker. Patient educated that insurance does not cover a knee walker. This social media coordinator did provide patient with information on where a knee walker could be obtained. Patient states no further questions or concerns with return to home/community. Order for walker and supportive documentation (H&P, progress notes, order, face sheet, insurance care, I.D.) faxed to [facility]. [facility] to deliver walker to patient room. Updated Dr. Street and charge nurse on above information. David MASCORRO, JACOB
[2019-09-19 12:00] LABS: Bedside Glucose 169 mg/dL (70-110)
[2019-09-19] MEDS: 0.9% Normal Saline 1,000 ML 75 ML IV (12:46)
[2019-09-19] MEDS: Ceftriaxone 1 GM/50 ML BAG IV (12:46)
[2019-09-19] MEDS: Insulin Lispro 100 UNIT/ML INSULN.PEN 8 UNIT SC ×2 (12:48→17:26)
[2019-09-19] MEDS: Rivaroxaban 10 MG Tablet PO ×2 (13:22)
[2019-09-19 13:23] LABS: Bacteria 0 SEEN /hpf (None Seen); Glucose, Dipstick Normal (Normal); Ketone-Dipstick Negative (Negative); Leukocyte Esterase-Dipstick Negative /ul (Negative); Mucous, Urine 0 SEEN /hpf (<or=2+); Nitrite-Dipstick Negative (Negative); Occult Blood-Urine 150 /ul (Negative); Protein-Dipstick 30 mg/dl (Negative); Squamous Epithelial Cells - UA 0 SEEN /hpf (0-5); Urine Bilirubin Dipstick Negative (Negative); Urine Urobilinogen Normal (Normal); White Blood Cells 0 SEEN /hpf (0-5)
[2019-09-19 13:30] LABS: Color, Urine Yellow (Yellow); Urine Clarity Clear (Clear)
[2019-09-19 13:32] LABS: Red Blood Cells-Urine 10-25 SEEN /hpf (0-5)
[2019-09-19 14:00] VITALS: BP 136/72; PULSE 79; RESP 18; TEMP 36.6; O2SAT 100
--- NOTE | 2019-09-19 14:18 | CASEMGMT ---
RN CM Assessment Note Diagnosis: Trans met amputation of R foot PCP: Camille Kim Specialists: Dr. Street- spoke with Dr. Street who will consider dc today or tomorrow depending on hospitalist determination. Insurance: [facility] Preferred Pharmacy: [facility] [place] Prescription Benefit: yes LNOK: Mother, Yu Gil Living Arrangements: Lives in two story home. PT working with patient re: stairs. Tranportation: family DME: walker ordered and delivered. Pt aware knee scooter is not covered and sw gave information. HHC: Pt will not be home bound. IF PT/OT needed on dc. Physician can give script for outpt PT. DC Plan: anticipate home, PT recommending further therapy. Will need outpt script for discharge. Jorge WILSON RN ACM
[2019-09-19 16:51] LABS: Bedside Glucose 162 mg/dL (70-110)
[2019-09-19 20:02] VITALS: BP 113/58; PULSE 87; RESP 18; TEMP 36.7; O2SAT 98
[2019-09-19 21:36] VITALS: BP 177/107; PULSE 80
[2019-09-19 21:40] VITALS: BP 177/107; PULSE 80
[2019-09-19] MEDS: Metoprolol(XL)Succ 50 MG Tablet PO (21:40)
[2019-09-19 21:50] LABS: Bedside Glucose 155 mg/dL (70-110)
[2019-09-20 02:16] VITALS: BP 126/73; PULSE 76; RESP 18; TEMP 36.8; O2SAT 99
[2019-09-20] MEDS: 0.9% Normal Saline 1,000 ML 75 ML IV (02:23)
[2019-09-20 06:20] LABS: Absolute Lymphocyte Count 2.05 X10^3/uL (0.83-4.51); Absolute Neutrophil Count 4.6 X10^3/uL (2.0-7.7); Basophil# 0.03 X10^3/uL; Basophil% 0.4 % (0-1); Eosinophil# 0.22 X10^3/uL; Eosinophils% 2.8 % (0-5); Hematocrit 27.2 % (40-54); Hemoglobin 8.6 g/dL (13.0-16.5); Lymphocyte # 2.05 X10^3/ul (4.0); Lymphocyte % 26.3 % (19-41); Mean Corp Hgb Conc 31.6 g/dL (32-36); Mean Corpuscular Hgb 28.9 pg (27.0-32.0); Mean Corpuscular Volume 91.3 fL (80-94); Mean Platelet Vol. 10.8 fl (6.2-12.0); Monocyte# 0.93 X10^3/uL; Monocyte% 11.9 % (0-10); NRBC Flagged by Analyzer 0 % (0-5); Neutrophil # 4.55 X10^3/uL (2.7-7.7); Neutrophil % 58.5 % (47-70); Platelet Count 172 K/mm3 (150-450); RBC Distribution Width SD 42.5 fl (35.1-43.9); Red Blood Count 2.98 M/mm3 (4.6-6.2); White Blood Count 7.8 K/mm3 (4.4-11.0)
[2019-09-20 06:55] LABS: Anion Gap 7 (5-15); BUN 55 mg/dL (7-18); BUN/Creat Ratio 17.9 RATIO (10-20); Calcium,Total 8.2 mg/dL (8.5-10.1); Chloride 109 mmol/L (98-107); Creatinine, Serum 3.07 mg/dL (0.70-1.30); EST Glomerular Filtration Rate 23 mL/min (>60); Est Glom Filt Rate - Afr Amer 28 mL/min (>60); Estimated Creatinine Clearance 30.39 ml/min; Glucose 155 mg/dL (74-106); Potassium 4.2 mmol/L (3.5-5.1); Sodium Level 138 mmol/L (136-145)
[2019-09-20 06:56] LABS: Bedside Glucose 148 mg/dL (70-110)
[2019-09-20 07:41] VITALS: BP 126/71; PULSE 72; RESP 18; TEMP 36.7; O2SAT 100
[2019-09-20] MEDS: oxyCODONE 5 MG Tablet PO (07:45)
--- NOTE | 2019-09-20 09:08 | PCM.DC ---
You will use the following diet at home:: Calorie/Carbohydrate Controlled (specify 1200, 1400, etc) - Carb controlled diet Your food should be the consistency of: Regular Discharge Activity: Use Walker - maintain a strict non weightbearing status of the right lower extremity, - - Use knee roller Weight Bearing Status: No weight bearing Keep extremity elevated above heart level: Right Leg Additional Activity Instructions:: elevate leg at least 20 minutes each hour above the level of the heart Call your doctor if your incision/area has: Continuous Slow Oozing, Sudden Increased Bleeding, Increased Pain/ Swelling, Increased Redness, Foul Smelling Discharge, Swelling at the incision site Call your doctor if you observe: Fever of 101 or Higher, Inability to urinate, Inability to have a bowel movement, Shortness of breath, Dizziness, Fainting spells, Swelling in the ankles, Chest pain, Prolonged hiccoughing, Increased palpitations (irregular heartbeat), Calf discomfort, Uncontrolled pain Cleanse incision/area with: Keep Dressing Clean & Dry Additional Instructions: Follow-up with firmware architect Dr. Huerta in 1 weeks and senior administrative assistant Dr. Alford in 4 weeks. UTI ruled out Allergies/Adverse Reactions: Allergies No Known Allergies Allergy (Verified 09/18/19 06:14) Medications to take at Discharge Aspirin E.C. [Ecotrin] 81 mg PO DAILY@0800 08/14/18 Atorvastatin Calcium [Lipitor] 40 mg PO QHS 08/14/18 Insulin Glargine,Hum.rec.anlog [Basaglar Kwikpen U-100] 24 unit SQ QHS 02/11/19 Metoprolol Succinate 50 mg PO DAILY 02/11/19 Rivaroxaban [Xarelto] 10 mg PO DAILY 14 Days #14 tab 09/19/19 Insulin Lispro [Humalog KwikPen] 8 unit SC TIDCM insuln.pen 09/20/19 The following prescriptions were given: Rivaroxaban [Xarelto] 10 mg PO DAILY 14 Days #14 tab Transmission Status: Received by [facility]/pharmacy #[id number] Primary Care Physician: BERENICE HOOD [Other] Test Results: Test results from this visit will be discussed in further detail at your follow-up appointment, if applicable. Please Follow Up With: Marian Street DPM When: [facility]. Call [phone] Proposed Discharge Date: 09/19/19
[2019-09-20] MEDS: Insulin Lispro 100 UNIT/ML INSULN.PEN 8 UNIT SC ×2 (09:18→12:40)
[2019-09-20] MEDS: Ceftriaxone 1 GM/50 ML BAG IV (09:25)
--- NOTE | 2019-09-20 10:59 | PCM.PROGNOTE ---
Subjective: Patient was seen today for follow up on right foot TMA, patient has no complaints. He relates he is ready to return home. - Physical Exam Vitals/I&O's: Vital Signs Temp Pulse Resp BP Pulse Ox 98.1 F 72 18 126/71 H 100 09/20/19 07:41 09/20/19 07:41 09/20/19 07:41 09/20/19 07:41 09/20/19 07:41 Oxygen Delivery Method Room Air Weight: 135.8 kg Body Mass Index (BMI) 42.8 Finger Stick Blood Glucose 132 Intake and Output for Last 24 Hours 09/18/19 09/19/19 09/20/19 23:59 23:59 23:59 Intake Total 3185 / 3185 1290 / 1290 2150 / 2150 Balance 3185 / 3185 1290 / 1290 2150 / 2150 General: Alert, Oriented x3, Cooperative, No apparent distress Extremities: No Calf Tenderness, - - Dressing right foot is clean, dry and intact. Laboratory Results 09/19/19 11:56: POC Glucose 169 H 09/19/19 13:00: Urine Color Yellow, Urine Clarity Clear, Urine pH 5.0, Ur Specific [place] 1.020, Urine Protein 30 H, Urine Glucose (UA) Normal, Urine Ketones Negative, Urine Occult Blood 150 H, Urine Nitrite Negative, Urine Bilirubin Negative, Urine Urobilinogen Normal, Ur Leukocyte Esterase Negative, Urine RBC 10-25 SEEN, Urine WBC 0 SEEN, Ur Squamous Epith Cells 0 SEEN, Urine Bacteria 0 SEEN, Urine Mucus 0 SEEN 09/19/19 16:43: POC Glucose 162 H 09/19/19 21:39: POC Glucose 155 H 09/20/19 05:21: WBC 7.8, RBC 2.98 L, Hgb 8.6 L, Hct 27.2 L, MCV 91.3, MCH 28.9, MCHC 31.6 L, RDW Std Deviation 42.5, RDW Coeff of Ratna 13.0, Plt Count 172, MPV 10.8, Immature Gran % (Auto) 0.100, Neut % (Auto) 58.5, Lymph % (Auto) 26.3, [place] % (Auto) 11.9 H, Eos % (Auto) 2.8, Baso % (Auto) 0.4, Absolute Neuts (auto) 4.6, Absolute Lymphs (auto) 2.05, Nucleated RBC % 0 09/20/19 05:21: Sodium 138, Potassium 4.2, Chloride 109 H, Carbon Dioxide 22.0, Anion Gap 7, BUN 55 H, Creatinine 3.07 H, Estim Creat Clear Calc 30.39, Est GFR (MDRD) Af Amer 28 L, Est GFR (MDRD) Non-Af 23 L, BUN/Creatinine Ratio 17.9, Glucose 155 H, Calcium 8.2 L 09/20/19 06:47: POC Glucose 148 H Current Medications Dextrose (D50w Syringe) 0 gm IV X1 PRN; Protocol PRN Reason: Hypoglycemia Docusate Sodium (Colace) 100 mg PO BID PRN PRN PRN Reason: Constipation Glucagon () 1 mg IM .X1 PRN PRN Reason: Hypoglycemia Sodium Chloride () 1,000 mls @ 75 mls/hr IV .[id number] [facility] Stop: 09/20/19 11:01 Last Admin: 09/20/19 02:23 Dose: 75 mls/hr Documented by: Ceftriaxone Sodium (Rocephin) 1 gm in 50 mls @ 100 mls/hr IV Q24 [facility] Last Infusion: 09/20/19 09:55 Dose: Infused Documented by: Insulin Glargine (Lantus (Bk)) 24 units SC QHS [facility] Last Admin: 09/19/19 21:40 Dose: 24 u Documented by: Insulin Human Lispro (Humalog Kwikpen ([facility])) 8 unit SC TIDCM [facility] Last Admin: 09/20/19 09:18 Dose: 8 units Documented by: Metoprolol Succinate (Toprol Xl (Beta Flores)) 50 mg PO DAILY@2200 [facility] Last Admin: 09/19/19 21:40 Dose: 50 mg Documented by: Ondansetron HCl (Zofran) 4 mg IV Q8H PRN PRN PRN Reason: NAUSEA/VOMITING Oxycodone HCl (Oxyir) 5 mg PO Q4H PRN PRN PRN Reason: Pain Score 4-5/10 Last Admin: 09/20/19 07:45 Dose: 5 mg Documented by: Rivaroxaban (Xarelto) 10 mg PO DAILY [facility] Last Admin: 09/19/19 13:22 Dose: 10 mg Documented by: Medical Necessity - Tobacco Use Smoking Status: Never smoker Tobacco Use: Chew Assessment/Plan All Active Problems (Last Updated 09/18/19 @ 09:[address] Marian Street, [facility]) Osteomyelitis, unspecified (Ruled-out) Status post right transmetatarsal amputation secondary to chronic delayed healing ulcer with forefoot deformities Diabetes with neuropathy (hemoglobin A1c 6.5%) Congestive heart failure with mildly reduced ejection fraction (~45%, 08/2019) Chronic kidney disease Stage III History of anemia Obesity Keep dressing clean, dry and intact. No weightbearing right foot, use walker or knee roller, keep foot elevated. He has neuropathy and does not require pain medication. Due to his immobilization status, Xarelto for DVT prophylaxis for the next couple of weeks, sooner if needed. [facility]. Reviewed importance of proper blood sugar control and tobacco cessation to optimize healing. Discussed w/ Dr. Rosas and plan is for patient to be discharged home today.
[2019-09-20 11:31] LABS: Bedside Glucose 116 mg/dL (70-110)
--- NOTE | 2019-09-20 13:11 | PCM.DC.SUM ---
Discharge Date and Diagnosis Date of Admission: 09/18/19 Date of Discharge: 09/20/19 - Secondary Discharge Diagnosis Chronic Problems: Chronic Problems (Last Updated 09/18/19 @ 09:[address] Marian [address], [facility]) Diabetic foot ulcer associated with type 2 diabetes mellitus (Chronic) Right lateral plantar. Type 2 diabetes mellitus (Chronic) Diabetic neuropathy (Chronic) Ulcer of right foot with fat layer exposed (Chronic) Delayed wound healing (Chronic) Malnutrition (Chronic) Hammer toe of right foot (Chronic) Venous insufficiency (Chronic) Localized edema (Chronic) Type 2 diabetes mellitus with diabetic polyneuropathy (Chronic) Osteitis (Chronic) Ulcer of right foot with necrosis of muscle (Chronic) Hospital Course and Treatment Summary of Care Provided: There is a 43-year-old gentleman with history of diabetes mellitus type 2, chronic right-sided heart failure was admitted for elective right transmetatarsal amputation after chronic nonhealing diabetic foot ulcer. Had previous right great toe amputation in 2019. Patient stated he follows [facility] sourcing associate with echo report. 1. Diabetic nonhealing foot ulcer with osteomyelitis status post transmetatarsal amputation on 09/17/2019/complicated with diabetic peripheral neuropathy: Discussed with loss prevention consultant Dr. Street and Dr. Griffith. On Lantus and Humalog short-acting insulin. Blood sugar well controlled. Last glucose 116. Follow-up in wound clinic. 2. Dysuria, UTI ruled out: UA reported 0 WBC, negative LE and nitrite. RBC 1025 cells. Most likely irritative voiding symptoms. Patient was empirically treated with IV ceftriaxone which is discontinued. Preliminary urine culture reported no growth, confirmed with microbiology lab. 3. Acute kidney injury on CKD stage III: During hospital stay, BUN and creatinine increased with last creatinine 3.07, improved from yesterday. Patient baseline creatinine runs around 2.5-2.7. Was treated with IV fluid normal saline. Patient was advised to follow-up with interventional radiology tech, Dr. Huerta in 1 week. 4. CHF, exact type and etiology unclear but as per patient him he seems right-sided heart failure: He follows during clinic sourcing associate Dr. Alford. Not on diuretic at home. -Continue with his metoprolol and his aspirin. DVT: Xarelto 10 mg daily started for DVT prophylaxis to be continued for about 2 weeks. Discontinue if platelet count drops less than 50,000 or hemoglobin less than 8 g% [] Discharge medication reconciliation done. Discharge follow-up instructions completed. Discharge process discussed with the patient and all questions were answered to patient's satisfaction. Follow-up with BMP in 1 week with interventional radiology tech. Total time spent, exact 35 minutes on discharge meds reconciliation, examination, coordination of care with nurses and ancillary staff, review of imaging and blood test and discussion with the patient on follow-up instructions Objective: Seen and examined. No fever or chills. No tachycardia. UA is negative for pyuria. 10-25 urine RBC. On exam General: Alert, Oriented x3, Cooperative HEENT: Atraumatic, PERRLA, EOMI, Normocephalic Oral: - - Uses oral chewing tobacco Neck: Supple, No JVD, Negative Carotid Bruits Lungs: Clear to auscultation, Normal air movement, No rhonchi, No wheeze, No rales Cardiovascular: Regular rate, Regular Rhythm, Normal S1, Normal S2, No murmurs Abdomen: Bowel Sounds Present, Soft, Non Tender, Non-Distended : No suprapubic or renal angle tenderness. No urine retention Extremities: No edema, Capillary Refill Less than 3 Seconds Skin: No rashes, No breakdown Musculoskeletal: No Tenderness to Palpation of Joints or Extremities, Arthritic Changes Neurological: Cranial nerves II-XII grossly intact, Deep Tendon Reflexes 2+/4 and Symmetrical, Neuro grossly intact, Motor Exam 5/5 strength throughout Psych/Mental Status: Normal Affect, Appropriate - Physical Exam Vitals/I&O's: Vital Signs Temp Pulse Resp BP Pulse Ox 98.1 F 72 18 126/71 H 100 09/20/19 07:41 09/20/19 07:41 09/20/19 07:41 09/20/19 07:41 09/20/19 07:41 Oxygen Delivery Method Room Air Weight: 299 lb 6.204 oz Body Mass Index (BMI) 42.8 Finger Stick Blood Glucose 132 Intake and Output for Last 24 Hours 09/18/19 09/19/19 09/20/19 23:59 23:59 23:59 Intake Total 3185 / 3185 1290 / 1290 2100 / 2100 Balance 3185 / 3185 1290 / 1290 2100 / 2100 Laboratory Results 09/19/19 11:56: POC Glucose 169 H 09/19/19 13:00: Urine Color Yellow, Urine Clarity Clear, Urine pH 5.0, Ur Specific [place] 1.020, Urine Protein 30 H, Urine Glucose (UA) Normal, Urine Ketones Negative, Urine Occult Blood 150 H, Urine Nitrite Negative, Urine Bilirubin Negative, Urine Urobilinogen Normal, Ur Leukocyte Esterase Negative, Urine RBC 10-25 SEEN, Urine WBC 0 SEEN, Ur Squamous Epith Cells 0 SEEN, Urine Bacteria 0 SEEN, Urine Mucus 0 SEEN 09/19/19 16:43: POC Glucose 162 H 09/19/19 21:39: POC Glucose 155 H 09/20/19 05:21: WBC 7.8, RBC 2.98 L, Hgb 8.6 L, Hct 27.2 L, MCV 91.3, MCH 28.9, MCHC 31.6 L, RDW Std Deviation 42.5, RDW Coeff of Ratna 13.0, Plt Count 172, MPV 10.8, Immature Gran % (Auto) 0.100, Neut % (Auto) 58.5, Lymph % (Auto) 26.3, [place] % (Auto) 11.9 H, Eos % (Auto) 2.8, Baso % (Auto) 0.4, Absolute Neuts (auto) 4.6, Absolute Lymphs (auto) 2.05, Nucleated RBC % 0 09/20/19 05:21: Sodium 138, Potassium 4.2, Chloride 109 H, Carbon Dioxide 22.0, Anion Gap 7, BUN 55 H, Creatinine 3.07 H, Estim Creat Clear Calc 30.39, Est GFR (MDRD) Af Amer 28 L, Est GFR (MDRD) Non-Af 23 L, BUN/Creatinine Ratio 17.9, Glucose 155 H, Calcium 8.2 L 09/20/19 06:47: POC Glucose 148 H Current Medications Dextrose (D50w Syringe) 0 gm IV X1 PRN; Protocol PRN Reason: Hypoglycemia Docusate Sodium (Colace) 100 mg PO BID PRN PRN PRN Reason: Constipation Glucagon () 1 mg IM .X1 PRN PRN Reason: Hypoglycemia Sodium Chloride () 1,000 mls @ 75 mls/hr IV .[id number] DILCIA Stop: 09/20/19 11:01 Last Admin: 09/20/19 02:23 Dose: 75 mls/hr Documented by: Ceftriaxone Sodium (Rocephin) 1 gm in 50 mls @ 100 mls/hr IV Q24 [facility] Last Infusion: 09/19/19 13:18 Dose: Infused Documented by: Insulin Glargine (Lantus ([facility])) 24 units SC QHS [facility] Last Admin: 09/19/19 21:40 Dose: 24 u Documented by: Insulin Human Lispro (Humalog Kwikpen ([facility])) 8 unit SC TIDCM [facility] Last Admin: 09/19/19 17:26 Dose: 8 units Documented by: Metoprolol Succinate (Toprol Xl (Beta Flores)) 50 mg PO DAILY@2200 [facility] Last Admin: 09/19/19 21:40 Dose: 50 mg Documented by: Morphine Sulfate () 2 mg IV Q3H PRN PRN PRN Reason: Pain Score 6-10/10 Ondansetron HCl (Zofran) 4 mg IV Q8H PRN PRN PRN Reason: NAUSEA/VOMITING Oxycodone HCl (Oxyir) 5 mg PO Q4H PRN PRN PRN Reason: Pain Score 4-5/10 Last Admin: 09/20/19 07:45 Dose: 5 mg Documented by: Rivaroxaban (Xarelto) 10 mg PO DAILY [facility] Last Admin: 09/19/19 13:22 Dose: 10 mg Documented by: Discharge Diet: Carb Control Diet Discharge Activity: Use Walker - maintain a strict non weightbearing status of the right lower extremity, - - Use knee roller Weight Bearing Status: No weight bearing Keep extremity elevated above heart level: Right Leg Additional Activity Instructions:: elevate leg at least 20 minutes each hour above the level of the heart Call your doctor if your incision/area has: Continuous Slow Oozing, Sudden Increased Bleeding, Increased Pain/ Swelling, Increased Redness, Foul Smelling Discharge, Swelling at the incision site Call your doctor if you observe: Fever of 101 or Higher, Inability to urinate, Inability to have a bowel movement, Shortness of breath, Dizziness, Fainting spells, Swelling in the ankles, Chest pain, Prolonged hiccoughing, Increased palpitations (irregular heartbeat), Calf discomfort, Uncontrolled pain Cleanse incision/area with: Keep Dressing Clean & Dry Home Medications: Medications to take at Discharge Aspirin E.C. [Ecotrin] 81 mg PO DAILY@0800 08/14/18 Atorvastatin Calcium [Lipitor] 40 mg PO QHS 08/14/18 Insulin Glargine,Hum.rec.anlog [Basaglar Kwikpen U-100] 24 unit SQ QHS 02/11/19 Metoprolol Succinate 50 mg PO DAILY 02/11/19 Rivaroxaban [Xarelto] 10 mg PO DAILY 14 Days #14 tab 09/19/19 Insulin Lispro [Humalog KwikPen] 8 unit SUBCUT TIDCM insuln.pen 09/20/19 Following Prescrptions Were Given to Patient: Rivaroxaban [Xarelto] 10 mg PO DAILY 14 Days #14 tab Transmission Status: Received by [facility]/pharmacy #[id number] Primary Care Physician: BERENICE HOOD [Other] Please Follow Up With: Marian Street DPM When: [facility] Call [phone] Additional Instructions: Use a shower bag during bathing activities. This is available at the [facility] and also some local pharmacies. A prescription for a knee roller and walker has been provided. Medical Necessity - Tobacco Use Smoking Status: Never smoker Tobacco Use: Chew Meaningful Use Info Meaningful Use Diagnoses (Choose all that apply): None applicable Inpatient E&M: 13979 Disch Hosp
[2019-09-20 13:13] VITALS: BP 134/83; PULSE 77; RESP 18; TEMP 37; O2SAT 100
[2019-09-20 14:25] VITALS: BP 134/83; PULSE 77; RESP 18; TEMP 37; O2SAT 100
--- NOTE | 2019-09-20 23:05 | DS.PCM_ITS ---
Discharge Date and Diagnosis Date of Admission: 09/18/19 Date of Discharge: 09/20/19 - Primary Discharge Diagnosis Acute Problems: chronic right foot ulcer foot deformities (hammer toes and metatarsal deformities) delayed healing right foot ulcer - Secondary Discharge Diagnosis Chronic Problems: Chronic Problems (Last Updated 09/18/19 @ 09:[address] Marian [address], [facility]) Diabetic foot ulcer associated with type 2 diabetes mellitus (Chronic) Right lateral plantar. Type 2 diabetes mellitus (Chronic) Diabetic neuropathy (Chronic) Ulcer of right foot with fat layer exposed (Chronic) Delayed wound healing (Chronic) Malnutrition (Chronic) Hammer toe of right foot (Chronic) Venous insufficiency (Chronic) Localized edema (Chronic) Type 2 diabetes mellitus with diabetic polyneuropathy (Chronic) Osteitis (Chronic) Ulcer of right foot with necrosis of muscle (Chronic) Hospital Course and Treatment Imaging Results: 09-18-2019) post operative right foot xrays (ap, lateral, oblique): no acute fr acture or dislocation noted. there is status post transmetatarsal amputation with adequate resection and maintained parabola. No retained foreign body or acute injuries noted. Hospitalist was consulted for medical management. Operations: - - right transmetatarsal amputation Summary of Care Provided: The patient is a 43 year old M admitted post operative right transmetatarsal amputation. He has significant past medical history of diabetes mellitus type 2, chronic right-sided heart failure, chronic kidney disease (stage III), hypertension, obesity, h/o of anemia. He is stable post operative and will follow up [facility] for continued [facility] care. He was able to successfully maintain a non weightbearing status and was discharged with a walker and knee roller prescription. His pain is controlled and he has pronounced neuropathy. He was not discharged on pain medication. During his hospital admission he was also treated for dysuria. He was treated with IV fluids and ceftriaxone. He has an acute on chronic kidney disease which remained stable while in house. He will follow up with supply chain assistant after discharge. He also has CHF and will follow up with his lead presser after follow up as well. DVT prophylaxis with xarelto was recommended after surgery. - Physical Exam Vitals/I&O's: Vital Signs Temp Pulse Resp BP Pulse Ox 98.6 F 77 18 134/83 H 100 09/20/19 14:25 09/20/19 14:25 09/20/19 14:25 09/20/19 14:25 09/20/19 14:25 Oxygen Delivery Method Room Air Weight: 135.8 kg Body Mass Index (BMI) 42.8 Finger Stick Blood Glucose 132 Intake and Output for Last 24 Hours 09/18/19 09/19/19 09/20/19 23:59 23:59 23:59 Intake Total 3185 / 3185 1290 / 1290 3311.25 / 3311.25 Balance 3185 / 3185 1290 / 1290 3311.25 / 3311.25 General: Alert, Oriented x3, Cooperative HEENT: Atraumatic Lungs: Clear to auscultation Cardiovascular: Regular rate, Regular Rhythm Abdomen: Non Tender Extremities: Capillary Refill Less than 3 Seconds, No Calf Tenderness, Edema, - - right transmetatarsal amputation in splint in rectus position maintained Skin: Ulcer/ Wound - dressing intact. no infection or strikethrough Musculoskeletal: No Tenderness to Palpation of Joints or Extremities Neurological: - - lack of epicritic sensation Psych/Mental Status: Normal Affect, Appropriate Microbiology Past 72 Hours 09/19/19 13:00 Urine, Random Urine Culture - Preliminary Culture exhibits no growth. Laboratory Results 09/20/19 05:21: WBC 7.8, RBC 2.98 L, Hgb 8.6 L, Hct 27.2 L, MCV 91.3, MCH 28.9, MCHC 31.6 L, RDW Std Deviation 42.5, RDW Coeff of Ratna 13.0, Plt Count 172, MPV 10.8, Immature Gran % (Auto) 0.100, Neut % (Auto) 58.5, Lymph % (Auto) 26.3, [place] % (Auto) 11.9 H, Eos % (Auto) 2.8, Baso % (Auto) 0.4, Absolute Neuts (auto) 4.6, Absolute Lymphs (auto) 2.05, Nucleated RBC % 0 09/20/19 05:21: Sodium 138, Potassium 4.2, Chloride 109 H, Carbon Dioxide 22.0, Anion Gap 7, BUN 55 H, Creatinine 3.07 H, Estim Creat Clear Calc 30.39, Est GFR (MDRD) Af Amer 28 L, Est GFR (MDRD) Non-Af 23 L, BUN/Creatinine Ratio 17.9, Glucose 155 H, Calcium 8.2 L 09/20/19 06:47: POC Glucose 148 H 09/20/19 11:15: POC Glucose 116 H Discharge Diet: Carb Control Diet Discharge Activity: Use Walker - maintain a strict non weightbearing status of the right lower extremity, - - Use knee roller Weight Bearing Status: No weight bearing Keep extremity elevated above heart level: Right Leg Additional Activity Instructions:: elevate leg at least 20 minutes each hour above the level of the heart Call your doctor if your incision/area has: Continuous Slow Oozing, Sudden Increased Bleeding, Increased Pain/ Swelling, Increased Redness, Foul Smelling Discharge, Swelling at the incision site Call your doctor if you observe: Fever of 101 or Higher, Inability to urinate, I nability to have a bowel movement, Shortness of breath, Dizziness, Fainting spells, Swelling in the ankles, Chest pain, Prolonged hiccoughing, Increased palpitations (irregular heartbeat), Calf discomfort, Uncontrolled pain Cleanse incision/area with: Keep Dressing Clean & Dry Home Medications: Medications to take at Discharge Aspirin E.C. [Ecotrin] 81 mg PO DAILY@0800 08/14/18 Atorvastatin Calcium [Lipitor] 40 mg PO QHS 08/14/18 Insulin Glargine,Hum.rec.anlog [Basaglar Kwikpen U-100] 24 unit SQ QHS 02/11/19 Metoprolol Succinate 50 mg PO DAILY 02/11/19 Rivaroxaban [Xarelto] 10 mg PO DAILY 14 Days #14 tab 09/19/19 Insulin Lispro [Humalog KwikPen] 8 unit SUBCUT TIDCM insuln.pen 09/20/19 Following Prescrptions Were Given to Patient: Rivaroxaban [Xarelto] 10 mg PO DAILY 14 Days #14 tab Transmission Status: Received by [facility]/pharmacy #[id number] Primary Care Physician: BERENICE HOOD [Other] Please Follow Up With: Marian Street DPM When: [facility] week [facility]. Call [phone] Additional Instructions: Use a shower bag during bathing activities. This is available at the [facility] and also some local pharmacies. A prescription for a knee roller and walker has been provided. Disposition: Home Patient Condition:: Good Medical Necessity - Tobacco Use Smoking Status: Never smoker Tobacco Use: Chew Meaningful Use Info Meaningful Use Diagnoses (Choose all that apply): None applicable
== END 2019-09-20 14:30 | disposition home or self-care (01) | DRG 305 ==
LOC: MS3 09-19 07:17 → SDC 09-21 09:53
PROVIDERS: Anesthesiology; Admitting Provider Podiatrist; Referring Provider Podiatrist; Visit Provider Internal Medicine
PROC: 0Y6M0Z9 Detachment at Right Foot, Partial 1st Ray, Open Approach (ICD-10-PCS; CPT 28805; principal; 2019-09-18 07:15)
DX: E11.621 Type 2 diabetes mellitus with foot ulcer (principal); L97.512 Non-pressure chronic ulcer of other part of right foot with fat layer exposed; M86.8X7 Other osteomyelitis, ankle and foot; M20.42 Other hammer toe(s) (acquired), left foot; M20.41 Other hammer toe(s) (acquired), right foot; E11.22 Type 2 diabetes mellitus with diabetic chronic kidney disease; E11.42 Type 2 diabetes mellitus with diabetic polyneuropathy; E66.01 Morbid (severe) obesity due to excess calories; I13.0 Hypertensive heart and chronic kidney disease with heart failure and stage 1 through stage 4 chronic kidney disease, or unspecified chronic kidney disease; N18.3 Chronic kidney disease, stage 3 (moderate); I50.812 Chronic right heart failure; J45.909 Unspecified asthma, uncomplicated; Z68.41 Body mass index [BMI] 40.0-44.9, adult; Z79.4 Long term (current) use of insulin; Z79.82 Long term (current) use of aspirin; E46 Unspecified protein-calorie malnutrition; I87.2 Venous insufficiency (chronic) (peripheral); R30.0 Dysuria; E11.319 Type 2 diabetes mellitus with unspecified diabetic retinopathy without macular edema; R60.0 Localized edema
CPT/HCPCS: 36415; 73630; 80048; 80053; 81001; 82962; 85025; 87086; 87635; 88304; 88305; 88311; 97110; 97116; 97162; 97165; 97530; 99212; 99251; 99406; J7030; J7120; G0463; J2405; U0003

== ENCOUNTER 2023-04-22 11:08 | Day surgery (SDC) | payer MEDICARE, MEDICAID, SELFPAY ==
[2023-04-19 06:50] VITALS: BMI 42.5
[2023-04-22 11:40] LABS: Hematocrit 33.7 % (40-54); Hemoglobin 10.5 g/dL (13.0-16.5); Mean Corp Hgb Conc 31.2 g/dL (32-36); Mean Corpuscular Hgb 28.7 pg (27.0-32.0); Mean Corpuscular Volume 92.1 fL (80-94); Mean Platelet Vol. 10.1 fl (6.2-12.0); Platelet Count 177 K/mm3 (150-450); RBC Distribution Width CV 13.1 % (11.6-14.6); RBC Distribution Width SD 43.8 fl (35.1-43.9); Red Blood Count 3.66 M/mm3 (4.6-6.2); White Blood Count 6.7 K/mm3 (4.4-11.0)
--- NOTE | 2023-04-22 11:57 | HP.PCM_ITS ---
History and Physical Date of Admission: 04/22/23 Visit Reasons: FISTULOGRAM Chief Complaint: fistulogram Cook Seafood Required: No Is patient in pain?: No Allergies No Known Allergies Allergy (Verified 04/18/23 12:42) Medications aspirin 81 mg tablet,delayed release 81 mg PO DAILY@0800 08/14/18 [History Confirmed 04/18/23] atorvastatin 40 mg tablet 40 mg PO QHS 08/14/18 [History Confirmed 04/18/23] insulin glargine 100 unit/mL (3 mL) subcutaneous pen 24 unit SQ QHS diabetes 02/11/19 [History Confirmed 04/18/23] metoprolol succinate 50 mg tablet,extended release 24 hr 50 mg PO DAILY htn 02/11/19 [History Confirmed 04/18/23] insulin lispro 100 unit/mL subcutaneous pen 8 unit (0.08 mL) subcut TIDCM 09/20/19 [Rx Confirmed 04/18/23] [facility] Medical History Asthma Chronic kidney disease (CKD) Congestive heart failure (CHF) Hypertension Left bundle branch block (LBBB) Type 2 diabetes mellitus with diabetic polyneuropathy Social History (Updated 04/18/23 @ 12:41 by Jamila Jacobs LPN) Smoking Status: Never smoker alcohol intake: current alcohol intake frequency: holidays/special occasions only substance use type: does not use HPI HPI HPI: 47-year-old gentleman is being referred from the [facility] [place] for [facility] for surgical consultation for potential fistulogram. A written compromise surgical consult and recommendations will be returned to them. Referring nurse is Seun Rivera RN. Records provided states that on November 26, 2019 Dr. Tomas Ybarra at [facility] created a left forearm radiocephalic arteriovenous hemodialysis fistula for this patient. The patient states he is only been utilizing the fistula for the past 3 weeks. There has been episodes of infiltration. ROS Endo Endocrine: Yes diabetes mellitus Cardio Cardiovascular: Yes high blood pressure Gastro Gastrointestinal: Yes diarrhea Junior Hematologic: Yes blood thinners Additional Details: 81 mg aspirin Exam Const General: cooperative, comfortable and no acute distress Eyes General: appearance normal, both eyes and all related structures Chest Chest palpation & inspection: normal inspection of the chest Resp Effort & Inspection: normal respiratory effort Auscultation: clear to auscultation bilaterally Cardio Rate: regular rate Rhythm: regular rhythm GI Inspection: normal to inspection Extrem Other: Left upper extremity demonstrates a radiocephalic AV fistula. There is evidence of additional venous distention. It has a strong pulse thrill and bruit. Ultrasound inspection suggests some flapping at the arterial anastomosis. Perhaps some slight stenosis. There are 2 dominant side branches of the distal forearm in addition and 1 more proximally. Dressing is in place left foot not disturbed Assessment and Plan Assessment and Plan (1) Problem with dialysis access: Status: Acute Qualifiers: Encounter type: initial encounter Qualified Code(s): T82.898A - Other specified complication of vascular prosthetic devices, implants and grafts, initial encounter Plan: I recommend 2 things to the patient. I recommend a left forearm fistulogram access and close to the antecubital space retrograde with flow into this being a possible degree of arterial stenosis. At that same setting might proceed with coiling of side branches. If that does not appear to be efficacious then we will already have him scheduled in the office on a procedure today to do sidebranch ligation. He has had an opportunity to ask and have questions answered. I appreciate the opportunity of assisting with the surgical care. Copy: VIRGILIO Marquez M.D., F.A.C.S. I have examined the patient and the H&P has been reviewed. There are no clinical changes since date of exam. Daniel Larson M.D., F.A.C.S.
[2023-04-22 11:58] LABS: Anion Gap 7 (5-15); BUN 53 mg/dL (7-18); BUN/Creat Ratio 7.3 RATIO (10-20); Calcium,Total 7.6 mg/dL (8.5-10.1); Chloride 102 mmol/L (98-107); Creatinine, Serum 7.28 mg/dL (0.70-1.30); EST Glomerular Filtration Rate 9 mL/min (>60); Est Glom Filt Rate - Afr Amer 10 mL/min (>60); Estimated Creatinine Clearance 15.94 ml/min; Glucose 159 mg/dL (74-106); Potassium 3.8 mmol/L (3.5-5.1); Sodium Level 140 mmol/L (136-145)
--- NOTE | 2023-04-22 13:22 | OP.PCM_ITS ---
Report of Operation Date of Procedure: 04/22/23 Pre-Operative Diagnosis: Non functioning left forearm radiocephalic arterioveno us hemodialysis fistula Post-Operative Diagnosis: 80% left forearm radiocephalic arterial fistula anastomotic stenosis Copious left forearm cephalic vein ancillary branch runoff Surgery/Procedure Performed:: Left upper extremity fistulogram with 6 x 2 conquest anastomotic angioplasty and Ankita coil placement: 6 x 7 and 6 x 7 and 4 x 7 Description of Surgical Findings:: Timeout informed consent was obtained. 47-year-old female was taken to special procedures lab placed on the table the left upper extremity sterilely prepped draped ultrasound was used to identify the cephalic vein close to the antecubital space under ultrasound guidance 2% lidocaine was instilled as a local anesthetic micropuncture needle inserted micropuncture wire inserted 6 Pashto short sheath dilator is inserted using 035 and Glidewire a 4 Pashto Kumpe catheter was inserted into the radial artery using Isovue contrast a fistulogram was obtained this demonstrated 80% arterial anastomotic stenosis there was slight degree of stenosis within the curved swing portion of the vein then there was extensive collateral branch flow. Images were obtained of the entire arm demonstrating good upper arm and central venous outflow. It is of note that the patient did receive 50 mcg of fentanyl and 2 mg of Versed as an physician at the start of the procedure. I placed a 6 x 2 conquest balloon over the Glidewire and balloon angioplasty was performed of the anastomotic area and swing portion of the vein. Several different insufflations up to 35 brittni of pressure was performed. Completion imaging demonstrated dramatic improvement. I then used the 5 Pashto Kumpe catheter to gain access to a sidebranch and placed to of the 6 x 7 Ankita coils and one 4 x 7 Ankita coil. Due to the acute angulation the delivery Kumpe catheter was backed out. I elected not to place further coils. I did temporarily access an additional sidebranch but secondary to the acute angulation I did not feel comfortable attempting to coil it from this retrograde approach. It would have a better approach if I had antegrade and I did not want to separately access them at this time. He tolerated procedure well. The fistula has an absolutely wonderful pulse and thrill at the completion no apparent complication blood loss was minimal Images demonstrate a left forearm radiocephalic arteriovenous hemodialysis fistula. There is 80% stenosis at the arterial anastomosis with at least moderate stenosis of the swing segment of the vein. Both of these appeared resolved subsequent angioplasty. There was a major sidebranch with significant collateral outflow which was improved by the coil placement but not completely thrombosed at the completion of the procedure. Because the delivery catheter had backed itself out I have elected not to further attempt coiling. If need be we will consider sidebranch ligation in the office under local anesthetic and ultrasound guidance Specimens none. Drains none. Blood loss minimal. Daniel Larson M.D., F.A.C.S. Surgeon: Daniel Larson Type of Anesthesia: IV Sedation and Local
== END 2023-04-22 14:15 | disposition home or self-care (01) ==
LOC: CLSP 11:12
PROVIDERS: PCP Nurse Practitioner Family; Referring Provider Nurse Practitioner Family; Visit Provider Surgery
DX: T82.898A Other specified complication of vascular prosthetic devices, implants and grafts, initial encounter (principal); I13.0 Hypertensive heart and chronic kidney disease with heart failure and stage 1 through stage 4 chronic kidney disease, or unspecified chronic kidney disease; I50.9 Heart failure, unspecified; E11.22 Type 2 diabetes mellitus with diabetic chronic kidney disease; E11.42 Type 2 diabetes mellitus with diabetic polyneuropathy; N18.9 Chronic kidney disease, unspecified; Z79.82 Long term (current) use of aspirin; Y82.9 Unspecified medical devices associated with adverse incidents
CPT/HCPCS: 36415; 36902; 36909; 76937; 80048; 85027; 99152; 99153; C1769; Q9967; C1725